=== PATIENT | male | born 1980 | race Caucasian/White ===

== ENCOUNTER 2021-12-06 01:06 | Day surgery (SDC) | payer OTHER, SELFPAY ==
[2021-11-23 14:06] VITALS: BMI 31.1
--- NOTE | 2021-12-05 14:53 | PM.HPGS ---
History of Present Illness History of Present Illness Consent: Risks, benefits, and alternatives have been discussed and questions answered. Patient agrees to proceed with procedure. Chief complaint: dysphagia, foreign body Narrative: Josef Putnam is a 41 year old male Who has been having difficulty swallowing for about 1 year. Review of Systems Review of Systems: All systems reviewed & are unremarkable except as noted in HPI and below PMFSH Social History Social History Smoking status: Never smoker Alcohol intake: current Drinks per week: 5 Substance use: never Substance use type: does not use Living arrangements: with family Gender identity (if verbalized by the patient): Male Spiritual care concerns: No Meds Home Medications and Allergies Home Medications Medication Instructions Recorded Confirmed Type omeprazole 20 mg tablet,delayed 20 mg PO DAILY 11/23/21 12/06/21 History release Allergies Allergy/AdvReac Type Severity Reaction Status Date / Time Penicillins Allergy Unknown Rash Verified 12/06/21 08:33 Exam Const: General: alert Orientation/consciousness: patient oriented x3 Resp: Auscultation: clear to auscultation bilaterally Cardio: Rhythm: regular rhythm GI: GI Palp: Yes Soft to palpation and No Tenderness to palpation present (GI) Neuro: General: patient oriented x3 Assessment and Plan Assessment and plan (1) Dysphagia: Code(s): R13.10 - Dysphagia, unspecified Status: Acute Assessment and Plan: EGD with possible biopsy or dilatation or cautery.
[2021-12-06 08:35] VITALS: BP 136/97; PULSE 74; RESP 16; TEMP 36.3; O2SAT 98; BMI 31.1
[2021-12-06] MEDS: LACTATED RINGERS 1,000 ML 150 ML IV CONT (08:44)
--- NOTE | 2021-12-06 09:22 | WPDANESEPPF ---
Anes - Initial Pre Proc Eval Procedure: Operation Date: 12/06/21 09:45 Proposed Procedures p Esophagogastroduodenoscopy EGD - Du Franco MD Date/Time: 12/06/21 09:22 Surgeon: Du Franco MD Pre Op Diagnosis: dysphagia, foreign body Patient Data Age: 41 Gender: M Height: 1.73 m Weight: 92.8 kg Last Vital Signs Temp 97.3 F L 12/06/21 08:35 Pulse 74 12/06/21 08:35 Resp 16 12/06/21 08:35 BP 136/97 H 12/06/21 08:35 Pulse Ox 98 12/06/21 08:35 O2 Del Method Room Air 12/06/21 08:35 Allergies Allergy/AdvReac Type Severity Reaction Status Date / Time Penicillins Allergy Unknown Rash Verified 12/06/21 08:33 Home Medications Medication Instructions Recorded Confirmed Type omeprazole 20 mg tablet,delayed 20 mg PO DAILY 11/23/21 12/06/21 History release Patient hx anesthesia problems: none Family hx anesthesia problems: none Results Review: All pre-operative results and documents have been reviewed as part of the pre-operative evaluation. [facility] Social History Social History Smoking status: Never smoker Alcohol intake: current Drinks per week: 5 Substance use: never Substance use type: does not use Living arrangements: with family Gender identity (if verbalized by the patient): Male Spiritual care concerns: No Anes - Eval Final PreProcedure Day of Procedure 12/06/21 09:22 Patient weight: overweight Heart: regular rate and rhythm Lungs: clear to auscultation Airway: Mallampati scale class II Neurological: alert and oriented Last oral intake: >/= 8 hours ASA classification: II Emergent: no Anesthetic plan: proceed Anesthesia type and monitoring: general GIVS and standard monitoring Results Review: All pre-operative results and documents have been reviewed as part of the pre-operative evaluation. Informed Consent: The patient's anesthetic plan and its attendant risks and benefits were discussed with the patient/family/POA. Questions were solicited and answers provided to the satisfaction of the patient/family/POA.
[2021-12-06 09:51] VITALS: BP 150/82; PULSE 88; RESP 20; O2SAT 96
[2021-12-06 10:01] VITALS: BP 130/94; PULSE 85; RESP 19; O2SAT 95
[2021-12-06 10:11] VITALS: BP 135/95; PULSE 85; RESP 19; O2SAT 96
== END 2021-12-06 10:20 | disposition home or self-care (01) ==
PROVIDERS: PCP Family Medicine; Visit Provider Internal Medicine Gastroenterology
PROC: 0DJ08ZZ Inspection of Upper Intestinal Tract, Via Natural or Artificial Opening Endoscopic (ICD-10-PCS; CPT 43235; principal; 2021-12-06 09:45)
DX: K22.2 Esophageal obstruction (principal); K20.0 Eosinophilic esophagitis
CPT/HCPCS: 43249; 88305; C1726; J2704; J7120

== ENCOUNTER 2022-03-22 01:47 | Day surgery (SDC) | payer OTHER, SELFPAY ==
[2022-03-05 15:07] VITALS: BMI 32.8
--- NOTE | 2022-03-21 09:54 | P.PNAN_ITS ---
Anes - Initial Pre Proc Eval Procedure: Operation Date: 03/22/22 10:15 Proposed Procedures p Esophagogastroduodenoscopy - Du Franco MD Date/Time: 03/21/22 09:54 Surgeon: Du Franco MD Pre Op Diagnosis: dysphagia Patient Data Age: 41 Gender: M Height: 1.73 m Weight: 97.8 kg Allergies Allergy/AdvReac Type Severity Reaction Status Date / Time Penicillins Allergy Unknown Rash Verified 03/22/22 09:16 Home Medications Medication Instructions Recorded Confirmed Type omeprazole 40 mg capsule,delayed 40 mg PO DAILY #90 caps 12/08/21 03/22/22 Rx release Patient hx anesthesia problems: none Family hx anesthesia problems: none Results Review: All pre-operative results and documents have been reviewed as part of the pre- operative evaluation. [facility] Past Medical History Medical History (Updated 03/21/22 @ 09:55 by Tulio Montiel DO) Eosinophilic esophagitis GERD (gastroesophageal reflux disease) Social History Social History Smoking status: Never smoker Alcohol intake: current Drinks per week: 5 Substance use: never Substance use type: does not use Living arrangements: with family Occupation/Education: occupation Gender identity (if verbalized by the patient): Male Spiritual care concerns: No Anes - Eval Final PreProcedure Day of Procedure 03/21/22 09:54 Patient weight: obese Heart: regular rate and rhythm Lungs: clear to auscultation Airway: Mallampati scale class II Neurological: alert and oriented Last oral intake: >/= 8 hours ASA classification: II Emergent: no Anesthetic plan: proceed Anesthesia type and monitoring: general GIVS and standard monitoring Results Review: All pre-operative results and documents have been reviewed as part of the pre- operative evaluation. Informed Consent: The patient's anesthetic plan and its attendant risks and benefits were discussed with the patient/family/POA. Questions were solicited and answers provided to the satisfaction of the patient/family/POA.
--- NOTE | 2022-03-21 15:15 | PM.HPGS ---
History of Present Illness History of Present Illness Consent: Risks, benefits, and alternatives have been discussed and questions answered. Patient agrees to proceed with procedure. Chief complaint: dysphagia Narrative: Josef Putnam is a 41 year old male who has had difficulty swallowing for least 1 year.? 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 I was able to dilated up to 18 mm. Biopsies of both the proximal and distal esophagus revealed increased number of eosinophils.? There were 28 per HPF in the distal esophagus and 17 proximally. since his last procedure he has had no episodes of food getting stuck. Review of Systems Review of Systems: All systems reviewed & are unremarkable except as noted in HPI and below PMFSH Past Medical History Medical History Eosinophilic esophagitis GERD (gastroesophageal reflux disease) Social History Social History Smoking status: Never smoker Alcohol intake: current Drinks per week: 5 Substance use: never Substance use type: does not use Living arrangements: with family Occupation/Education: occupation Gender identity (if verbalized by the patient): Male Spiritual care concerns: No Meds Home Medications and Allergies Home Medications Medication Instructions Recorded Confirmed Type omeprazole 40 mg capsule,delayed 40 mg PO DAILY #90 caps 12/08/21 03/22/22 Rx release Allergies Allergy/AdvReac Type Severity Reaction Status Date / Time Penicillins Allergy Unknown Rash Verified 03/22/22 09:16 Exam Const: General: alert Orientation/consciousness: patient oriented x3 Resp: Auscultation: clear to auscultation bilaterally Cardio: Rhythm: regular rhythm GI: GI Palp: Yes Soft to palpation and No Tenderness to palpation present (GI) Neuro: General: patient oriented x3 Assessment and Plan Assessment and plan (1) Eosinophilic esophagitis: Code(s): K20.0 - Eosinophilic esophagitis Status: Acute Assessment and Plan: EGD with possible biopsy or dilatation or cautery.
[2022-03-22 09:17] VITALS: BP 115/82; PULSE 92; RESP 20; TEMP 36.1; O2SAT 97; BMI 32.6
[2022-03-22] MEDS: LACTATED RINGERS 1,000 ML 150 ML IV CONT (09:24)
[2022-03-22 10:22] VITALS: BP 117/98; PULSE 106; RESP 20; O2SAT 100
[2022-03-22 10:32] VITALS: BP 124/86; PULSE 90; RESP 20; O2SAT 100
[2022-03-22 10:42] VITALS: BP 137/92; PULSE 79; RESP 20; O2SAT 100
--- NOTE | 2022-03-22 10:53 | SUR.PHASEII ---
Patient ride home will not be here until 4110.
== END 2022-03-22 11:16 | disposition home or self-care (01) ==
PROVIDERS: PCP Family Medicine; Visit Provider Internal Medicine Gastroenterology
PROC: 0DJ08ZZ Inspection of Upper Intestinal Tract, Via Natural or Artificial Opening Endoscopic (ICD-10-PCS; CPT 43235; principal; 2022-03-22 10:15)
DX: K20.0 Eosinophilic esophagitis (principal); K22.2 Esophageal obstruction; K21.9 Gastro-esophageal reflux disease without esophagitis; E66.9 Obesity, unspecified; Z68.32 Body mass index [BMI] 32.0-32.9, adult
CPT/HCPCS: 43249; 88305; J2704; J7120

== ENCOUNTER 2022-12-27 09:45 | Outpatient (CLI) | payer OTHER, SELFPAY ==
--- NOTE | 2022-12-27 09:48 | EST_ITS ---
Patient Info Name: Josef Putnam Age: 42 years : 1980 Gender: Male Ht: 68 in Wt: 210 lbs BSA: 2.17 m2 HR: 74 bpm BP: 136 / 96 mmHg Heart Rhythm: Sinus Rhythm Exam Date: 12/27/2022 10:02 AM Exam Location: Echo Lab Patient Status: Outpatient Admit Date: 12/27/2022 Staff Ordering Physician: Allison Rodriguez PA-C Attending Provider: Allison Rodriguez PA-C Exercise Technologist: Damaris Lopes CT Exercise Physician: Niko Talbert DO Exam Type: CA stress test treadmill Study Info Indications R06.09 - Other forms of dyspnea A treadmill exercise stress test was performed. Summary 1. 1. Negative Mario Alberto exercise stress test for ischemic ST changes by ECG criteria. 2. 2. Good functional capacity, achieving 10 METs of workload. 3. 3. Appropriate HR response to exercise. 4. 4. Appropriate HR recovery at 1 minute post exercise. 5. 5. No imaging with stress testing. 6. 6. Patient informed of the above results. Protocol: Mario Alberto Stress ECG Details Stage: REST Duration (min): 2 min : 45 sec Speed (mph): 0.0 Grade (%): 0 HR (bpm): 84 SBP (mmHg): 136 DBP (mmHg): 96 METS: --- Stage: REST Duration (min): 4 min : 54 sec Speed (mph): 0.0 Grade (%): 0 HR (bpm): 80 SBP (mmHg): 136 DBP (mmHg): 96 METS: --- Stage: STAGE 1 Duration (min): 1 min : 0 sec Speed (mph): 1.7 Grade (%): 10 HR (bpm): 115 SBP (mmHg): 136 DBP (mmHg): 96 METS: --- Stage: STAGE 1 Duration (min): 2 min : 0 sec Speed (mph): 1.7 Grade (%): 10 HR (bpm): 120 SBP (mmHg): 136 DBP (mmHg): 96 METS: --- Stage: STAGE 1 Duration (min): 3 min : 0 sec Speed (mph): 1.7 Grade (%): 10 HR (bpm): 126 SBP (mmHg): 183 DBP (mmHg): 86 METS: --- Stage: STAGE 2 Duration (min): 1 min : 0 sec Speed (mph): 2.5 Grade (%): 12 HR (bpm): 134 SBP (mmHg): 183 DBP (mmHg): 86 METS: --- Stage: STAGE 2 Duration (min): 2 min : 0 sec Speed (mph): 2.5 Grade (%): 12 HR (bpm): 140 SBP (mmHg): 180 DBP (mmHg): 88 METS: --- Stage: STAGE 2 Duration (min): 3 min : 0 sec Speed (mph): 2.5 Grade (%): 12 HR (bpm): 144 SBP (mmHg): 180 DBP (mmHg): 88 METS: --- Stage: STAGE 3 Duration (min): 1 min : 0 sec Speed (mph): 3.4 Grade (%): 14 HR (bpm): 159 SBP (mmHg): 194 DBP (mmHg): 83 METS: --- Stage: STAGE 3 Duration (min): 2 min : 0 sec Speed (mph): 3.4 Grade (%): 14 HR (bpm): 169 SBP (mmHg): 194 DBP (mmHg): 83 METS: --- Stage: STAGE 3 Duration (min): 2 min : 0 sec Speed (mph): 3.4 Grade (%): 14 HR (bpm): 169 SBP (mmHg): 194 DBP (mmHg): 83 METS: --- Stage: RECOVERY Duration (min): 0 min : 59 sec Speed (mph): 0.0 Grade (%): 0 HR (bpm): 145 SBP (mmHg): 169 DBP (mmHg): 82 METS: --- Stage: RECOVERY Duration (min): 1 min : 59 sec Speed (mph): 0.0 Grade (%): 0 HR (bpm): 126 SBP (mmHg): 169 DBP (mmHg):
== END 2022-12-27 09:46 | disposition home or self-care (01) ==
PROVIDERS: PCP Family Medicine; Visit Provider Physician Assistant Medical
DX: R06.02 Shortness of breath (principal); R06.09 Other forms of dyspnea
CPT/HCPCS: 93017

== ENCOUNTER 2023-04-08 12:21 | Outpatient (CLI) | payer OTHER, SELFPAY ==
--- NOTE | ~2023-04-08 | US_ITS ---
EXAMINATION: US soft tissue lower back DATE: 04/08/2023 12:57 INDICATION: Localized swelling, mass and lump, trunk. TECHNIQUE: Multiple grayscale and Doppler ultrasound images of the lower back were obtained. COMPARISON: None FINDINGS: There is a 4.9 x 4.8 x 1.4 cm subcutaneous mass in the mid back that is mildly hyperechoic to normal subcutaneous fat. No internal vascularity on color Doppler. IMPRESSION: 1. 4.9 cm subcutaneous mass in the mid back, most likely a lipoma. Reviewed, dictated and finalized at location E. [employer]
== END 2023-04-08 12:22 | disposition home or self-care (01) ==
PROVIDERS: PCP Family Medicine; Visit Provider Physician Assistant
DX: R22.2 Localized swelling, mass and lump, trunk (principal)
CPT/HCPCS: 76705

== ENCOUNTER 2023-08-12 08:33 | Outpatient (CLI) | payer OTHER, SELFPAY ==
--- NOTE | ~2023-08-12 | MR_ITS ---
EXAMINATION: MR brain/brain stem wo/w con DATE: 08/12/2023 09:21 INDICATION: Anesthesia of skin. TECHNIQUE: Magnetic resonance imaging (MRI) of the brain and brainstem was performed without and with 19 mL MultiHance intravenous contrast. COMPARISON: None. FINDINGS: There is no intracranial hemorrhage, acute infarction, or abnormal intracranial mass lesion . The ventricles are normal in size. There is mucosal thickening in the paranasal sinuses. The orbits are normal. The mastoid air cells are normal. IMPRESSION: 1. Normal brain. Reviewed, dictated and finalized at location A. IMPRESSION: 1. Normal brain.
== END 2023-08-12 08:34 ==
PROVIDERS: PCP Family Medicine; Visit Provider Physician Assistant
DX: R20.0 Anesthesia of skin (principal)
CPT/HCPCS: 70553; A9577

== ENCOUNTER 2023-08-26 07:51 | Outpatient (NON) | payer OTHER, SELFPAY | END 2023-08-26 07:52 | disposition home or self-care (01) | LOC: ANHLAB 08-27 07:54 | PROVIDERS: PCP Family Medicine; Visit Provider Internal Medicine Gastroenterology | DX: D64.9 Anemia, unspecified (principal); D12.5 Benign neoplasm of sigmoid colon | CPT/HCPCS: 88305 ==

== ENCOUNTER 2023-08-26 08:06 | Day surgery (SDC) | payer OTHER, SELFPAY ==
[2023-08-05 13:28] VITALS: BMI 31.6
[2023-08-11 13:01] VITALS: BMI 32.0
[2023-08-26 09:15] VITALS: BP 126/96; PULSE 105; RESP 20; TEMP 35.9; O2SAT 100; BMI 31.2
[2023-08-26] MEDS: LACTATED RINGERS 1,000 ML 150 ML IV CONT (09:24)
--- NOTE | 2023-08-26 09:42 | P.PNAN_ITS ---
Anes - Initial Pre Proc Eval Procedure: Operation Date: 08/26/23 10:30 Proposed Procedures p Diagnostic Colonoscopy - Du Franco MD Date/Time: 08/26/23 09:42 Surgeon: Du Franco MD Pre Op Diagnosis: Anemia,unspecified. Hemorrhage of anus and Patient Data Age: 42 Gender: M Height: 1.73 m Weight: 93.3 kg Last Vital Signs Temp 35.9 C L 08/26/23 09:15 Pulse 105 H 08/26/23 09:15 Resp 20 08/26/23 09:15 BP 126/96 H 08/26/23 09:15 Pulse Ox 100 08/26/23 09:15 O2 Del Method Room Air 08/26/23 09:15 Allergies Allergy/AdvReac Type Severity Reaction Status Date / Time losartan Allergy Mild Rash Verified 08/26/23 09:12 Penicillins Allergy Unknown Rash Verified 08/26/23 09:12 Home Medications Medication Instructions Recorded Confirmed Type amlodipine 5 mg tablet 5 mg PO DAILY #30 tabs 07/11/23 08/26/23 Rx omeprazole 40 mg capsule,delayed 40 mg PO DAILY 08/11/23 08/26/23 History release Patient hx anesthesia problems: none Family hx anesthesia problems: none Results Review: All pre-operative results and documents have been reviewed as part of the pre- operative evaluation. [facility] Past Medical History Medical History (Updated 08/26/23 @ 09:42 by Joey Zaldivar MD) Eosinophilic esophagitis GERD (gastroesophageal reflux disease) Hypertension Social History Social History Social History: Smoking status: Never smoker Second hand tobacco smoke exposure: No Alcohol intake: current Drinks per week: 10 Substance use: never Substance use type: does not use Do You Feel Safe in your Home?: Yes Lack of Transportation: No Lack of Food: Never True Current Housing: I Have Housing Concerned About Future Housing: No Difficulty Paying Gas/Electric Bills: No Difficulty Paying for Meds: No Currently Unemployed: No Education: Don't Know Difficulty w/ Childcare or Family Care: No Living arrangements: with family Occupation/Education: occupation Gender identity (if verbalized by the patient): Male Sexual Orientation (if Verbalized by the Patient): Straight or Heterosexual Spiritual care concerns: No Anes - Eval Final PreProcedure Day of Procedure 08/26/23 09:42 Patient weight: overweight Heart: regular rate and rhythm Lungs: clear to auscultation Airway: Mallampati scale class II Neurological: alert and oriented Last oral intake: >/= 8 hours ASA classification: II Emergent: no Anesthetic plan: proceed Anesthesia type and monitoring: general GIVS and standard monitoring Results Review: All pre-operative results and documents have been reviewed as part of the pre- operative evaluation. Informed Consent: The patient's anesthetic plan and its attendant risks and benefits were discussed with the patient/family/POA. Questions were solicited and answers provided to the satisfaction of the patient/family/POA.
--- NOTE | 2023-08-26 09:45 | PM.HPGS ---
History of Present Illness History of Present Illness Consent: Risks, benefits, and alternatives have been discussed and questions answered. Patient agrees to proceed with procedure. Chief complaint: Anemia,unspecified. Hemorrhage of anus and Narrative: Josef Putnam is a 42 year old male referred for colonoscopy due to the finding of anemia. Review of Systems Review of Systems: All systems reviewed & are unremarkable except as noted in HPI and below PMFSH Past Medical History Medical History Eosinophilic esophagitis GERD (gastroesophageal reflux disease) Hypertension Social History Social History Social History: Smoking status: Never smoker Second hand tobacco smoke exposure: No Alcohol intake: current Drinks per week: 10 Substance use: never Substance use type: does not use Do You Feel Safe in your Home?: Yes Lack of Transportation: No Lack of Food: Never True Current Housing: I Have Housing Concerned About Future Housing: No Difficulty Paying Gas/Electric Bills: No Difficulty Paying for Meds: No Currently Unemployed: No Education: Don't Know Difficulty w/ Childcare or Family Care: No Living arrangements: with family Occupation/Education: occupation Gender identity (if verbalized by the patient): Male Sexual Orientation (if Verbalized by the Patient): Straight or Heterosexual Spiritual care concerns: No Meds Home Medications and Allergies Home Medications Medication Instructions Recorded Confirmed Type amlodipine 5 mg tablet 5 mg PO DAILY #30 tabs 07/11/23 08/26/23 Rx omeprazole 40 mg capsule,delayed 40 mg PO DAILY 08/11/23 08/26/23 History release Allergies Allergy/AdvReac Type Severity Reaction Status Date / Time losartan Allergy Mild Rash Verified 08/26/23 09:12 Penicillins Allergy Unknown Rash Verified 08/26/23 09:12 Vital Signs Vital Signs - 24 hr 08/26/23 09:15 Temperature 35.9 C L Pulse Rate 105 H Respiratory Rate 20 Blood Pressure 126/96 H Pulse Oximetry 100 Oxygen Delivery Room Air Exam Const: General: alert Orientation/consciousness: patient oriented x3 Resp: Auscultation: clear to auscultation bilaterally Cardio: Rhythm: regular rhythm GI: GI Palp: Yes Soft to palpation and No Tenderness to palpation present (GI) Neuro: General: patient oriented x3 Assessment and Plan Assessment and plan (1) Anemia: Code(s): D64.9 - Anemia, unspecified Status: Acute Assessment and Plan: Colonoscopy with possible biopsy or polypectomy or cautery or injection of substances.
[2023-08-26 10:44] VITALS: BP 123/90; PULSE 94; RESP 20; O2SAT 100
[2023-08-26 10:54] VITALS: BP 129/93; PULSE 79; RESP 20; O2SAT 100
--- NOTE | 2023-08-26 11:00 | WPDANESPN ---
Anes - Prog Note Post-Op Date/Time: 08/26/23 11:00 Cardiovascular status: normal Respiratory status: normal Airway patency: baseline Mental status: baseline Post-Op hydration status: normal Vital Signs: Last Vital Signs Temp 35.9 C L 08/26/23 09:15 Pulse 79 08/26/23 10:54 Resp 20 08/26/23 10:54 BP 129/93 H 08/26/23 10:54 Pulse Ox 100 08/26/23 10:54 O2 Del Method Room Air 08/26/23 10:54 Pain Score (VAS): 0/10 I/O: Intake & Output 08/25/23 08/26/23 08/26/23 23:59 07:59 15:59 Intake Total 600 Balance 600 Patient Feedback: Patient satisfied with anesthetic care.
[2023-08-26 11:04] VITALS: BP 126/98; PULSE 75; RESP 20; O2SAT 100
== END 2023-08-26 11:15 | disposition home or self-care (01) ==
PROVIDERS: PCP Family Medicine; Visit Provider Internal Medicine Gastroenterology
PROC: 0DJD8ZZ Inspection of Lower Intestinal Tract, Via Natural or Artificial Opening Endoscopic (ICD-10-PCS; CPT 45378; principal; 2023-08-26 10:30)
DX: D64.9 Anemia, unspecified (principal); K92.1 Melena; D12.5 Benign neoplasm of sigmoid colon
CPT/HCPCS: 45385; 45381

== ENCOUNTER 2023-09-26 09:54 | Outpatient (CLI) | payer OTHER, SELFPAY ==
--- NOTE | 2023-09-26 10:45 | ECG_ITS ---
Test Date: 2023-09-26 10:58:40 Measurements Intervals [place] Rate: 60 P: 22 OR: 184 QRS: 6 QRSD: 106 T: 1 QT: 380 QTc: 380 Interpretive Statements SINUS RHYTHM BORDERLINE VOLTAGE EVIDENCE OF LVH BORDERLINE ECG No previous ECG available for comparison Electronically Signed On 09-26-2023 15:02:50 CDT by Yasmany Benitez M.D.
[2023-09-26 11:17] LABS: Basophils Absolute Auto 0.1 K/mm3 (0.0-0.1); Eosinophils Absolute Auto 0.3 K/mm3 (0-0.3); Eosinophils Percent Auto 4.5 % (0-4.4); Hematocrit 41.3 % (42.0-52.0); Hemoglobin 13.1 g/dL (14.0-18.0); Immature Granulocyte Absolute 0.05 K/mm3 (0.00-0.031); Immature Granulocyte Percent A 0.8 % (0-0.5); Lymphocytes Absolute Auto 1.41 K/mm3 (0.9-3.2); Lymphocytes Percent Auto 23.5 % (18.3-44.2); Mean Corpuscular HGB Conc 31.7 g/dl (32-36); Mean Corpuscular Hemoglobin 26.1 pg (26-34); Mean Corpuscular Volume 82.3 fl (80-100); Mean Platelet Volume 10.8 fl (7.4-10.4); Monocytes Absolute Auto 0.7 K/mm3 (0.1-0.6); Monocytes Percent Auto 11.3 % (2.6-8.5); Neutrophils Absolute Auto 3.5 K/mm3 (1.3-6.7); Neutrophils Percent Auto 58.9 % (45.5-73.1); Platelet Count Result 242 k/mm3 (150-375); Red Blood Count 5.02 M/mm3 (4.6-6.20); Red Cell Distribution Width 15.6 % (11.5-14.5)
[2023-09-26 12:11] LABS: Anion Gap 11 mmol/L (4-12); Blood Urea Nitrogen 17 mg/dL (9-20); Calcium 9.7 mg/dL (8.4-10.2); Carbon Dioxide 27 mmol/L (22-30); Chloride 99 mmol/L (98-107); Estimated Glomerular Filt Rate > 60; Glucose 101 mg/dL (65-110); Potassium 4.3 mmol/L (3.4-5.0); Sodium 137 mmol/L (137-145)
== END 2023-09-26 09:55 | disposition home or self-care (01) ==
PROVIDERS: PCP Family Medicine; Visit Provider Surgery
DX: K63.5 Polyp of colon (principal); R94.31 Abnormal electrocardiogram [ECG] [EKG]
CPT/HCPCS: 36415; 80048; 82378; 85025; 86850; 86900; 86901; 93005

== ENCOUNTER 2023-10-08 16:17 | Inpatient (IN) | payer OTHER, SELFPAY ==
[2023-09-26 10:15] VITALS: BP 137/91; PULSE 70; RESP 16; TEMP 36.7; O2SAT 98; BMI 32.2
--- NOTE | 2023-09-26 10:29 | PC.NURSE ---
Report to the Outpatient Waiting Room, entrance under the green pavilion located off [facility], at time __7:00AM on date __10/08/23 . Planned Procedure Time: __9:00AM . Time changes happen often and if your time is changed the preop area will call you the afternoon before. - You and your visitor will be asked to self-screen and do not enter if you have any COVID symptoms. - A mask is optional within the hospital at this time. COMPLETE BOWEL PREP ON DAY BEFORE SURGERY(CLEAR LIQUIDS)Patients may have clear liquids (water, carbonated beverages, clear teas, apple juice) until 3 hours prior to surgery with a maximum of 20 ounces. TAKE ANTIBIOTICS DIRECTED O DAY BEFORE SURGERY. Take the following medications with a SIP of water the morning of surgery: ___AMLODIPINE DO NOT STOP ANY OF YOUR OTHER PRESCRIPTION MEDICATIONS PRIOR TO SURGERY ?EXCEPT THE FOLLOWING Medications to discontinue per physician ____NONE Date to take last dose Please no make-up, nail kinyarwanda, hairspray, perfume, deodorant, or body powder the day of surgery. No jewelry (including any body piercings) or valuables the day of surgery, leave them at home. Please take a shower or bath the night before, or the morning of, surgery with an antibacterial soap. Wear comfortable, loose fitting clothing. - Jewelry must be removed prior to entering the operating room. Rings and piercings that are not removed may be cut off. - The hospital will not accept responsibility for valuables. - Please leave all valuables, including medications, at home the day of surgery. If you are going home after surgery, a licensed haul driver must drive you home. - NO public transportation without another adult if you receive anesthesia. - We recommend that an adult stay with you for 24 hours following discharge. - We also recommend that you do not drive, make important decision, drink alcoholic beverages, or take any drugs that were not prescribed by your health care provider for at least 24 hours after your discharge time. Follow any additional instructions given to you from your surgeon. HIBIC[employer] SHOWER DAY BEFORE AND MORNING OF SURGERY. ENSURE BUNDLE PER DR THOMAS. If you or anyone in your household have experienced Covid symptoms in the past week, please notify your surgeon or the nurse liaison at the phone number below for possible testing. Telephone instructions given to ____PATIENT and asked if any additional questions and then verbalized understanding. Patient advised to call surgeon office or pre surgery nurse liaison [phone] if any additional questions.
[2023-10-08] VITALS (13 sets, daily range): BP systolic 108–134; BP diastolic 61–93; PULSE 77–104; RESP 14–33; TEMP 36.1–37.3; O2SAT 91–100
--- NOTE | ~2023-10-08 | XR_ITS ---
XR chest 1V portable Ordering provider: Sun Yoo MD History: 43 years Male with . tachycardia . Comparison: None. FINDINGS: MEDIASTINUM: The cardiac silhouette is not enlarged. LUNGS: No pneumonia, effusions or pneumothorax. Prominent markings are seen bilaterally more prominen t in the left lung base. OTHER: No free air under the diaphragm. IMPRESSION: Prominent markings bilaterally more in the left lung base. Otherwise, no definite cardiopulmonary pat hology. Reviewed, dictated and finalized at location A. IMPRESSION: Prominent markings bilaterally more in the left lung base. Otherwise, no defini te cardiopulmonary pathology.
--- NOTE | ~2023-10-08 | CT_ITS ---
EXAMINATION: CT abdomen pelvis w con DATE: 10/13/2023 14:52 INDICATION: Nausea and diarrhea. TECHNIQUE: Computed tomography (CT) of the abdomen and pelvis was performed with 100 mL Omnipaque-350 intravenous contrast. Automated exposure control and iterative reconstruction technique were employe d. The dose-length product was 1089.98 mGy-cm. COMPARISON: None FINDINGS: Discoid atelectasis in the left lower lobe. Small left pleural effusion. Heart size is normal. No per icardial effusion. Small sliding type hernia. 8 mm cyst in the left hepatic lobe. Gallbladder, spleen , pancreas, bilateral adrenal glands and right kidney are normal. 1.5 severe eccentric cyst at the lo wer pole of the left kidney. There is fluid throughout the large and small bowel consistent with prov ided history of diarrhea. No bowel obstruction. Normal appendix. There is a small amount of scattered free intraperitoneal gas and fluid in the abdomen and pelvis and soft tissue gas and edema in the ab dominal wall consistent with recent surgery. This includes a 8.3 x 5.9 cm gas and fluid collection wi thin the small bowel mesentery in the left upper quadrant. All are without well-defined peripherally enhancing nicolas to suggest organized abscesses. Bladder is normal. No pathologically enlarged abdomin al or pelvic lymphadenopathy. Mild thoracic spondylosis. IMPRESSION: 1. Scattered gas and fluid throughout the abdomen and pelvis consistent with recent bowel surgery. No organized abscess. 2. Fluid throughout nondilated large and small bowel consistent with diarrhea. No bowel obstruction. 3. Small left pleural effusion and mild discoid atelectasis in the left lower lobe. Reviewed, dictated and finalized at location A. IMPRESSION: 1. Scattered gas and fluid throughout the abdomen and pelvis consistent with re cent bowel surgery. No organized abscess. 2. Fluid throughout nondilated large and small bowel consistent with diarrhea. No bowel obstruction. 3. Small left pleural effusion and mild discoid atelectasis in the left lower l obe.
--- NOTE | ~2023-10-08 | XR_ITS ---
EXAMINATION: XR enema water soluble DATE: 10/14/2023 10:25 INDICATION: Status post resection TECHNIQUE: A jewelry inspector radiograph was obtained. A catheter was inserted into the patient's rectum. Water- soluble contrast was infused by gravity. Fluoroscopic spot images and conventional radiographs were o btained. Fluoroscopy exposure time was 0.4 minutes. A total of 20 fluoroscopic images and 2 overhead radiographs were obtained. Total DAP was 28.486 Gycm^2. COMPARISON: CT dated 10/13/2023 FINDINGS: There is a likely anastomotic arises near the level of the iliac crests to contrast extends cephalad along the left paracolic gutter into the left upper quadrant. Contrast extends to the distal tip of t he cecum with contrast fills grossly normal appendix. There is reflux of a small amount of contrast i n the distal ileum. No fixed stricture/obstruction. IMPRESSION: 1. Likely anastomotic extraluminal contrast leak along the distal descending colon. Reviewed, dictated and finalized at location A. IMPRESSION: 1. Likely anastomotic extraluminal contrast leak along the distal descending co bita.
--- NOTE | ~2023-10-08 | XR_ITS ---
XR abdomen/kub 1V Ordering provider: Sun Yoo MD History: . post op colectomy . Comparison: None. FINDINGS: BOWEL: Nonobstructive bowel gas pattern. ORGANOMEGALY: None. SIGNIFICANT PATHOLOGIC CALCIFICATIONS: None. OTHER: No free air is seen under the diaphragm. IMPRESSION: NO ACUTE ABDOMINAL FINDINGS. Reviewed, dictated and finalized at location A.
--- NOTE | ~2023-10-08 | CT_ITS ---
EXAMINATION: CT abdomen pelvis w con DATE: 10/22/2023 11:37 INDICATION: Abdominal abscess. TECHNIQUE: Computed tomography (CT) of the abdomen and pelvis was performed with 100 mL Omnipaque 350 intravenous contrast. Automated exposure control and iterative reconstruction technique were employe d. The dose-length product was 623.54 mGy-cm. COMPARISON: CT abdomen and pelvis 10/19/2023 FINDINGS: The visualized portions of the lung bases demonstrate mild atelectasis. No pleural effusion . The heart size is normal. No pericardial effusion. There is a 9 mm cyst in the liver. The gallbladd er, spleen, pancreas, adrenal glands, and right kidney are normal. There is a 14 mm hemorrhagic cyst in left kidney. The appendix is normal. There are no dilated loops of bowel. There is no significant fluid around the superior left abdominal drain. There is a 3.6 x 3.3 x 2.3 cm abscess in left abdomen . There is an 8.7 x 3.7 x 5.0 cm abscess in left abdomen with percutaneous drain in expected position . There is a 3.8 x 3.7 x 2.0 cm abscess in the inferior peritoneum. There is free intraperitoneal gas and gas in the body wall, consistent with recent surgery. There are no pathologically enlarged lymph nodes. There is mild thoracic and lumbar spondylosis. IMPRESSION: 1. Three abscesses in the abdomen, stable from 10/19/23. Percutaneous drain in the largest abscess. 2. No significant fluid around the left superior abdominal drain. Reviewed, dictated and finalized at location A. IMPRESSION: 1. Three abscesses in the abdomen, stable from 10/19/23. Percutaneous drain in th e largest abscess. 2. No significant fluid around the left superior abdominal drain.
--- NOTE | ~2023-10-08 | CT_ITS ---
EXAMINATION: CT guide absc cath placement, CT guide absc cath placement DATE: 10/16/2023 15:07 (accession [id number]), 10/16/2023 15:56 (accession [id number]) INDICATION: Anastomotic bowel leak with intra-abdominal abscesses TECHNIQUE: The procedure including the risks and benefits was discussed with the patient. Risks discu ssed included bleeding and infection. The patient understood the risks and benefits and agreed to pro ceed. The patient was confirmed to be receiving appropriate antibiotic coverage. Conscious sedation w as provided with 100 mcg fentanyl IV. The skin overlying the left upper quadrant and left lower quadr ant of the abdomen was prepped and draped in usual sterile fashion. Attention was first turned to th e left upper quadrant gas and fluid collection. Anesthetic was administered with 1% lidocaine subcuta neously. An 18-gauge trochar needle was inserted into the left upper quadrant peritoneal gas and flui d collection utilizing CT guidance. The inner trocar was removed and a J-wire advanced into the fluid collection with position confirmed by CT. Utilizing Seldinger technique the needle was removed over the wire, the tract serially dilated to 10 Faroese and a A 10 Fr catheter was inserted over the wire i nto the gas and fluid collection. Position was confirmed by CT and then the pigtail tip was formed an d locked and the metal stiffener and wire were removed. The catheter was stitched to the skin with faith ture. Antibiotic ointment, a sterile dressing and an additional adhesive fixation device were applied . Attention was then turned to the left lower quadrant gas and fluid collection. Anesthetic was adminis tered with 1% lidocaine subcutaneous fluid. Utilizing CT guidance and identical Seldinger technique a 10 Fr catheter was placed in the left lower quadrant gas and fluid collection. Following confirmatio n of positioning by CT the pigtail tip was formed and locked. The catheter was stitched to the skin w ith suture. Antibiotic ointment, a sterile dressing and an additional adhesive fixation device were a pplied. Fluid was collected from both fluid collections and sent to the lab for Gram stain and cultures. Both catheters were attached to suction drainage and were draining additional fluid at the conclusion of the procedure. There were no immediate complications. The dose-length product 3-D combined procedures was 280.60 (accession [id number]), 0.00 (accession [id number]) mGy-cm. FINDINGS: CT images demonstrate the first catheter within the left upper quadrant gas and fluid colle ction and the second catheter within the left lower quadrant gas and fluid collection. 50 mL fluid wa s aspirated for testing from the left upper quadrant collection. An additional 40 mL of fluid was asp irated for testing from the left lower quadrant collection. IMPRESSION: 1. Successful CT-guided left upper quadrant abscess drainage catheter placement. 2. Successful CT-guided left lower quadrant abscess drainage catheter placement. 3. 50 mL fluid was sent for aerobic and anaerobic cultures from the left upper quadrant fluid collect ion and 40 mL fluid was sent for aerobic and anaerobic cultures from the left lower quadrant fluid co llection. 3. The catheter will be managed by Dr. Truong. Reviewed, dictated and finalized at location A. IMPRESSION: 1. Successful CT-guided left upper quadrant abscess drainage catheter placement . 2. Successful CT-guided left lower quadrant abscess drainage catheter placement . 3. 50 mL fluid was sent for aerobic and anaerobic cultures from the left upper quadrant fluid collection and 40 mL fluid was sent for aerobic and anaerobic cu ltures from the left lower quadrant fluid collection. 3. The catheter will be managed by Dr. Truong.
--- NOTE | ~2023-10-08 | CT_ITS ---
EXAMINATION: CT abdomen pelvis w con DATE: 10/16/2023 08:46 INDICATION: Left flank erythema. Descending colon anastomotic leak. TECHNIQUE: Computed tomography (CT) of the abdomen and pelvis was performed with 100 mL Omnipaque-350 intravenous contrast. Automated exposure control and iterative reconstruction technique were employe d. The dose-length product was 1158.58 mGy-cm. COMPARISON: None FINDINGS: Mild discoid atelectasis in the left lower lobe. Heart size is normal. No pericardial or pleural effu ruben. Distal tip of a central venous catheter at the superior cavoatrial junction. Liver, gallbladder , spleen, pancreas, bilateral adrenal glands and kidneys are normal. Fluid scattered throughout the l arge and small bowel consistent with diarrhea. There is scattered free intraperitoneal gas and fluid. This includes a crescentic collection underlying the anterior abdominal wall in the left lower quadr ant measuring 15 x 5 cm which appears to arise from the anastomosis at the junction of the descending and sigmoid colon as well as a second collection amongst the small bowel in the left upper quadrant which measures up to 11.5 x 10.0 cm. There are a few additional scattered small collections of gas or fluid throughout the abdomen and pelvis. No more organized abscesses with rim-enhancing nicolas. There is persistent diffuse abdominal wall edema with scattered gas in the left abdominal wall. Bladder is normal. No pathologically enlarged abdominal or pelvic lymphadenopathy. Mild thoracic spondylosis. IMPRESSION: 1. Interval increase in size of a couple gas and fluid collections in the left upper and lower quadra nts resulting from an anastomotic leak at the junction of the descending and sigmoid colon as demonst rated on a prior water-soluble enema. 2. Fluid throughout nondilated large and small bowel consistent with diarrhea. No bowel obstruction. Reviewed, dictated and finalized at location A. IMPRESSION: 1. Interval increase in size of a couple gas and fluid collections in the left upper and lower quadrants resulting from an anastomotic leak at the junction of the descending and sigmoid colon as demonstrated on a prior water-soluble enem a. 2. Fluid throughout nondilated large and small bowel consistent with diarrhea. No bowel obstruction.
--- NOTE | ~2023-10-08 | CT_ITS ---
Non-contrast CT scan of the Abdomen and Pelvis Clinical indication: Anastomotic leak Technique: 2.5 mm axial scans were obtained through the abdomen and pelvis without intravenous or or al contrast. Dose reduction technique was used on this scan by utilizing automated exposure control a nd iterative reconstruction technique. The dose-length product (DLP) was 974.13 mGy-cm. COMPARISON: 10/16/2023 Findings: Images through the lung bases reveal no abnormalities. There is no evidence of renal or ureteral calculi. The kidneys and the ureters are nondilated. The liver, spleen, pancreas, gallbladder, and adrenals appear normal. There is no aortic aneurysm. There is no evidence of bowel obstruction. Extensive inflammatory change in the left abdomen are agai n present. 2 percutaneous drainage catheters now present in the left abdomen. The 2 dominant fluid co llections seen on prior exam are markedly decreased in size. There are several additional scattered s mall fluid collections in the left abdomen which persist. Small amount of pneumoperitoneum present. T here is soft tissue gas along the anterior abdominal wall. Images through the pelvis were performed. There is no evidence of ascites or lymphadenopathy. Urinary bladder unremarkable. No pelvic mass seen. Impression: Status post interval percutaneous drainage of 2 largest collections the left abdomen since prior exam , both which are markedly decreased. Several additional small collections the left abdomen persists. Extensive inflammatory changes in the left abdomen are similar to prior exam. Small amount of pneumoperitoneum could be postoperative/postprocedural, versus reflect persistent bow el perforation or leak. Reviewed, dictated and finalized at [facility]. Impression: Status post interval percutaneous drainage of 2 largest collections the left ab domen since prior exam, both which are markedly decreased. Several additional s mall collections the left abdomen persists. Extensive inflammatory changes in the left abdomen are similar to prior exam. Small amount of pneumoperitoneum could be postoperative/postprocedural, versus reflect persistent bowel perforation or leak.
--- NOTE | ~2023-10-08 | XR_ITS ---
EXAMINATION: XR chest 1V portable DATE: 10/15/2023 21:02 INDICATION: Shortness of breath. TECHNIQUE: A single frontal view of the chest was obtained. COMPARISON: Chest 2 views 10/14/2023, CT abdomen and pelvis 10/13/2023 FINDINGS: There is no pneumonia, pleural effusion, or pneumothorax. There is free intraperitoneal gas , consistent with recent surgery. The heart size is normal. A right upper extremity peripherally inse rted central venous catheter (PICC) is seen with tip at the superior cavoatrial junction. IMPRESSION: 1. No acute cardiopulmonary disease. Reviewed, dictated and finalized at location A.
--- NOTE | ~2023-10-08 | XR_ITS ---
Clinical Indication: Fever, leukocytosis, recent surgery PA and lateral views of the chest: Comparison: 10/10/2023 Findings: The lungs are clear, without evidence of focal consolidation or pleural effusion. Cardiome diastinal silhouette is within normal limits. Small left pneumoperitoneum noted. Osseous structures a re intact. Impression: Small amount of pneumoperitoneum, presumably postoperative in nature given history of recent surgery. Correlate clinically for any possibility of bowel perforation. Clear lungs. Reviewed, dictated and finalized at location . Impression: Small amount of pneumoperitoneum, presumably postoperative in nature given hist ory of recent surgery. Correlate clinically for any possibility of bowel perfor ation. Clear lungs.
--- NOTE | ~2023-10-08 | XR_ITS ---
EXAMINATION: XR abdomen/kub 1V DATE: 10/12/2023 INDICATION: Nausea and vomiting. TECHNIQUE: A supine view of the abdomen was obtained. COMPARISON: Abdomen radiograph 10/10/2023 FINDINGS: There are no dilated loops of bowel. There are phleboliths in the pelvis. IMPRESSION: 1. Normal bowel gas pattern. Reviewed, dictated and finalized at location A.
[2023-10-08] MEDS: LACTATED RINGERS 1,000 ML 30 ML IV CONT ×2 (07:30→14:23)
--- NOTE | 2023-10-08 07:48 | WPDHPUPDATE1 ---
History and Physical Update Update Date/Time: 10/08/23 07:48 History and Physical has been reviewed, including an updated exam of the patient. There are NO changes in the patient's condition. Risks, benefits, and alternatives have been discussed and questions answered. Patient agrees to proceed with procedure.
[2023-10-08] MEDS: ALVIMOPAN 12 MG CAPSULE PO (08:00)
[2023-10-08] MEDS: ACETAMINOPHEN 500 MG TABLET 1000 MG PO (08:03)
[2023-10-08] MEDS: KETOROLAC 15 MG/ML VIAL (*BKC) IV PUSH (08:03)
--- NOTE | 2023-10-08 08:53 | WPDANESEPPF ---
Anes - Initial Pre Proc Eval Procedure: Operation Date: 10/08/23 09:00 Proposed Procedures p Hand Assisted Laparoscopic Left Colectomy - Mir Truong MD Date/Time: 10/08/23 08:53 Surgeon: Mir Truong MD Pre Op Diagnosis: Lt Sigmoid Colon Polyp Patient Data Age: 43 Gender: M Height: 1.73 m Weight: 95 kg Last Vital Signs Temp 97.6 F 10/08/23 07:00 Pulse 77 10/08/23 07:00 Resp 18 10/08/23 07:00 BP 129/85 10/08/23 07:00 Pulse Ox 100 10/08/23 07:00 O2 Del Method Room Air 10/08/23 07:00 Allergies Allergy/AdvReac Type Severity Reaction Status Date / Time losartan Allergy Mild Rash Verified 10/08/23 08:18 Penicillins Allergy Unknown Rash Verified 10/08/23 08:18 Home Medications Medication Instructions Recorded Confirmed Type amlodipine 5 mg tablet 5 mg PO DAILY #30 tabs 07/11/23 10/08/23 Rx omeprazole 40 mg capsule,delayed 40 mg PO DAILY #30 caps 09/03/23 10/08/23 Rx release ciprofloxacin HCl 500 mg tablet 500 mg PO .COMPLEX #1 tablet 09/15/23 10/08/23 Rx metronidazole 500 mg tablet 500 mg PO .COMPLEX #3 tabs 09/15/23 10/08/23 Rx Patient hx anesthesia problems: none Family hx anesthesia problems: none Results Review: All pre-operative results and documents have been reviewed as part of the pre-operative evaluation. [facility] Past Medical History Medical History (Updated 09/15/23 @ 10:29 by Aleyda Gordillo MA) Eosinophilic esophagitis GERD (gastroesophageal reflux disease) Hypertension Surgical History Surgical History (Updated 09/15/23 @ 09:20 by DELPHINE Sena) Hx of colonoscopy 08/26/23 Family History Family History (Updated 09/15/23 @ 09:21 by DELPHINE Sena) Grandparent Cancer Social History Social History (Updated 09/15/23 @ 09:21 by DELPHINE Sena) Social History: Smoking status: Never smoker Second hand tobacco smoke exposure: No Alcohol intake: current Drinks per week: 14 Substance use: never Substance use type: does not use Do You Feel Safe in your Home?: Yes Lack of Transportation: No Lack of Food: Never True Current Housing: I Have Housing Concerned About Future Housing: No Difficulty Paying Gas/Electric Bills: No Difficulty Paying for Meds: No Currently Unemployed: No Education: High School Diploma/GED Difficulty w/ Childcare or Family Care: No Living arrangements: with family Additional living arrangements comments: Occupation/Education: occupation Gender identity (if verbalized by the patient): Male Sexual Orientation (if Verbalized by the Patient): Straight or Heterosexual Spiritual care concerns: No Anes - Eval Final PreProcedure Day of Procedure 10/08/23 08:53 Patient weight: obese Heart: regular rate and rhythm Lungs: clear to auscultation Airway: Mallampati scale class II Neurological: alert and oriented Last oral intake: >/= 8 hours ASA classification: II Emergent: no Anesthetic plan: proceed Anesthesia type and monitoring: general ETT and standard monitoring Results Review: All pre-operative results and documents have been reviewed as part of the pre-operative evaluation. Informed Consent: The patient's anesthetic plan and its attendant risks and benefits were discussed with the patient/family/POA. Questions were solicited and answers provided to the satisfaction of the patient/family/POA.
[2023-10-08] MEDS: ceFAZolin 2 GM/D5W 50 ML 2 GM/50 ML BAG IVPB (09:16)
[2023-10-08] MEDS: metroNIDAZOLE 500 MG/ISO 100ML 500 MG/100 ML BAG 100 MG IVPB (09:16)
[2023-10-08] MEDS: BUPIVACAINE/EPINEPHRINE 0.5% 10 ML VIAL 60 ML INFILTRATE (10:40)
--- NOTE | 2023-10-08 14:40 | W.PM.PROC2 ---
Procedure Note - Detailed Date of Procedure 10/08/23 Pre-op Diagnosis Lt Sigmoid Colon Polyp Post-op Diagnosis Other (Descending colon polyp) Procedure Performed Hand access laparoscopic left colectomy with hand-sewn anastomosis, takedown splenic flexure Surgeon Mir Truong MD Senior Sql Server Database Developer Lata Lawrence RN Anesthesia General and Local Indications Patient had colonoscopy as he was noticing some blood in his stools. Colonoscopy did show a 5 cm polyp in the distal descending more up per sigmoid colon. It was partially removed colonoscopically clean. 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 He was seen in the off office and surgery was recommended. After bowel preparation as an outpatient, he is taken to surgery now for hand access laparoscopic resection of the colon polyp. Findings The tattoo of the polyp was easily seen. It was more in the descending colon and not as close to the sigmoid colon as I had envisioned. The splenic flexure had to be taken down and this was difficult as there were a tremendous number of omental adhesions and epiploic adhesions in the right upper quadrant. Description of Procedure Patient was taken to surgery and induced into general anesthesia. He was placed in lithotomy position with Mike stirrups. He had rectal irrigation and a rectal tube placed. Gaines catheter was placed. The abdomen was prepped and draped. A lower abdominal midline incision just below the umbilicus was made for the hand access port. We dissected through the fascia in the midline and entered the peritoneal cavity. The incision was then extended the length of the wound. The Yao wound guard was then placed. The GelPort was placed. With a hand in the abdomen, a left mid abdominal 10 11 trocar was placed. Insufflation was carried out and a laparoscopic opens then placed. Under direct visualization, a 2nd 10 11 port was placed just to the left of midline above the umbilicus. Another 10 11 port was placed in the right mid abdomen. Patient was placed in Trendelenburg with the left side elevated. The omentum was very large and attached to the left colon. Adhesions of the omentum were taken down and the bulk of the left colon was exposed. The tattooed area the the polyp was easily seen. It was in the distal descending colon but well above the sigmoid colon. Using the LigaSure, I divided the lateral peritoneal attachments to the left colon and mobilized the left colon from the left upper abdomen down through the sigmoid colon. The sigmoid colon was already mobile with minimal attachments or adhesions. We we found the left ureter and it was well out of the way of the tattooed area of descending colon. I then mobilized the left colon on its mesentery. There was not enough proximal left colon to advance to the distal descending upper sigmoid colon for anastomosis. I then placed the patient in reverse Trendelenburg. We retracted the omentum and divided the lateral peritoneal attachments to the upper left colon at and near to the splenic flexure. The spleen was very close by and had omental and epiploic adhesions to it. These were carefully taken down without any splenic injury. The omentum was still densely adherent to the splenic flexure. I had to place an extra 10 11 trocar in the right upper abdomen so that the omentum could be retracted anteriorly and to the patient's right to expose the distal transverse colon and splenic flexure. The LigaSure was then used to free the splenic flexure from omental adhesions. Some blunt hand dissection was used as well to mobilize the splenic flexure. I also mobilized the distal transverse colon. Lateral peritoneal attachments to the splenic flexure and adhesions to the spleen were taken down with the LigaSure without bleeding. Eventually I was able to mobilize the splenic flexure and the distal transverse colon. We had ample descending colon now without having to divide the superior mesenteri
--- NOTE | 2023-10-08 16:15 | ADMGEN ---
This patient, Josef Putnam, was admitted to 3 [facility] Room 303-01. Patient/family oriented to hospital policies and general routines including ID bracelet, bed and alarms, visiting hours, pain management, procedures, bathroom and other care routines, personal items, smoking policy, room service/diet, and visiting hours. Information on how to activate the Rapid Response Team has been discussed. Patient/Family are encouraged to report perceived risks to care and to ask questions if they do not understand what they are told or what they should do.
[2023-10-08] MEDS: LACTATED RINGERS 1,000 ML 80 ML IV CONT (16:50)
[2023-10-08] MEDS: oxyCODONE/ACETAMINOPHEN (*CRX) 5-325 MG TABLET 1 TABLET PO ×2 (16:51→21:04)
[2023-10-08] MEDS: IBUPROFEN IV 800 MG/200 ML 800 MG/200 ML BAG 400 MG IVPB (18:46)
[2023-10-08] MEDS: ENOXAPARIN 30 MG/0.3 ML SYRINGE SUB-Q (19:51)
[2023-10-09 02:02] VITALS: BP 118/69; PULSE 79; RESP 20; TEMP 36.3; O2SAT 94
[2023-10-09 05:36] VITALS: BP 116/71; PULSE 76; RESP 20; TEMP 36.4; O2SAT 97
[2023-10-09] MEDS: LACTATED RINGERS 1,000 ML 80 ML IV CONT (05:40)
[2023-10-09] MEDS: IBUPROFEN IV 800 MG/200 ML 800 MG/200 ML BAG 400 MG IVPB ×2 (06:17→17:20)
[2023-10-09 07:08] LABS: Hematocrit 35.9 % (42.0-52.0); Hemoglobin 10.8 g/dL (14.0-18.0); Mean Corpuscular HGB Conc 30.1 g/dl (32-36); Mean Corpuscular Hemoglobin 24.9 pg (26-34); Mean Corpuscular Volume 82.7 fl (80-100); Mean Platelet Volume 11.2 fl (7.4-10.4); Platelet Count Result 231 k/mm3 (150-375); Red Blood Count 4.34 M/mm3 (4.6-6.20); Red Cell Distribution Width 15.6 % (11.5-14.5); White Blood Count 8.6 K/mm3 (4.5-10.0)
[2023-10-09 07:15] LABS: Anion Gap 6 mmol/L (4-12); Blood Urea Nitrogen 7 mg/dL (9-20); Calcium 8.8 mg/dL (8.4-10.2); Carbon Dioxide 29 mmol/L (22-30); Chloride 104 mmol/L (98-107); Estimated CRCL calculation 85 ml/min; Estimated Glomerular Filt Rate > 60; Glucose 98 mg/dL (65-110); Potassium 3.7 mmol/L (3.4-5.0); Sodium 139 mmol/L (137-145)
[2023-10-09 08:00] VITALS: BP 120/68; PULSE 82; RESP 19; TEMP 36.6; O2SAT 99
[2023-10-09] MEDS: amLODIPine BESYLATE 5 MG TABLET PO (08:17)
[2023-10-09] MEDS: ENOXAPARIN 30 MG/0.3 ML SYRINGE SUB-Q ×2 (08:17→20:05)
[2023-10-09] MEDS: PANTOPRAZOLE 40 MG TABLET PO (08:17)
[2023-10-09] MEDS: oxyCODONE/ACETAMINOPHEN (*CRX) 5-325 MG TABLET 1 TABLET PO ×2 (09:15→20:05)
--- NOTE | 2023-10-09 09:24 | WPDANESPN ---
Anes - Prog Note Post-Op Date/Time: 10/09/23 09:24 Cardiovascular status: normal Respiratory status: normal Airway patency: baseline Mental status: baseline Post-Op hydration status: normal Vital Signs: Last Vital Signs Temp 36.6 C 10/09/23 08:00 Pulse 82 10/09/23 08:00 Resp 19 10/09/23 08:00 BP 120/68 10/09/23 08:00 Pulse Ox 99 10/09/23 08:00 O2 Del Method Room Air 10/08/23 20:00 O2 Flow Rate 8 10/08/23 14:35 Pain Score (VAS): 10 I/O: Intake & Output 10/08/23 10/09/23 10/09/23 23:59 07:59 15:59 Intake Total 680 1800 480 Balance 680 1800 480 Laboratory Tests 10/09/23 06:08 10/09/23 06:08 10/09/23 06:08 WBC 8.6 RBC 4.34 L Hgb 10.8 L Hct 35.9 L MCV 82.7 MCH 24.9 L MCHC 30.1 L RDW 15.6 H Plt Count 231 MPV 11.2 H Sodium 139 Potassium 3.7 Chloride 104 Carbon Dioxide 29 Anion Gap 6 BUN 7 L D Creatinine 1.10 Estim Creat Clear Calc 85 Estimated GFR > 60 Glucose 98 Calcium 8.8 Post-procedural complaints: none Patient Feedback: Patient satisfied with anesthetic care.
[2023-10-09] MEDS: MORPHINE SULFATE (*CRX) 2 MG/ML INJ 1 MG IV PUSH (11:12)
[2023-10-09 12:00] VITALS: BP 112/70; PULSE 76; RESP 18; TEMP 36.7; O2SAT 97
[2023-10-09] MEDS: MORPHINE SULFATE (*CRX) 4 MG/ML INJ 2 MG IV PUSH ×2 (12:54→16:33)
[2023-10-09] MEDS: oxyCODONE/ACETAMINOPHEN (*CRX) 10-325 MG TABLET 1 TAB PO (13:46)
[2023-10-09 13:49] VITALS: BP 135/80; PULSE 98; RESP 19; TEMP 35.9; O2SAT 95
--- NOTE | 2023-10-09 17:06 | PM.PNGS ---
Progress Note: A&P Assessment and Plan (1) Polyp, sigmoid colon: Qualifiers: Colon polyp type: adenomatous Qualified Code(s): D12.5 - Benign neoplasm of sigmoid colon Code(s): K63.5 - Polyp of colon Status: Chronic Assessment and Plan: Looks good postop day 1. Status post laparoscopic left partial colectomy with anastomosis. Up walking today. Recheck labs tomorrow. Continue soft diet for now. (2) Anemia: Qualifiers: Anemia type: iron deficiency Iron deficiency anemia type: chronic blood loss Qualified Code(s): D50.0 - Iron deficiency anemia secondary to blood loss (chronic) Code(s): D64.9 - Anemia, unspecified Status: Chronic Assessment and Plan: H&H lower than preop, probably due to dilutional effects. No evidence of bleeding by exam or vital signs. Subjective Subjective Date/Time Seen: 10/09/23 07:46 Post Op day: 1 Patient reports: still having pain, tolerating a regular diet (Soft diet), voiding w/o difficulty, flatus, no bowel movement and afebrile Exam Const: General: cooperative, comfortable, no acute distress, alert, awake and average body habitus Orientation/consciousness: patient oriented x3 GI: Inspection: Abdominal wall edema, non-distended and incision (All incisions dry and healing well) GI Palp: Yes Soft to palpation, Yes Tenderness to palpation present (GI) (Expected incisional tenderness will mostly lower abdomen), No Guarding due to palpation present (GI) and No Rebound tenderness present Neuro: General: patient oriented x3 and no focal motor deficits Extrem: General: no calf tenderness and no edema Psych: Affect: normal affect Attitude: cooperative Insight: Good insight present (Psych) Judgement: Good judgement present (Psych) Objective Data Vital Signs Vital Signs: Vital Signs - 24 hr 10/08/23 18:02 10/08/23 20:00 10/08/23 21:48 Temperature 36.6 C 36.8 C Pulse Rate 90 78 Respiratory Rate 21 H 20 Blood Pressure 120/76 113/61 Pulse Oximetry 95 94 Oxygen Delivery Room Air 10/09/23 02:02 10/09/23 05:36 10/09/23 08:00 Temperature 36.3 C L 36.4 C L 36.6 C Pulse Rate 79 76 82 Respiratory Rate 20 20 19 Blood Pressure 118/69 116/71 120/68 Pulse Oximetry 94 97 99 Oxygen Delivery 10/09/23 12:00 10/09/23 13:49 Temperature 36.7 C 35.9 C L Pulse Rate 76 98 Respiratory Rate 18 19 Blood Pressure 112/70 135/80 Pulse Oximetry 97 95 Oxygen Delivery Intake/Output Intake/Output: Intake & Output 10/06/23 10/07/23 10/08/23 10/09/23 23:59 23:59 23:59 23:59 Intake Total 1680 2400 Balance 1680 2400 Meds/Results Medications: Active Medications Generic Name Dose Route Start Last Admin Trade Name Freq PRN Reason Stop Dose Admin Acetaminophen 500 mg 10/08/23 16:17 Acetaminophen 500 Mg Tablet PO Q6H PRN Pain Rated 1-3 Alvimopan 12 mg 10/09/23 21:00 Alvimopan 12 Mg Capsule PO 10/16/23 20:59 Q12HR PRECIOUS Amlodipine Besylate 5 mg 10/09/23 09:00 10/09/23 08:17 Amlodipine Besylate 5 Mg Tablet PO 5 mg DAILY PRECIOUS Administration Enoxaparin Sodium 30 mg 10/08/23 21:00 10/09/23 08:17 Enoxaparin 30 Mg/0.3 Ml Syringe SUB-Q 30 mg Q12HR PRECIOUS Administration Lactated Ringer's 1,000 mls @ 80 mls/hr 10/08/23 16:17 10/09/23 05:40 Lr - Lactated Ringers Iv IV CONT 80 mls/hr .[id number] PRECIOUS Administration Ibuprofen 800 mg in 200 mls @ 400 mls/hr 10/08/23 16:17 10/09/23 06:47 Caldolor 800 Mg/200 Ml IVPB Infused Q6H PRN Infusion Breakthrough Pain Rated 1-3 or NPO Morphine Sulfate 1 mg 10/08/23 16:17 10/09/23 11:12 Morphine Sulfate (*Crx) 2 Mg/Ml Inj IV PUSH 1 mg Q2H PRN Administration Breakthrough Pain Rated 4-6 or NPO Morphine Sulfate 2 mg 10/08/23 16:17 10/09/23 16:33 Morphine Sulfate (*Crx) 4 Mg/Ml Inj IV PUSH 2 mg Q2H PRN Administration Breakthrough Pain Rated 7-10 or NPO Naloxone HCl 0.1 mg 10/08/23 16:17
[2023-10-09] MEDS: ALVIMOPAN 12 MG CAPSULE PO (20:05)
[2023-10-09 20:58] VITALS: BP 123/76; PULSE 93; RESP 18; TEMP 36.1; O2SAT 95
[2023-10-10] MEDS: IBUPROFEN IV 800 MG/200 ML 800 MG/200 ML BAG 400 MG IVPB (00:17)
[2023-10-10] MEDS: LACTATED RINGERS 1,000 ML 80 ML IV CONT (03:25)
[2023-10-10] MEDS: oxyCODONE/ACETAMINOPHEN (*CRX) 5-325 MG TABLET 1 TABLET PO (04:15)
[2023-10-10 06:00] VITALS: BP 131/81; PULSE 93; RESP 16; TEMP 36.4; O2SAT 94
[2023-10-10 07:15] LABS: Hematocrit 34.7 % (42.0-52.0); Hemoglobin 10.5 g/dL (14.0-18.0); Mean Corpuscular HGB Conc 30.3 g/dl (32-36); Mean Corpuscular Hemoglobin 25.1 pg (26-34); Mean Platelet Volume 11.7 fl (7.4-10.4); Platelet Count Result 208 k/mm3 (150-375); Red Blood Count 4.18 M/mm3 (4.6-6.20); Red Cell Distribution Width 15.9 % (11.5-14.5)
[2023-10-10 07:34] LABS: Anion Gap 7 mmol/L (4-12); Blood Urea Nitrogen 7 mg/dL (9-20); Carbon Dioxide 30 mmol/L (22-30); Chloride 102 mmol/L (98-107); Estimated CRCL calculation 93 ml/min; Estimated Glomerular Filt Rate > 60; Glucose 103 mg/dL (65-110); Potassium 3.7 mmol/L (3.4-5.0); Sodium 139 mmol/L (137-145)
[2023-10-10] MEDS: ALVIMOPAN 12 MG CAPSULE PO ×2 (07:37→21:49)
[2023-10-10] MEDS: PANTOPRAZOLE 40 MG TABLET PO (07:37)
[2023-10-10] MEDS: oxyCODONE/ACETAMINOPHEN (*CRX) 10-325 MG TABLET 1 TAB PO ×2 (07:37→13:52)
[2023-10-10] MEDS: amLODIPine BESYLATE 5 MG TABLET PO (07:37)
[2023-10-10] MEDS: ENOXAPARIN 30 MG/0.3 ML SYRINGE SUB-Q ×2 (07:43→21:55)
--- NOTE | 2023-10-10 11:01 | PM.PNGS ---
Progress Note: A&P Assessment and Plan (1) Polyp, sigmoid colon: Qualifiers: Colon polyp type: adenomatous Qualified Code(s): D12.5 - Benign neoplasm of sigmoid colon Code(s): K63.5 - Polyp of colon Status: Chronic Assessment and Plan: Had some pain yesterday after twisting to reach for something. This was primarily the source of his pain yesterday. His pain was much better through the night. No bowel movement and not passing any gas. Has been up walking quite a bit already today. White blood cell count a little higher than yesterday at 10,000 today, 8000 yesterday. Will continue in-hospital care another day. Repeat labs and exam again tomorrow. Overall, seems to be doing well. (2) Anemia: Qualifiers: Anemia type: iron deficiency Iron deficiency anemia type: chronic blood loss Qualified Code(s): D50.0 - Iron deficiency anemia secondary to blood loss (chronic) Code(s): D64.9 - Anemia, unspecified Status: Chronic Assessment and Plan: Stable from yesterday (3) Hypertension: Qualifiers: Hypertension type: primary hypertension Qualified Code(s): I10 - Essential (primary) hypertension Code(s): I10 - Essential (primary) hypertension Status: Chronic Subjective Subjective Date/Time Seen: 10/10/23 09:01 Post Op day: 2 Patient reports: still having pain (Took IV ibuprofen and some IV narcotics yesterday for pain.), tolerating a regular diet, no flatus, no bowel movement and afebrile Interval history: Has been up walking in the hallways 6 times already this morning. Review of Systems Review of Systems: All systems reviewed & are unremarkable except as noted in HPI and below (HPI) Exam Const: General: comfortable and no acute distress Orientation/consciousness: patient oriented x3 GI: Inspection: incision (All are dry and healing) and obesity (Abdomen protuberant but not really distended) GI Palp: Yes Firmness to palpation present (GI), Yes Tenderness to palpation present (GI) (Minimal tenderness mostly with lower abdominal incision), No Guarding due to palpation present (GI) and No Rebound tenderness present Neuro: General: patient oriented x3 and no focal motor deficits Extrem: General: no calf tenderness and no edema Psych: Affect: normal affect Insight: Good insight present (Psych) Judgement: Good judgement present (Psych) Objective Data Vital Signs Vital Signs: Vital Signs - 24 hr 10/09/23 12:00 10/09/23 13:49 10/09/23 20:00 Temperature 36.7 C 35.9 C L Pulse Rate 76 98 Respiratory Rate 18 19 Blood Pressure 112/70 135/80 Pulse Oximetry 97 95 Oxygen Delivery Room Air 10/09/23 20:58 10/10/23 06:00 10/10/23 08:00 Temperature 36.1 C L 36.4 C L Pulse Rate 93 93 Respiratory Rate 18 16 Blood Pressure 123/76 131/81 Pulse Oximetry 95 94 Oxygen Delivery Room Air Intake/Output Intake/Output: Intake & Output 10/07/23 10/08/23 10/09/23 10/10/23 23:59 23:59 23:59 23:59 Intake Total 1680 2957 2060 Balance 1680 2957 2060 Meds/Results Medications: Active Medications Generic Name Dose Route Start Last Admin Trade Name Freq PRN Reason Stop Dose Admin Acetaminophen 500 mg 10/08/23 16:17 Acetaminophen 500 Mg Tablet PO Q6H PRN Pain Rated 1-3 Alvimopan 12 mg 10/09/23 21:00 10/10/23 07:37 Alvimopan 12 Mg Capsule PO 10/16/23 20:59 12 mg Q12HR PRECIOUS Administration Amlodipine Besylate 5 mg 10/09/23 09:00 10/10/23 07:37 Amlodipine Besylate 5 Mg Tablet PO 5 mg DAILY PRECIOUS Administration Enoxaparin Sodium 30 mg 10/08/23 21:00 10/10/23 07:43 Enoxaparin 30 Mg/0.3 Ml Syringe SUB-Q 30 mg Q12HR PRECIOUS Administration Ibuprofen 800 mg in 200 mls @ 400 mls/hr 10/08/23 16:17 10/10/23 00:47 Caldolor 800 Mg/200 Ml IVPB Infused Q6H PRN Infusion Breakthrough Pain Rated 1-3 or NPO Morphine Sulfate 1 mg 10/08/23 16:17 10/09/23 11:12 Morphine S
[2023-10-10 13:58] VITALS: BP 138/72; PULSE 112; RESP 16; TEMP 37.9; O2SAT 94
[2023-10-10] MEDS: ACETAMINOPHEN 500 MG TABLET PO (18:15)
--- NOTE | 2023-10-10 20:57 | ECG_ITS ---
Test Date: 2023-10-10 21:16:22 Measurements Intervals [place] Rate: 101 P: 46 FL: 166 QRS: 13 QRSD: 102 T: 23 QT: 305 QTc: 397 Interpretive Statements SINUS TACHYCARDIA INCOMPLETE RIGHT BUNDLE BRANCH BLOCK [90+ ms QRS DURATION, TERMINAL R IN V1/V2, 40+ ms S IN I/aVL/V4/V5/V6] MINIMAL VOLTAGE CRITERIA FOR LVH, CONSIDER NORMAL VARIANT [MEETS CRITERIA IN ONE OF: R(aVL), S(V1), R(V5), R(V5/V6)+S(V1)] INFERIOR MYOCARDIAL INFARCTION , OF INDETERMINATE AGE [40+ ms Q WAVE AND/OR ST/T ABNORMALITY IN II/aVF] Compared to ECG 09/26/2023 10:58:40 Incomplete right bundle-branch block now present Electronically Signed On 10-11-2023 10:35:25 CDT by Vega Ramírez M.D.
[2023-10-10] MEDS: LACTATED RINGERS 500 ML 250 ML IV CONT (21:00)
[2023-10-10 21:24] VITALS: BP 130/74; PULSE 121; RESP 17; TEMP 36.4; O2SAT 93
--- NOTE | 2023-10-10 22:14 | PC.NURSE ---
pt tachycardic since around 2pm today. pt denies pain, nausea, dysuria. pt states he had a small liquid BM this afternoon, is not passing gas, and bowel sounds are hypoactive but present. Exchange called for Dr. Truong, and Dr. Campbell returned the call. EKG and 500mL bolus of LR ordered. EKG taken and results called back to Dr. Campbell, who consulted hospitalist. Dr. Yoo notified, and has ordered chest xray, KUB, telemetry, and labs.
[2023-10-10 22:40] LABS: Basophils Percent Auto 0.4 % (0.2-1.2); Eosinophils Percent Auto 0.2 % (0-4.4); Hematocrit 33.6 % (42.0-52.0); Hemoglobin 10.4 g/dL (14.0-18.0); Immature Granulocyte Absolute 0.09 K/mm3 (0.00-0.031); Immature Granulocyte Percent A 0.8 % (0-0.5); Lymphocytes Absolute Auto 0.92 K/mm3 (0.9-3.2); Lymphocytes Percent Auto 8.4 % (18.3-44.2); Mean Corpuscular Hemoglobin 25.1 pg (26-34); Mean Platelet Volume 10.3 fl (7.4-10.4); Monocytes Percent Auto 9.3 % (2.6-8.5); Neutrophils Absolute Auto 8.9 K/mm3 (1.3-6.7); Neutrophils Percent Auto 80.9 % (45.5-73.1); Platelet Count Result 210 k/mm3 (150-375); Red Blood Count 4.15 M/mm3 (4.6-6.20); Red Cell Distribution Width 15.5 % (11.5-14.5)
[2023-10-10 22:55] LABS: Lactic Acid Reflex 1.2 mmol/L (0.7-2.0)
[2023-10-10 23:01] LABS: Anion Gap 7 mmol/L (4-12); Blood Urea Nitrogen 8 mg/dL (9-20); Calcium 8.8 mg/dL (8.4-10.2); Carbon Dioxide 29 mmol/L (22-30); Chloride 95 mmol/L (98-107); Estimated CRCL calculation 85 ml/min; Estimated Glomerular Filt Rate > 60; Glucose 155 mg/dL (65-110); Magnesium 1.8 mg/dL (1.6-2.3); Phosphorus 2.7 mg/dL (2.5-4.5); Potassium 3.9 mmol/L (3.4-5.0); Sodium 131 mmol/L (137-145)
[2023-10-10 23:19] LABS: Troponin I < 0.012 ng/mL (0.000-0.034)
[2023-10-10] MEDS: SODIUM CHLORIDE 0.9% IV 1,000 ML 100 ML IV CONT (23:32)
[2023-10-10] MEDS: FUROSEMIDE INJ 40 MG/4 ML VIAL IV PUSH (23:33)
--- NOTE | 2023-10-10 23:34 | PC.NURSE ---
called Dr. Yoo to clarify orders for IV lasix and IV fluids. rationale explained and both have been administered per MAR
[2023-10-11] VITALS (13 sets, daily range): BP systolic 124–144; BP diastolic 79–85; PULSE 92–136; RESP 16; TEMP 36.2–38.2; O2SAT 94–97
[2023-10-11] MEDS: oxyCODONE/ACETAMINOPHEN (*CRX) 5-325 MG TABLET 1 TABLET PO (00:29)
[2023-10-11 07:12] LABS: Hematocrit 34.9 % (42.0-52.0); Hemoglobin 10.9 g/dL (14.0-18.0); Mean Corpuscular HGB Conc 31.2 g/dl (32-36); Mean Corpuscular Hemoglobin 25.4 pg (26-34); Mean Corpuscular Volume 81.4 fl (80-100); Mean Platelet Volume 11.5 fl (7.4-10.4); Platelet Count Result 229 k/mm3 (150-375); Red Blood Count 4.29 M/mm3 (4.6-6.20); Red Cell Distribution Width 15.9 % (11.5-14.5); White Blood Count 11.8 K/mm3 (4.5-10.0)
--- NOTE | 2023-10-11 07:33 | WPDCN ---
Assessment and Plan Assessment and plan (1) Polyp, sigmoid colon: Qualifiers: Colon polyp type: adenomatous Qualified Code(s): D12.5 - Benign neoplasm of sigmoid colon Code(s): K63.5 - Polyp of colon Status: Chronic Assessment and Plan: 10/11/23: Post op day 1 from laparoscopic left colectomy with hand-sewn anastomosis, takedown splenic flexure with Dr. Truong Abdomen x-ray was negative for any acute abdominal findings WBC 11.8, likely bumped from surgical procedure continue incentive spirometry q2h Continue cardiac monitoring Advance diet to regular diet Continue Entereg Continue pain and nausea control (2) Dehydration: Code(s): E86.0 - Dehydration Status: Acute Assessment and Plan: 10/11/23: Patient became tachycardic in the 160s overnight requiring fluid bolus and continued cardiac monitoring Reported diarrhea yesterday Patient appears to be net negative 290 mL on I&O Will give another 500 mL fluid bolus now considering patient heart rate is still in the 120-130's. Continue cardiac monitoring (3) Eosinophilic esophagitis: Code(s): K20.0 - Eosinophilic esophagitis Status: Acute Assessment and Plan: 10/11/23: Started on Protonix (4) Anemia: Qualifiers: Anemia type: iron deficiency Iron deficiency anemia type: chronic blood loss Qualified Code(s): D50.0 - Iron deficiency anemia secondary to blood loss (chronic) Code(s): D64.9 - Anemia, unspecified Status: Chronic Assessment and Plan: 10/11/23: Hgb 10.9 Likely secondary to acute blood loss, GI bleeding Will check iron, ferritin, vitamin B12, folic acid, TSH (5) Hypertension: Qualifiers: Hypertension type: primary hypertension Qualified Code(s): I10 - Essential (primary) hypertension Code(s): I10 - Essential (primary) hypertension Status: Chronic Assessment and Plan: 10/11/23: Blood pressure ranging 130/74-144/85 Continue amlodipine Plan DVT prophylaxis: Lovenox HPI Data of Consult Date/Time: 10/11/23 07:33 Requesting Physician: Mir Truong MD Primary Care Provider: Josef López MD Consult Narrative Narrative: Interval history: Josef Putnam is a 43 year old male with a significant past medical history of Eosinophilic esophagitis, GERD, hypertension who had a colonoscopy on 08/26/23 due to blood in stools. He was found to have a 5cm polyp in the distal descending sigmoid colon which was partially removed during the colonoscopy. 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 Truong yesterday. Overnight last night patient heart rate went up into the 160s and he was placed on telemetry. He was given a 500 mL bolus of LR per general surgery team. He appeared to be net negative yesterday on I&O. We were consulted for medical management. Subjective: 10/11/23: Patient denies any fever chills, nausea, vomiting, diarrhea, abdominal pain, chest pain, shortness a breath. Patient states pain is well controlled. Lap sites with surgical glue open to air. Today his heart rate is in the 120-130's, sinus tach. Still appears to be net negative 290 today. Labs and med reconciliation reviewed. Review of Systems Review of Systems: All systems reviewed & are unremarkable except as noted in HPI and below Constitutional: Constitutional: Reports as per HPI and Reports no additional constitutional complaints Eyes: Eyes: Reports as per HPI and Reports no additional eye complaints ENT: Reports system reviewed and no additional complaints, except as documented and Reports as per HPI Cardiovascular: Cardiovascular: Reports as per HPI and Reports no additional cardiovascular complaints Respiratory: Respiratory: Reports as per HPI and Reports no additional respiratory complaints Gastrointestinal: Gastrointest
[2023-10-11 07:42] LABS: Anion Gap 8 mmol/L (4-12); Blood Urea Nitrogen 8 mg/dL (9-20); Calcium 8.8 mg/dL (8.4-10.2); Carbon Dioxide 31 mmol/L (22-30); Chloride 96 mmol/L (98-107); Estimated CRCL calculation 78 ml/min; Estimated Glomerular Filt Rate > 60; Glucose 114 mg/dL (65-110); Potassium 3.8 mmol/L (3.4-5.0); Sodium 135 mmol/L (137-145)
[2023-10-11 08:03] LABS: CRP 33.7 mg/dL (<1.0)
[2023-10-11] MEDS: ENOXAPARIN 30 MG/0.3 ML SYRINGE SUB-Q ×2 (08:23→21:23)
[2023-10-11] MEDS: PANTOPRAZOLE 40 MG TABLET PO (08:23)
[2023-10-11] MEDS: ALVIMOPAN 12 MG CAPSULE PO ×2 (08:23→21:23)
[2023-10-11] MEDS: amLODIPine BESYLATE 5 MG TABLET PO (08:23)
[2023-10-11 08:37] LABS: Immature Reticulocyte Fraction 39.1 % (3.0-15.9); Reticulocyte Hemoglobin Conten 30.5 pg (28.2-36.6); Reticulocyte Percent 1.63 % (0.7-4.3); Reticulocytes Absolute 0.07 10^6/uL (0.02-0.10)
[2023-10-11 09:21] LABS: Iron 19 ug/dL (49-181)
[2023-10-11] MEDS: IBUPROFEN IV 800 MG/200 ML 800 MG/200 ML BAG 400 MG IVPB (09:26)
[2023-10-11 09:30] LABS: Percent Iron Saturation 6 % (20-50)
[2023-10-11 10:00] LABS: Thyroid Stimulating Hormone Reflex 0.084 uIU/mL (0.465-4.68)
[2023-10-11 10:34] LABS: Folic Acid 5.8 ng/mL (2.76->20)
[2023-10-11 10:39] LABS: Free T4 Free Thyroxine Reflex 1.45 ng/dL (0.78-2.19)
[2023-10-11] MEDS: SODIUM CHLORIDE 0.9% IV 1,000 ML 100 ML IV CONT (11:30)
[2023-10-11 11:58] LABS: Total Triiodothyronine (T3) 0.84 NG/ML (0.97-1.69)
--- NOTE | 2023-10-11 12:18 | WPDPN ---
Progress Note: A&P Assessment and Plan (1) Polyp, sigmoid colon: Qualifiers: Colon polyp type: adenomatous Qualified Code(s): D12.5 - Benign neoplasm of sigmoid colon Code(s): K63.5 - Polyp of colon Status: Chronic Assessment and Plan: Postop day 3 after hand assisted laparoscopic sigmoid resection. He has bowel function now with loose stools which are nonbloody. He is tolerating a regular diet. I think he got some mild dehydration yesterday and he had tachycardic. His creatinine bumped a little bit from 1.1 to 1.2. He did respond to fluid boluses with improvement of his tachycardia. No fever. White blood cell count is essentially stable. Continue with supportive management today and advanced to the solid food. If he is doing well then he can likely be discharged home tomorrow. Hospitalist service was consulted to see the patient due to his abnormal EKG changes. Hospitalist service continues to follow. Subjective Date/time seen: 10/11/23 12:18 Interval history: Patient doing okay today. He continues to have some liquid bowel movements. Nonbloody bowel movements. Pulse rate which was in the 120 to 130 yesterday has decreased down to the low 100 today. He was given IV fluid boluses. It is thought that he may have become dehydrated yesterday as he was not taking in very much p.o. intake and did not have any IV fluids running and had output of at least 2 to 2.5 L of urine. He did respond to a fluid bolus of 500cc of lactated Ringer's. No fever today. White blood cell count is 11,800 which is slightly higher than yesterday creatinine is slightly elevated 1.2 today which likely reflects being dehydrated yesterday. EKG done yesterday due to his tachycardia showed sinus tachycardia. No AFib. Incomplete right bundle branch block and possible age indeterminate myocardial infarction. He denies any nausea vomiting. Pain is well controlled with the IV ibuprofen and no need for narcotics. Exam GI: Other: Abdomen is soft and nondistended. Lower hand assist incision the lower abdomen has moderate ecchymosis but no hematoma. No redness or drainage. All the port sites look good. Bowel sounds are noted. Objective Data Vital Signs Vital Signs: Vital Signs - 24 hr 10/10/23 13:58 10/10/23 21:24 10/10/23 20:00 Temperature 37.9 C H 36.4 C L Pulse Rate 112 H 121 H Respiratory Rate 16 17 Blood Pressure 138/72 130/74 Pulse Oximetry 94 93 Oxygen Delivery Room Air 10/11/23 00:00 10/11/23 00:05 10/11/23 01:30 Temperature Pulse Rate 117 H 130 H 100 Respiratory Rate Blood Pressure Pulse Oximetry Oxygen Delivery 10/11/23 04:00 10/11/23 05:47 10/11/23 07:32 Temperature 36.2 C L Pulse Rate 101 H 102 H Respiratory Rate 16 Blood Pressure 144/85 H Pulse Oximetry 94 Oxygen Delivery Room Air 10/11/23 08:00 10/11/23 12:00 Temperature Pulse Rate 92 102 H Respiratory Rate Blood Pressure Pulse Oximetry Oxygen Delivery Intake/Output Intake/Output: Intake & Output 10/08/23 10/09/23 10/10/23 10/11/23 23:59 23:59 23:59 23:59 Intake Total 1680 2957 2180 2790 Output Total 1450 1750 Balance 1680 2957 730 1040 Meds/Results Medications: Active Medications Generic Name Dose Route Start Last Admin Trade Name Freq PRN Reason Stop Dose Admin Acetaminophen 500 mg 10/08/23 16:17 10/10/23 18:15 Acetaminophen 500 Mg Tablet PO 500 mg Q6H PRN Administration Pain Rated 1-3 Alvimopan 12 mg 10/09/23 21:00 10/11/23 08:23 Alvimopan 12 Mg Capsule PO 10/16/23 20:59 12 mg Q12HR PRECIOUS Administration Amlodipine Besylate 5 mg 10/09/23 09:00 10/11/23 08:23 Amlodipine Besylate 5 Mg Tablet PO 5 mg DAILY PRECIOUS Administration Enoxaparin Sodium 30 mg 10/08/23 21:00 10/11/23 08:23 Enoxaparin 30 Mg/0.3 Ml Syringe SUB-Q 30 mg Q12HR PRECIOUS Administration Ibuprofen 800 mg in 200 mls @ 400 mls/hr 10/08/23 16:17
[2023-10-11] MEDS: SODIUM CHLORIDE 0.9% IV 500 ML IV CONT (14:12)
[2023-10-11] MEDS: ACETAMINOPHEN 500 MG TABLET PO (14:37)
[2023-10-11] MEDS: IBUPROFEN 600 MG TABLET PO (21:23)
[2023-10-12] VITALS (9 sets, daily range): BP systolic 123–139; BP diastolic 72–83; PULSE 100–122; RESP 16–20; TEMP 37.2–37.6; O2SAT 95–98
[2023-10-12] MEDS: SODIUM CHLORIDE 0.9% IV 1,000 ML 100 ML IV CONT (04:00)
[2023-10-12 06:31] LABS: Basophils Percent Auto 0.3 % (0.2-1.2); Eosinophils Percent Auto 0.1 % (0-4.4); Hematocrit 34.3 % (42.0-52.0); Hemoglobin 10.5 g/dL (14.0-18.0); Immature Granulocyte Absolute 0.06 K/mm3 (0.00-0.031); Immature Granulocyte Percent A 0.6 % (0-0.5); Lymphocytes Absolute Auto 0.74 K/mm3 (0.9-3.2); Lymphocytes Percent Auto 7.4 % (18.3-44.2); Mean Corpuscular HGB Conc 30.6 g/dl (32-36); Mean Corpuscular Hemoglobin 24.9 pg (26-34); Mean Corpuscular Volume 81.5 fl (80-100); Mean Platelet Volume 11.3 fl (7.4-10.4); Monocytes Absolute Auto 1.4 K/mm3 (0.1-0.6); Monocytes Percent Auto 14.3 % (2.6-8.5); Neutrophils Absolute Auto 7.7 K/mm3 (1.3-6.7); Neutrophils Percent Auto 77.3 % (45.5-73.1); Platelet Count Result 247 k/mm3 (150-375); Red Blood Count 4.21 M/mm3 (4.6-6.20); Red Cell Distribution Width 15.7 % (11.5-14.5)
[2023-10-12 06:46] LABS: Alanine Aminotransferase 18 U/L (6-50); Albumin Level 3.1 g/dL (3.5-5.1); Alkaline Phosphatase 56 U/L (38-126); Anion Gap 7 mmol/L (4-12); Aspartate Amino Transferase 19 U/L (17-59); Bilirubin,Total 0.8 mg/dL (0.2-1.3); Blood Urea Nitrogen 9 mg/dL (9-20); Calcium 8.6 mg/dL (8.4-10.2); Carbon Dioxide 27 mmol/L (22-30); Chloride 99 mmol/L (98-107); Estimated CRCL calculation 93 ml/min; Estimated Glomerular Filt Rate > 60; Glucose 124 mg/dL (65-110); Potassium 3.2 mmol/L (3.4-5.0); Sodium 133 mmol/L (137-145)
[2023-10-12] MEDS: amLODIPine BESYLATE 5 MG TABLET PO (08:28)
[2023-10-12] MEDS: ALVIMOPAN 12 MG CAPSULE PO ×2 (08:28→20:34)
[2023-10-12] MEDS: POTASSIUM CHLORIDE 20 MEQ ER TABLET 40 MEQ PO (08:28)
[2023-10-12] MEDS: ENOXAPARIN 30 MG/0.3 ML SYRINGE SUB-Q ×2 (08:29→20:34)
[2023-10-12] MEDS: PANTOPRAZOLE 40 MG TABLET PO (08:29)
--- NOTE | 2023-10-12 10:14 | PM.IMPN ---
Progress Note: A&P Assessment and Plan (1) Polyp, sigmoid colon: Qualifiers: Colon polyp type: adenomatous Qualified Code(s): D12.5 - Benign neoplasm of sigmoid colon Code(s): K63.5 - Polyp of colon Status: Chronic Assessment and Plan: 10/09: laparoscopic left colectomy with hand-sewn anastomosis, takedown splenic flexure with Dr. Truong 10/12/23: POD2 New vomiting this morning, low grade temp (99.7), tachycardia improved WBC 11.8>10 KUB negative Change diet to clears pending surgery eval today Continue Entereg Continue pain and nausea control (2) Dehydration: Code(s): E86.0 - Dehydration Status: Acute Assessment and Plan: 10/11/23: Patient became tachycardic in the 160s overnight 10/10 requiring fluid boluses and cardiac monitoring. Still tachycardic, low grade temp. Continue cardiac monitoring (3) Eosinophilic esophagitis: Code(s): K20.0 - Eosinophilic esophagitis Status: Acute Assessment and Plan: 10/11/23: Started on Protonix (4) Anemia: Qualifiers: Anemia type: iron deficiency Iron deficiency anemia type: chronic blood loss Qualified Code(s): D50.0 - Iron deficiency anemia secondary to blood loss (chronic) Code(s): D64.9 - Anemia, unspecified Status: Chronic Assessment and Plan: 10/11/23: Hgb 10.9 Likely secondary to acute blood loss, GI bleeding Will check iron, ferritin, vitamin B12, folic acid, TSH (5) Hypertension: Qualifiers: Hypertension type: primary hypertension Qualified Code(s): I10 - Essential (primary) hypertension Code(s): I10 - Essential (primary) hypertension Status: Chronic Assessment and Plan: 10/11/23: Blood pressure ranging 130/74-144/85 Continue amlodipine (6) Hypokalemia: Code(s): E87.6 - Hypokalemia Status: Acute Assessment and Plan: Potassium 3.2 Vomited twice this morning --s/p 40meq PO --Addtional 20meq IV --Check mag, phos, BMP in AM (7) Low TSH level: Code(s): R79.89 - Other specified abnormal findings of blood chemistry Status: Acute Assessment and Plan: TSH low, 0.084, free T4 1.45, Total T3 0.84 --Possibly post surgical response. --May be contributing to tachycardia, if not resolving, consider starting propranolol and endocrinology consult. Otherwise recheck TSH in 4-6 weeks Plan DVT prophylaxis: Lovenox Time Spent With Patient Time: 35 minutes Subjective Date/time seen: 10/12/23 10:14 Interval history: Reports having indigestion and then vomited twice this morning, green. Had a small BM around 8am. Reports abdominal distention about the same as it has been since surgery, but was a bit more distended and improved with ambulation. Pain controlled. Still tachycardic but improved. Potassium low, repleted, added on mag and phos. KUB ordered. Low grade temp. Has a small dark colored fluid collection near his surgical site, monitoring. Site doesn't look infected, minimal bruising surrounding incision site Still tachycardic intermittently. Pain controlled TSH low Review of Systems Review of Systems: All systems reviewed & are unremarkable except as noted in HPI and below Constitutional: Constitutional: Reports as per HPI Gastrointestinal: Gastrointestinal: Reports belching and Reports vomiting Exam Narrative: General: In no acute distress, well nourished Head: atraumatic, no encephalopathy Eyes: EOMI, PERRLA, sclera clear ENT: moist mucous membranes, nasal passages clear Neck: supple, no JVD, no adenopathy, trachea midline Cardiac: Normal S1 and S2. RRR, No murmur, gallops or friction rubs, peripheral pulses intact. Respiratory: Lungs clear to auscultation, no adventitious lung sounds, currently on room air Gastrointestinal: soft, mildly distended, non-tender to light palpation, hypoactive bowel sounds. : voiding without difficulty. Extremities: moves all extremities wel
--- NOTE | 2023-10-12 10:23 | WPDPN ---
Progress Note: A&P Assessment and Plan (1) Polyp, sigmoid colon: Qualifiers: Colon polyp type: adenomatous Qualified Code(s): D12.5 - Benign neoplasm of sigmoid colon Code(s): K63.5 - Polyp of colon Status: Chronic Assessment and Plan: Postop day 4 after hand assisted laparoscopic sigmoid resection for polyp. He had some episodes of emesis last evening. No longer nauseated now. His potassium is low at 3.2 and is getting potassium replacement. We will go and stay with regular diet for right now and continue to monitor today and not discharge home. White blood count is normal. No fever. No tachycardia. (2) Dehydration: Code(s): E86.0 - Dehydration Status: Acute Assessment and Plan: Creatinine has normalized at 1.0 today. Continue with IV fluids. Will add some potassium to his IV fluids today due to his hypokalemia. (3) Hypokalemia: Code(s): E87.6 - Hypokalemia Status: Acute Assessment and Plan: After attachment to his maintenance IV fluids. Will also give him an oral bolus of 40mg of potassium in addition to the IV bolus given by hospitalist. Subjective Date/time seen: 10/12/23 10:23 Interval history: Patient sitting up in a chair. He did eat some eggs and brought a muffin for breakfast. He tried drinking the Ensure but started having some abdominal cramping with the insurance so he does not want to drink the Ensure. He did have an episode of emesis about 2:00 a.m. and another 1 about 6:00 a.m. this morning. He feels fine now. His potassium is low at 3.2. Hospitalist has started replacement with some IV potassium bolus. He has no potassium in his IV fluids. Exam GI: Other: Abdomen is soft and nondistended. Ecchymosis around the hand port incision hematoma. The small fluid blister which is still intact. No cellulitis noted. Remaining port sites are healing well. Objective Data Vital Signs Vital Signs: Vital Signs - 24 hr 10/11/23 12:00 10/11/23 14:37 10/11/23 14:00 Temperature 38.2 C H 38.2 C H Pulse Rate 102 H 110 H Respiratory Rate 16 Blood Pressure 124/79 Pulse Oximetry 95 Oxygen Delivery 10/11/23 15:17 10/11/23 16:00 10/11/23 21:12 Temperature 37.7 C H 36.2 C L Pulse Rate 136 H 108 H Respiratory Rate 16 Blood Pressure 133/82 Pulse Oximetry 97 Oxygen Delivery 10/11/23 20:00 10/12/23 00:00 10/12/23 04:00 Temperature Pulse Rate 111 H 103 H 100 Respiratory Rate Blood Pressure Pulse Oximetry Oxygen Delivery 10/12/23 06:00 10/11/23 20:00 Temperature 37.6 C H Pulse Rate 106 H Respiratory Rate 18 Blood Pressure 123/72 Pulse Oximetry 95 Oxygen Delivery Room Air Intake/Output Intake/Output: Intake & Output 10/09/23 10/10/23 10/11/23 10/12/23 23:59 23:59 23:59 23:59 Intake Total 2957 2180 5230 1830 Output Total 1450 1750 600 Balance 2957 730 3480 1230 Meds/Results Medications: Active Medications Generic Name Dose Route Start Last Admin Trade Name Freq PRN Reason Stop Dose Admin Acetaminophen 500 mg 10/08/23 16:17 10/11/23 14:37 Acetaminophen 500 Mg Tablet PO 500 mg Q6H PRN Administration Pain Rated 1-3 Alvimopan 12 mg 10/09/23 21:00 10/12/23 08:28 Alvimopan 12 Mg Capsule PO 10/16/23 20:59 12 mg Q12HR PRECIOUS Administration Amlodipine Besylate 5 mg 10/09/23 09:00 10/12/23 08:28 Amlodipine Besylate 5 Mg Tablet PO 5 mg DAILY PRECIOUS Administration Enoxaparin Sodium 30 mg 10/08/23 21:00 10/12/23 08:29 Enoxaparin 30 Mg/0.3 Ml Syringe SUB-Q 30 mg Q12HR PRECIOUS Administration Potassium Chloride 100 mls @ 50 mls/hr 10/12/23 10:30 Kcl 20 Meq/Sw 100 Ml IVPB 10/12/23 12:29 ONCE ONE Potassium Chloride/Sodium Chloride 1,000 mls @ 100 mls/hr 10/12/23 10:25 Kcl 20 Meq/0.45% Ns IV CONT .Q10H PRECIOUS Ibuprofen 600 mg 10/11/23 12:24 10/11/23 21:23 Ibuprofen 600 Mg Tablet PO 600 mg Q8H PRN
[2023-10-12] MEDS: KCL 20 MEQ/SW 100 ML 100 ML 50 MEQ IVPB (11:04)
[2023-10-12] MEDS: KCL 20 MEQ/0.45% NS 1,000 ML 100 ML IV CONT (15:15)
[2023-10-13] VITALS (11 sets, daily range): BP systolic 137–152; BP diastolic 80–88; PULSE 94–118; RESP 17–20; TEMP 37.1–39.2; O2SAT 93–97
[2023-10-13] MEDS: KCL 20 MEQ/0.45% NS 1,000 ML 100 ML IV CONT ×2 (04:04→14:04)
[2023-10-13 06:54] LABS: Basophils Percent Auto 0.3 % (0.2-1.2); Eosinophils Percent Auto 0.1 % (0-4.4); Hematocrit 30.1 % (42.0-52.0); Hemoglobin 9.4 g/dL (14.0-18.0); Immature Granulocyte Absolute 0.09 K/mm3 (0.00-0.031); Lymphocytes Absolute Auto 0.57 K/mm3 (0.9-3.2); Lymphocytes Percent Auto 6.5 % (18.3-44.2); Mean Corpuscular HGB Conc 31.2 g/dl (32-36); Mean Corpuscular Volume 80.1 fl (80-100); Mean Platelet Volume 11.3 fl (7.4-10.4); Monocytes Absolute Auto 1.2 K/mm3 (0.1-0.6); Monocytes Percent Auto 13.4 % (2.6-8.5); Neutrophils Absolute Auto 6.9 K/mm3 (1.3-6.7); Neutrophils Percent Auto 78.7 % (45.5-73.1); Platelet Count Result 269 k/mm3 (150-375); Red Blood Count 3.76 M/mm3 (4.6-6.20); Red Cell Distribution Width 15.5 % (11.5-14.5); White Blood Count 8.8 K/mm3 (4.5-10.0)
[2023-10-13 07:14] LABS: Magnesium 1.8 mg/dL (1.6-2.3)
[2023-10-13 07:18] LABS: Alanine Aminotransferase 23 U/L (6-50); Albumin Level 2.9 g/dL (3.5-5.1); Alkaline Phosphatase 69 U/L (38-126); Anion Gap 10 mmol/L (4-12); Aspartate Amino Transferase 26 U/L (17-59); Blood Urea Nitrogen 9 mg/dL (9-20); Carbon Dioxide 20 mmol/L (22-30); Chloride 97 mmol/L (98-107); Estimated CRCL calculation 85 ml/min; Estimated Glomerular Filt Rate > 60; Glucose 130 mg/dL (65-110); Potassium 3.2 mmol/L (3.4-5.0); Sodium 127 mmol/L (137-145)
[2023-10-13] MEDS: ALVIMOPAN 12 MG CAPSULE PO (08:13)
[2023-10-13] MEDS: PANTOPRAZOLE 40 MG TABLET PO (08:13)
[2023-10-13] MEDS: amLODIPine BESYLATE 5 MG TABLET PO (08:13)
[2023-10-13] MEDS: ENOXAPARIN 30 MG/0.3 ML SYRINGE SUB-Q ×2 (08:14→20:57)
[2023-10-13] MEDS: POTASSIUM CHLORIDE 20 MEQ PACKET (FOR LIQUID) 40 MEQ PO ×3 (09:04→16:21)
--- NOTE | 2023-10-13 12:02 | PM.IMPN ---
Progress Note: A&P Assessment and Plan (1) Polyp, sigmoid colon: Qualifiers: Colon polyp type: adenomatous Qualified Code(s): D12.5 - Benign neoplasm of sigmoid colon Code(s): K63.5 - Polyp of colon Status: Chronic (2) Dehydration: Code(s): E86.0 - Dehydration Status: Acute (3) Eosinophilic esophagitis: Code(s): K20.0 - Eosinophilic esophagitis Status: Acute (4) Anemia: Qualifiers: Anemia type: iron deficiency Iron deficiency anemia type: chronic blood loss Qualified Code(s): D50.0 - Iron deficiency anemia secondary to blood loss (chronic) Code(s): D64.9 - Anemia, unspecified Status: Chronic (5) Hypertension: Qualifiers: Hypertension type: primary hypertension Qualified Code(s): I10 - Essential (primary) hypertension Code(s): I10 - Essential (primary) hypertension Status: Chronic (6) Hypokalemia: Code(s): E87.6 - Hypokalemia Status: Acute (7) Low TSH level: Code(s): R79.89 - Other specified abnormal findings of blood chemistry Status: Acute Plan 43 year old male with a significant past medical history of Eosinophilic esophagitis, GERD, hypertension who had a colonoscopy on 08/26/23 due to blood in stools. He was found to have a 5cm polyp in the distal descending sigmoid colon which was partially removed during the colonoscopy. 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 Truong.We were consulted for medical management. 1. laparoscopic left colectomy with hand-sewn anastomosis: Postop care as per surgery team currently on full liquid diet pain control Ppi Zofran p.r.n. 2. hypokalemia: Supplement potassium Recheck BMP in a.m. 3. mild hyponatremia: Will monitor Continue with IV fluids Recheck BMP in a.m. 4. hypertension: increase Norvasc to 10 mg daily 5. code status: Full 6. DVT prophylaxis: Lovenox 7. Disposition: Discharge planning as per surgical team Time Spent With Patient Time with patient: 15 - 25 minutes Subjective Date/time seen: 10/13/23 12:02 Interval history: no acute events overnight, tolerating full liquid diet Review of Systems Review of Systems: All systems reviewed & are unremarkable except as noted in HPI and below Exam Narrative: General: In no acute distress, well nourished Head: atraumatic, no encephalopathy Eyes: EOMI, PERRLA, sclera clear ENT: moist mucous membranes, nasal passages clear Neck: supple, no JVD, no adenopathy, trachea midline Cardiac: Normal S1 and S2. RRR, No murmur, gallops or friction rubs, peripheral pulses intact. Respiratory: Lungs clear to auscultation, no adventitious lung sounds, currently on room air Gastrointestinal: soft, mildly distended, non-tender to light palpation, hypoactive bowel sounds. : voiding without difficulty. Extremities: moves all extremities well, no edema, good ROM, strength 5/5 Skin: Lap sites in surgical incision with surgical glue open to air, small dark colored fluid collection at surgical site, well-approximated Neuro: Alert and oriented x4, cranial nerves intact, no neuro deficits. Psych: normal mood, normal affect, interactive Objective Data Vital Signs Vital Signs: Vital Signs - 24 hr 10/12/23 14:00 10/12/23 16:00 10/12/23 20:49 Temperature 99.0 F 99.0 F Pulse Rate 108 H 104 H 105 H Respiratory Rate 16 20 Blood Pressure 139/83 139/83 Pulse Oximetry 96 98 Oxygen Delivery 10/12/23 20:00 10/13/23 00:00 10/13/23 04:00 Temperature Pulse Rate 109 H 94 108 H Respiratory Rate Blood Pressure Pulse Oximetry Oxygen Delivery 10/13/23 06:00 10/13/23 08:00 10/13/23 09:54 Temperature 98.8 F Pulse Rate 118 H Respiratory Rate 20 Blood Pressure 152/88 H Pulse Oximetry 95 93 Oxygen Delivery Room Air Room Air Intake
[2023-10-13] MEDS: ACETAMINOPHEN 500 MG TABLET PO (15:29)
--- NOTE | 2023-10-13 17:34 | PM.PNGS ---
Progress Note: A&P Assessment and Plan (1) Polyp, sigmoid colon: Qualifiers: Colon polyp type: adenomatous Qualified Code(s): D12.5 - Benign neoplasm of sigmoid colon Code(s): K63.5 - Polyp of colon Status: Chronic Assessment and Plan: Postop day 5. Status post partial colectomy descending colon for benign polyp. Hand-sewn 2 layer anastomosis performed. Still having some nausea and diarrhea. CT scan shows fluid-filled stomach and small bowel. Radiologist's reports: Filled with fluid as well although I could not see this as much. Will repeat labs, CRP, and probably obtain water-soluble lower GI tomorrow to evaluate anastomosis for leakage. No evidence of leak on CT scan today. (2) Hypokalemia: Code(s): E87.6 - Hypokalemia Status: Acute Assessment and Plan: Sodium also low today. Will supplement with 40 KCL with sodium chloride. Continue p.o. potassium as well. (3) Gastroenteritis: Code(s): K52.9 - Noninfective gastroenteritis and colitis, unspecified Status: Acute Assessment and Plan: CT picture more consistent with gastroenteritis or enterocolitis. Will likely get water-soluble lower GI in the morning as well as repeat other lab work including CRP tomorrow Subjective Subjective Date/Time Seen: 10/13/23 17:34 Post Op day: 5 Patient reports: pain is less, voiding w/o difficulty, bowel movement, diarrhea, nausea and fever Exam Const: General: cooperative, comfortable, no acute distress, alert and awake Nutritional Appearance: overweight Orientation/consciousness: patient oriented x3 GI: Inspection: distended and incision (All incisions dry and healing well) GI Palp: Yes Firmness to palpation present (GI), No Tenderness to palpation present (GI), No Guarding due to palpation present (GI), No Hernia present, No Palpable mass present, No Ascites present and No Rebound tenderness present Auscultation: normal bowel sounds and normoactive bowel sounds Neuro: General: patient oriented x3 and no focal motor deficits Extrem: General: no calf tenderness and no edema Psych: Affect: normal affect Insight: Good insight present (Psych) Judgement: Good judgement present (Psych) Objective Data Vital Signs Vital Signs: Vital Signs - 24 hr 10/12/23 20:49 10/12/23 20:00 10/13/23 00:00 Temperature 37.2 C Pulse Rate 105 H 109 H 94 Respiratory Rate 20 Blood Pressure 139/83 Pulse Oximetry 98 Oxygen Delivery 10/13/23 04:00 10/13/23 06:00 10/13/23 08:00 Temperature 37.1 C Pulse Rate 108 H 118 H Respiratory Rate 20 Blood Pressure 152/88 H Pulse Oximetry 95 Oxygen Delivery Room Air 10/13/23 09:54 10/13/23 15:18 10/13/23 16:29 Temperature 39.2 C H 38.3 C H Pulse Rate 103 H Respiratory Rate 17 Blood Pressure 137/80 Pulse Oximetry 93 97 Oxygen Delivery Room Air 10/13/23 08:00 10/13/23 12:00 10/13/23 16:00 Temperature Pulse Rate 111 H 101 H 110 H Respiratory Rate Blood Pressure Pulse Oximetry Oxygen Delivery Intake/Output Intake/Output: Intake & Output 10/10/23 10/11/23 10/12/23 10/13/23 23:59 23:59 23:59 23:59 Intake Total 2180 5230 2880 4180 Output Total 1450 1750 600 Balance 730 3480 2280 4180 Meds/Results Medications: Active Medications Generic Name Dose Route Start Last Admin Trade Name Freq PRN Reason Stop Dose Admin Acetaminophen 500 mg 10/08/23 16:17 10/13/23 15:29 Acetaminophen 500 Mg Tablet PO 500 mg Q6H PRN Administration Pain Rated 1-3 Amlodipine Besylate 10 mg 10/13/23 09:00 10/13/23 09:02 Amlodipine Besylate 10 Mg Tablet PO Not Given DAILY PRECIOUS Enoxaparin Sodium 30 mg 10/08/23 21:00 10/13/23 08:14 Enoxaparin 30 Mg/0.3 Ml Syringe SUB-Q 30 mg Q12HR PRECIOUS Administration Ibuprofen 600 mg 10/11/23 12:24 10/11/23 21:23 Ibuprofen 600 Mg Tablet PO 600 mg Q8H PRN Administration incision pain Morphine Sulfate
[2023-10-13] MEDS: KCL 40 MEQ/0.9% SOD CHL 1,000 ML 100 ML IV CONT (17:54)
[2023-10-14] VITALS (9 sets, daily range): BP systolic 124–143; BP diastolic 72–79; PULSE 89–119; RESP 18–20; TEMP 37–38.1; O2SAT 94–98
[2023-10-14] MEDS: KCL 40 MEQ/0.9% SOD CHL 1,000 ML 100 ML IV CONT ×2 (03:51→17:46)
[2023-10-14] MEDS: ACETAMINOPHEN 500 MG TABLET PO (05:25)
[2023-10-14 07:49] LABS: Alanine Aminotransferase 32 U/L (6-50); Albumin Level 2.8 g/dL (3.5-5.1); Alkaline Phosphatase 71 U/L (38-126); Anion Gap 10 mmol/L (4-12); Aspartate Amino Transferase 33 U/L (17-59); Bilirubin,Total 0.9 mg/dL (0.2-1.3); Blood Urea Nitrogen 11 mg/dL (9-20); Calcium 7.9 mg/dL (8.4-10.2); Carbon Dioxide 19 mmol/L (22-30); Chloride 102 mmol/L (98-107); Estimated CRCL calculation 85 ml/min; Estimated Glomerular Filt Rate > 60; Glucose 109 mg/dL (65-110); Potassium 3.9 mmol/L (3.4-5.0); Sodium 131 mmol/L (137-145)
--- NOTE | 2023-10-14 07:52 | PM.IMPN ---
Progress Note: A&P Assessment and Plan (1) Polyp, sigmoid colon: Qualifiers: Colon polyp type: adenomatous Qualified Code(s): D12.5 - Benign neoplasm of sigmoid colon Code(s): K63.5 - Polyp of colon Status: Chronic (2) Dehydration: Code(s): E86.0 - Dehydration Status: Acute (3) Eosinophilic esophagitis: Code(s): K20.0 - Eosinophilic esophagitis Status: Acute (4) Anemia: Qualifiers: Anemia type: iron deficiency Iron deficiency anemia type: chronic blood loss Qualified Code(s): D50.0 - Iron deficiency anemia secondary to blood loss (chronic) Code(s): D64.9 - Anemia, unspecified Status: Chronic (5) Hypertension: Qualifiers: Hypertension type: primary hypertension Qualified Code(s): I10 - Essential (primary) hypertension Code(s): I10 - Essential (primary) hypertension Status: Chronic (6) Hypokalemia: Code(s): E87.6 - Hypokalemia Status: Acute (7) Low TSH level: Code(s): R79.89 - Other specified abnormal findings of blood chemistry Status: Acute Plan 43 year old male with a significant past medical history of Eosinophilic esophagitis, GERD, hypertension who had a colonoscopy on 08/26/23 due to blood in stools. He was found to have a 5cm polyp in the distal descending sigmoid colon which was partially removed during the colonoscopy. 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 Truong.We were consulted for medical management. laparoscopic left colectomy with hand-sewn anastomosis: Postop care as per surgery team Small ananstomotic leak on imaging 10/13--bowel rest and pain control Ppi Zofran p.r.n. Fevers--likely reactive to anastomotic leak and at risk for abscess but no fluid collection on CT --May need an extended course of antibiotics, continue Cipro/Flagyl per surgery. If worsening, broaden to Cefepime/Vanc/Flagyl --Continue to monitor --Bowel rest and treatment per surgery --Reported dysuria--UA negative for infection --No upper respiratory symptoms, monitor --Blood cultures x2 sent Hypokalemia--Supplementing potassium prn Recheck BMP in a.m. Mild hyponatremia--Will monitor, in the setting of multiple stools Recheck in AM, starting TPN. Urine was concentrated so monitor fluid status and give NS prn Daily BMP Diarrhea--Signifiant with 12 stools a day reported yesterday and multiple this monring --Unlikely infectious, but continue to monitor, if not improving, low threshhold to check stool studies, c-dff, stool cultures Hypertension: Norvasc increased to 10 mg daily code status: Full 6. DVT prophylaxis: Lovenox 7. Disposition: Discharge planning as per surgical team Time Spent With Patient Time: 38 minutes Subjective Date/time seen: 10/14/23 07:52 Interval history: Reports multiple episodes of diarrhea, 12 yesterday, 5 today. Febrile 100.5 but no chills or sweats and feeling well though reports intermittent dysuria. Small anastomotic leak on contrast study today Exam Narrative: General: In no acute distress, well nourished Head: atraumatic, no encephalopathy Eyes: EOMI, PERRLA, sclera clear ENT: moist mucous membranes, nasal passages clear Neck: supple, no JVD, no adenopathy, trachea midline Cardiac: Normal S1 and S2. RRR, No murmur, gallops or friction rubs, peripheral pulses intact. Respiratory: Lungs clear to auscultation, no adventitious lung sounds, currently on room air Gastrointestinal: soft, mildly distended, non-tender to light palpation, hypoactive bowel sounds. : voiding without difficulty. Extremities: moves all extremities well, no edema, good ROM, strength 5/5 Skin: Lap sites in surgical incision with surgical glue open to air, small dark colored fluid collection at surgical site, well-approximated Neuro: Alert and oriented
[2023-10-14 08:00] LABS: Basophils Percent Auto 0.3 % (0.2-1.2); Eosinophils Percent Auto 0.1 % (0-4.4); Hematocrit 28.7 % (42.0-52.0); Hemoglobin 8.9 g/dL (14.0-18.0); Immature Granulocyte Absolute 0.16 K/mm3 (0.00-0.031); Immature Granulocyte Percent A 1.4 % (0-0.5); Lymphocytes Absolute Auto 0.78 K/mm3 (0.9-3.2); Lymphocytes Percent Auto 6.8 % (18.3-44.2); Mean Corpuscular Hemoglobin 25.2 pg (26-34); Mean Corpuscular Volume 81.3 fl (80-100); Mean Platelet Volume 11.4 fl (7.4-10.4); Monocytes Absolute Auto 1.7 K/mm3 (0.1-0.6); Monocytes Percent Auto 14.5 % (2.6-8.5); Neutrophils Absolute Auto 8.8 K/mm3 (1.3-6.7); Neutrophils Percent Auto 76.9 % (45.5-73.1); Platelet Count Result 274 k/mm3 (150-375); Red Blood Count 3.53 M/mm3 (4.6-6.20); Red Cell Distribution Width 15.4 % (11.5-14.5); White Blood Count 11.4 K/mm3 (4.5-10.0)
[2023-10-14] MEDS: ENOXAPARIN 30 MG/0.3 ML SYRINGE SUB-Q ×2 (08:00→21:45)
[2023-10-14 08:39] LABS: CRP 34.5 mg/dL (<1.0)
--- NOTE | 2023-10-14 09:54 | PC.NURSE ---
Pt. down to radiology for barium enema via wheelchair.
--- NOTE | 2023-10-14 10:11 | PM.PNGS ---
Progress Note: A&P Assessment and Plan (1) Fever: Qualifiers: Fever type: post-procedural Qualified Code(s): R50.82 - Postprocedural fever Code(s): R50.9 - Fever, unspecified Status: Acute Assessment and Plan: Fever coupled with leukocytosis and increased percentage of band forms is very specific suspicious for infection. CT scan done just yesterday showed fluid in the lumen of the large and small bowel but no evidence of an abscess or free air out of what would be expected for having had surgery 6 days ago. Will go ahead and get septic workup started with blood cultures x2, urinalysis with reflex culture, chest x-ray, and water-soluble contrast enema to check again for evidence of anastomotic leak. Patient continues to have active bowel sounds but a protuberant if not distended abdomen. Etiology of the fever and leukocytosis are not clear to me but will empirically start patient back on broad-spectrum antibiotics with Levaquin and metronidazole. (2) Leukocytosis, unspecified: Qualifiers: Leukocytosis type: bandemia Qualified Code(s): D72.825 - Bandemia Code(s): D72.829 - Elevated white blood cell count, unspecified Status: Acute (3) Polyp, sigmoid colon: Qualifiers: Colon polyp type: adenomatous Qualified Code(s): D12.5 - Benign neoplasm of sigmoid colon Code(s): K63.5 - Polyp of colon Status: Chronic (4) Hypokalemia: Code(s): E87.6 - Hypokalemia Status: Acute Assessment and Plan: Improving Subjective Subjective Date/Time Seen: 10/14/23 10:11 Post Op day: #6 Patient reports: pain is less, tolerating liquids well, voiding w/o difficulty, bowel movement and fever Exam Const: General: cooperative, healthy appearing, comfortable, no acute distress, alert and awake Orientation/consciousness: patient oriented x3 Other: Febrile to 39.2? yesterday afternoon GI: Inspection: abdominal wall ecchymosis (Mostly from subcutaneous injection), distended and incision (Dry and healing well) GI Palp: Yes Firmness to palpation present (GI), Yes Tenderness to palpation present (GI) (Mild, only to deep palpation), No Guarding due to palpation present (GI), No Hernia present, No Palpable mass present and No Rebound tenderness present Auscultation: normal bowel sounds Objective Data Vital Signs Vital Signs: Vital Signs - 24 hr 10/13/23 15:18 10/13/23 16:29 10/13/23 12:00 Temperature 39.2 C H 38.3 C H Pulse Rate 103 H 101 H Respiratory Rate 17 Blood Pressure 137/80 Pulse Oximetry 97 Oxygen Delivery 10/13/23 16:00 10/13/23 20:00 10/14/23 00:00 Temperature Pulse Rate 110 H 96 119 H Respiratory Rate Blood Pressure Pulse Oximetry Oxygen Delivery 10/13/23 20:00 10/13/23 21:35 10/14/23 04:00 Temperature 37.1 C Pulse Rate 101 H 101 H Respiratory Rate 18 Blood Pressure 140/85 Pulse Oximetry 96 Oxygen Delivery Room Air 10/14/23 06:00 10/14/23 08:00 10/14/23 08:00 Temperature 38.1 C H Pulse Rate 108 H 89 Respiratory Rate 18 Blood Pressure 143/79 H Pulse Oximetry 94 Oxygen Delivery Room Air Intake/Output Intake/Output: Intake & Output 10/11/23 10/12/23 10/13/23 10/14/23 23:59 23:59 23:59 23:59 Intake Total 5230 2880 5030 1331 Output Total 1750 600 Balance 3480 2280 5030 1331 Meds/Results Medications: Active Medications Generic Name Dose Route Start Last Admin Trade Name Freq PRN Reason Stop Dose Admin Acetaminophen 500 mg 10/08/23 16:17 10/14/23 05:25 Acetaminophen 500 Mg Tablet PO 500 mg Q6H PRN Administration Pain Rated 1-3 Amlodipine Besylate 10 mg 10/13/23 09:00 10/14/23 08:00 Amlodipine Besylate 10 Mg Tablet PO 10 mg DAILY PRECIOUS Administration Enoxaparin Sodium 30 mg 10/08/23 21:00 10/14/23 08:00 Enoxaparin 30 Mg/0.3 Ml Syringe SUB-Q 30 mg Q12HR PRECIOUS Administration Potassium Chloride/Sodium
--- NOTE | 2023-10-14 10:38 | PC.NURSE ---
Pt. back from radiology.
[2023-10-14] MEDS: levoFLOXacin 750 MG/D5W 150 ML 750 MG/150 ML BAG 100 MG IVPB (12:44)
[2023-10-14 12:54] LABS: Add Urine Microscopic? YES; Appearance Urine Cloudy (Clear); Bacteria Urine None Seen /hpf; Bilirubin Urine Negative (Negative); Blood Urine Trace (Negative); Color Urine Dark Yellow (Yellow); Glucose Urine UA Negative (Negative); Ketones Urine 1+ mg/dL (Negative); Leukocyte Esterase Ur Negative LEU/UL (Negative); Nitrate Urine Negative (Negative); Protein Urine 2+ mg/dL (Negative); RBC Urine 0-2 /hpf (0-2); Specific Grav Ur 1.039 (1.001-1.035); Squamous Epithelial Cell Urine Few /hpf (Few); WBC Urine 0-5 /hpf (0-3); pH Urine 5.5 (5.0-9.0)
[2023-10-14] MEDS: metroNIDAZOLE 500 MG/ISO 100ML 500 MG/100 ML BAG 100 MG IVPB ×2 (14:17→17:46)
[2023-10-14] MEDS: LIDOCAINE HCL 1% PF INJ 5 ML VIAL INFILTRATE (16:25)
[2023-10-14] MEDS: FAT EMULSIONS IV 20% 250 ML 20.83 ML IVPB (17:11)
[2023-10-14] MEDS: AMINO ACIDS 5%/D15W/E-LYTES/CA 2,000 ML with MULTIVITAMINS-12 INJ VIAL 1 2.5 ML, MULTIV... 40 ML IV CONT (17:12)
[2023-10-14 17:21] LABS: Glucose Point of Care 101 mg/dl (65-105)
[2023-10-14 17:51] LABS: Basophils Percent Auto 0.4 % (0.2-1.2); Eosinophils Percent Auto 0.1 % (0-4.4); Hematocrit 28.1 % (42.0-52.0); Immature Granulocyte Absolute 0.19 K/mm3 (0.00-0.031); Immature Granulocyte Percent A 1.7 % (0-0.5); Lymphocytes Absolute Auto 0.77 K/mm3 (0.9-3.2); Lymphocytes Percent Auto 7.1 % (18.3-44.2); Mean Corpuscular Hemoglobin 25.8 pg (26-34); Mean Corpuscular Volume 80.5 fl (80-100); Mean Platelet Volume 10.8 fl (7.4-10.4); Monocytes Absolute Auto 1.5 K/mm3 (0.1-0.6); Monocytes Percent Auto 13.9 % (2.6-8.5); Neutrophils Absolute Auto 8.4 K/mm3 (1.3-6.7); Neutrophils Percent Auto 76.8 % (45.5-73.1); Platelet Count Result 272 k/mm3 (150-375); Red Blood Count 3.49 M/mm3 (4.6-6.20); Red Cell Distribution Width 15.4 % (11.5-14.5); White Blood Count 10.9 K/mm3 (4.5-10.0)
[2023-10-14 18:01] LABS: Alanine Aminotransferase 40 U/L (6-50); Albumin Level 2.9 g/dL (3.5-5.1); Alkaline Phosphatase 80 U/L (38-126); Anion Gap 11 mmol/L (4-12); Aspartate Amino Transferase 45 U/L (17-59); Bilirubin,Total 0.7 mg/dL (0.2-1.3); Blood Urea Nitrogen 12 mg/dL (9-20); Calcium 7.8 mg/dL (8.4-10.2); Carbon Dioxide 19 mmol/L (22-30); Chloride 102 mmol/L (98-107); Estimated CRCL calculation 93 ml/min; Estimated Glomerular Filt Rate > 60; Glucose 101 mg/dL (65-110); Magnesium 2.2 mg/dL (1.6-2.3); Sodium 132 mmol/L (137-145)
[2023-10-14 18:02] LABS: Partial Thromboplastin Time 23.6 Seconds (22.3-36.8)
[2023-10-14 18:10] LABS: Transferrin 140 mg/dL (206-381)
[2023-10-14] MEDS: CENTRAL LINE FLUSH 10 ML IV PUSH (21:46)
[2023-10-15] VITALS (10 sets, daily range): BP systolic 130–137; BP diastolic 71–81; PULSE 97–108; RESP 16; TEMP 36.6–37.7; O2SAT 96–100; BMI 31.8
[2023-10-15] MEDS: metroNIDAZOLE 500 MG/ISO 100ML 500 MG/100 ML BAG 100 MG IVPB ×4 (00:05→16:59)
[2023-10-15 00:11] LABS: Glucose Point of Care 135 mg/dl (65-105)
[2023-10-15] MEDS: CENTRAL LINE FLUSH 10 ML IV PUSH ×3 (06:18→20:37)
[2023-10-15 06:45] LABS: Basophils Absolute Auto 0.1 K/mm3 (0.0-0.1); Basophils Percent Auto 0.5 % (0.2-1.2); Eosinophils Percent Auto 0.2 % (0-4.4); Hemoglobin 8.4 g/dL (14.0-18.0); Immature Granulocyte Absolute 0.26 K/mm3 (0.00-0.031); Immature Granulocyte Percent A 2.1 % (0-0.5); Lymphocytes Percent Auto 8.2 % (18.3-44.2); Mean Corpuscular HGB Conc 31.1 g/dl (32-36); Mean Corpuscular Hemoglobin 25.4 pg (26-34); Mean Corpuscular Volume 81.6 fl (80-100); Mean Platelet Volume 10.9 fl (7.4-10.4); Monocytes Absolute Auto 1.5 K/mm3 (0.1-0.6); Monocytes Percent Auto 12.6 % (2.6-8.5); Neutrophils Absolute Auto 9.3 K/mm3 (1.3-6.7); Neutrophils Percent Auto 76.4 % (45.5-73.1); Platelet Count Result 263 k/mm3 (150-375); Red Blood Count 3.31 M/mm3 (4.6-6.20); Red Cell Distribution Width 15.5 % (11.5-14.5); White Blood Count 12.2 K/mm3 (4.5-10.0)
[2023-10-15 07:01] LABS: Alanine Aminotransferase 39 U/L (6-50); Albumin Level 2.6 g/dL (3.5-5.1); Alkaline Phosphatase 77 U/L (38-126); Anion Gap 10 mmol/L (4-12); Aspartate Amino Transferase 41 U/L (17-59); Bilirubin,Total 0.4 mg/dL (0.2-1.3); Blood Urea Nitrogen 12 mg/dL (9-20); Calcium 7.7 mg/dL (8.4-10.2); Carbon Dioxide 19 mmol/L (22-30); Chloride 104 mmol/L (98-107); Estimated CRCL calculation 85 ml/min; Estimated Glomerular Filt Rate > 60; Glucose 114 mg/dL (65-110); Phosphorus 3.3 mg/dL (2.5-4.5); Potassium 3.7 mmol/L (3.4-5.0); Sodium 133 mmol/L (137-145)
[2023-10-15] MEDS: levoFLOXacin 750 MG/D5W 150 ML 750 MG/150 ML BAG 100 MG IVPB (08:03)
[2023-10-15] MEDS: amLODIPine BESYLATE 10 MG TABLET PO (08:03)
[2023-10-15] MEDS: PANTOPRAZOLE SODIUM IV 40 MG VIAL IV PUSH (08:03)
[2023-10-15] MEDS: ENOXAPARIN 30 MG/0.3 ML SYRINGE SUB-Q ×2 (08:03→21:59)
[2023-10-15 08:23] LABS: Glucose Point of Care 123 mg/dl (65-105)
--- NOTE | 2023-10-15 10:11 | PM.IMPN ---
Progress Note: A&P Assessment and Plan (1) Polyp, sigmoid colon: Qualifiers: Colon polyp type: adenomatous Qualified Code(s): D12.5 - Benign neoplasm of sigmoid colon Code(s): K63.5 - Polyp of colon Status: Chronic (2) Dehydration: Code(s): E86.0 - Dehydration Status: Acute (3) Eosinophilic esophagitis: Code(s): K20.0 - Eosinophilic esophagitis Status: Acute (4) Anemia: Qualifiers: Anemia type: iron deficiency Iron deficiency anemia type: chronic blood loss Qualified Code(s): D50.0 - Iron deficiency anemia secondary to blood loss (chronic) Code(s): D64.9 - Anemia, unspecified Status: Chronic (5) Hypertension: Qualifiers: Hypertension type: primary hypertension Qualified Code(s): I10 - Essential (primary) hypertension Code(s): I10 - Essential (primary) hypertension Status: Chronic (6) Hypokalemia: Code(s): E87.6 - Hypokalemia Status: Acute (7) Low TSH level: Code(s): R79.89 - Other specified abnormal findings of blood chemistry Status: Acute Plan 43 year old male with a significant past medical history of Eosinophilic esophagitis, GERD, hypertension who had a colonoscopy on 08/26/23 due to blood in stools. He was found to have a 5cm polyp in the distal descending sigmoid colon which was partially removed during the colonoscopy. 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 Truong.We were consulted for medical management. laparoscopic left colectomy with hand-sewn anastomosis: Postop care as per surgery team Small ananstomotic leak on imaging 10/13--bowel rest and pain control Ppi Zofran p.r.n. Fevers--likely reactive to anastomotic leak and at risk for abscess but no fluid collection on CT --May need an extended course of antibiotics, continue Cipro/Flagyl per surgery. If worsening, broaden to Cefepime/Vanc/Flagyl --Continue to monitor --Bowel rest and treatment per surgery --Reported dysuria--UA negative for infection --No upper respiratory symptoms, monitor --Blood cultures x2 sent Hypokalemia--Supplementing potassium prn Recheck BMP in a.m. Mild hyponatremia--Will monitor, in the setting of multiple stools, 132<133 Started TPN, has a PICC RUE. Urine was concentrated so monitor fluid status and give NS prn Daily BMP Diarrhea--multiple loose stools --Unlikely infectious, but continue to monitor, if not improving, low threshhold to check stool studies, c-diff, stool cultures Hypertension: Norvasc increased to 10 mg daily code status: Full DVT prophylaxis: Lovenox Disposition: Discharge planning as per surgical team Time Spent With Patient Time: 45 Subjective Date/time seen: 10/15/23 10:11 Interval history: No nausea or vomiting. Having frequent watery BM's, slightly more abdominal distention today but no pain. Sodium and potassium stable, could replete potassium in TPN Review of Systems Review of Systems: No fevers, chills or other new symptoms Exam Narrative: General: In no acute distress, well nourished Head: atraumatic, no encephalopathy Eyes: EOMI, PERRLA, sclera clear ENT: moist mucous membranes, nasal passages clear Neck: supple, no JVD, no adenopathy, trachea midline Cardiac: Normal S1 and S2. RRR, No murmur, gallops or friction rubs, peripheral pulses intact. Respiratory: Lungs clear to auscultation, no adventitious lung sounds, currently on room air Gastrointestinal: soft, mildly distended, non-tender to light palpation, hypoactive bowel sounds. : voiding without difficulty. Extremities: moves all extremities well, no edema, good ROM, strength 5/5 Skin: Lap sites in surgical incision with surgical glue open to air, small dark colored fluid collection at surgical site, well-approximated Neuro: Alert and oriented x4, cranial ner
[2023-10-15] MEDS: KCL 40 MEQ/0.9% SOD CHL 1,000 ML 100 ML IV CONT (10:30)
[2023-10-15] MEDS: AMINO ACIDS 5%/D15W/E-LYTES/CA 2,000 ML with MULTIVITAMINS-12 INJ VIAL 1 2.5 ML, MULTIV... 60 ML IV CONT (17:15)
[2023-10-15] MEDS: FAT EMULSIONS IV 20% 250 ML 20.83 ML IVPB (17:16)
[2023-10-15 17:48] LABS: Triglycerides 131 mg/dL (<150)
[2023-10-15 19:09] LABS: Glucose Point of Care 127 mg/dl (65-105)
[2023-10-15] MEDS: FUROSEMIDE INJ 40 MG/4 ML VIAL IV PUSH (21:59)
[2023-10-15] MEDS: AZTREONAM 2 GM in SODIUM CHLORIDE 0.9% IV 100 ML 200 ML IVPB (21:59)
[2023-10-15 22:05] LABS: Basophils Absolute Auto 0.1 K/mm3 (0.0-0.1); Basophils Percent Auto 0.6 % (0.2-1.2); Eosinophils Absolute Auto 0.1 K/mm3 (0-0.3); Eosinophils Percent Auto 0.8 % (0-4.4); Hematocrit 28.3 % (42.0-52.0); Hemoglobin 8.8 g/dL (14.0-18.0); Immature Granulocyte Absolute 0.58 K/mm3 (0.00-0.031); Immature Granulocyte Percent A 4.5 % (0-0.5); Lymphocytes Absolute Auto 1.01 K/mm3 (0.9-3.2); Lymphocytes Percent Auto 7.9 % (18.3-44.2); Mean Corpuscular HGB Conc 31.1 g/dl (32-36); Mean Corpuscular Hemoglobin 25.6 pg (26-34); Mean Corpuscular Volume 82.3 fl (80-100); Monocytes Absolute Auto 1.1 K/mm3 (0.1-0.6); Monocytes Percent Auto 8.4 % (2.6-8.5); Neutrophils Percent Auto 77.8 % (45.5-73.1); Platelet Count Result 312 k/mm3 (150-375); Red Blood Count 3.44 M/mm3 (4.6-6.20); Red Cell Distribution Width 15.6 % (11.5-14.5); White Blood Count 12.9 K/mm3 (4.5-10.0)
[2023-10-15 22:17] LABS: Alanine Aminotransferase 47 U/L (6-50); Alkaline Phosphatase 86 U/L (38-126); Anion Gap 12 mmol/L (4-12); Aspartate Amino Transferase 50 U/L (17-59); Bilirubin,Total 0.3 mg/dL (0.2-1.3); Blood Urea Nitrogen 13 mg/dL (9-20); Carbon Dioxide 18 mmol/L (22-30); Chloride 103 mmol/L (98-107); Estimated CRCL calculation 93 ml/min; Estimated Glomerular Filt Rate > 60; Glucose 121 mg/dL (65-110); Magnesium 2.4 mg/dL (1.6-2.3); Potassium 3.7 mmol/L (3.4-5.0); Sodium 133 mmol/L (137-145)
[2023-10-15 22:19] LABS: Lactic Acid Reflex 1.1 mmol/L (0.7-2.0)
[2023-10-15] MEDS: SODIUM CHLORIDE 0.9% IV 100 ML 30 ML (22:46)
[2023-10-15] MEDS: VANCOMYCIN 1,250 MG/NS 250 ML 1,250 MG/250 ML BAG 166.67 MG IVPB (22:46)
--- NOTE | 2023-10-15 22:54 | PC.NURSE ---
Upon assessment this shift, pt exhibited redness to left flank and low back. This area was hot to the touch and had pitting edema. Pt c/o mild S.O.B. and pressure to left side. I notified Dr Yoo of my concerns and received new orders for antibiotics and blood cultures. Educated pt on concerns and new orders. Pt exhibited good understanding.
[2023-10-15 23:56] LABS: Glucose Point of Care 135 mg/dl (65-105)
[2023-10-16] VITALS (23 sets, daily range): BP systolic 117–134; BP diastolic 65–83; PULSE 94–129; RESP 18–34; TEMP 36.4–37; O2SAT 95–98
[2023-10-16] MEDS: VANCOMYCIN 1,250 MG/NS 250 ML 1,250 MG/250 ML BAG 166.67 MG IVPB (00:27)
[2023-10-16] MEDS: metroNIDAZOLE 500 MG/ISO 100ML 500 MG/100 ML BAG 100 MG IVPB ×4 (01:48→17:08)
[2023-10-16] MEDS: KCL 40 MEQ/0.9% SOD CHL 1,000 ML 60 ML IV CONT ×2 (01:48→17:07)
[2023-10-16] MEDS: AZTREONAM 2 GM in SODIUM CHLORIDE 0.9% IV 100 ML 200 ML IVPB (05:19)
[2023-10-16] MEDS: SODIUM CHLORIDE 0.9% IV 100 ML 30 ML (05:32)
[2023-10-16 06:01] LABS: Glucose Point of Care 145 mg/dl (65-105)
[2023-10-16] MEDS: CENTRAL LINE FLUSH 10 ML IV PUSH ×2 (06:13→20:13)
[2023-10-16 06:31] LABS: Basophils Absolute Auto 0.1 K/mm3 (0.0-0.1); Basophils Percent Auto 0.5 % (0.2-1.2); Eosinophils Absolute Auto 0.1 K/mm3 (0-0.3); Eosinophils Percent Auto 0.9 % (0-4.4); Hematocrit 25.5 % (42.0-52.0); Hemoglobin 8.2 g/dL (14.0-18.0); Immature Granulocyte Absolute 0.66 K/mm3 (0.00-0.031); Lymphocytes Absolute Auto 1.08 K/mm3 (0.9-3.2); Lymphocytes Percent Auto 8.1 % (18.3-44.2); Mean Corpuscular HGB Conc 32.2 g/dl (32-36); Mean Platelet Volume 10.6 fl (7.4-10.4); Monocytes Absolute Auto 1.1 K/mm3 (0.1-0.6); Monocytes Percent Auto 7.9 % (2.6-8.5); Neutrophils Absolute Auto 10.3 K/mm3 (1.3-6.7); Neutrophils Percent Auto 77.6 % (45.5-73.1); Platelet Count Result 292 k/mm3 (150-375); Red Blood Count 3.15 M/mm3 (4.6-6.20); Red Cell Distribution Width 15.6 % (11.5-14.5); White Blood Count 13.3 K/mm3 (4.5-10.0)
[2023-10-16 06:42] LABS: Lactic Acid Reflex 0.9 mmol/L (0.7-2.0)
[2023-10-16 06:47] LABS: Alanine Aminotransferase 42 U/L (6-50); Albumin Level 2.5 g/dL (3.5-5.1); Alkaline Phosphatase 76 U/L (38-126); Anion Gap 8 mmol/L (4-12); Aspartate Amino Transferase 43 U/L (17-59); Bilirubin,Total 0.2 mg/dL (0.2-1.3); Blood Urea Nitrogen 13 mg/dL (9-20); Calcium 7.5 mg/dL (8.4-10.2); Carbon Dioxide 22 mmol/L (22-30); Chloride 102 mmol/L (98-107); Estimated CRCL calculation 85 ml/min; Estimated Glomerular Filt Rate > 60; Glucose 134 mg/dL (65-110); Magnesium 2.2 mg/dL (1.6-2.3); Phosphorus 3.5 mg/dL (2.5-4.5); Potassium 3.6 mmol/L (3.4-5.0); Sodium 132 mmol/L (137-145)
[2023-10-16 07:03] LABS: CRP 23.6 mg/dL (<1.0)
--- NOTE | 2023-10-16 08:01 | PM.PNGS ---
Progress Note: A&P Assessment and Plan (1) Anastomotic leak of intestine: Code(s): K91.89 - Other postprocedural complications and disorders of digestive system Status: Acute Assessment and Plan: Patient improving. Suspect this it is a very small anastomotic leak and has a good she thing without any further surgery. His fever has resolved. His tachycardia is improving. His CRP level dropped from 34.5 to 23.6 in 2 days of bowel rest and antibiotics. He has no abdominal pain in continues to have no, active bowel sounds. I will hold off on surgery today and repeat a CT scan of the abdomen and pelvis since he now has this left flank rash. I explained to the patient that there is some risk of him developing an abscess but that this can usually be drained with in guidance percutaneously rather than going surgery. Continue to follow closely. Continue NPO except meds with sips and occasional ice chips, TPN, broad-spectrum IV antibiotics. (2) Fever: Qualifiers: Fever type: post-procedural Qualified Code(s): R50.82 - Postprocedural fever Code(s): R50.9 - Fever, unspecified Status: Acute Assessment and Plan: Temperature curve has decreased and no fevers through the night. (3) Leukocytosis, unspecified: Qualifiers: Leukocytosis type: bandemia Qualified Code(s): D72.825 - Bandemia Code(s): D72.829 - Elevated white blood cell count, unspecified Status: Acute Assessment and Plan: White blood cell count higher with more of a left shift. While this is concerning, this can be slow to turn around and is really the only negative factor to continuing the present course. (4) Polyp, sigmoid colon: Qualifiers: Colon polyp type: adenomatous Qualified Code(s): D12.5 - Benign neoplasm of sigmoid colon Code(s): K63.5 - Polyp of colon Status: Chronic Assessment and Plan: Removed and benign. (5) Erythema: Code(s): L53.9 - Erythematous condition, unspecified Status: Acute Assessment and Plan: Not sure what the erythema is due to. It tender. There is no crepitus. Will review CT scan abdomen and pelvis. Could simply be due to having laid on this area for long time. (6) Hypokalemia: Code(s): E87.6 - Hypokalemia Status: Acute Assessment and Plan: Still in normal range creasing. Will give p.o. potassium supplement today. Subjective Subjective Date/Time Seen: 10/16/23 08:01 Post Op day: #8 Patient reports: feels better (Feels the same as before, no pain, no shortness of breath, no chills), pain is less (Still no abdominal pain.), voiding w/o difficulty, bowel movement, afebrile and other (Erythema left lower flank and back, new from last night) Exam Const: General: cooperative, comfortable, no acute distress, alert and awake Nutritional Appearance: overweight Orientation/consciousness: patient oriented x3 and No confusion GI: Inspection: incision (Incisions dry and healing), no visible herniation and other (Erythema lower left flank ending around to back) GI Palp: Yes Soft to palpation, No Tenderness to palpation present (GI), No Hernia present, No Palpable mass present and Yes Other GI palpation findings present (No crepitus associated with erythema) Auscultation: normal bowel sounds and normoactive bowel sounds Back/Spine/Pelvis: Back: erythema (Left lower flank and back as mentioned above) Psych: Appearance: grossly normal Affect: normal affect Attitude: cooperative Thought process: Normal thought process present Thought content: Yes Normal thought content present Insight: Good insight present (Psych) Judgement: Good judgement present (Psych) Objective Data Vital Signs Vital Signs: Vital Signs - 24 hr 10/15/23 12:00 10/15/23 14:00 10/15/23 20:13 Temperature 36.6 C 36.8 C Pulse Rate 101 H 99 108 H Respiratory Rate 16 16 Blood Pressure 132/81 130/71 Pulse Oximetry 100 99
--- NOTE | 2023-10-16 08:09 | PM.IMPN ---
Progress Note: A&P Assessment and Plan (1) Polyp, sigmoid colon: Qualifiers: Colon polyp type: adenomatous Qualified Code(s): D12.5 - Benign neoplasm of sigmoid colon Code(s): K63.5 - Polyp of colon Status: Chronic (2) Dehydration: Code(s): E86.0 - Dehydration Status: Acute (3) Eosinophilic esophagitis: Code(s): K20.0 - Eosinophilic esophagitis Status: Acute (4) Anemia: Qualifiers: Anemia type: iron deficiency Iron deficiency anemia type: chronic blood loss Qualified Code(s): D50.0 - Iron deficiency anemia secondary to blood loss (chronic) Code(s): D64.9 - Anemia, unspecified Status: Chronic (5) Hypertension: Qualifiers: Hypertension type: primary hypertension Qualified Code(s): I10 - Essential (primary) hypertension Code(s): I10 - Essential (primary) hypertension Status: Chronic (6) Hypokalemia: Code(s): E87.6 - Hypokalemia Status: Acute (7) Low TSH level: Code(s): R79.89 - Other specified abnormal findings of blood chemistry Status: Acute Plan 43 year old male with a significant past medical history of Eosinophilic esophagitis, GERD, hypertension who had a colonoscopy on 08/26/23 due to blood in stools. He was found to have a 5cm polyp in the distal descending sigmoid colon which was partially removed during the colonoscopy. 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 Truong.We were consulted for medical management. laparoscopic left colectomy with hand-sewn anastomosis: Postop care as per surgery team Small ananstomotic leak on imaging 10/13--bowel rest and pain control, surgical interventions per primary team Ppi Zofran p.r.n. Fevers--likely reactive to anastomotic leak and at risk for abscess but no fluid collection on CT --May need an extended course of antibiotics, continue Cipro/Flagyl/Azithromycin per surgery. If worsening, broaden to Cefepime/Vanc/Flagyl --Patient has a history of allergy to PCN but was mild. Discussed with patient's mother at the bedside and she reported no difficulty breathing, doesn't remember if it was puritic, likely ampicillin or PCN for an ear infection. Rash was mild. If 3rd Cephalosporin needed, would be overall low risk <1%, slightly higher for 1st and second generation antibiotics --Continue to monitor --Bowel rest and treatment per surgery --Reported dysuria--UA negative for infection --No upper respiratory symptoms, monitor --Blood cultures x2 sent 10/13 & 10/14 NGTD Tachycardia--Also fevers, may need additional fluids Hypokalemia--Supplementing potassium prn Follow potassium Mild hyponatremia--Will monitor, in the setting of multiple stools, 132<133 Started Clinimix, has a PICC RUE. Urine was concentrated so monitor fluid status and give NS prn Daily BMP Diarrhea--multiple loose stools --Unlikely infectious, but continue to monitor, if not improving, low threshhold to check stool studies, c-diff, stool cultures Hypertension: Norvasc increased to 10 mg daily code status: Full DVT prophylaxis: Lovenox Disposition: Discharge planning as per surgical team Subjective Date/time seen: 10/16/23 08:09 Interval history: Pain and nonpuritic erythema, edema to left back overnight. CT abd/pelvis showed increased size of gas and fluid collections in the left upper and lower quadrants. WBC up to 13.3. Afebrile, tachycardic, 100-129 BP stable. Abdomen slightly more distended, no nausea. Potassium trending down slightly Review of Systems Review of Systems: No fevers, chills or other new symptoms All systems reviewed & are unremarkable except as noted in HPI and below Constitutional: Constitutional: Reports as per HPI and Reports no additional constitutional complaints Eyes: Eyes: Reports as per HPI and Reports n
[2023-10-16] MEDS: PANTOPRAZOLE SODIUM IV 40 MG VIAL IV PUSH (08:24)
[2023-10-16] MEDS: amLODIPine BESYLATE 10 MG TABLET PO (08:24)
[2023-10-16] MEDS: levoFLOXacin 750 MG/D5W 150 ML 750 MG/150 ML BAG 100 MG IVPB (08:24)
[2023-10-16 11:05] LABS: INR 1.2; Prothrombin Time 15.9 Seconds (11.1-14.7)
[2023-10-16 11:53] LABS: Glucose Point of Care 118 mg/dl (65-105)
--- NOTE | 2023-10-16 12:44 | WPDMODSED ---
Moderate Sedation Note-Pt Data Patient Data Diagnosis: colon anastamotic leak with abscess Present Complaint: abscess Procedure to be performed/Plan: ct guided percutaneous abscess drain placement x2 Allergies Allergy/AdvReac Type Severity Reaction Status Date / Time losartan Allergy Mild Rash Verified 10/08/23 08:18 Penicillins Allergy Unknown Rash Verified 10/08/23 08:18 Home Medications Medication Instructions Recorded Confirmed Type omeprazole 40 mg capsule,delayed 40 mg PO DAILY #30 caps 09/03/23 10/08/23 Rx release ciprofloxacin HCl 500 mg tablet 500 mg PO .COMPLEX #1 tablet 09/15/23 10/08/23 Rx metronidazole 500 mg tablet 500 mg PO .COMPLEX #3 tabs 09/15/23 10/08/23 Rx amlodipine 5 mg tablet 5 mg PO DAILY #30 tabs 10/14/23 10/14/23 Rx Current Medications: Active Medications Acetaminophen (Acetaminophen 325 Mg Tablet) 650 mg PO Q6H PRN PRN Reason: Fever Amlodipine Besylate (Amlodipine Besylate 10 Mg Tablet) 10 mg PO DAILY [facility] Last Admin: 10/16/23 08:24 Dose: 10 mg Dextrose (Dextrose 50% 25 Gm/50 Ml Syringe) 12.5 gm IV PUSH PRN PRN; Protocol PRN Reason: Hypoglycemia Enoxaparin Sodium (Enoxaparin 40 Mg/0.4 Ml Syringe) 40 mg SUB-Q DAILY [facility] Glucagon (Glucagon For Inj 1 Mg Vial) 1 mg IM PRN PRN; Protocol PRN Reason: Hypoglycemia Glucose (Glucose Oral Gel 15 Gm Of Glucse In 37.5 Gm Tube) 15 gm PO PRN PRN; Protocol PRN Reason: Hypoglycemia Potassium Chloride/Sodium Chloride (Kcl 40 Meq/Ns) 1,000 mls @ 60 mls/hr IV CONT .[id number] [facility] Last Admin: 10/16/23 01:48 Dose: 60 mls/hr Metronidazole (Flagyl 500 Mg/Iso Soln 100 Ml) 500 mg in 100 mls @ 100 mls/hr IVPB Q6HR [facility] Last Admin: 10/16/23 06:12 Dose: 100 mls/hr Ibuprofen (Caldolor 800 Mg/200 Ml) 800 mg in 200 mls @ 400 mls/hr IVPB Q6H PRN PRN Reason: Pain Rated 1-3 Dextrose (Dextrose 10%) 1,000 mls @ 50 mls/hr IV CONT .Q20H PRN PRN Reason: if PN is interrupted Multivitamins 2.5 ml/Multivitamins 2.5 ml/ Amino Acids/Electrolytes/Dextrose 2,005 mls @ 70 mls/hr IV CONT .Q24H [facility]; Protocol Last Admin: 10/15/23 17:15 Dose: 60 mls/hr Dextrose (Dextrose 5% 1,000 Ml) 1,000 mls @ 100 mls/hr IVPB PRN PRN; Protocol PRN Reason: Hypoglycemia Fat Emulsion Intravenous (Lipids 20%) 250 mls @ 20.833 mls/hr IVPB Q24H [facility] Last Admin: 10/15/23 17:16 Dose: 20.83 mls/hr Levofloxacin/Dextrose (Levaquin 750 Mg/D5w 150 Ml) 750 mg in 150 mls @ 100 mls/hr IVPB Q24H [facility] Last Admin: 10/16/23 08:24 Dose: 100 mls/hr Insulin Human Regular (Insulin Human Regular (*Bkc) 100 Units/Ml) 0 units SUB-Q Q6HR [facility]; Protocol Last Admin: 10/16/23 06:10 Dose: Not Given Miscellaneous Information (Clinamix Needs To Be Renewed Or It Will Automatically Discontinue.) 1 each XX CLARIFY [facility] Stop: 11/14/23 00:00 Morphine Sulfate (Morphine Sulfate (*Crx) 2 Mg/Ml Inj) 1 mg IV PUSH Q2H PRN PRN Reason: Breakthrough Pain Rated 4-6 or NPO Last Admin: 10/09/23 11:12 Dose: 1 mg Morphine Sulfate (Morphine Sulfate (*Crx) 4 Mg/Ml Inj) 2 mg IV PUSH Q2H PRN PRN Reason: Breakthrough Pain Rated 7-10 or NPO Last Admin: 10/09/23 16:33 Dose: 2 mg Naloxone HCl (Naloxone Hcl 0.4 Mg/Ml Vial) 0.1 mg IV PUSH Q2M PRN PRN Reason: Opiate Reversal Ondansetron HCl (Ondansetron Inj 4 Mg/2 Ml Vial) 4 mg IV PUSH Q4H PRN PRN Reason: Nausea And Vomiting Pantoprazole Sodium (Pantoprazole Sodium Iv 40 Mg Vial) 40 mg IV PUSH QAM [facility] Last Admin: 10/16/23 08:24 Dose: 40 mg Sodium Chloride (Central Line Flush) 10 ml IV PUSH Q8HR [facility] Last Admin: 10/16/23 06:13 Dose: 10 ml Sodium Chloride (Central Line Flush) 10 ml IV PUSH PRN PRN PRN Reason: with TPN bag changes Sodium Chloride (Central Line Flush) 20 ml IV PUSH PRN PRN PRN Reason: after blood draws Sedation/Anesthesia: No previous sedation/anesthesia problems (including family history). [facility] Past Medical History Medical History (Updated 10/16/23 @ 08:08 by Mir Truong MD) Eosinophilic esophagitis GERD (gastroesop
--- NOTE | 2023-10-16 14:45 | SUR.PHASEII ---
Bedside report to nurse Mandy R. VS stable. Pt without distress or c/o. Abd drains x [address] and draining well
[2023-10-16] MEDS: AMINO ACIDS 5%/D15W/E-LYTES/CA 2,000 ML with MULTIVITAMINS-12 INJ VIAL 1 2.5 ML, MULTIV... 60 ML IV CONT (17:07)
[2023-10-16] MEDS: FAT EMULSIONS IV 20% 250 ML 20.83 ML IVPB (17:08)
[2023-10-16 17:59] LABS: Glucose Point of Care 119 mg/dl (65-105)
[2023-10-17] VITALS (10 sets, daily range): BP systolic 110–123; BP diastolic 66–75; PULSE 83–113; RESP 18–22; TEMP 36.1–36.7; O2SAT 97–100
[2023-10-17] MEDS: metroNIDAZOLE 500 MG/ISO 100ML 500 MG/100 ML BAG 100 MG IVPB ×4 (00:20→18:45)
[2023-10-17 00:28] LABS: Glucose Point of Care 124 mg/dl (65-105)
[2023-10-17] MEDS: CENTRAL LINE FLUSH 10 ML IV PUSH ×3 (06:38→20:06)
[2023-10-17 06:39] LABS: Hematocrit 26.3 % (42.0-52.0); Hemoglobin 8.2 g/dL (14.0-18.0); Mean Corpuscular HGB Conc 31.2 g/dl (32-36); Mean Corpuscular Hemoglobin 25.1 pg (26-34); Mean Corpuscular Volume 80.4 fl (80-100); Mean Platelet Volume 10.8 fl (7.4-10.4); Platelet Count Result 330 k/mm3 (150-375); Red Blood Count 3.27 M/mm3 (4.6-6.20); Red Cell Distribution Width 15.4 % (11.5-14.5); White Blood Count 12.4 K/mm3 (4.5-10.0)
[2023-10-17 06:50] LABS: Lactic Acid Reflex 0.9 mmol/L (0.7-2.0)
[2023-10-17 06:54] LABS: Alanine Aminotransferase 34 U/L (6-50); Albumin Level 2.4 g/dL (3.5-5.1); Alkaline Phosphatase 67 U/L (38-126); Anion Gap 7 mmol/L (4-12); Aspartate Amino Transferase 30 U/L (17-59); Bilirubin,Total 0.2 mg/dL (0.2-1.3); Blood Urea Nitrogen 11 mg/dL (9-20); Calcium 7.2 mg/dL (8.4-10.2); Carbon Dioxide 24 mmol/L (22-30); Chloride 102 mmol/L (98-107); Estimated CRCL calculation 103 ml/min; Estimated Glomerular Filt Rate > 60; Glucose 124 mg/dL (65-110); Phosphorus 3.6 mg/dL (2.5-4.5); Potassium 3.6 mmol/L (3.4-5.0); Sodium 133 mmol/L (137-145)
[2023-10-17 07:04] LABS: CRP 21.4 mg/dL (<1.0)
[2023-10-17 07:07] LABS: Band Neutrophils Percent 20 % (0-6); Eosinophils Absolute Manual 0.12 K/mm3 (0.02-0.50); Eosinophils Percent Manual 1 % (0-4); Lymphocytes Absolute Manual 1.11 K/mm3 (1.1-4.5); Monocytes Absolute Manual 0.12 K/mm3 (0.1-0.90); Monocytes Percent Manual 1 % (3-9); Neutrophils Absolute Manual 11.03 K/mm3 (1.3-6.7); Neutrophils Percent Manual 69 % (46-73); Total Cells Counted 100
[2023-10-17 07:09] LABS: Hypochromasia 2+; Platelet Estimate Adequate (Adequate); Schistocytes None Seen
--- NOTE | 2023-10-17 07:51 | PM.IMPN ---
Progress Note: A&P Assessment and Plan (1) Polyp, sigmoid colon: Qualifiers: Colon polyp type: adenomatous Qualified Code(s): D12.5 - Benign neoplasm of sigmoid colon Code(s): K63.5 - Polyp of colon Status: Chronic (2) Dehydration: Code(s): E86.0 - Dehydration Status: Acute (3) Eosinophilic esophagitis: Code(s): K20.0 - Eosinophilic esophagitis Status: Acute (4) Anemia: Qualifiers: Anemia type: iron deficiency Iron deficiency anemia type: chronic blood loss Qualified Code(s): D50.0 - Iron deficiency anemia secondary to blood loss (chronic) Code(s): D64.9 - Anemia, unspecified Status: Chronic (5) Hypertension: Qualifiers: Hypertension type: primary hypertension Qualified Code(s): I10 - Essential (primary) hypertension Code(s): I10 - Essential (primary) hypertension Status: Chronic (6) Hypokalemia: Code(s): E87.6 - Hypokalemia Status: Acute (7) Low TSH level: Code(s): R79.89 - Other specified abnormal findings of blood chemistry Status: Acute Plan 43 year old male with a significant past medical history of Eosinophilic esophagitis, GERD, hypertension who had a colonoscopy on 08/26/23 due to blood in stools. He was found to have a 5cm polyp in the distal descending sigmoid colon which was partially removed during the colonoscopy. 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 Truong.We were consulted for medical management. laparoscopic left colectomy with hand-sewn anastomosis: Postop care as per surgery team Small ananstomotic leak on imaging 10/13--bowel rest and pain control, surgical interventions per primary team s/p placement of drains 09/14 PPI Zofran p.r.n. Bacteremia anastomotic leak s/p surgical drainage. May need an extended course of antibiotics, continue Cipro/Flagyl/Azithromycin per surgery. If worsening, broaden to Cefepime/Vanc/Flagyl. TMax 102.5 10/12. Blood cultures Positive 10/13 x1/2 gram negative occcobacilli, repeat blood cultures 10/14 x2 prelim no growth. Repeat blood cultures today --Patient has a history of allergy to PCN but was mild. Discussed with patient's mother at the bedside and she reported no difficulty breathing, doesn't remember if it was puritic, likely ampicillin or PCN for an ear infection. Rash was mild. If 3rd Cephalosporin needed, would be overall low risk <1%, slightly higher for 1st and second generation antibiotics --Bowel rest and treatment per surgery --Reported dysuria--UA negative for infection --No upper respiratory symptoms, monitor Anemia--Blood count trending down, 10.5/34.3>8.2/26.3. Check iron panel, ferritin. T&S if trending down further. Overall stable --Consider iron infusion if continues to downtrend. Tachycardia Fevers RESOLVED today. See bacteremia above --continue to monitor. 2/2 dehydration and infection Hypokalemia--Supplementing potassium prn Follow potassium Hypocalcemia--calcium trending down slowly. --Check phos, ionized calcium, vitamin D Mild hyponatremia--Will monitor, in the setting of multiple stools, 132<133 Continuing Clinimix, has a PICC RUE. Urine was concentrated so monitor fluid status and give NS prn Daily BMP Diarrhea--multiple loose stools --Unlikely infectious, but continue to monitor, if not improving, low threshhold to check stool studies, c-diff, stool cultures Low TSH--in the setting of acute illness --Repeat in 4-6 weeks Hypertension: Home med: Amlodipine 5mg daily Norvasc increased to 10 mg daily--blood pressure overall controlled, but will reduce to 7.5mg. Blood pressure may start to trend down when current medical issues resolving so may have problems with hypotension after discharge. Would resume home dose if possible and consider shorter acting med if needed code status: Full
[2023-10-17] MEDS: levoFLOXacin 750 MG/D5W 150 ML 750 MG/150 ML BAG 100 MG IVPB (08:17)
[2023-10-17] MEDS: PANTOPRAZOLE SODIUM IV 40 MG VIAL IV PUSH (08:17)
[2023-10-17] MEDS: amLODIPine BESYLATE 10 MG TABLET PO (08:17)
[2023-10-17] MEDS: ENOXAPARIN 40 MG/0.4 ML SYRINGE SUB-Q (08:17)
[2023-10-17] MEDS: KCL 40 MEQ/0.9% SOD CHL 1,000 ML 60 ML IV CONT (11:07)
--- NOTE | 2023-10-17 11:10 | PM.PNGS ---
Progress Note: A&P Assessment and Plan (1) Anastomotic leak of intestine: Code(s): K91.89 - Other postprocedural complications and disorders of digestive system Status: Acute Assessment and Plan: Successful placement of percutaneous drains yesterday. Drain be is draining some liquid brown fluid which would be consistent with colonic content. Large amount is coming out since drain placed. If leak seals, this output should decrease and resolve. Other drain shows purulent fluid and much smaller amount. Patient's condition remains improved. White blood cell count slightly lower, tachycardia and fever have resolved. CRP continues to decrease. Culture of blood from 10/13 shows positive Gram-negative anaerobes of coccobacilli in 1 of 2 blood cultures. Anaerobic cultures from abdominal fluid also showing polymicrobial results. Continue to follow clinical condition, labs, drain outputs closely. (2) Leukocytosis, unspecified: Qualifiers: Leukocytosis type: bandemia Qualified Code(s): D72.825 - Bandemia Code(s): D72.829 - Elevated white blood cell count, unspecified Status: Acute Assessment and Plan: Slightly improved today. Differential not able to be performed (3) Fever: Qualifiers: Fever type: post-procedural Qualified Code(s): R50.82 - Postprocedural fever Code(s): R50.9 - Fever, unspecified Status: Acute Assessment and Plan: Afebrile yesterday and today (4) Erythema: Code(s): L53.9 - Erythematous condition, unspecified Status: Acute Assessment and Plan: Improved after drainage procedure (5) Protein-calorie malnutrition, moderate: Code(s): E44.0 - Moderate protein-calorie malnutrition Status: Acute Assessment and Plan: Continue TPN while patient NPO (6) Polyp, sigmoid colon: Qualifiers: Colon polyp type: adenomatous Qualified Code(s): D12.5 - Benign neoplasm of sigmoid colon Code(s): K63.5 - Polyp of colon Status: Chronic Assessment and Plan: Benign and removed with left colon resection (7) Hypokalemia: Code(s): E87.6 - Hypokalemia Status: Acute Assessment and Plan: Will start daily 40 mEq KCL in addition to IV fluids of KCl and Clinimix TPN. Continue to monitor. Subjective Subjective Date/Time Seen: 10/17/23 11:10 Post Op day: #9 Patient reports: no new complaints, feels better (Feels about the same, no abdominal pain, no chills, new drains are tolerable), bowel movement (Bowel movements becoming more normal, less loose) and afebrile (Tachycardia resolved as well) Exam Const: General: cooperative, comfortable, no acute distress, alert and awake Orientation/consciousness: patient oriented x3 GI: Inspection: distended, incision (All are dry and healing, no change) and other (Drain A purulent; drain B liquid brown, large amount) GI Palp: Yes Soft to palpation, No Tenderness to palpation present (GI), No Guarding due to palpation present (GI) and No Rebound tenderness present Auscultation: normal bowel sounds and normoactive bowel sounds (Bowel sounds normal and active as usual) Neuro: General: patient oriented x3 and no focal motor deficits Extrem: General: no calf tenderness and no edema Psych: Affect: normal affect Insight: Good insight present (Psych) Judgement: Good judgement present (Psych) Objective Data Vital Signs Vital Signs: Vital Signs - 24 hr 10/16/23 12:00 10/16/23 13:25 10/16/23 13:30 Temperature Pulse Rate 108 H 100 99 Respiratory Rate 32 H 34 H Blood Pressure 129/75 129/79 Pulse Oximetry 97 97 Oxygen Delivery Nasal Cannula Nasal Cannula Oxygen Flow Rate 2 2 10/16/23 14:30 10/16/23 13:35 10/16/23 13:40 Temperature Pulse Rate 94 98 98 Respiratory Rate 24 H 30 H 24 H Blood Pressure 127/80 126/83 122/74 Pulse Oximetry 95 96 96 Oxygen Delivery Room Air Nasal Cannula Nasal Cannula Oxygen Flow Rate
--- NOTE | 2023-10-17 11:38 | PCNFU ---
Nutrition Follow-Up Complete: Inadequate oral intake related to altered GI function as evidenced by need for parenteral nutrition Meet estimated nutrition needs- Goal is being met with TPN Advance to PO intake as medically able - Not progressing yet Goal: Pt current nutrition is Clinmix E 07/01 @ goal rate 70 ml/h to provide 1693 kcal, 84 g protein, 1930 ml total volume. Nutrition recommendation: Reduce TPN when oral diet is started to encourage PO intake. Last recorded weight is 95 kg. Bowel Motility: +2 BMs 10/16/23 Labs Reviewed: Hgb 8.2, Hct 26.3, Alb 2.4, Na 133, Glu 124 Meds Noted: Insulin, levaquin, flagyl Skin: [address] Additional Notes: Tolerating TPN at goal rate 70 ml/h. Bowel rest for anastomotic leak. Diet advancement per MD. Agree with current orders. Monitoring TPN tolerance, labs, weights, stool patterns, meds, plan of care Follow up Tuesdays and Fridays per policy
[2023-10-17 11:44] LABS: Glucose Point of Care 117 mg/dl (65-105)
[2023-10-17] MEDS: POTASSIUM CHLORIDE 20 MEQ ER TABLET 40 MEQ PO (15:07)
[2023-10-17] MEDS: AMINO ACIDS 5%/D15W/E-LYTES/CA 2,000 ML with MULTIVITAMINS-12 INJ VIAL 1 2.5 ML, MULTIV... 60 ML IV CONT (16:20)
[2023-10-17] MEDS: FAT EMULSIONS IV 20% 250 ML 20.83 ML IVPB (16:20)
[2023-10-17 16:35] LABS: Triglycerides 139 mg/dL (<150)
[2023-10-18] VITALS (9 sets, daily range): BP systolic 107–120; BP diastolic 67–73; PULSE 80–99; RESP 16–20; TEMP 36.1–36.5; O2SAT 97–100
[2023-10-18 00:04] LABS: Glucose Point of Care 119 mg/dl (65-105)
[2023-10-18] MEDS: metroNIDAZOLE 500 MG/ISO 100ML 500 MG/100 ML BAG 100 MG IVPB ×4 (00:23→17:43)
[2023-10-18] MEDS: KCL 40 MEQ/0.9% SOD CHL 1,000 ML 60 ML IV CONT (05:38)
[2023-10-18 05:46] LABS: Glucose Point of Care 132 mg/dl (65-105)
[2023-10-18 05:58] LABS: Basophils Absolute Auto 0.1 K/mm3 (0.0-0.1); Basophils Percent Auto 0.8 % (0.2-1.2); Eosinophils Absolute Auto 0.3 K/mm3 (0-0.3); Eosinophils Percent Auto 2.1 % (0-4.4); Hemoglobin 8.6 g/dL (14.0-18.0); Immature Granulocyte Absolute 1.99 K/mm3 (0.00-0.031); Immature Granulocyte Percent A 14.5 % (0-0.5); Lymphocytes Absolute Auto 1.41 K/mm3 (0.9-3.2); Lymphocytes Percent Auto 10.3 % (18.3-44.2); Mean Corpuscular HGB Conc 31.9 g/dl (32-36); Mean Corpuscular Hemoglobin 25.6 pg (26-34); Mean Corpuscular Volume 80.4 fl (80-100); Mean Platelet Volume 10.6 fl (7.4-10.4); Monocytes Absolute Auto 0.9 K/mm3 (0.1-0.6); Monocytes Percent Auto 6.2 % (2.6-8.5); Neutrophils Absolute Auto 9.1 K/mm3 (1.3-6.7); Neutrophils Percent Auto 66.1 % (45.5-73.1); Platelet Count Result 424 k/mm3 (150-375); Red Blood Count 3.36 M/mm3 (4.6-6.20); Red Cell Distribution Width 15.4 % (11.5-14.5); White Blood Count 13.7 K/mm3 (4.5-10.0)
[2023-10-18 06:27] LABS: Alanine Aminotransferase 31 U/L (6-50); Albumin Level 2.5 g/dL (3.5-5.1); Alkaline Phosphatase 62 U/L (38-126); Anion Gap 8 mmol/L (4-12); Aspartate Amino Transferase 31 U/L (17-59); Bilirubin,Total 0.1 mg/dL (0.2-1.3); Blood Urea Nitrogen 11 mg/dL (9-20); Calcium 7.8 mg/dL (8.4-10.2); Carbon Dioxide 25 mmol/L (22-30); Chloride 101 mmol/L (98-107); Estimated CRCL calculation 115 ml/min; Estimated Glomerular Filt Rate > 60; Glucose 129 mg/dL (65-110); Phosphorus 4.2 mg/dL (2.5-4.5); Potassium 4.3 mmol/L (3.4-5.0); Sodium 134 mmol/L (137-145)
[2023-10-18 06:29] LABS: Iron 21 ug/dL (49-181)
[2023-10-18 06:38] LABS: Percent Iron Saturation 10 % (20-50)
[2023-10-18 06:42] LABS: Vitamin D 25 Hydroxy 19.4 ng/mL
[2023-10-18 06:43] LABS: CRP 14.4 mg/dL (<1.0)
[2023-10-18 06:47] LABS: Anisocytosis 1+; Atypical Lymphocytes Present; Platelet Estimate Slightly Increased (Adequate); Schistocytes None Seen
[2023-10-18] MEDS: CENTRAL LINE FLUSH 10 ML IV PUSH ×3 (08:26→21:40)
[2023-10-18] MEDS: amLODIPine BESYLATE 2.5 MG TABLET 7.5 MG PO (08:26)
[2023-10-18] MEDS: PANTOPRAZOLE SODIUM IV 40 MG VIAL IV PUSH (08:27)
[2023-10-18] MEDS: levoFLOXacin 750 MG/D5W 150 ML 750 MG/150 ML BAG 100 MG IVPB (08:27)
[2023-10-18] MEDS: POTASSIUM CHLORIDE 20 MEQ ER TABLET 40 MEQ PO (08:27)
[2023-10-18 12:00] LABS: Glucose Point of Care 132 mg/dl (65-105)
--- NOTE | 2023-10-18 12:30 | PM.IMPN ---
Progress Note: A&P Assessment and Plan (1) Anastomotic leak of intestine: Code(s): K91.89 - Other postprocedural complications and disorders of digestive system Status: Acute Assessment and Plan: 10/18/23: Drain output 10/16 dayshift 400 mL, overnight 150 mL 10/18/23: CRP down to 14.4, WBC continue to fluctuate at 13.7k Continue Levaquin, Flagyl Monitor for output of stool, flatus (2) Polyp, sigmoid colon: Qualifiers: Colon polyp type: adenomatous Qualified Code(s): D12.5 - Benign neoplasm of sigmoid colon Code(s): K63.5 - Polyp of colon Status: Chronic Assessment and Plan: S/p surgical removal with tubulovillous adenoma on pathology (3) Dehydration: Code(s): E86.0 - Dehydration Status: Acute Assessment and Plan: Resolved (4) Eosinophilic esophagitis: Code(s): K20.0 - Eosinophilic esophagitis Status: Acute Assessment and Plan: Continue PPI (5) Anemia: Qualifiers: Anemia type: iron deficiency Iron deficiency anemia type: chronic blood loss Qualified Code(s): D50.0 - Iron deficiency anemia secondary to blood loss (chronic) Code(s): D64.9 - Anemia, unspecified Status: Chronic Assessment and Plan: 10/17 Hbg 8.3 stable Iron panel c/w anemia of chronic disease and B12 WNL (6) Hypertension: Qualifiers: Hypertension type: primary hypertension Qualified Code(s): I10 - Essential (primary) hypertension Code(s): I10 - Essential (primary) hypertension Status: Chronic Assessment and Plan: 10/17 controlled 116/70 (7) Hypokalemia: Code(s): E87.6 - Hypokalemia Status: Acute Assessment and Plan: 10/17 4.3 (8) Low TSH level: Code(s): R79.89 - Other specified abnormal findings of blood chemistry Status: Acute Assessment and Plan: Low TSH, NL FT4, low TT3 in setting of acute illness is c/w sick euthyroid syndrome (9) Protein-calorie malnutrition, moderate: Code(s): E44.0 - Moderate protein-calorie malnutrition Status: Acute Assessment and Plan: Continue IV nutrition Subjective Date/time seen: 10/18/23 12:30 Interval history: Denied pain. Walking laps around the floor frequently. Mild puffiness of ankles. Denied cp or sob. Went from having diarrhea to only a couple of drops of stool today. Denied passing flatus today. Review of Systems Review of Systems: All systems reviewed & are unremarkable except as noted in HPI and below Exam Narrative: HEENT: PERRL, sclerae nonicteric, pharyngeal mucosa pink and intact NECK: No JVD CHEST: Clear to auscultation. Normal effort. HEART: NL S1/S2, regular, no murmur ABDOMEN: BS active, soft, nontender, no mass, no bruits EXTREMITIES: No pitting edema. NEUROLOGIC: CN intact and symmetric to inspection. MUSCULOSKELETAL: Tone and strength symmetric. PSYCH: Alert. Oriented to person, place, and time. Objective Data Vital Signs Vital Signs: Vital Signs - 24 hr 10/17/23 14:00 10/17/23 16:00 10/17/23 21:23 Temperature 97.0 F L 98.1 F Pulse Rate 92 83 86 Respiratory Rate 18 22 H Blood Pressure 115/72 123/75 Pulse Oximetry 100 97 Oxygen Delivery 10/17/23 20:00 10/17/23 20:00 10/18/23 05:54 Temperature 97.7 F Pulse Rate 93 86 89 Respiratory Rate 22 H 16 Blood Pressure 116/70 Pulse Oximetry 97 97 Oxygen Delivery Room Air 10/18/23 00:00 10/18/23 04:00 10/18/23 08:25 Temperature Pulse Rate 85 99 Respiratory Rate Blood Pressure Pulse Oximetry Oxygen Delivery Room Air Intake/Output Intake/Output: Intake & Output 10/15/23 10/16/23 10/17/23 10/18/23 23:59 23:59 23:59 23:59 Intake Total 3097 3994 3393 1200 Output Total 922 2103 2076 2425 Balance 2822 1891 1318 -1225 Meds/Results Medications: Active Medications Generic Name Dose Route Start Last Admin Trade Name Freq PRN Reason Stop Dose Adm
--- NOTE | 2023-10-18 13:52 | PM.PNGS ---
Progress Note: A&P Assessment and Plan (1) Anastomotic leak of intestine: Code(s): K91.89 - Other postprocedural complications and disorders of digestive system Status: Acute Assessment and Plan: stable, will try clears, cont TPN, cont IV abx, encourage OOB/IS Subjective Subjective Date/Time Seen: 10/18/23 13:52 Interval history: feels pretty good, no acute issues Review of Systems Review of Systems: All systems reviewed & are unremarkable except as noted in HPI and below Exam Const: General: cooperative, comfortable and no acute distress Resp: Auscultation: clear to auscultation bilaterally Cardio: Rate: regular rate Rhythm: regular rhythm GI: Inspection: normal to inspection, distended and incision GI Palp: No abdominal tenderness, Yes Soft to palpation and No Tenderness to palpation present (GI) Other: drains - mod brownish drainage, mod serous drainage Objective Data Vital Signs Vital Signs: Vital Signs - 24 hr 10/17/23 14:00 10/17/23 16:00 10/17/23 21:23 Temperature 36.1 C L 36.7 C Pulse Rate 92 83 86 Respiratory Rate 18 22 H Blood Pressure 115/72 123/75 Pulse Oximetry 100 97 Oxygen Delivery 10/17/23 20:00 10/17/23 20:00 10/18/23 05:54 Temperature 36.5 C Pulse Rate 93 86 89 Respiratory Rate 22 H 16 Blood Pressure 116/70 Pulse Oximetry 97 97 Oxygen Delivery Room Air 10/18/23 00:00 10/18/23 04:00 10/18/23 08:25 Temperature Pulse Rate 85 99 Respiratory Rate Blood Pressure Pulse Oximetry Oxygen Delivery Room Air 10/18/23 08:00 10/18/23 12:00 10/18/23 13:44 Temperature 36.5 C Pulse Rate 90 80 86 Respiratory Rate 20 Blood Pressure 120/73 Pulse Oximetry 100 Oxygen Delivery Intake/Output Intake/Output: Intake & Output 10/15/23 10/16/23 10/17/23 10/18/23 23:59 23:59 23:59 23:59 Intake Total 3097 3994 3393 1200 Output Total 275 2103 2071 2425 Balance 2822 1891 1318 -1225 Meds/Results Medications: Active Medications Generic Name Dose Route Start Last Admin Trade Name Freq PRN Reason Stop Dose Admin Acetaminophen 650 mg 10/15/23 13:57 Acetaminophen 325 Mg Tablet PO Q6H PRN Fever Amlodipine Besylate 5 mg 10/19/23 09:00 Amlodipine Besylate 5 Mg Tablet PO DAILY PRECIOUS Dextrose 12.5 gm 10/14/23 16:03 Dextrose 50% 25 Gm/50 Ml Syringe IV PUSH PRN PRN Hypoglycemia Protocol Enoxaparin Sodium 40 mg 10/16/23 09:00 10/18/23 08:26 Enoxaparin 40 Mg/0.4 Ml Syringe SUB-Q Not Given DAILY PRECIOUS Glucagon 1 mg 10/14/23 16:03 Glucagon For Inj 1 Mg Vial IM PRN PRN Hypoglycemia Protocol Glucose 15 gm 10/14/23 16:03 Glucose Oral Gel 15 Gm Of Glucse In 37.5 Gm Tube PO PRN PRN Hypoglycemia Protocol Potassium Chloride/Sodium Chloride 1,000 mls @ 60 mls/hr 10/13/23 17:50 10/18/23 05:38 Kcl 40 Meq/Ns IV CONT 60 mls/hr .[id number] PRECIOUS Administration Metronidazole 500 mg in 100 mls @ 100 mls/hr 10/14/23 19:00 10/18/23 11:27 Flagyl 500 Mg/Iso Soln 100 Ml IVPB 100 mls/hr Q6HR PRECIOUS Administration Ibuprofen 800 mg in 200 mls @ 400 mls/hr 10/14/23 15:59 Caldolor 800 Mg/200 Ml IVPB Q6H PRN Pain Rated 1-3 Dextrose 1,000 mls @ 50 mls/hr 10/14/23 16:30 Dextrose 10% IV CONT .Q20H PRN if PN is interrupted Multivitamins 2.5 ml/ 2,005 mls @ 70 mls/hr 10/14/23 17:00 10/17/23 16:20 Multivitamins 2.5 ml/ Amino IV CONT 60 mls/hr Acids/Electrolytes/Dextrose .Q24H PRECIOUS Administration Protocol Dextrose 1,000 mls @ 100 mls/hr 10/14/23 16:03 Dextrose 5% 1,000 Ml IVPB PRN PRN Hypoglycemia Protocol Fat Emulsion Intravenous 250 mls @ 20.833 mls/hr 10/14/23 17:00 10/17/23 16:20 Lipids 20% IVPB 20.83 mls/hr Q24H PRECIOUS Administration Levofloxacin/Dextrose 750 mg in 150 mls @ 100 mls/hr 10/16/23 09:00 10/18/23 08:27 Levaquin 750 Mg/D5w 150 Ml IVPB
[2023-10-18] MEDS: AMINO ACIDS 5%/D15W/E-LYTES/CA 2,000 ML with MULTIVITAMINS-12 INJ VIAL 1 2.5 ML, MULTIV... 60 ML IV CONT (17:42)
[2023-10-18] MEDS: FAT EMULSIONS IV 20% 250 ML 20.83 ML IVPB (17:42)
[2023-10-19] VITALS (9 sets, daily range): BP systolic 113–114; BP diastolic 63–70; PULSE 78–101; RESP 16–20; TEMP 36.3–36.7; O2SAT 99
[2023-10-19 00:07] LABS: Glucose Point of Care 134 mg/dl (65-105)
[2023-10-19] MEDS: metroNIDAZOLE 500 MG/ISO 100ML 500 MG/100 ML BAG 100 MG IVPB ×4 (00:10→17:53)
[2023-10-19] MEDS: KCL 40 MEQ/0.9% SOD CHL 1,000 ML 60 ML IV CONT (04:04)
[2023-10-19 05:09] LABS: Glucose Point of Care 134 mg/dl (65-105)
[2023-10-19] MEDS: CENTRAL LINE FLUSH 10 ML IV PUSH ×2 (06:04→13:48)
[2023-10-19 06:18] LABS: Basophils Absolute Auto 0.1 K/mm3 (0.0-0.1); Basophils Percent Auto 0.4 % (0.2-1.2); Eosinophils Absolute Auto 0.4 K/mm3 (0-0.3); Eosinophils Percent Auto 2.3 % (0-4.4); Hematocrit 29.8 % (42.0-52.0); Hemoglobin 9.3 g/dL (14.0-18.0); Immature Granulocyte Percent A 15.6 % (0-0.5); Lymphocytes Absolute Auto 1.94 K/mm3 (0.9-3.2); Lymphocytes Percent Auto 10.4 % (18.3-44.2); Mean Corpuscular HGB Conc 31.2 g/dl (32-36); Mean Corpuscular Hemoglobin 25.1 pg (26-34); Mean Corpuscular Volume 80.3 fl (80-100); Mean Platelet Volume 10.3 fl (7.4-10.4); Monocytes Absolute Auto 1.5 K/mm3 (0.1-0.6); Monocytes Percent Auto 8.1 % (2.6-8.5); Neutrophils Absolute Auto 11.8 K/mm3 (1.3-6.7); Neutrophils Percent Auto 63.2 % (45.5-73.1); Nucleated Red Blood Cells Perc 0.2 % (0.0-0.2); Platelet Count Result 603 k/mm3 (150-375); Red Blood Count 3.71 M/mm3 (4.6-6.20); Red Cell Distribution Width 15.5 % (11.5-14.5); White Blood Count 18.6 K/mm3 (4.5-10.0)
[2023-10-19 06:36] LABS: Alanine Aminotransferase 29 U/L (6-50); Albumin Level 2.8 g/dL (3.5-5.1); Alkaline Phosphatase 69 U/L (38-126); Anion Gap 8 mmol/L (4-12); Aspartate Amino Transferase 36 U/L (17-59); Bilirubin,Total 0.2 mg/dL (0.2-1.3); Blood Urea Nitrogen 13 mg/dL (9-20); Calcium 8.1 mg/dL (8.4-10.2); Carbon Dioxide 26 mmol/L (22-30); Chloride 99 mmol/L (98-107); Estimated CRCL calculation 85 ml/min; Estimated Glomerular Filt Rate > 60; Glucose 123 mg/dL (65-110); Phosphorus 4.7 mg/dL (2.5-4.5); Potassium 4.7 mmol/L (3.4-5.0); Sodium 133 mmol/L (137-145)
[2023-10-19 06:38] LABS: CRP 7.7 mg/dL (<1.0)
[2023-10-19 07:05] LABS: Platelet Estimate Increased (Adequate)
[2023-10-19 07:06] LABS: Anisocytosis 1+; Schistocytes None Seen
[2023-10-19] MEDS: levoFLOXacin 750 MG/D5W 150 ML 750 MG/150 ML BAG 100 MG IVPB (08:21)
[2023-10-19] MEDS: ENOXAPARIN 40 MG/0.4 ML SYRINGE SUB-Q (08:21)
[2023-10-19] MEDS: POTASSIUM CHLORIDE 20 MEQ ER TABLET 40 MEQ PO (08:21)
[2023-10-19] MEDS: PANTOPRAZOLE SODIUM IV 40 MG VIAL IV PUSH (08:21)
[2023-10-19] MEDS: amLODIPine BESYLATE 5 MG TABLET PO (08:21)
--- NOTE | 2023-10-19 09:56 | PM.PNGS ---
Progress Note: A&P Assessment and Plan (1) Anastomotic leak of intestine: Code(s): K91.89 - Other postprocedural complications and disorders of digestive system Status: Acute Assessment and Plan: increasing leukocytosis, exam remains completely benign, cont drains/abx, NPO now, will repeat CT, long d/w pt and and they are ok c diversion if necessary (2) Protein-calorie malnutrition, moderate: Code(s): E44.0 - Moderate protein-calorie malnutrition Status: Acute Assessment and Plan: cont TPN Subjective Subjective Date/Time Seen: 10/19/23 09:56 Interval history: feels good, no pain, cathy clears yesterday Review of Systems Review of Systems: All systems reviewed & are unremarkable except as noted in HPI and below Exam Const: General: cooperative, comfortable and no acute distress Resp: Auscultation: clear to auscultation bilaterally Cardio: Rate: regular rate Rhythm: regular rhythm GI: Inspection: normal to inspection and incision GI Palp: No abdominal tenderness and Yes Soft to palpation Other: drains x 2, largely unchanged, decreased drainage from both Objective Data Vital Signs Vital Signs: Vital Signs - 24 hr 10/18/23 12:00 10/18/23 13:44 10/18/23 16:00 Temperature 36.5 C Pulse Rate 80 86 84 Respiratory Rate 20 Blood Pressure 120/73 Pulse Oximetry 100 Oxygen Delivery 10/18/23 19:38 10/18/23 19:38 10/18/23 20:59 Temperature 36.1 C L Pulse Rate 84 84 92 Respiratory Rate 20 20 Blood Pressure 107/67 Pulse Oximetry 100 100 Oxygen Delivery Room Air 10/19/23 00:00 10/19/23 04:00 10/19/23 06:00 Temperature 36.7 C Pulse Rate 85 85 83 Respiratory Rate 20 Blood Pressure 113/63 Pulse Oximetry 99 Oxygen Delivery Intake/Output Intake/Output: Intake & Output 10/16/23 10/17/23 10/18/23 10/19/23 23:59 23:59 23:59 23:59 Intake Total 3994 3393 5102 350 Output Total 2103 0685 2746 3860 Balance 2266 5912 7633 -7628 Meds/Results Medications: Active Medications Generic Name Dose Route Start Last Admin Trade Name Freq PRN Reason Stop Dose Admin Acetaminophen 650 mg 10/15/23 13:57 Acetaminophen 325 Mg Tablet PO Q6H PRN Fever Amlodipine Besylate 5 mg 10/19/23 09:00 10/19/23 08:21 Amlodipine Besylate 5 Mg Tablet PO 5 mg DAILY PRECIOUS Administration Dextrose 12.5 gm 10/14/23 16:03 Dextrose 50% 25 Gm/50 Ml Syringe IV PUSH PRN PRN Hypoglycemia Protocol Enoxaparin Sodium 40 mg 10/16/23 09:00 10/19/23 08:21 Enoxaparin 40 Mg/0.4 Ml Syringe SUB-Q 40 mg DAILY PRECIOUS Administration Glucagon 1 mg 10/14/23 16:03 Glucagon For Inj 1 Mg Vial IM PRN PRN Hypoglycemia Protocol Glucose 15 gm 10/14/23 16:03 Glucose Oral Gel 15 Gm Of Glucse In 37.5 Gm Tube PO PRN PRN Hypoglycemia Protocol Potassium Chloride/Sodium Chloride 1,000 mls @ 60 mls/hr 10/13/23 17:50 10/19/23 04:04 Kcl 40 Meq/Ns IV CONT 60 mls/hr .[id number] PRECIOUS Administration Metronidazole 500 mg in 100 mls @ 100 mls/hr 10/14/23 19:00 10/19/23 06:04 Flagyl 500 Mg/Iso Soln 100 Ml IVPB 100 mls/hr Q6HR PRECIOUS Administration Ibuprofen 800 mg in 200 mls @ 400 mls/hr 10/14/23 15:59 Caldolor 800 Mg/200 Ml IVPB Q6H PRN Pain Rated 1-3 Dextrose 1,000 mls @ 50 mls/hr 10/14/23 16:30 Dextrose 10% IV CONT .Q20H PRN if PN is interrupted Multivitamins 2.5 ml/ 2,005 mls @ 70 mls/hr 10/14/23 17:00 10/18/23 17:42 Multivitamins 2.5 ml/ Amino IV CONT 60 mls/hr Acids/Electrolytes/Dextrose .Q24H PRECIOUS Administration Protocol Dextrose 1,000 mls @ 100 mls/hr 10/14/23 16:03 Dextrose 5% 1,000 Ml IVPB PRN PRN Hypoglycemia Protocol Fat Emulsion Intravenous 250 mls @ 20.833 mls/hr 10/14/23 17:00 10/18/23 17:42 Lipids 20% IVPB 20.83 mls/hr Q24H PRECIOUS Administration Levofloxacin/Dextrose 750 mg in 150 mls
[2023-10-19 11:52] LABS: Glucose Point of Care 100 mg/dl (65-105)
--- NOTE | 2023-10-19 14:28 | PM.IMPN ---
Progress Note: A&P Assessment and Plan (1) Anastomotic leak of intestine: Code(s): K91.89 - Other postprocedural complications and disorders of digestive system Status: Acute Assessment and Plan: CRP down to 14.4>>7.7, WBC continue to fluctuate at 13.7k>>18.6 Continue Levaquin, Flagyl Continue to monitor drains output Continue to monitor for output of stool, flatus (2) Polyp, sigmoid colon: Qualifiers: Colon polyp type: adenomatous Qualified Code(s): D12.5 - Benign neoplasm of sigmoid colon Code(s): K63.5 - Polyp of colon Status: Chronic Assessment and Plan: S/p surgical removal with tubulovillous adenoma on pathology (3) Dehydration: Code(s): E86.0 - Dehydration Status: Acute Assessment and Plan: Resolved (4) Eosinophilic esophagitis: Code(s): K20.0 - Eosinophilic esophagitis Status: Acute Assessment and Plan: Continue PPI (5) Anemia: Qualifiers: Anemia type: iron deficiency Iron deficiency anemia type: chronic blood loss Qualified Code(s): D50.0 - Iron deficiency anemia secondary to blood loss (chronic) Code(s): D64.9 - Anemia, unspecified Status: Chronic Assessment and Plan: Hbg remains stable and trending up, 8.6>>9.3 Iron panel c/w anemia of chronic disease and B12 WNL Continue to monitor Hgb closely. (6) Hypertension: Qualifiers: Hypertension type: primary hypertension Qualified Code(s): I10 - Essential (primary) hypertension Code(s): I10 - Essential (primary) hypertension Status: Chronic Assessment and Plan: BP remains well controlled. Continue amlodipine. (7) Hypokalemia: Code(s): E87.6 - Hypokalemia Status: Acute Assessment and Plan: Currently potassium wnl. (8) Low TSH level: Code(s): R79.89 - Other specified abnormal findings of blood chemistry Status: Acute Assessment and Plan: Low TSH, NL FT4, low TT3 in setting of acute illness is c/w sick euthyroid syndrome (9) Protein-calorie malnutrition, moderate: Code(s): E44.0 - Moderate protein-calorie malnutrition Status: Acute Assessment and Plan: Continue IV TPN nutrition Time Spent With Patient Time with patient: 15 - 25 minutes Subjective Date/time seen: 10/19/23 14:28 Interval history: Patient had colonoscopy as he was noticing some blood in his stools. Colonoscopy did show a 5 cm polyp in the distal descending more up per sigmoid colon. It was partially removed colonoscopically clean. 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 He underwent Hand access laparoscopic left colectomy with hand-sewn anastomosis, takedown splenic flexure. Patient is currently on TPN and general surgery assisting with his stabilization. Review of Systems Review of Systems: No fevers, chills or other new symptoms All systems reviewed & are unremarkable except as noted in HPI and below Constitutional: Constitutional: Reports as per HPI and Reports no additional constitutional complaints Eyes: Eyes: Reports as per HPI and Reports no additional eye complaints ENT: Reports system reviewed and no additional complaints, except as documented and Reports as per HPI Cardiovascular: Cardiovascular: Reports as per HPI and Reports no additional cardiovascular complaints Respiratory: Respiratory: Reports as per HPI and Reports no additional respiratory complaints Gastrointestinal: Gastrointestinal: Reports as per HPI, Reports no additional gastrointestinal complaints, Reports belching and Reports vomiting Genitourinary: Genitourinary: Reports no additional male genitourinary complaints and Reports as per HPI Musculoskeletal: Musculoskeletal: Reports no additional musculoskeletal complaints and Reports as per HPI Integumentary/Breasts: Skin/Breast: Reports system reviewed and no additional complaints, except as docu and Rep
[2023-10-19] MEDS: FAT EMULSIONS IV 20% 250 ML 20.83 ML IVPB (17:53)
[2023-10-19] MEDS: AMINO ACIDS 5%/D15W/E-LYTES/CA 2,000 ML with MULTIVITAMINS-12 INJ VIAL 1 2.5 ML, MULTIV... 60 ML IV CONT (17:53)
[2023-10-19 18:09] LABS: Glucose Point of Care 108 mg/dl (65-105)
[2023-10-20] VITALS (7 sets, daily range): BP systolic 112–116; BP diastolic 60–68; PULSE 81–109; RESP 16–20; TEMP 36.2–36.6; O2SAT 95–100
[2023-10-20] MEDS: metroNIDAZOLE 500 MG/ISO 100ML 500 MG/100 ML BAG 100 MG IVPB ×4 (01:00→16:59)
[2023-10-20] MEDS: CENTRAL LINE FLUSH 10 ML IV PUSH ×2 (02:04→13:16)
[2023-10-20 05:54] LABS: Glucose Point of Care 128 mg/dl (65-105)
[2023-10-20 06:07] LABS: Basophils Absolute Auto 0.1 K/mm3 (0.0-0.1); Basophils Percent Auto 0.5 % (0.2-1.2); Eosinophils Absolute Auto 0.3 K/mm3 (0-0.3); Eosinophils Percent Auto 1.8 % (0-4.4); Hematocrit 30.2 % (42.0-52.0); Hemoglobin 9.6 g/dL (14.0-18.0); Immature Granulocyte Absolute 2.79 K/mm3 (0.00-0.031); Immature Granulocyte Percent A 16.7 % (0-0.5); Lymphocytes Absolute Auto 1.99 K/mm3 (0.9-3.2); Lymphocytes Percent Auto 11.9 % (18.3-44.2); Mean Corpuscular HGB Conc 31.8 g/dl (32-36); Mean Corpuscular Hemoglobin 25.6 pg (26-34); Mean Corpuscular Volume 80.5 fl (80-100); Mean Platelet Volume 10.1 fl (7.4-10.4); Monocytes Absolute Auto 1.5 K/mm3 (0.1-0.6); Monocytes Percent Auto 9.2 % (2.6-8.5); Neutrophils Percent Auto 59.9 % (45.5-73.1); Nucleated Red Blood Cells Perc 0.2 % (0.0-0.2); Platelet Count Result 699 k/mm3 (150-375); Red Blood Count 3.75 M/mm3 (4.6-6.20); Red Cell Distribution Width 15.4 % (11.5-14.5); White Blood Count 16.7 K/mm3 (4.5-10.0)
[2023-10-20 06:20] LABS: INR 1.2; Prothrombin Time 15.8 Seconds (11.1-14.7)
[2023-10-20 06:21] LABS: Triglycerides 132 mg/dL (<150)
[2023-10-20 06:21] LABS: Partial Thromboplastin Time 27.4 Seconds (22.3-36.8)
[2023-10-20 06:23] LABS: Alanine Aminotransferase 32 U/L (6-50); Albumin Level 2.8 g/dL (3.5-5.1); Alkaline Phosphatase 74 U/L (38-126); Anion Gap 9 mmol/L (4-12); Aspartate Amino Transferase 42 U/L (17-59); Bilirubin,Total < 0.1 mg/dL (0.2-1.3); Blood Urea Nitrogen 13 mg/dL (9-20); CRP 4.9 mg/dL (<1.0); Carbon Dioxide 26 mmol/L (22-30); Chloride 98 mmol/L (98-107); Estimated CRCL calculation 93 ml/min; Estimated Glomerular Filt Rate > 60; Glucose 127 mg/dL (65-110); Magnesium 2.4 mg/dL (1.6-2.3); Phosphorus 4.2 mg/dL (2.5-4.5); Potassium 4.5 mmol/L (3.4-5.0); Sodium 133 mmol/L (137-145)
[2023-10-20 06:28] LABS: Transferrin 146 mg/dL (206-381)
[2023-10-20] MEDS: amLODIPine BESYLATE 5 MG TABLET PO (08:51)
[2023-10-20] MEDS: levoFLOXacin 750 MG/D5W 150 ML 750 MG/150 ML BAG 100 MG IVPB (08:51)
[2023-10-20] MEDS: ENOXAPARIN 40 MG/0.4 ML SYRINGE SUB-Q (08:52)
[2023-10-20] MEDS: POTASSIUM CHLORIDE 20 MEQ ER TABLET 40 MEQ PO (08:52)
[2023-10-20] MEDS: PANTOPRAZOLE SODIUM IV 40 MG VIAL IV PUSH (08:53)
--- NOTE | 2023-10-20 09:23 | PM.PNGS ---
Progress Note: A&P Assessment and Plan (1) Anastomotic leak of intestine: Code(s): K91.89 - Other postprocedural complications and disorders of digestive system Status: Acute Assessment and Plan: exam remains benign, CT reviewed and improved, WBC pending this am, cont drains, IV abx, TPN for now (2) Protein-calorie malnutrition, moderate: Code(s): E44.0 - Moderate protein-calorie malnutrition Status: Acute Assessment and Plan: cont TPN Subjective Subjective Date/Time Seen: 10/20/23 09:23 Interval history: no acute issues, feels good, no pain Review of Systems Review of Systems: All systems reviewed & are unremarkable except as noted in HPI and below Exam Const: General: cooperative, comfortable and no acute distress Resp: Auscultation: clear to auscultation bilaterally Cardio: Rate: regular rate Rhythm: regular rhythm GI: Inspection: normal to inspection, non-distended and incision GI Palp: No abdominal tenderness and Yes Soft to palpation Objective Data Vital Signs Vital Signs: Vital Signs - 24 hr 10/19/23 14:00 10/19/23 12:00 10/19/23 16:00 Temperature 36.4 C L Pulse Rate 101 H 86 81 Respiratory Rate 16 Blood Pressure 114/70 Pulse Oximetry 99 Oxygen Delivery 10/19/23 19:45 10/19/23 20:00 10/20/23 04:13 Temperature 36.3 C L 36.2 C L Pulse Rate 101 H 101 H 90 Respiratory Rate 20 20 20 Blood Pressure 113/67 116/60 Pulse Oximetry 99 99 95 Oxygen Delivery Room Air Intake/Output Intake/Output: Intake & Output 10/17/23 10/18/23 10/19/23 10/20/23 23:59 23:59 23:59 23:59 Intake Total 3393 5102 2501 100 Output Total 2071 9915 3860 2080 Balance 9404 9301 -7345 -9919 Meds/Results Medications: Active Medications Generic Name Dose Route Start Last Admin Trade Name Freq PRN Reason Stop Dose Admin Acetaminophen 650 mg 10/15/23 13:57 Acetaminophen 325 Mg Tablet PO Q6H PRN Fever Amlodipine Besylate 5 mg 10/19/23 09:00 10/20/23 08:51 Amlodipine Besylate 5 Mg Tablet PO 5 mg DAILY PRECIOUS Administration Dextrose 12.5 gm 10/14/23 16:03 Dextrose 50% 25 Gm/50 Ml Syringe IV PUSH PRN PRN Hypoglycemia Protocol Enoxaparin Sodium 40 mg 10/16/23 09:00 10/20/23 08:52 Enoxaparin 40 Mg/0.4 Ml Syringe SUB-Q 40 mg DAILY PRECIOUS Administration Glucagon 1 mg 10/14/23 16:03 Glucagon For Inj 1 Mg Vial IM PRN PRN Hypoglycemia Protocol Glucose 15 gm 10/14/23 16:03 Glucose Oral Gel 15 Gm Of Glucse In 37.5 Gm Tube PO PRN PRN Hypoglycemia Protocol Potassium Chloride/Sodium Chloride 1,000 mls @ 60 mls/hr 10/13/23 17:50 10/19/23 13:48 Kcl 40 Meq/Ns IV CONT Not Given .[id number] PRECIOUS Metronidazole 500 mg in 100 mls @ 100 mls/hr 10/14/23 19:00 10/20/23 05:49 Flagyl 500 Mg/Iso Soln 100 Ml IVPB 100 mls/hr Q6HR PRECIOUS Administration Ibuprofen 800 mg in 200 mls @ 400 mls/hr 10/14/23 15:59 Caldolor 800 Mg/200 Ml IVPB Q6H PRN Pain Rated 1-3 Dextrose 1,000 mls @ 50 mls/hr 10/14/23 16:30 Dextrose 10% IV CONT .Q20H PRN if PN is interrupted Multivitamins 2.5 ml/ 2,005 mls @ 70 mls/hr 10/14/23 17:00 10/19/23 17:53 Multivitamins 2.5 ml/ Amino IV CONT 60 mls/hr Acids/Electrolytes/Dextrose .Q24H PRECIOUS Administration Protocol Dextrose 1,000 mls @ 100 mls/hr 10/14/23 16:03 Dextrose 5% 1,000 Ml IVPB PRN PRN Hypoglycemia Protocol Fat Emulsion Intravenous 250 mls @ 20.833 mls/hr 10/14/23 17:00 10/19/23 17:53 Lipids 20% IVPB 20.83 mls/hr Q24H PRECIOUS Administration Levofloxacin/Dextrose 750 mg in 150 mls @ 100 mls/hr 10/16/23 09:00 10/20/23 08:51 Levaquin 750 Mg/D5w 150 Ml IVPB 100 mls/hr Q24H PRECIOUS Administration Insulin Human Regular 0 units 10/14/23 18:00 10/20/23 07:33 Insulin Human Regular (*Bkc) 100 Units/Ml SUB-Q Not Given Q6HR PRECIOUS Protocol Naloxone HCl 0.1
[2023-10-20 09:53] LABS: Anisocytosis 1+; Hypochromasia 1+; Platelet Estimate Increased (Adequate); Schistocytes None Seen
[2023-10-20] MEDS: LINEZOLID 600 MG/300 ML 600 MG/300 ML SOLN 300 MG IVPB ×2 (10:08→21:14)
--- NOTE | 2023-10-20 11:07 | PM.IMPN ---
Progress Note: A&P Assessment and Plan (1) Anastomotic leak of intestine: Code(s): K91.89 - Other postprocedural complications and disorders of digestive system Status: Acute Assessment and Plan: CRP continues to trend down 14.4>>7.7 >>4.9 WBC now downtrending 13.7K>>18.6K>>16.[address]/abd pelvis reviewed; mall amount of pneumoperitoneum could be postoperative/postprocedural, versus reflect persistent bowel perforation or leak. No change in treatment per general surgery. Continue Levaquin, Flagyl Continue to monitor drains output Encouraged with activity. (2) Polyp, sigmoid colon: Qualifiers: Colon polyp type: adenomatous Qualified Code(s): D12.5 - Benign neoplasm of sigmoid colon Code(s): K63.5 - Polyp of colon Status: Chronic Assessment and Plan: S/p surgical removal with tubulovillous adenoma on pathology (3) Dehydration: Code(s): E86.0 - Dehydration Status: Acute Assessment and Plan: Resolved (4) Eosinophilic esophagitis: Code(s): K20.0 - Eosinophilic esophagitis Status: Acute Assessment and Plan: Continue PPI (5) Anemia: Qualifiers: Anemia type: iron deficiency Iron deficiency anemia type: chronic blood loss Qualified Code(s): D50.0 - Iron deficiency anemia secondary to blood loss (chronic) Code(s): D64.9 - Anemia, unspecified Status: Chronic Assessment and Plan: Hbg remains stable and trending up, 8.6>>9.3>>9.6 Iron panel c/w anemia of chronic disease and B12 WNL Continue to monitor Hgb closely. (6) Hypertension: Qualifiers: Hypertension type: primary hypertension Qualified Code(s): I10 - Essential (primary) hypertension Code(s): I10 - Essential (primary) hypertension Status: Chronic Assessment and Plan: BP remains well controlled. Continue amlodipine. (7) Hypokalemia: Code(s): E87.6 - Hypokalemia Status: Acute Assessment and Plan: Currently potassium wnl. (8) Low TSH level: Code(s): R79.89 - Other specified abnormal findings of blood chemistry Status: Acute Assessment and Plan: Low TSH, NL FT4, low TT3 in setting of acute illness is c/w sick euthyroid syndrome (9) Protein-calorie malnutrition, moderate: Code(s): E44.0 - Moderate protein-calorie malnutrition Status: Acute Assessment and Plan: Continue IV TPN nutrition Time Spent With Patient Time with patient: 15 - 25 minutes Subjective Date/time seen: 10/20/23 10:05 Interval history: Patient had colonoscopy as he was noticing some blood in his stools. Colonoscopy did show a 5 cm polyp in the distal descending more up per sigmoid colon. It was partially removed colonoscopically clean. 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 He underwent Hand access laparoscopic left colectomy with hand-sewn anastomosis, takedown splenic flexure. Patient is currently on TPN and general surgery assisting with his stabilization. Review of Systems Review of Systems: Denies pain or other distressful symptoms. All systems reviewed & are unremarkable except as noted in HPI and below Constitutional: Constitutional: Reports as per HPI and Reports no additional constitutional complaints Eyes: Eyes: Reports as per HPI and Reports no additional eye complaints ENT: Reports system reviewed and no additional complaints, except as documented and Reports as per HPI Cardiovascular: Cardiovascular: Reports as per HPI and Reports no additional cardiovascular complaints Respiratory: Respiratory: Reports as per HPI and Reports no additional respiratory complaints Gastrointestinal: Gastrointestinal: Reports as per HPI, Reports no additional gastrointestinal complaints, Reports belching and Reports vomiting Genitourinary: Genitourinary: Reports no additional male genitourinary complaints and Reports as per HPI Musculosk
[2023-10-20] MEDS: cefTRIAXone 2 GM/NS 100 ML 2 GM/100 ML BAG IVPB (11:40)
[2023-10-20 12:12] LABS: Glucose Point of Care 122 mg/dl (65-105)
[2023-10-20] MEDS: AMINO ACIDS 5%/D15W/E-LYTES/CA 2,000 ML with MULTIVITAMINS-12 INJ VIAL 1 2.5 ML, MULTIV... 60 ML IV CONT (16:30)
[2023-10-20] MEDS: FAT EMULSIONS IV 20% 250 ML 20.83 ML IVPB (16:31)
[2023-10-20 16:41] LABS: Glucose Point of Care 119 mg/dl (65-105)
[2023-10-20 23:39] LABS: Glucose Point of Care 154 mg/dl (65-105)
[2023-10-21] VITALS (9 sets, daily range): BP systolic 105–119; BP diastolic 64–74; PULSE 76–101; RESP 18; TEMP 36.6–36.7; O2SAT 95–97
[2023-10-21] MEDS: metroNIDAZOLE 500 MG/ISO 100ML 500 MG/100 ML BAG 100 MG IVPB ×5 (01:02→23:36)
[2023-10-21] MEDS: KCL 40 MEQ/0.9% SOD CHL 1,000 ML 60 ML IV CONT ×2 (02:00→16:46)
[2023-10-21 06:00] LABS: Glucose Point of Care 131 mg/dl (65-105)
[2023-10-21] MEDS: CENTRAL LINE FLUSH 10 ML IV PUSH ×2 (06:21→14:00)
[2023-10-21 06:53] LABS: Hematocrit 30.3 % (42.0-52.0); Hemoglobin 9.5 g/dL (14.0-18.0); Mean Corpuscular HGB Conc 31.4 g/dl (32-36); Mean Corpuscular Hemoglobin 25.5 pg (26-34); Mean Corpuscular Volume 81.5 fl (80-100); Mean Platelet Volume 9.8 fl (7.4-10.4); Platelet Count Result 686 k/mm3 (150-375); Red Blood Count 3.72 M/mm3 (4.6-6.20); Red Cell Distribution Width 15.8 % (11.5-14.5); White Blood Count 13.4 K/mm3 (4.5-10.0)
[2023-10-21 06:57] LABS: Alanine Aminotransferase 25 U/L (6-50); Albumin Level 2.8 g/dL (3.5-5.1); Alkaline Phosphatase 71 U/L (38-126); Anion Gap 9 mmol/L (4-12); Aspartate Amino Transferase 25 U/L (17-59); Bilirubin,Total 0.2 mg/dL (0.2-1.3); Blood Urea Nitrogen 13 mg/dL (9-20); CRP 4.2 mg/dL (<1.0); Carbon Dioxide 26 mmol/L (22-30); Chloride 98 mmol/L (98-107); Estimated CRCL calculation 93 ml/min; Estimated Glomerular Filt Rate > 60; Glucose 129 mg/dL (65-110); Potassium 4.4 mmol/L (3.4-5.0); Sodium 133 mmol/L (137-145)
[2023-10-21 07:35] LABS: Band Neutrophils Percent 5 % (0-6); Basophils Absolute Manual 0.13 K/mm3 (0.0-0.1); Basophils Percent Manual 1 % (0-1); Eosinophils Absolute Manual 0.13 K/mm3 (0.02-0.50); Eosinophils Percent Manual 1 % (0-4); Monocytes Absolute Manual 1.34 K/mm3 (0.1-0.90); Monocytes Percent Manual 10 % (3-9); Neutrophils Absolute Manual 10.18 K/mm3 (1.3-6.7); Neutrophils Percent Manual 71 % (46-73); Total Cells Counted 100
[2023-10-21 07:36] LABS: Anisocytosis 1+; Platelet Estimate Increased (Adequate); Schistocytes None Seen
--- NOTE | 2023-10-21 09:11 | PCNFU ---
Nutrition Follow-Up Complete: Inadequate oral intake related to altered GI function as evidenced by need for parenteral nutrition Goal:Meet estimated nutrition needs - Goal is being met by TPN Advance to PO intake as medically able - not progressing yet Pt current nutrition is NPO, Clinimix E 07/01 @ goal rate 70 ml/h to provide 1693 kcal, 84 g protein, 1930 ml total volume. Nutrition recommendation: Reduce TPN when oral diet is started to encourage PO intake. Last recorded weight is 95 kg. Bowel Motility: +BM 10/17 Labs Reviewed: Hgb:9.5, HCT:30.3, Alb:2.8, NA:133, glu:127 Meds Noted: lovenox, KCL, protonix Skin: WNL Additional Notes: Tolerating TPN at goal rate 70 ml/h. Bowel rest for anastomotic leak. Diet advancement per MD. Agree with current orders. Monitoring TPN tolerance, labs, weights, stool patterns, meds, plan of care Follow up Tuesdays and Fridays per policy
--- NOTE | 2023-10-21 09:26 | PM.PNGS ---
Progress Note: A&P Assessment and Plan (1) Anastomotic leak of intestine: Code(s): K91.89 - Other postprocedural complications and disorders of digestive system Status: Acute Assessment and Plan: Does not appear to be leaking since made NPO again on the weekend. Drain outputs continue to decrease. Signs of infection also resolving. I am hopeful that no further surgery will be necessary. (2) Leukocytosis, unspecified: Qualifiers: Leukocytosis type: bandemia Qualified Code(s): D72.825 - Bandemia Code(s): D72.829 - Elevated white blood cell count, unspecified Status: Acute Assessment and Plan: Improving and left shift decreasing. (3) Hypokalemia: Code(s): E87.6 - Hypokalemia Status: Resolved Assessment and Plan: In the normal range, continue to follow (4) Fever: Qualifiers: Fever type: post-procedural Qualified Code(s): R50.82 - Postprocedural fever Code(s): R50.9 - Fever, unspecified Status: Resolved Assessment and Plan: No fever for last 6 days. (5) Protein-calorie malnutrition, moderate: Code(s): E44.0 - Moderate protein-calorie malnutrition Status: Acute Assessment and Plan: Continue TPN. Dietitian reports TPN adequate for nutritional needs (6) Erythema: Code(s): L53.9 - Erythematous condition, unspecified Status: Resolved Assessment and Plan: Left flank erythema resolved since drains placed. No longer a problem. 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 On contact isolation. Zyvox antibiotics have been added. Review of Systems Review of Systems: All systems reviewed & are unremarkable except as noted in HPI and below (HPI) Exam Const: General: comfortable, alert, awake and Physically active Orientation/consciousness: patient oriented x3 and No confusion GI: Inspection: non-distended and incision (Incisions clean and healing nicely) GI Palp: Yes Soft to palpation, No Tenderness to palpation present (GI), No Guarding due to palpation present (GI) and No Rebound tenderness present Auscultation: normal bowel sounds and normoactive bowel sounds Skin: Lesions: no lesions Rashes: no rashes Extrem: General: normal to inspection, no clubbing, no cyanosis, no edema and no limp Psych: Speech and movement: Normal speech and movement present Affect: normal affect Attitude: cooperative Thought process: Normal thought process present Thought content: Yes Normal thought content present Insight: Good insight present (Psych) Judgement: Good judgement present (Psych) Objective Data Vital Signs Vital Signs: Vital Signs - 24 hr 10/20/23 12:00 10/20/23 14:00 10/20/23 16:00 Temperature 36.6 C Pulse Rate 81 87 89 Respiratory Rate 18 Blood Pressure 112/67 Pulse Oximetry 100 10/20/23 20:35 10/20/23 20:00 10/21/23 00:00 Temperature 36.4 C L Pulse Rate 93 93 97 Respiratory Rate 16 Blood Pressure 113/68 Pulse Oximetry 97 10/21/23 04:00 10/21/23 06:00 10/21/23 08:00 Temperature 36.7 C Pulse Rate 97 94 76 Respiratory Rate 18 Blood Pressure 116/74 Pulse Oximetry 97 Intake/Output Intake/Output: Intake & Output 10/18/23 10/19/23 10/20/23 10/21/23 23:59 23:59 23:59 23:59 Intake Total 5102 3501 2407 100 Output Total 2746 3860 2630 1250 Balance 4789 -591 -223 -1150 Meds/Results Medications: Active Medications Generic Name Dose Route Start Last Admin Trade Name Freq PRN Reason Stop Dose Admin Acetaminophen 650 mg 10/15/23 13:57 Acetaminophen 325 Mg Tablet PO Q6H PRN Fever Amlodipine B
[2023-10-21] MEDS: PANTOPRAZOLE SODIUM IV 40 MG VIAL IV PUSH (09:35)
[2023-10-21] MEDS: amLODIPine BESYLATE 5 MG TABLET PO (09:36)
[2023-10-21] MEDS: cefTRIAXone 2 GM/NS 100 ML 2 GM/100 ML BAG IVPB (09:36)
[2023-10-21] MEDS: POTASSIUM CHLORIDE 20 MEQ ER TABLET 40 MEQ PO (09:36)
[2023-10-21] MEDS: ENOXAPARIN 40 MG/0.4 ML SYRINGE SUB-Q (09:36)
[2023-10-21] MEDS: LINEZOLID 600 MG/300 ML 600 MG/300 ML SOLN 300 MG IVPB ×2 (09:36→20:52)
[2023-10-21 12:20] LABS: Glucose Point of Care 115 mg/dl (65-105)
--- NOTE | 2023-10-21 12:39 | PM.IMPN ---
Progress Note: A&P Assessment and Plan (1) Anastomotic leak of intestine: Code(s): K91.89 - Other postprocedural complications and disorders of digestive system Status: Acute Assessment and Plan: CRP continues to trend down 14.4>>7.7 >>4.9>>4.2 WBC now downtrending 13.7K>>18.6K>>16.7>>13.[address]/abd pelvis; mall amount of pneumoperitoneum could be postoperative/postprocedural, versus reflect persistent bowel perforation or leak. No change in treatment per general surgery. Continue Levaquin, Flagyl Continue to monitor drains output Encouraged with activity and IS use. (2) Polyp, sigmoid colon: Qualifiers: Colon polyp type: adenomatous Qualified Code(s): D12.5 - Benign neoplasm of sigmoid colon Code(s): K63.5 - Polyp of colon Status: Chronic Assessment and Plan: S/p surgical removal with tubulovillous adenoma on pathology (3) Dehydration: Code(s): E86.0 - Dehydration Status: Acute Assessment and Plan: Resolved (4) Eosinophilic esophagitis: Code(s): K20.0 - Eosinophilic esophagitis Status: Acute Assessment and Plan: Continue PPI (5) Anemia: Qualifiers: Anemia type: iron deficiency Iron deficiency anemia type: chronic blood loss Qualified Code(s): D50.0 - Iron deficiency anemia secondary to blood loss (chronic) Code(s): D64.9 - Anemia, unspecified Status: Chronic Assessment and Plan: Hbg remains stable and trending up, 8.6>>9.3>>9.6>>9.5 Iron panel c/w anemia of chronic disease and B12 WNL Continue to monitor Hgb closely. (6) Hypertension: Qualifiers: Hypertension type: primary hypertension Qualified Code(s): I10 - Essential (primary) hypertension Code(s): I10 - Essential (primary) hypertension Status: Chronic Assessment and Plan: BP remains well controlled. Continue amlodipine. (7) Hypokalemia: Code(s): E87.6 - Hypokalemia Status: Resolved Assessment and Plan: Currently potassium wnl. (8) Low TSH level: Code(s): R79.89 - Other specified abnormal findings of blood chemistry Status: Acute Assessment and Plan: Low TSH, NL FT4, low TT3 in setting of acute illness is c/w sick euthyroid syndrome (9) Protein-calorie malnutrition, moderate: Code(s): E44.0 - Moderate protein-calorie malnutrition Status: Acute Assessment and Plan: Continue IV TPN nutrition Time Spent With Patient Time with patient: 15 - 25 minutes Subjective Date/time seen: 10/21/23 10:39 Interval history: Patient had colonoscopy as he was noticing some blood in his stools. Colonoscopy did show a 5 cm polyp in the distal descending more up per sigmoid colon. It was partially removed colonoscopically clean. 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 He underwent Hand access laparoscopic left colectomy with hand-sewn anastomosis, takedown splenic flexure. Patient is currently on TPN and general surgery assisting with his stabilization. Patient states he feels alright and has no distressful symptoms. States ready to start having something to eat. Review of Systems Review of Systems: Denies pain or other distressful symptoms. All systems reviewed & are unremarkable except as noted in HPI and below Constitutional: Constitutional: Reports as per HPI and Reports no additional constitutional complaints Eyes: Eyes: Reports as per HPI and Reports no additional eye complaints ENT: Reports system reviewed and no additional complaints, except as documented and Reports as per HPI Cardiovascular: Cardiovascular: Reports as per HPI and Reports no additional cardiovascular complaints Respiratory: Respiratory: Reports as per HPI and Reports no additional respiratory complaints Gastrointestinal: Gastrointestinal: Reports as per HPI, Reports no additional gastrointestinal complaints, Reports belching and Re
[2023-10-21 13:54] LABS: Ionized Calcium 4.8 mg/dL (4.7-5.5)
[2023-10-21] MEDS: FAT EMULSIONS IV 20% 250 ML 20.83 ML IVPB (16:46)
[2023-10-21] MEDS: AMINO ACIDS 5%/D15W/E-LYTES/CA 2,000 ML with MULTIVITAMINS-12 INJ VIAL 1 2.5 ML, MULTIV... 60 ML IV CONT (16:47)
[2023-10-21 17:12] LABS: Triglycerides 124 mg/dL (<150)
[2023-10-21 17:45] LABS: Glucose Point of Care 113 mg/dl (65-105)
[2023-10-22] VITALS (8 sets, daily range): BP systolic 99–115; BP diastolic 59–75; PULSE 81–91; RESP 16–18; TEMP 36.2–36.6; O2SAT 97–99
[2023-10-22 04:34] LABS: Glucose Point of Care 142 mg/dl (65-105)
[2023-10-22 05:49] LABS: Glucose Point of Care 130 mg/dl (65-105)
[2023-10-22] MEDS: metroNIDAZOLE 500 MG/ISO 100ML 500 MG/100 ML BAG 100 MG IVPB ×4 (07:02→23:58)
[2023-10-22] MEDS: CENTRAL LINE FLUSH 10 ML IV PUSH ×3 (07:03→21:21)
[2023-10-22 07:16] LABS: Hematocrit 31.2 % (42.0-52.0); Hemoglobin 9.8 g/dL (14.0-18.0); Mean Corpuscular HGB Conc 31.4 g/dl (32-36); Mean Corpuscular Hemoglobin 25.5 pg (26-34); Mean Corpuscular Volume 81.3 fl (80-100); Mean Platelet Volume 9.6 fl (7.4-10.4); Platelet Count Result 722 k/mm3 (150-375); Red Blood Count 3.84 M/mm3 (4.6-6.20); Red Cell Distribution Width 15.9 % (11.5-14.5); White Blood Count 11.8 K/mm3 (4.5-10.0)
--- NOTE | 2023-10-22 07:18 | PM.IMPN ---
Progress Note: A&P Assessment and Plan (1) Anastomotic leak of intestine: Code(s): K91.89 - Other postprocedural complications and disorders of digestive system Status: Acute Assessment and Plan: Clinically improving on current antibiotics and treatment CRP continues to trend down 14.4>>7.7 >>4.9>>4.2 WBC now downtrending 13.7K>>18.6K>>16.7>>13.[address]/abd pelvis; small amount of pneumoperitoneum could be postoperative/postprocedural, versus reflect persistent bowel perforation or leak. No change in treatment per general surgery. Continue Linezolid, Flagyl, Ceftriaxone. Abdominal cultures grew VRE Continue to monitor drains output Encouraged with activity and IS use. (2) Polyp, sigmoid colon: Qualifiers: Colon polyp type: adenomatous Qualified Code(s): D12.5 - Benign neoplasm of sigmoid colon Code(s): K63.5 - Polyp of colon Status: Chronic Assessment and Plan: S/p surgical removal with tubulovillous adenoma on pathology (3) Dehydration: Code(s): E86.0 - Dehydration Status: Acute Assessment and Plan: Resolved (4) Eosinophilic esophagitis: Code(s): K20.0 - Eosinophilic esophagitis Status: Acute Assessment and Plan: Continue PPI (5) Anemia: Qualifiers: Anemia type: iron deficiency Iron deficiency anemia type: chronic blood loss Qualified Code(s): D50.0 - Iron deficiency anemia secondary to blood loss (chronic) Code(s): D64.9 - Anemia, unspecified Status: Chronic Assessment and Plan: Hbg remains stable and trending up, 8.6>>9.3>>9.6>>9.5 Iron panel c/w anemia of chronic disease and B12 WNL Continue to monitor Hgb closely. (6) Hypertension: Qualifiers: Hypertension type: primary hypertension Qualified Code(s): I10 - Essential (primary) hypertension Code(s): I10 - Essential (primary) hypertension Status: Chronic Assessment and Plan: BP remains well controlled. Continue amlodipine. (7) Hypokalemia: Code(s): E87.6 - Hypokalemia Status: Resolved Assessment and Plan: Currently potassium wnl. (8) Low TSH level: Code(s): R79.89 - Other specified abnormal findings of blood chemistry Status: Acute Assessment and Plan: Low TSH, NL FT4, low TT3 in setting of acute illness is c/w sick euthyroid syndrome (9) Protein-calorie malnutrition, moderate: Code(s): E44.0 - Moderate protein-calorie malnutrition Status: Acute Assessment and Plan: Continue IV TPN nutrition Plan Surgery planning trial of clears tomorrow if doing well. CT pending Time Spent With Patient Time: 59 minutes Subjective Date/time seen: 10/22/23 07:18 Interval history: Overall feeling well, no nausea or abdominal pain. Abdomen looks improved, less distended. Brown drainage from one drain, other has minimal output. Platelets trending up, likely reactive. VSS Review of Systems Review of Systems: Denies pain or other distressful symptoms. All systems reviewed & are unremarkable except as noted in HPI and below Constitutional: Constitutional: Reports as per HPI and Reports no additional constitutional complaints Eyes: Eyes: Reports as per HPI and Reports no additional eye complaints ENT: Reports system reviewed and no additional complaints, except as documented and Reports as per HPI Cardiovascular: Cardiovascular: Reports as per HPI and Reports no additional cardiovascular complaints Respiratory: Respiratory: Reports as per HPI and Reports no additional respiratory complaints Gastrointestinal: Gastrointestinal: Reports as per HPI, Reports no additional gastrointestinal complaints, Reports belching and Reports vomiting Genitourinary: Genitourinary: Reports no additional male genitourinary complaints and Reports as per HPI Musculoskeletal: Musculoskeletal: Reports no additional musculoskeletal complaints
[2023-10-22 07:31] LABS: Anion Gap 8 mmol/L (4-12); Blood Urea Nitrogen 13 mg/dL (9-20); CRP 3.9 mg/dL (<1.0); Calcium 8.3 mg/dL (8.4-10.2); Carbon Dioxide 28 mmol/L (22-30); Chloride 99 mmol/L (98-107); Estimated CRCL calculation 101 ml/min; Estimated Glomerular Filt Rate > 60; Glucose 122 mg/dL (65-110); Potassium 4.5 mmol/L (3.4-5.0); Sodium 135 mmol/L (137-145)
[2023-10-22 07:43] LABS: Band Neutrophils Percent 7 % (0-6); Eosinophils Absolute Manual 0.11 K/mm3 (0.02-0.50); Eosinophils Percent Manual 1 % (0-4); Hypochromasia 1+; Monocytes Absolute Manual 0.94 K/mm3 (0.1-0.90); Monocytes Percent Manual 8 % (3-9); Neutrophils Absolute Manual 9.91 K/mm3 (1.3-6.7); Neutrophils Percent Manual 77 % (46-73); Platelet Estimate Increased (Adequate); Poikilocytosis 1+; Promyelocytes Percent 1 %; Schistocytes None Seen; Total Cells Counted 100
[2023-10-22] MEDS: KCL 40 MEQ/0.9% SOD CHL 1,000 ML 60 ML IV CONT (08:30)
[2023-10-22] MEDS: LINEZOLID 600 MG/300 ML 600 MG/300 ML SOLN 300 MG IVPB ×2 (08:30→21:17)
[2023-10-22] MEDS: POTASSIUM CHLORIDE 20 MEQ ER TABLET 40 MEQ PO (08:31)
[2023-10-22] MEDS: cefTRIAXone 2 GM/NS 100 ML 2 GM/100 ML BAG IVPB (08:31)
[2023-10-22] MEDS: PANTOPRAZOLE SODIUM IV 40 MG VIAL IV PUSH (08:31)
[2023-10-22] MEDS: amLODIPine BESYLATE 5 MG TABLET PO (08:31)
[2023-10-22] MEDS: ENOXAPARIN 40 MG/0.4 ML SYRINGE SUB-Q (08:32)
--- NOTE | 2023-10-22 11:04 | PM.PNGS ---
Progress Note: A&P Assessment and Plan (1) Anastomotic leak of intestine: Code(s): K91.89 - Other postprocedural complications and disorders of digestive system Status: Acute Assessment and Plan: No evidence of recurrent anastomotic leakage. Will get repeat CT scan today to compare with that done on 10/19/2023. Planning on a trial of clear liquids tomorrow. (2) Leukocytosis, unspecified: Qualifiers: Leukocytosis type: bandemia Qualified Code(s): D72.825 - Bandemia Code(s): D72.829 - Elevated white blood cell count, unspecified Status: Acute Assessment and Plan: Improving and left shift decreasing. (3) Hypokalemia: Code(s): E87.6 - Hypokalemia Status: Resolved Assessment and Plan: Discontinue IV KCL supplement to TPN. Continue oral potassium supplement (4) Fever: Qualifiers: Fever type: post-procedural Qualified Code(s): R50.82 - Postprocedural fever Code(s): R50.9 - Fever, unspecified Status: Resolved Assessment and Plan: Resolved for 1 week (5) Protein-calorie malnutrition, moderate: Code(s): E44.0 - Moderate protein-calorie malnutrition Status: Acute Assessment and Plan: Continue TPN with present rates which is providing enough calories per our dietitian evaluation. Subjective Subjective Date/Time Seen: 10/22/23 11:04 Post Op day: #13 Patient reports: no new complaints, feels better, voiding w/o difficulty, bowel movement (Loose) and afebrile Review of Systems Review of Systems: All systems reviewed & are unremarkable except as noted in HPI and below (HPI) Exam Const: General: comfortable and no acute distress Orientation/consciousness: patient oriented x3 GI: Inspection: non-distended, incision (Dry and healing) and other (Liquid brown per lower MARIAA, nothing per upper) GI Palp: Yes Soft to palpation, No Tenderness to palpation present (GI), No Guarding due to palpation present (GI) and No Rebound tenderness present Auscultation: normal bowel sounds Neuro: General: patient oriented x3 and no focal motor deficits Extrem: General: no calf tenderness and no edema Psych: Affect: normal affect Insight: Good insight present (Psych) Judgement: Good judgement present (Psych) Objective Data Vital Signs Vital Signs: Vital Signs - 24 hr 09/03/24 12:00 10/21/23 14:00 10/21/23 16:00 Temperature 36.6 C Pulse Rate 101 H 84 93 Respiratory Rate 18 Blood Pressure 105/64 Pulse Oximetry 95 10/21/23 21:44 10/21/23 20:00 10/22/23 05:51 Temperature 36.7 C 36.6 C Pulse Rate 93 92 84 Respiratory Rate 18 16 Blood Pressure 119/72 115/70 Pulse Oximetry 95 99 10/22/23 08:42 10/22/23 08:00 Temperature Pulse Rate 85 Respiratory Rate Blood Pressure 115/75 Pulse Oximetry Intake/Output Intake/Output: Intake & Output 10/19/23 10/20/23 10/21/23 10/22/23 23:59 23:59 23:59 23:59 Intake Total 3501 2707 3693 1044 Output Total 3860 2630 1254 1600 Balance -118 60 9251 -556 Meds/Results Medications: Active Medications Generic Name Dose Route Start Last Admin Trade Name Freq PRN Reason Stop Dose Admin Acetaminophen 650 mg 10/15/23 13:57 Acetaminophen 325 Mg Tablet PO Q6H PRN Fever Amlodipine Besylate 5 mg 10/19/23 09:00 10/22/23 08:31 Amlodipine Besylate 5 Mg Tablet PO 5 mg DAILY PRECIOUS Administration Dextrose 12.5 gm 10/14/23 16:03 Dextrose 50% 25 Gm/50 Ml Syringe IV PUSH PRN PRN Hypoglycemia Protocol Enoxaparin Sodium 40 mg 10/16/23 09:00 10/22/23 08:32 Enoxaparin 40 Mg/0.4 Ml Syringe SUB-Q 40 mg DAILY PRECIOUS Administration Glucagon 1 mg 10/14/23 16:03 Glucagon For Inj 1 Mg Vial IM PRN PRN Hypoglycemia Protocol Glucose 15 gm 10/14/23 16:03 Glucose Oral Gel 15 Gm Of Glucse In 37.5 Gm Tube PO PRN PRN Hypoglycemia Protocol Metronidazole 500 mg in 100
[2023-10-22 11:42] LABS: Glucose Point of Care 142 mg/dl (65-105)
[2023-10-22] MEDS: AMINO ACIDS 5%/D15W/E-LYTES/CA 2,000 ML with MULTIVITAMINS-12 INJ VIAL 1 2.5 ML, MULTIV... 60 ML IV CONT (17:06)
[2023-10-22] MEDS: FAT EMULSIONS IV 20% 250 ML 20.83 ML IVPB (17:06)
[2023-10-22 18:48] LABS: Glucose Point of Care 131 mg/dl (65-105)
[2023-10-22 23:49] LABS: Glucose Point of Care 145 mg/dl (65-105)
[2023-10-23] VITALS (10 sets, daily range): BP systolic 110–125; BP diastolic 69–78; PULSE 75–91; RESP 20; TEMP 36–36.4; O2SAT 96–99
[2023-10-23] MEDS: metroNIDAZOLE 500 MG/ISO 100ML 500 MG/100 ML BAG 100 MG IVPB ×4 (05:34→23:43)
[2023-10-23] MEDS: CENTRAL LINE FLUSH 10 ML IV PUSH ×3 (05:35→22:27)
[2023-10-23] MEDS: CENTRAL LINE FLUSH 20 ML IV PUSH (05:35)
[2023-10-23 05:53] LABS: Glucose Point of Care 132 mg/dl (65-105)
[2023-10-23 06:46] LABS: Hematocrit 30.9 % (42.0-52.0); Hemoglobin 9.6 g/dL (14.0-18.0); Mean Corpuscular HGB Conc 31.1 g/dl (32-36); Mean Corpuscular Hemoglobin 25.6 pg (26-34); Mean Corpuscular Volume 82.4 fl (80-100); Mean Platelet Volume 9.6 fl (7.4-10.4); Platelet Count Result 682 k/mm3 (150-375); Red Blood Count 3.75 M/mm3 (4.6-6.20); White Blood Count 10.3 K/mm3 (4.5-10.0)
[2023-10-23 06:56] LABS: Alanine Aminotransferase 19 U/L (6-50); Albumin Level 2.9 g/dL (3.5-5.1); Alkaline Phosphatase 74 U/L (38-126); Anion Gap 8 mmol/L (4-12); Aspartate Amino Transferase 21 U/L (17-59); Bilirubin,Total 0.1 mg/dL (0.2-1.3); Blood Urea Nitrogen 13 mg/dL (9-20); Calcium 8.4 mg/dL (8.4-10.2); Carbon Dioxide 26 mmol/L (22-30); Chloride 100 mmol/L (98-107); Estimated CRCL calculation 92 ml/min; Estimated Glomerular Filt Rate > 60; Glucose 111 mg/dL (65-110); Magnesium 2.3 mg/dL (1.6-2.3); Potassium 4.5 mmol/L (3.4-5.0); Sodium 134 mmol/L (137-145)
[2023-10-23 07:10] LABS: Anisocytosis 1+; Band Neutrophils Percent 10 % (0-6); Eosinophils Percent Manual 2 % (0-4); Hypochromasia 2+; Lymphocytes Absolute Manual 1.75 K/mm3 (1.1-4.5); Lymphocytes Percent Manual 17 % (18-44); Monocytes Percent Manual 2 % (3-9); Neutrophils Absolute Manual 8.03 K/mm3 (1.3-6.7); Neutrophils Percent Manual 68 % (46-73); Platelet Estimate Adequate (Adequate); Promyelocytes Percent 1 %; Total Cells Counted 100
[2023-10-23 07:11] LABS: Schistocytes None Seen
--- NOTE | 2023-10-23 08:15 | PM.PNGS ---
Progress Note: A&P Assessment and Plan (1) Anastomotic leak of intestine: Code(s): K91.89 - Other postprocedural complications and disorders of digestive system Status: Acute Assessment and Plan: Clinical findings as well as lab results suggest continued improvement. CT scan also showed no evidence of persistent leakage from the anastomosis. Patient looks good again today. Start clear liquids as planned. (2) Leukocytosis, unspecified: Qualifiers: Leukocytosis type: bandemia Qualified Code(s): D72.825 - Bandemia Code(s): D72.829 - Elevated white blood cell count, unspecified Status: Acute Assessment and Plan: Improving but still some left shift.. (3) Protein-calorie malnutrition, moderate: Code(s): E44.0 - Moderate protein-calorie malnutrition Status: Acute Assessment and Plan: Continue TPN with present rates which is providing enough calories per our dietitian evaluation. Subjective Subjective Date/Time Seen: 10/23/23 08:15 Post Op day: #15 Patient reports: no new complaints, feels better, pain is less (No abdominal pain), voiding w/o difficulty, bowel movement and afebrile Exam Const: General: cooperative, comfortable, no acute distress, alert and awake Orientation/consciousness: patient oriented x3 GI: Inspection: non-distended and incision (Healing well) GI Palp: Yes Soft to palpation, Yes Tenderness to palpation present (GI), No Guarding due to palpation present (GI), Yes Palpable mass present (Fullness on the left side associated with inflammatory process) and No Rebound tenderness present Auscultation: normoactive bowel sounds Neuro: General: patient oriented x3 and no focal motor deficits Extrem: General: no calf tenderness and no edema Psych: Affect: normal affect Insight: Good insight present (Psych) Judgement: Good judgement present (Psych) Objective Data Vital Signs Vital Signs: Vital Signs - 24 hr 10/22/23 08:42 10/22/23 12:00 10/22/23 14:00 Temperature 36.2 C L Pulse Rate 91 87 Respiratory Rate 16 Blood Pressure 115/75 99/59 L Pulse Oximetry 98 Oxygen Delivery 10/22/23 16:00 10/22/23 20:17 10/22/23 20:00 Temperature 36.6 C Pulse Rate 81 83 Respiratory Rate 18 Blood Pressure 112/59 L Pulse Oximetry 97 Oxygen Delivery Room Air 10/22/23 20:00 10/23/23 00:00 10/23/23 04:00 Temperature Pulse Rate 88 82 87 Respiratory Rate Blood Pressure Pulse Oximetry Oxygen Delivery 10/23/23 05:54 Temperature 36.0 C L Pulse Rate 83 Respiratory Rate 20 Blood Pressure 125/78 Pulse Oximetry 96 Oxygen Delivery Intake/Output Intake/Output: Intake & Output 10/20/23 10/21/23 10/22/23 10/23/23 23:59 23:59 23:59 23:59 Intake Total 2707 3693 3653 600 Output Total 2630 1254 1680 1000 Balance 77 0232 1870 -400 Meds/Results Medications: Active Medications Generic Name Dose Route Start Last Admin Trade Name Freq PRN Reason Stop Dose Admin Acetaminophen 650 mg 10/15/23 13:57 Acetaminophen 325 Mg Tablet PO Q6H PRN Fever Amlodipine Besylate 5 mg 10/19/23 09:00 10/22/23 08:31 Amlodipine Besylate 5 Mg Tablet PO 5 mg DAILY PRECIOUS Administration Dextrose 12.5 gm 10/14/23 16:03 Dextrose 50% 25 Gm/50 Ml Syringe IV PUSH PRN PRN Hypoglycemia Protocol Enoxaparin Sodium 40 mg 10/16/23 09:00 10/22/23 08:32 Enoxaparin 40 Mg/0.4 Ml Syringe SUB-Q 40 mg DAILY PRECIOUS Administration Glucagon 1 mg 10/14/23 16:03 Glucagon For Inj 1 Mg Vial IM PRN PRN Hypoglycemia Protocol Glucose 15 gm 10/14/23 16:03 Glucose Oral Gel 15 Gm Of Glucse In 37.5 Gm Tube PO PRN PRN Hypoglycemia Protocol Metronidazole 500 mg in 100 mls @ 100 mls/hr 10/14/23 19:00 10/23/23 05:34 Flagyl 500 Mg/Iso Soln 100 Ml IVPB 100 mls/hr Q6HR PRECIOUS Administration Ibuprofen 800 mg in 200 mls @ 400 mls/hr 10/14/23 15:5
[2023-10-23] MEDS: ENOXAPARIN 40 MG/0.4 ML SYRINGE SUB-Q (08:23)
[2023-10-23] MEDS: amLODIPine BESYLATE 5 MG TABLET PO (08:24)
[2023-10-23] MEDS: POTASSIUM CHLORIDE 20 MEQ ER TABLET 40 MEQ PO (08:24)
[2023-10-23] MEDS: PANTOPRAZOLE 40 MG TABLET PO (08:25)
[2023-10-23] MEDS: cefTRIAXone 2 GM/NS 100 ML 2 GM/100 ML BAG IVPB (08:25)
[2023-10-23] MEDS: LINEZOLID 600 MG/300 ML 600 MG/300 ML SOLN 300 MG IVPB ×2 (09:03→20:47)
--- NOTE | 2023-10-23 09:05 | P.CONIM_ITS ---
Assessment and Plan Assessment and plan (1) Anastomotic leak of intestine: Code(s): K91.89 - Other postprocedural complications and disorders of digestive system Status: Acute Assessment and Plan: Clinically improving on current antibiotics and treatment * CRP continues to trend down 14.4>>7.7 >>4.9>>4.2 * WBC now downtrending 13.7K>>18.6K>>16.7>>13.4 * Repeat CT/abd pelvis; small amount of pneumoperitoneum could be postoperative/postprocedural, versus reflect persistent bowel perforation or leak. * No change in treatment per general surgery. * Continue Linezolid, Flagyl, Ceftriaxone. Abdominal cultures grew VRE * Continue to monitor drains output * Encouraged with activity and IS use. * * 10/22-Clinical findings, PE, labs- show improvement. CT scan -no evidence of persistent leakage from the anastomosis. Clear liquids today per surgery (2) Polyp, sigmoid colon: Qualifiers: Colon polyp type: adenomatous Qualified Code(s): D12.5 - Benign neopla sm of sigmoid colon Code(s): K63.5 - Polyp of colon Status: Chronic Assessment and Plan: * S/p surgical removal with tubulovillous adenoma on pathology (3) Dehydration: Code(s): E86.0 - Dehydration Status: Acute Assessment and Plan: * Resolved * - monitor (4) Eosinophilic esophagitis: Code(s): K20.0 - Eosinophilic esophagitis Status: Acute Assessment and Plan: * Continue PPI (5) Anemia: Qualifiers: Anemia type: iron deficiency Iron deficiency anemia type: chronic blood loss Qualified Code(s): D50.0 - Iron deficiency anemia secondary to blood loss (chronic) Code(s): D64.9 - Anemia, unspecified Status: Chronic Assessment and Plan: * Hbg remains stable and trending up, 8.6>>9.3>>9.6>>9.5 * Iron panel c/w anemia of chronic disease and B12 WNL * Continue to monitor Hgb closely. (6) Hypertension: Qualifiers: Hypertension type: primary hypertension Qualified Code(s): I10 - Essential (primary) hypertension Code(s): I10 - Essential (primary) hypertension Status: Chronic Assessment and Plan: * BP remains well controlled. * Continue amlodipine. (7) Hypokalemia: Code(s): E87.6 - Hypokalemia Status: Resolved Assessment and Plan: * Currently potassium wnl. * - monitor (8) Low TSH level: Code(s): R79.89 - Other specified abnormal findings of blood chemistry Status: Acute Assessment and Plan: * Low TSH, NL FT4, low TT3 in setting of acute illness is c/w sick euthyroid syndrome (9) Protein-calorie malnutrition, moderate: Code(s): E44.0 - Moderate protein-calorie malnutrition Status: Acute Assessment and Plan: * Continue IV TPN nutrition Plan Surgery planning trial of clears 10/22 HPI Date of Consult Consult date: 10/23/23 Requesting Physician: Shanna Goldstein APRN Primary Care Provider: Josef López MD Consult Narrative Reason for consult: medical mngmnt Narrative: 43 year old male with a significant past medical history of Eosinophilic esophagitis, GERD, hypertension who had a colonoscopy on 08/26/23 due to blood in stools. He was found to have a 5cm polyp in the distal descending sigmoid colon which was partially removed during the colonoscopy. 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 Truong.We were consulted for medical management
--- NOTE | 2023-10-23 09:05 | PM.IMCN ---
Assessment and Plan Assessment and plan (1) Anastomotic leak of intestine: Code(s): K91.89 - Other postprocedural complications and disorders of digestive system Status: Acute Assessment and Plan: Clinically improving on current antibiotics and treatment CRP continues to trend down 14.4>>7.7 >>4.9>>4.2 WBC now downtrending 13.7K>>18.6K>>16.7>>13.[address]/abd pelvis; small amount of pneumoperitoneum could be postoperative/postprocedural, versus reflect persistent bowel perforation or leak. No change in treatment per general surgery. Continue Linezolid, Flagyl, Ceftriaxone. Abdominal cultures grew VRE Continue to monitor drains output Encouraged with activity and IS use. 10/22-Clinical findings, PE, labs- show improvement. CT scan -no evidence of persistent leakage from the anastomosis. Clear liquids today per surgery (2) Polyp, sigmoid colon: Qualifiers: Colon polyp type: adenomatous Qualified Code(s): D12.5 - Benign neoplasm of sigmoid colon Code(s): K63.5 - Polyp of colon Status: Chronic Assessment and Plan: S/p surgical removal with tubulovillous adenoma on pathology (3) Dehydration: Code(s): E86.0 - Dehydration Status: Acute Assessment and Plan: Resolved - monitor (4) Eosinophilic esophagitis: Code(s): K20.0 - Eosinophilic esophagitis Status: Acute Assessment and Plan: Continue PPI (5) Anemia: Qualifiers: Anemia type: iron deficiency Iron deficiency anemia type: chronic blood loss Qualified Code(s): D50.0 - Iron deficiency anemia secondary to blood loss (chronic) Code(s): D64.9 - Anemia, unspecified Status: Chronic Assessment and Plan: Hbg remains stable and trending up, 8.6>>9.3>>9.6>>9.5 Iron panel c/w anemia of chronic disease and B12 WNL Continue to monitor Hgb closely. (6) Hypertension: Qualifiers: Hypertension type: primary hypertension Qualified Code(s): I10 - Essential (primary) hypertension Code(s): I10 - Essential (primary) hypertension Status: Chronic Assessment and Plan: BP remains well controlled. Continue amlodipine. (7) Hypokalemia: Code(s): E87.6 - Hypokalemia Status: Resolved Assessment and Plan: Currently potassium wnl. - monitor (8) Low TSH level: Code(s): R79.89 - Other specified abnormal findings of blood chemistry Status: Acute Assessment and Plan: Low TSH, NL FT4, low TT3 in setting of acute illness is c/w sick euthyroid syndrome (9) Protein-calorie malnutrition, moderate: Code(s): E44.0 - Moderate protein-calorie malnutrition Status: Acute Assessment and Plan: Continue IV TPN nutrition Plan Surgery planning trial of clears 10/22 HPI Date of Consult Consult date: 10/23/23 Requesting Physician: Shanna Goldstein APRN Primary Care Provider: Josef López MD Consult Narrative Reason for consult: medical mngmnt Narrative: 43 year old male with a significant past medical history of Eosinophilic esophagitis, GERD, hypertension who had a colonoscopy on 08/26/23 due to blood in stools. He was found to have a 5cm polyp in the distal descending sigmoid colon which was partially removed during the colonoscopy. 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 Truong.We were consulted for medical management. 10/22- post op day 15 today- no new complaints, feels better overall, abd pain better, voiding w/o difficulty, bowel movement and afebrile. Will start on clears per surgery team Review of Systems Review of Systems: Denies pain or other distressful symptoms. All systems reviewed & are unremarkable except as noted in HPI and below Constitutional: Constitutional: Reports as per HPI and Reports no additional constitutional complaints
[2023-10-23 11:30] LABS: Glucose Point of Care 117 mg/dl (65-105)
[2023-10-23 15:36] LABS: Triglycerides 139 mg/dL (<150)
[2023-10-23] MEDS: AMINO ACIDS 5%/D15W/E-LYTES/CA 2,000 ML with MULTIVITAMINS-12 INJ VIAL 1 2.5 ML, MULTIV... 70 ML IV CONT (16:03)
[2023-10-23] MEDS: FAT EMULSIONS IV 20% 250 ML 20.83 ML IVPB (16:04)
[2023-10-23 17:24] LABS: Glucose Point of Care 107 mg/dl (65-105)
[2023-10-23 23:44] LABS: Glucose Point of Care 128 mg/dl (65-105)
[2023-10-24] VITALS (9 sets, daily range): BP systolic 109–112; BP diastolic 71–75; PULSE 77–99; RESP 18–20; TEMP 35.9–36.6; O2SAT 99–100
[2023-10-24 05:31] LABS: Glucose Point of Care 139 mg/dl (65-105)
[2023-10-24] MEDS: metroNIDAZOLE 500 MG/ISO 100ML 500 MG/100 ML BAG 100 MG IVPB ×3 (05:38→18:40)
[2023-10-24] MEDS: CENTRAL LINE FLUSH 10 ML IV PUSH ×3 (05:38→22:00)
[2023-10-24 06:56] LABS: Basophils Absolute Auto 0.1 K/mm3 (0.0-0.1); Eosinophils Absolute Auto 0.2 K/mm3 (0-0.3); Eosinophils Percent Auto 1.9 % (0-4.4); Hematocrit 31.4 % (42.0-52.0); Hemoglobin 9.8 g/dL (14.0-18.0); Immature Granulocyte Absolute 0.82 K/mm3 (0.00-0.031); Immature Granulocyte Percent A 7.7 % (0-0.5); Lymphocytes Absolute Auto 1.68 K/mm3 (0.9-3.2); Lymphocytes Percent Auto 15.7 % (18.3-44.2); Mean Corpuscular HGB Conc 31.2 g/dl (32-36); Mean Corpuscular Hemoglobin 25.5 pg (26-34); Mean Corpuscular Volume 81.8 fl (80-100); Mean Platelet Volume 9.4 fl (7.4-10.4); Monocytes Absolute Auto 0.8 K/mm3 (0.1-0.6); Monocytes Percent Auto 7.6 % (2.6-8.5); Neutrophils Absolute Auto 7.1 K/mm3 (1.3-6.7); Neutrophils Percent Auto 66.1 % (45.5-73.1); Platelet Count Result 662 k/mm3 (150-375); Red Blood Count 3.84 M/mm3 (4.6-6.20); Red Cell Distribution Width 16.2 % (11.5-14.5); White Blood Count 10.7 K/mm3 (4.5-10.0)
[2023-10-24 07:06] LABS: Anion Gap 6 mmol/L (4-12); Blood Urea Nitrogen 12 mg/dL (9-20); Calcium 8.4 mg/dL (8.4-10.2); Carbon Dioxide 27 mmol/L (22-30); Chloride 102 mmol/L (98-107); Estimated CRCL calculation 92 ml/min; Estimated Glomerular Filt Rate > 60; Glucose 103 mg/dL (65-110); Potassium 4.4 mmol/L (3.4-5.0); Sodium 135 mmol/L (137-145)
[2023-10-24 07:09] LABS: CRP 1.8 mg/dL (<1.0)
[2023-10-24 07:21] LABS: Platelet Estimate Increased (Adequate)
[2023-10-24 07:22] LABS: Hypochromasia 1+
[2023-10-24 07:23] LABS: Anisocytosis 1+; Schistocytes None Seen
--- NOTE | 2023-10-24 07:26 | PM.PNGS ---
Progress Note: A&P Assessment and Plan (1) Anastomotic leak of intestine: Code(s): K91.89 - Other postprocedural complications and disorders of digestive system Status: Acute Assessment and Plan: Tolerated liquids well. CRP is lower. White blood cell count the same but differential looks to be lower. Will go ahead and add Ensure in live t.i.d. to clear liquids. Doing well. (2) Leukocytosis, unspecified: Qualifiers: Leukocytosis type: bandemia Qualified Code(s): D72.825 - Bandemia Code(s): D72.829 - Elevated white blood cell count, unspecified Status: Acute Assessment and Plan: Improving (3) Protein-calorie malnutrition, moderate: Code(s): E44.0 - Moderate protein-calorie malnutrition Status: Acute Assessment and Plan: Continue TPN for now. Subjective Subjective Date/Time Seen: 10/24/23 07:26 Post Op day: #16 Patient reports: no new complaints, feels better, tolerating liquids well, voiding w/o difficulty, bowel movement and afebrile Interval history: No problems with the clear liquids Exam Const: General: comfortable and no acute distress Orientation/consciousness: patient oriented x3 GI: Inspection: non-distended, incision (Healing) and other (Drain outputs less than yesterday) GI Palp: Yes Soft to palpation, No Tenderness to palpation present (GI), No Guarding due to palpation present (GI), Yes Palpable mass present (Still has left-sided fullness consistent with inflammatory process) and No Rebound tenderness present Auscultation: normal bowel sounds Neuro: General: patient oriented x3 and no focal motor deficits Extrem: General: no calf tenderness and no edema Psych: Affect: normal affect Insight: Good insight present (Psych) Judgement: Good judgement present (Psych) Objective Data Vital Signs Vital Signs: Vital Signs - 24 hr 10/23/23 08:00 10/23/23 08:00 10/23/23 12:00 Temperature Pulse Rate 75 81 Respiratory Rate Blood Pressure Pulse Oximetry Oxygen Delivery Room Air 10/23/23 14:00 10/23/23 16:00 10/23/23 20:41 Temperature 36.4 C 36.2 C L Pulse Rate 89 81 91 Respiratory Rate 20 20 Blood Pressure 111/69 110/69 Pulse Oximetry 99 97 Oxygen Delivery 10/23/23 20:00 10/23/23 20:00 10/24/23 00:00 Temperature Pulse Rate 89 82 Respiratory Rate Blood Pressure Pulse Oximetry Oxygen Delivery Room Air 10/23/23 21:07 10/24/23 04:00 10/24/23 05:34 Temperature 35.9 C L Pulse Rate 81 87 Respiratory Rate 18 Blood Pressure 112/75 Pulse Oximetry 97 100 Oxygen Delivery Room Air Intake/Output Intake/Output: Intake & Output 10/21/23 10/22/23 10/23/23 10/24/23 23:59 23:59 23:59 23:59 Intake Total 3693 3753 3653 100 Output Total 1254 1680 1030 1111 Balance 7374 1596 7745 -1011 Meds/Results Medications: Active Medications Generic Name Dose Route Start Last Admin Trade Name Freq PRN Reason Stop Dose Admin Acetaminophen 650 mg 10/15/23 13:57 Acetaminophen 325 Mg Tablet PO Q6H PRN Fever Amlodipine Besylate 5 mg 10/19/23 09:00 10/23/23 08:24 Amlodipine Besylate 5 Mg Tablet PO 5 mg DAILY PRECIOUS Administration Dextrose 12.5 gm 10/14/23 16:03 Dextrose 50% 25 Gm/50 Ml Syringe IV PUSH PRN PRN Hypoglycemia Protocol Enoxaparin Sodium 40 mg 10/16/23 09:00 10/23/23 08:23 Enoxaparin 40 Mg/0.4 Ml Syringe SUB-Q 40 mg DAILY PRECIOUS Administration Glucagon 1 mg 10/14/23 16:03 Glucagon For Inj 1 Mg Vial IM PRN PRN Hypoglycemia Protocol Glucose 15 gm 10/14/23 16:03 Glucose Oral Gel 15 Gm Of Glucse In 37.5 Gm Tube PO PRN PRN Hypoglycemia Protocol Metronidazole 500 mg in 100 mls @ 100 mls/hr 10/14/23 19:00 10/24/23 05:38 Flagyl 500 Mg/Iso Soln 100 Ml IVPB 100 mls/hr Q6HR PRECIOUS Administration Ibuprofen 800 mg in 200 mls @ 400 mls/hr 10/14/23 15:59 Caldolor 800
[2023-10-24] MEDS: cefTRIAXone 2 GM/NS 100 ML 2 GM/100 ML BAG IVPB (08:53)
[2023-10-24] MEDS: POTASSIUM CHLORIDE 20 MEQ ER TABLET 40 MEQ PO (08:53)
[2023-10-24] MEDS: PANTOPRAZOLE 40 MG TABLET PO (08:53)
[2023-10-24] MEDS: amLODIPine BESYLATE 5 MG TABLET PO (08:53)
[2023-10-24] MEDS: ENOXAPARIN 40 MG/0.4 ML SYRINGE SUB-Q (08:53)
[2023-10-24] MEDS: LINEZOLID 600 MG/300 ML 600 MG/300 ML SOLN 300 MG IVPB ×2 (09:39→21:18)
--- NOTE | 2023-10-24 10:46 | PCNFU ---
Nutrition Follow-Up Complete: Inadequate oral intake related to altered GI function as evidenced by need for parenteral nutrition Meet estimated nutrition needs - ~ 80% estimated energy needs being met with TPN Advance to PO intake as medically able _ Progressing. Diet advanced to clear liquids with Ensure Goal: Pt current nutrition is TPN Clinmix 5/15 E with lipids @ 70 ml/h: 1693 kcal, 84 g protein, 1930 ml total volume. PO diet advanced to Clear Liquids with Ensure Enlive TID for additional 350 kcal and 20 g protein. Pt did drink some Ensure. Nutrition recommendation: Continue with diet advancement. Discontinue TPN when pt able to take in 25-50% meals PO. Last recorded weight is 91.9 kg. Bowel Motility: +4 BMs 10/23/23 Labs Reviewed: Hgb 9.8, Hct 31.4, Na 135, Glu 139 Meds Noted: Insulin, levaquin, flagyl, lovenox, protonix Skin: Incision to abdomen Additional Notes: Diet is advancing. Doing well on clear liquids. Advance per MD. Having bowel movements. Continue to monitor Monitoring TPN tolerance, labs, weights, stool patterns, meds, plan of care Follow up Tuesdays and Fridays per policy
[2023-10-24 11:32] LABS: Glucose Point of Care 119 mg/dl (65-105)
--- NOTE | 2023-10-24 12:30 | P.PNIM_ITS ---
Progress Note: A&P Assessment and Plan (1) Anastomotic leak of intestine: Code(s): K91.89 - Other postprocedural complications and disorders of digestive system Status: Acute Assessment and Plan: Clinically improving on current antibiotics and treatment * CRP continues to trend down 14.4>>7.7 >>4.9>>4.2 * WBC now downtrending 13.7K>>18.6K>>16.7>>13.4 * Repeat CT/abd pelvis; small amount of pneumoperitoneum could be postoperative/postprocedural, versus reflect persistent bowel perforation or leak. * No change in treatment per general surgery. * Continue Linezolid, Flagyl, Ceftriaxone. Abdominal cultures grew VRE * Continue to monitor drains output * Encouraged with activity and IS use. * * 10/22-Clinical findings, PE, labs- show improvement. CT scan -no evidence of persistent leakage from the anastomosis. Clear liquids today per surgery 10/24/23: * Pt tolerating clear liquids. * Surgery primary management. * Continue Linezolid, flagyl and rocephin. * WBC's stable at 10.7 today. * Minimal drainage per drains. (2) Polyp, sigmoid colon: Qualifiers: Colon polyp type: adenomatous Qualified Code(s): D12.5 - Benign neoplasm of sigmoid colon Code(s): K63.5 - Polyp of colon Status: Chronic Assessment and Plan: * S/p surgical removal with tubulovillous adenoma on pathology (3) Dehydration: Code(s): E86.0 - Dehydration Status: Acute Assessment and Plan: * Resolved * - monitor (4) Eosinophilic esophagitis: Code(s): K20.0 - Eosinophilic esophagitis Status: Acute Assessment and Plan: * Continue PPI (5) Anemia: Qualifiers: Anemia type: iron deficiency Iron deficiency anemia type: chronic blood loss Qualified Code(s): D50.0 - Iron deficiency anemia secondary to blood loss (chronic) Code(s): D64.9 - Anemia, unspecified Status: Chronic Assessment and Plan: * Hbg remains stable and trending up, 8.6>>9.3>>9.6>>9.5 * Iron panel c/w anemia of chronic disease and B12 WNL * Continue to monitor Hgb closely. 10/24/23: * Stable Hgb at 9.8. (6) Hypertension: Qualifiers: Hypertension type: primary hypertension Qualified Code(s): I10 - Essential (primary) hypertension Code(s): I10 - Essential (primary) hypertension Status: Chronic Assessment and Plan: * BP remains well controlled. * Continue amlodipine. 10/24/23: * Remains well controlled. Continue current therapy (7) Hypokalemia: Code(s): E87.6 - Hypokalemia Status: Resolved Assessment and Plan: * Currently potassium wnl. * - monitor 10/24/23: * Stable at 4.4. (8) Low TSH level: Code(s): R79.89 - Other specified abnormal findings of blood chemistry Status: Acute Assessment and Plan: * Low TSH, NL FT4, low TT3 in setting of acute illness is c/w sick euthyroid syndrome (9) Protein-calorie malnutrition, moderate: Code(s): E44.0 - Moderate protein-calorie malnutrition Status: Acute Assessment and Plan: * Continue IV TPN nutrition Plan Further diet changes per surgery. Medicine will continue to follow along. Time Spent With Patient Time with patient: 25 - 35 minutes Subjective Date/time seen: 10/24/23 12:30 Interval history: Pt was evaluated at the bedside today. He is sitting in the chair, appears comfortable and states he has been tolerating clears thus far. Surgery is following along with medicine. No acute complai
--- NOTE | 2023-10-24 12:30 | PM.IMPN ---
Progress Note: A&P Assessment and Plan (1) Anastomotic leak of intestine: Code(s): K91.89 - Other postprocedural complications and disorders of digestive system Status: Acute Assessment and Plan: Clinically improving on current antibiotics and treatment CRP continues to trend down 14.4>>7.7 >>4.9>>4.2 WBC now downtrending 13.7K>>18.6K>>16.7>>13.[address]/abd pelvis; small amount of pneumoperitoneum could be postoperative/postprocedural, versus reflect persistent bowel perforation or leak. No change in treatment per general surgery. Continue Linezolid, Flagyl, Ceftriaxone. Abdominal cultures grew VRE Continue to monitor drains output Encouraged with activity and IS use. 10/22-Clinical findings, PE, labs- show improvement. CT scan -no evidence of persistent leakage from the anastomosis. Clear liquids today per surgery 10/24/23: Pt tolerating clear liquids. Surgery primary management. Continue Linezolid, flagyl and rocephin. WBC's stable at 10.7 today. Minimal drainage per drains. (2) Polyp, sigmoid colon: Qualifiers: Colon polyp type: adenomatous Qualified Code(s): D12.5 - Benign neoplasm of sigmoid colon Code(s): K63.5 - Polyp of colon Status: Chronic Assessment and Plan: S/p surgical removal with tubulovillous adenoma on pathology (3) Dehydration: Code(s): E86.0 - Dehydration Status: Acute Assessment and Plan: Resolved - monitor (4) Eosinophilic esophagitis: Code(s): K20.0 - Eosinophilic esophagitis Status: Acute Assessment and Plan: Continue PPI (5) Anemia: Qualifiers: Anemia type: iron deficiency Iron deficiency anemia type: chronic blood loss Qualified Code(s): D50.0 - Iron deficiency anemia secondary to blood loss (chronic) Code(s): D64.9 - Anemia, unspecified Status: Chronic Assessment and Plan: Hbg remains stable and trending up, 8.6>>9.3>>9.6>>9.5 Iron panel c/w anemia of chronic disease and B12 WNL Continue to monitor Hgb closely. 10/24/23: Stable Hgb at 9.8. (6) Hypertension: Qualifiers: Hypertension type: primary hypertension Qualified Code(s): I10 - Essential (primary) hypertension Code(s): I10 - Essential (primary) hypertension Status: Chronic Assessment and Plan: BP remains well controlled. Continue amlodipine. 10/24/23: Remains well controlled. Continue current therapy (7) Hypokalemia: Code(s): E87.6 - Hypokalemia Status: Resolved Assessment and Plan: Currently potassium wnl. - monitor 10/24/23: Stable at 4.4. (8) Low TSH level: Code(s): R79.89 - Other specified abnormal findings of blood chemistry Status: Acute Assessment and Plan: Low TSH, NL FT4, low TT3 in setting of acute illness is c/w sick euthyroid syndrome (9) Protein-calorie malnutrition, moderate: Code(s): E44.0 - Moderate protein-calorie malnutrition Status: Acute Assessment and Plan: Continue IV TPN nutrition Plan Further diet changes per surgery. Medicine will continue to follow along. Time Spent With Patient Time with patient: 25 - 35 minutes Subjective Date/time seen: 10/24/23 12:30 Interval history: Pt was evaluated at the bedside today. He is sitting in the chair, appears comfortable and states he has been tolerating clears thus far. Surgery is following along with medicine. No acute complaints, new symptoms or concerns to note. Review of Systems Review of Systems: All systems reviewed & are unremarkable except as noted in HPI and below Exam Narrative: HEENT: PERRL, sclerae nonicteric, pharyngeal mucosa pink and intact NECK: No JVD CHEST: Clear to auscultation. Normal effort. HEART: Regular rate and rhythm, no murmurs ABDOMEN: BS active, soft, nontender, no mass, no bruits. Only slight distention. Several surgical incision, well approximated, don't look in
[2023-10-24 16:38] LABS: Glucose Point of Care 109 mg/dl (65-105)
[2023-10-24] MEDS: FAT EMULSIONS IV 20% 250 ML 20.83 ML IVPB (17:04)
[2023-10-24] MEDS: AMINO ACIDS 5%/D15W/E-LYTES/CA 2,000 ML with MULTIVITAMINS-12 INJ VIAL 1 2.5 ML, MULTIV... 70 ML IV CONT (17:04)
[2023-10-24 23:39] LABS: Glucose Point of Care 150 mg/dl (65-105)
[2023-10-25] VITALS (8 sets, daily range): BP systolic 111–129; BP diastolic 69–81; PULSE 75–99; RESP 16–20; TEMP 36.1–36.2; O2SAT 97–100
[2023-10-25] MEDS: metroNIDAZOLE 500 MG/ISO 100ML 500 MG/100 ML BAG 100 MG IVPB ×2 (00:36→06:03)
[2023-10-25 05:25] LABS: Glucose Point of Care 138 mg/dl (65-105)
[2023-10-25] MEDS: CENTRAL LINE FLUSH 10 ML IV PUSH ×2 (06:04→21:48)
[2023-10-25 06:10] LABS: Basophils Absolute Auto 0.1 K/mm3 (0.0-0.1); Eosinophils Absolute Auto 0.2 K/mm3 (0-0.3); Eosinophils Percent Auto 1.8 % (0-4.4); Hematocrit 31.5 % (42.0-52.0); Hemoglobin 9.8 g/dL (14.0-18.0); Immature Granulocyte Absolute 0.71 K/mm3 (0.00-0.031); Immature Granulocyte Percent A 6.1 % (0-0.5); Lymphocytes Absolute Auto 1.73 K/mm3 (0.9-3.2); Lymphocytes Percent Auto 14.9 % (18.3-44.2); Mean Corpuscular HGB Conc 31.1 g/dl (32-36); Mean Corpuscular Hemoglobin 25.7 pg (26-34); Mean Corpuscular Volume 82.7 fl (80-100); Mean Platelet Volume 9.5 fl (7.4-10.4); Monocytes Absolute Auto 0.9 K/mm3 (0.1-0.6); Monocytes Percent Auto 7.4 % (2.6-8.5); Neutrophils Percent Auto 68.8 % (45.5-73.1); Platelet Count Result 602 k/mm3 (150-375); Red Blood Count 3.81 M/mm3 (4.6-6.20); Red Cell Distribution Width 16.1 % (11.5-14.5); White Blood Count 11.6 K/mm3 (4.5-10.0)
[2023-10-25 06:24] LABS: CRP 1.4 mg/dL (<1.0)
[2023-10-25 08:29] LABS: Platelet Estimate Increased (Adequate); Polychromasia 1+
[2023-10-25 08:30] LABS: Microcytosis 1+ (NORMAL)
[2023-10-25 08:31] LABS: Hypochromasia 1+; Schistocytes None Seen
--- NOTE | 2023-10-25 08:50 | P.PNIM_ITS ---
Progress Note: A&P Assessment and Plan (1) Anastomotic leak of intestine: Code(s): K91.89 - Other postprocedural complications and disorders of digestive system Status: Acute Assessment and Plan: Clinically improving on current antibiotics and treatment * CRP continues to trend down 14.4>>7.7 >>4.9>>4.2 * WBC now downtrending 13.7K>>18.6K>>16.7>>13.4 * Repeat CT/abd pelvis; small amount of pneumoperitoneum could be postoperative/postprocedural, versus reflect persistent bowel perforation or leak. * No change in treatment per general surgery. * Continue Linezolid, Flagyl, Ceftriaxone. Abdominal cultures grew VRE * Continue to monitor drains output * Encouraged with activity and IS use. * * 10/22-Clinical findings, PE, labs- show improvement. CT scan -no evidence of persistent leakage from the anastomosis. Clear liquids today per surgery 10/24/23: * Pt tolerating clear liquids. * Surgery primary management. * Continue Linezolid, flagyl and rocephin. * WBC's stable at 10.7 today. * Minimal drainage per drains. * 10/24-tolerating clears well. labs reviewed (2) Polyp, sigmoid colon: Qualifiers: Colon polyp type: adenomatous Qualified Code(s): D12.5 - Benign neoplasm of sigmoid colon Code(s): K63.5 - Polyp of colon Status: Chronic Assessment and Plan: * S/p surgical removal with tubulovillous adenoma on pathology (3) Dehydration: Code(s): E86.0 - Dehydration Status: Resolved Assessment and Plan: 10/11/23: * Patient became tachycardic in the 160s overnight requiring fluid bolus and continued cardiac monitoring * Reported diarrhea yesterday * Patient appears to be net negative 290 mL on I&O * Will give another 500 mL fluid bolus now considering patient heart rate is still in the 120-130's. * Continue cardiac monitoring (4) Eosinophilic esophagitis: Code(s): K20.0 - Eosinophilic esophagitis Status: Acute Assessment and Plan: 10/11/23: * Started on Protonix (5) Anemia: Qualifiers: Anemia type: iron deficiency Iron deficiency anemia type: chronic blood loss Qualified Code(s): D50.0 - Iron deficiency anemia secondary to blood loss (chronic) Code(s): D64.9 - Anemia, unspecified Status: Chronic Assessment and Plan: 10/11/23: * Hgb 10.9 * Likely secondary to acute blood loss, GI bleeding * Will check iron, ferritin, vitamin B12, folic acid, TSH (6) Hypertension: Qualifiers: Hypertension type: primary hypertension Qualified Code(s): I10 - Essential (primary) hypertension Code(s): I10 - Essential (primary) hypertension Status: Chronic Assessment and Plan: 10/11/23: * Blood pressure ranging 130/74-144/85 * Continue amlodipine (7) Hypokalemia: Code(s): E87.6 - Hypokalemia Status: Inactive (8) Low TSH level: Code(s): R79.89 - Other specified abnormal findings of blood chemistry Status: Acute (9) Protein-calorie malnutrition, moderate: Code(s): E44.0 - Moderate protein-calorie malnutrition Status: Acute Plan DVT prophylaxis: Lovenox Subjective Date/time seen: 10/25/23 08:50 Interval history: Surgery is primary for this pt- we are consulted for medical mngmnt. Pt was seen and examined at the bedside today. He appears comfortable and had been tolerating clears. Surgery is following along with medicine. Review of Systems Review of Systems: Denies pain All systems reviewed & are u
--- NOTE | 2023-10-25 08:50 | PM.IMPN ---
Progress Note: A&P Assessment and Plan (1) Anastomotic leak of intestine: Code(s): K91.89 - Other postprocedural complications and disorders of digestive system Status: Acute Assessment and Plan: Clinically improving on current antibiotics and treatment CRP continues to trend down 14.4>>7.7 >>4.9>>4.2 WBC now downtrending 13.7K>>18.6K>>16.7>>13.[address]/abd pelvis; small amount of pneumoperitoneum could be postoperative/postprocedural, versus reflect persistent bowel perforation or leak. No change in treatment per general surgery. Continue Linezolid, Flagyl, Ceftriaxone. Abdominal cultures grew VRE Continue to monitor drains output Encouraged with activity and IS use. 10/22-Clinical findings, PE, labs- show improvement. CT scan -no evidence of persistent leakage from the anastomosis. Clear liquids today per surgery 10/24/23: Pt tolerating clear liquids. Surgery primary management. Continue Linezolid, flagyl and rocephin. WBC's stable at 10.7 today. Minimal drainage per drains. 10/24-tolerating clears well. labs reviewed (2) Polyp, sigmoid colon: Qualifiers: Colon polyp type: adenomatous Qualified Code(s): D12.5 - Benign neoplasm of sigmoid colon Code(s): K63.5 - Polyp of colon Status: Chronic Assessment and Plan: S/p surgical removal with tubulovillous adenoma on pathology (3) Dehydration: Code(s): E86.0 - Dehydration Status: Resolved Assessment and Plan: 10/11/23: Patient became tachycardic in the 160s overnight requiring fluid bolus and continued cardiac monitoring Reported diarrhea yesterday Patient appears to be net negative 290 mL on I&O Will give another 500 mL fluid bolus now considering patient heart rate is still in the 120-130's. Continue cardiac monitoring (4) Eosinophilic esophagitis: Code(s): K20.0 - Eosinophilic esophagitis Status: Acute Assessment and Plan: 10/11/23: Started on Protonix (5) Anemia: Qualifiers: Anemia type: iron deficiency Iron deficiency anemia type: chronic blood loss Qualified Code(s): D50.0 - Iron deficiency anemia secondary to blood loss (chronic) Code(s): D64.9 - Anemia, unspecified Status: Chronic Assessment and Plan: 10/11/23: Hgb 10.9 Likely secondary to acute blood loss, GI bleeding Will check iron, ferritin, vitamin B12, folic acid, TSH (6) Hypertension: Qualifiers: Hypertension type: primary hypertension Qualified Code(s): I10 - Essential (primary) hypertension Code(s): I10 - Essential (primary) hypertension Status: Chronic Assessment and Plan: 10/11/23: Blood pressure ranging 130/74-144/85 Continue amlodipine (7) Hypokalemia: Code(s): E87.6 - Hypokalemia Status: Inactive (8) Low TSH level: Code(s): R79.89 - Other specified abnormal findings of blood chemistry Status: Acute (9) Protein-calorie malnutrition, moderate: Code(s): E44.0 - Moderate protein-calorie malnutrition Status: Acute Plan DVT prophylaxis: Lovenox Subjective Date/time seen: 10/25/23 08:50 Interval history: Surgery is primary for this pt- we are consulted for medical mngmnt. Pt was seen and examined at the bedside today. He appears comfortable and had been tolerating clears. Surgery is following along with medicine. Review of Systems Review of Systems: Denies pain All systems reviewed & are unremarkable except as noted in HPI and below Constitutional: Constitutional: Reports as per HPI and Reports no additional constitutional complaints Eyes: Eyes: Reports as per HPI and Reports no additional eye complaints ENT: Reports system reviewed and no additional complaints, except as documented and Reports as per HPI Cardiovascular: Cardiovascular: Reports as per HPI and Reports no additional cardiovascular complaints Respiratory: Respiratory: Reports as per HPI and Re
[2023-10-25] MEDS: PANTOPRAZOLE 40 MG TABLET PO (09:39)
[2023-10-25] MEDS: amLODIPine BESYLATE 5 MG TABLET PO (09:39)
[2023-10-25] MEDS: POTASSIUM CHLORIDE 20 MEQ ER TABLET 40 MEQ PO (09:40)
[2023-10-25] MEDS: ENOXAPARIN 40 MG/0.4 ML SYRINGE SUB-Q (09:40)
--- NOTE | 2023-10-25 09:44 | PM.PNGS ---
Progress Note: A&P Assessment and Plan (1) Anastomotic leak of intestine: Code(s): K91.89 - Other postprocedural complications and disorders of digestive system Status: Acute Assessment and Plan: Labs and clinical findings again looked good. Output from drains continues to be very small. Will advance to full liquid diet with Ensure in live. Will stop TPN and TPN labs. Discontinue Accu-Cheks and hypoglycemia protocol. Discontinue ceftriaxone and metronidazole as they have been given for well over 7 days. Continue linezolid for now. (2) Leukocytosis, unspecified: Qualifiers: Leukocytosis type: bandemia Qualified Code(s): D72.825 - Bandemia Code(s): D72.829 - Elevated white blood cell count, unspecified Status: Acute Assessment and Plan: Left shift improving. White count marginally elevated today which is probably due to maturation of immature leukocytes. (3) Protein-calorie malnutrition, moderate: Code(s): E44.0 - Moderate protein-calorie malnutrition Status: Acute Assessment and Plan: Discontinue TPN. Patient tolerating p.o. adequately. Subjective Subjective Date/Time Seen: 10/25/23 09:44 Post Op day: #17 Patient reports: no new complaints, feels better, tolerating liquids well, voiding w/o difficulty, bowel movement and afebrile Interval history: Getting very anxious to go home Review of Systems Review of Systems: All systems reviewed & are unremarkable except as noted in HPI and below (HPI) Exam Const: General: comfortable and no acute distress Orientation/consciousness: patient oriented x3 GI: Inspection: incision (Healing) and other (Minimal drain output from both drains) GI Palp: Yes Soft to palpation, No Tenderness to palpation present (GI), No Guarding due to palpation present (GI), Yes Palpable mass present (Fullness on left side is decreased) and No Rebound tenderness present Auscultation: normal bowel sounds and normoactive bowel sounds Neuro: General: patient oriented x3 and no focal motor deficits Extrem: General: no calf tenderness and no edema Psych: Affect: normal affect Insight: Good insight present (Psych) Judgement: Good judgement present (Psych) Objective Data Vital Signs Vital Signs: Vital Signs - 24 hr 10/24/23 14:00 10/24/23 12:00 10/24/23 16:00 Temperature 35.9 C L Pulse Rate 92 93 77 Respiratory Rate 18 Blood Pressure 112/71 Pulse Oximetry 100 10/24/23 20:12 10/24/23 20:00 10/25/23 00:00 Temperature 36.6 C Pulse Rate 99 99 75 Respiratory Rate 20 Blood Pressure 109/73 Pulse Oximetry 99 10/25/23 04:00 10/25/23 05:36 Temperature 36.2 C L Pulse Rate 78 92 Respiratory Rate 20 Blood Pressure 119/81 Pulse Oximetry 97 Intake/Output Intake/Output: Intake & Output 10/22/23 10/23/23 10/24/23 10/25/23 23:59 23:59 23:59 23:59 Intake Total 3753 3653 4795.2 650 Output Total 1680 1030 1112 1115 Balance 2073 2623 3683.2 -465 Meds/Results Medications: Active Medications Generic Name Dose Route Start Last Admin Trade Name Freq PRN Reason Stop Dose Admin Acetaminophen 650 mg 10/15/23 13:57 Acetaminophen 325 Mg Tablet PO Q6H PRN Fever Amlodipine Besylate 5 mg 10/19/23 09:00 10/25/23 09:39 Amlodipine Besylate 5 Mg Tablet PO 5 mg DAILY PRECIOUS Administration Enoxaparin Sodium 40 mg 10/16/23 09:00 10/25/23 09:40 Enoxaparin 40 Mg/0.4 Ml Syringe SUB-Q 40 mg DAILY PRECIOUS Administration Linezolid 600 mg in 300 mls @ 300 mls/hr 10/20/23 10:30 10/24/23 22:18 Zyvox IVPB Infused Q12HR PRECIOUS Infusion Dextrose 1,000 mls @ 50 mls/hr 10/25/23 10:00 Dextrose 10% IV CONT 10/25/23 15:59 .Q20H PRECIOUS Naloxone HCl 0.1 mg 10/08/23 16:17 Naloxone Hcl 0.4 Mg/Ml Vial IV PUSH Q2M PRN Opiate Reversal Ondansetron HCl 4 mg 10/08/23 16:17 Ondansetron Inj 4 Mg/2 Ml Vial IV PUSH Q4H PRN Nausea And Vomiting
[2023-10-25] MEDS: DEXTROSE 10% 500 ML 50 ML IV CONT (10:35)
[2023-10-25] MEDS: LINEZOLID 600 MG/300 ML 600 MG/300 ML SOLN 300 MG IVPB ×2 (10:35→20:42)
[2023-10-25 11:55] LABS: Glucose Point of Care 146 mg/dl (65-105)
[2023-10-26 05:55] VITALS: BP 115/78; PULSE 91; RESP 14; TEMP 36.2; O2SAT 98
[2023-10-26] MEDS: CENTRAL LINE FLUSH 10 ML IV PUSH ×3 (06:00→21:23)
[2023-10-26 06:14] LABS: Basophils Absolute Auto 0.2 K/mm3 (0.0-0.1); Basophils Percent Auto 1.5 % (0.2-1.2); Eosinophils Absolute Auto 0.2 K/mm3 (0-0.3); Eosinophils Percent Auto 1.5 % (0-4.4); Hematocrit 30.8 % (42.0-52.0); Hemoglobin 9.5 g/dL (14.0-18.0); Immature Granulocyte Absolute 0.53 K/mm3 (0.00-0.031); Immature Granulocyte Percent A 4.5 % (0-0.5); Lymphocytes Absolute Auto 1.67 K/mm3 (0.9-3.2); Lymphocytes Percent Auto 14.3 % (18.3-44.2); Mean Corpuscular HGB Conc 30.8 g/dl (32-36); Mean Corpuscular Hemoglobin 25.5 pg (26-34); Mean Corpuscular Volume 82.6 fl (80-100); Mean Platelet Volume 9.5 fl (7.4-10.4); Monocytes Absolute Auto 0.8 K/mm3 (0.1-0.6); Monocytes Percent Auto 6.6 % (2.6-8.5); Neutrophils Absolute Auto 8.4 K/mm3 (1.3-6.7); Neutrophils Percent Auto 71.6 % (45.5-73.1); Platelet Count Result 538 k/mm3 (150-375); Red Blood Count 3.73 M/mm3 (4.6-6.20); Red Cell Distribution Width 16.4 % (11.5-14.5); White Blood Count 11.7 K/mm3 (4.5-10.0)
[2023-10-26 06:26] LABS: Anion Gap 5 mmol/L (4-12); Blood Urea Nitrogen 12 mg/dL (9-20); Calcium 8.7 mg/dL (8.4-10.2); Carbon Dioxide 29 mmol/L (22-30); Chloride 101 mmol/L (98-107); Estimated CRCL calculation 92 ml/min; Estimated Glomerular Filt Rate > 60; Glucose 103 mg/dL (65-110); Potassium 4.5 mmol/L (3.4-5.0); Sodium 135 mmol/L (137-145)
--- NOTE | 2023-10-26 09:36 | P.PNIM_ITS ---
Progress Note: A&P Assessment and Plan (1) Anastomotic leak of intestine: Code(s): K91.89 - Other postprocedural complications and disorders of digestive system Status: Acute Assessment and Plan: Clinically improving on current antibiotics and treatment * CRP continues to trend down 14.4>>7.7 >>4.9>>4.2 * WBC now downtrending 13.7K>>18.6K>>16.7>>13.4 * Repeat CT/abd pelvis; small amount of pneumoperitoneum could be postoperative/postprocedural, versus reflect persistent bowel perforation or leak. * No change in treatment per general surgery. * Continue Linezolid, Flagyl, Ceftriaxone. Abdominal cultures grew VRE * Continue to monitor drains output * Encouraged with activity and IS use. * * 10/22-Clinical findings, PE, labs- show improvement. CT scan -no evidence of persistent leakage from the anastomosis. Clear liquids today per surgery 10/24/23: * Pt tolerating clear liquids. * Surgery primary management. * Continue Linezolid, flagyl and rocephin. * WBC's stable at 10.7 today. * Minimal drainage per drains. * 10/24-tolerating clears well. labs reviewed 10/25- anticipate discharge friday if stable overnight with a close f/u with surg soft foods today. minimal drainage (2) Polyp, sigmoid colon: Qualifiers: Colon polyp type: adenomatous Qualified Code(s): D12.5 - Benign neoplasm of sigmoid colon Code(s): K63.5 - Polyp of colon Status: Chronic Assessment and Plan: * S/p surgical removal with tubulovillous adenoma on pathology (3) Dehydration: Code(s): E86.0 - Dehydration Status: Resolved Assessment and Plan: 10/11/23: * Patient became tachycardic in the 160s overnight requiring fluid bolus and continued cardiac monitoring * Reported diarrhea yesterday * Patient appears to be net negative 290 mL on I&O * Will give another 500 mL fluid bolus now considering patient heart rate is still in the 120-130's. * Continue cardiac monitoring (4) Eosinophilic esophagitis: Code(s): K20.0 - Eosinophilic esophagitis Status: Acute Assessment and Plan: on Protonix (5) Anemia: Qualifiers: Anemia type: iron deficiency Iron deficiency anemia type: chronic blood loss Qualified Code(s): D50.0 - Iron deficiency anemia secondary to blood loss (chronic) Code(s): D64.9 - Anemia, unspecified Status: Chronic Assessment and Plan: 10/11/23: * Hgb 10.9 * Likely secondary to acute blood loss, GI bleeding * Will check iron, ferritin, vitamin B12, folic acid, TSH (6) Hypertension: Qualifiers: Hypertension type: primary hypertension Qualified Code(s): I10 - Essential (primary) hypertension Code(s): I10 - Essential (primary) hypertension Status: Chronic Assessment and Plan: 10/11/23: * Blood pressure ranging 130/74-144/85 * Continue amlodipine (7) Hypokalemia: Code(s): E87.6 - Hypokalemia Status: Inactive (8) Low TSH level: Code(s): R79.89 - Other specified abnormal findings of blood chemistry Status: Acute (9) Protein-calorie malnutrition, moderate: Code(s): E44.0 - Moderate protein-calorie malnutrition Status: Acute Assessment and Plan: TPN stopped liquid diet now- tolerating it well improving Plan DVT prophylaxis: Lovenox Time Spent With Patient Time with patient: Greater than 35 minutes Subjective Date/time seen: 10/26/23 09:36 Interval history: Surgery is primary for this pt- we are consulted for medical
--- NOTE | 2023-10-26 09:36 | PM.IMPN ---
Progress Note: A&P Assessment and Plan (1) Anastomotic leak of intestine: Code(s): K91.89 - Other postprocedural complications and disorders of digestive system Status: Acute Assessment and Plan: Clinically improving on current antibiotics and treatment CRP continues to trend down 14.4>>7.7 >>4.9>>4.2 WBC now downtrending 13.7K>>18.6K>>16.7>>13.[address]/abd pelvis; small amount of pneumoperitoneum could be postoperative/postprocedural, versus reflect persistent bowel perforation or leak. No change in treatment per general surgery. Continue Linezolid, Flagyl, Ceftriaxone. Abdominal cultures grew VRE Continue to monitor drains output Encouraged with activity and IS use. 10/22-Clinical findings, PE, labs- show improvement. CT scan -no evidence of persistent leakage from the anastomosis. Clear liquids today per surgery 10/24/23: Pt tolerating clear liquids. Surgery primary management. Continue Linezolid, flagyl and rocephin. WBC's stable at 10.7 today. Minimal drainage per drains. 10/24-tolerating clears well. labs reviewed 10/25- anticipate discharge friday if stable overnight with a close f/u with surg soft foods today. minimal drainage (2) Polyp, sigmoid colon: Qualifiers: Colon polyp type: adenomatous Qualified Code(s): D12.5 - Benign neoplasm of sigmoid colon Code(s): K63.5 - Polyp of colon Status: Chronic Assessment and Plan: S/p surgical removal with tubulovillous adenoma on pathology (3) Dehydration: Code(s): E86.0 - Dehydration Status: Resolved Assessment and Plan: 10/11/23: Patient became tachycardic in the 160s overnight requiring fluid bolus and continued cardiac monitoring Reported diarrhea yesterday Patient appears to be net negative 290 mL on I&O Will give another 500 mL fluid bolus now considering patient heart rate is still in the 120-130's. Continue cardiac monitoring (4) Eosinophilic esophagitis: Code(s): K20.0 - Eosinophilic esophagitis Status: Acute Assessment and Plan: on Protonix (5) Anemia: Qualifiers: Anemia type: iron deficiency Iron deficiency anemia type: chronic blood loss Qualified Code(s): D50.0 - Iron deficiency anemia secondary to blood loss (chronic) Code(s): D64.9 - Anemia, unspecified Status: Chronic Assessment and Plan: 10/11/23: Hgb 10.9 Likely secondary to acute blood loss, GI bleeding Will check iron, ferritin, vitamin B12, folic acid, TSH (6) Hypertension: Qualifiers: Hypertension type: primary hypertension Qualified Code(s): I10 - Essential (primary) hypertension Code(s): I10 - Essential (primary) hypertension Status: Chronic Assessment and Plan: 10/11/23: Blood pressure ranging 130/74-144/85 Continue amlodipine (7) Hypokalemia: Code(s): E87.6 - Hypokalemia Status: Inactive (8) Low TSH level: Code(s): R79.89 - Other specified abnormal findings of blood chemistry Status: Acute (9) Protein-calorie malnutrition, moderate: Code(s): E44.0 - Moderate protein-calorie malnutrition Status: Acute Assessment and Plan: TPN stopped liquid diet now- tolerating it well improving Plan DVT prophylaxis: Lovenox Time Spent With Patient Time with patient: Greater than 35 minutes Subjective Date/time seen: 10/26/23 09:36 Interval history: Surgery is primary for this pt- we are consulted for medical mngmnt. Pt was seen and examined at the bedside today. He appears comfortable and had been tolerating clears. TPN/TPN labs stopped. On linezolid PO. Tolerating food well. advancing to soft foods today Review of Systems Review of Systems: Denies pain All systems reviewed & are unremarkable except as noted in HPI and below Constitutional: Constitutional: Reports as per HPI and Reports no additional constitutional complaints Eyes: Eyes: Reports as p
[2023-10-26] MEDS: PANTOPRAZOLE 40 MG TABLET PO (09:47)
[2023-10-26] MEDS: ENOXAPARIN 40 MG/0.4 ML SYRINGE SUB-Q (09:47)
[2023-10-26] MEDS: LINEZOLID 600 MG/300 ML 600 MG/300 ML SOLN 300 MG IVPB ×2 (09:47→21:21)
[2023-10-26] MEDS: POTASSIUM CHLORIDE 20 MEQ ER TABLET 40 MEQ PO (09:48)
[2023-10-26] MEDS: amLODIPine BESYLATE 5 MG TABLET PO (09:48)
--- NOTE | 2023-10-26 12:29 | PM.PNGS ---
Progress Note: A&P Assessment and Plan (1) Anastomotic leak of intestine: Code(s): K91.89 - Other postprocedural complications and disorders of digestive system Status: Acute Assessment and Plan: No sign of persistent leak. Will advance diet to soft food. Patient will go home with intra-abdominal drains and I explained that to him and his . He tolerated full liquids well. Recheck again tomorrow but if all looks good, discontinue linezolid tomorrow and discharge. (2) Leukocytosis, unspecified: Qualifiers: Leukocytosis type: bandemia Qualified Code(s): D72.825 - Bandemia Code(s): D72.829 - Elevated white blood cell count, unspecified Status: Acute Assessment and Plan: Mild and much improved (3) Protein-calorie malnutrition, moderate: Code(s): E44.0 - Moderate protein-calorie malnutrition Status: Acute Assessment and Plan: Receiving Ensure supplements and soft diet. Tolerating both well Subjective Subjective Date/Time Seen: 10/26/23 12:29 Post Op day: #18 Patient reports: no new complaints, tolerating liquids well, voiding w/o difficulty, bowel movement and afebrile Exam Const: General: healthy appearing, comfortable, alert and awake GI: Inspection: non-distended, incision (Healing) and other (Minimal drain output, same apparent) GI Palp: Yes Soft to palpation and No Tenderness to palpation present (GI) Auscultation: normoactive bowel sounds Objective Data Vital Signs Vital Signs: Vital Signs - 24 hr 10/25/23 13:32 10/25/23 16:00 10/25/23 21:34 Temperature 36.2 C L 36.1 C L Pulse Rate 94 91 94 Respiratory Rate 16 16 Blood Pressure 111/69 129/70 Pulse Oximetry 98 100 10/26/23 05:55 Temperature 36.2 C L Pulse Rate 91 Respiratory Rate 14 Blood Pressure 115/78 Pulse Oximetry 98 Intake/Output Intake/Output: Intake & Output 10/23/23 10/24/23 10/25/23 10/26/23 23:59 23:59 23:59 23:59 Intake Total 3653 4795.2 2810 870 Output Total 1030 1112 1122 700 Balance 2623 3683.2 1688 170 Meds/Results Medications: Active Medications Generic Name Dose Route Start Last Admin Trade Name Freq PRN Reason Stop Dose Admin Acetaminophen 650 mg 10/15/23 13:57 Acetaminophen 325 Mg Tablet PO Q6H PRN Fever Amlodipine Besylate 5 mg 10/19/23 09:00 10/26/23 09:48 Amlodipine Besylate 5 Mg Tablet PO 5 mg DAILY PRECIOUS Administration Enoxaparin Sodium 40 mg 10/16/23 09:00 10/26/23 09:47 Enoxaparin 40 Mg/0.4 Ml Syringe SUB-Q 40 mg DAILY PRECIOUS Administration Linezolid 600 mg in 300 mls @ 300 mls/hr 10/20/23 10:30 10/26/23 09:47 Zyvox IVPB 300 mls/hr Q12HR PRECIOUS Administration Naloxone HCl 0.1 mg 10/08/23 16:17 Naloxone Hcl 0.4 Mg/Ml Vial IV PUSH Q2M PRN Opiate Reversal Ondansetron HCl 4 mg 10/08/23 16:17 Ondansetron Inj 4 Mg/2 Ml Vial IV PUSH Q4H PRN Nausea And Vomiting Pantoprazole Sodium 40 mg 10/23/23 09:00 10/26/23 09:47 Pantoprazole 40 Mg Tablet PO 40 mg QAM PRECIOUS Administration Sodium Chloride 10 ml 10/14/23 22:00 10/26/23 06:00 Central Line Flush IV PUSH 10 ml Q8HR PRECIOUS Administration Sodium Chloride 10 ml 10/14/23 17:11 Central Line Flush IV PUSH PRN PRN with TPN bag changes Sodium Chloride 20 ml 10/14/23 17:11 10/23/23 05:35 Central Line Flush IV PUSH 20 ml PRN PRN Administration after blood draws Radiology Results: ITS Impressions Abdomen X-Ray 10/12/23 10:54 IMPRESSION: 1. Normal bowel gas pattern. Enema w/Water Soluble 10/14/23 10:29 IMPRESSION: 1. Likely anastomotic extraluminal contrast leak along the distal descending colon. Chest X-Ray 10/15/23 21:04 IMPRESSION: 1. No acute cardiopulmonary disease. Catheter Placement CT 10/16/23 15:46 IMPRESSION: 1. Successful CT-guided left upper quadrant abscess drainage catheter placement. 2. Successful CT-guided l
[2023-10-26 14:00] VITALS: BP 140/75; PULSE 99; RESP 18; TEMP 36.7; O2SAT 98
[2023-10-26 16:00] VITALS: BP 107/65; PULSE 99; RESP 18; TEMP 36.7; O2SAT 98
[2023-10-26 22:00] VITALS: BP 116/74; PULSE 106; RESP 16; TEMP 36.7; O2SAT 97
[2023-10-27 06:00] VITALS: BP 113/79; PULSE 92; RESP 16; TEMP 37; O2SAT 98
[2023-10-27 08:00] VITALS: BP 140/78; PULSE 88; RESP 18; TEMP 36.4; O2SAT 90
[2023-10-27 09:26] LABS: Basophils Absolute Auto 0.1 K/mm3 (0.0-0.1); Basophils Percent Auto 0.8 % (0.2-1.2); Eosinophils Absolute Auto 0.1 K/mm3 (0-0.3); Eosinophils Percent Auto 0.7 % (0-4.4); Hematocrit 32.2 % (42.0-52.0); Hemoglobin 10.2 g/dL (14.0-18.0); Immature Granulocyte Absolute 0.19 K/mm3 (0.00-0.031); Immature Granulocyte Percent A 1.5 % (0-0.5); Lymphocytes Absolute Auto 1.58 K/mm3 (0.9-3.2); Lymphocytes Percent Auto 12.4 % (18.3-44.2); Mean Corpuscular HGB Conc 31.7 g/dl (32-36); Mean Corpuscular Hemoglobin 26.2 pg (26-34); Mean Corpuscular Volume 82.6 fl (80-100); Mean Platelet Volume 9.6 fl (7.4-10.4); Monocytes Absolute Auto 0.9 K/mm3 (0.1-0.6); Monocytes Percent Auto 6.8 % (2.6-8.5); Neutrophils Absolute Auto 9.9 K/mm3 (1.3-6.7); Neutrophils Percent Auto 77.8 % (45.5-73.1); Platelet Count Result 479 k/mm3 (150-375); Red Cell Distribution Width 16.7 % (11.5-14.5); White Blood Count 12.7 K/mm3 (4.5-10.0)
[2023-10-27] MEDS: PANTOPRAZOLE 40 MG TABLET PO (09:28)
[2023-10-27] MEDS: ENOXAPARIN 40 MG/0.4 ML SYRINGE SUB-Q (09:28)
[2023-10-27] MEDS: amLODIPine BESYLATE 5 MG TABLET PO (09:28)
[2023-10-27 09:40] LABS: Alanine Aminotransferase 15 U/L (6-50); Alkaline Phosphatase 82 U/L (38-126); Anion Gap 6 mmol/L (4-12); Aspartate Amino Transferase 21 U/L (17-59); Bilirubin,Total 0.2 mg/dL (0.2-1.3); Blood Urea Nitrogen 11 mg/dL (9-20); Calcium 8.7 mg/dL (8.4-10.2); Carbon Dioxide 30 mmol/L (22-30); Chloride 99 mmol/L (98-107); Estimated CRCL calculation 92 ml/min; Estimated Glomerular Filt Rate > 60; Glucose 99 mg/dL (65-110); Potassium 4.2 mmol/L (3.4-5.0); Sodium 135 mmol/L (137-145)
--- NOTE | 2023-10-27 10:04 | P.PNIM_ITS ---
Progress Note: A&P Assessment and Plan (1) Anastomotic leak of intestine: Code(s): K91.89 - Other postprocedural complications and disorders of digestive system Status: Acute Assessment and Plan: Clinically improving on current antibiotics and treatment * CRP continues to trend down 14.4>>7.7 >>4.9>>4.2 * WBC now downtrending 13.7K>>18.6K>>16.7>>13.4 * Repeat CT/abd pelvis; small amount of pneumoperitoneum could be postoperative/postprocedural, versus reflect persistent bowel perforation or leak. * No change in treatment per general surgery. * Continue Linezolid, Flagyl, Ceftriaxone. Abdominal cultures grew VRE * Continue to monitor drains output * Encouraged with activity and IS use. * * 10/22-Clinical findings, PE, labs- show improvement. CT scan -no evidence of persistent leakage from the anastomosis. Clear liquids today per surgery 10/24/23: * Pt tolerating clear liquids. * Surgery primary management. * Continue Linezolid, flagyl and rocephin. * WBC's stable at 10.7 today. * Minimal drainage per drains. * 10/24-tolerating clears well. labs reviewed 10/25- anticipate discharge friday if stable overnight with a close f/u with surg soft foods today. minimal drainage (2) Polyp, sigmoid colon: Qualifiers: Colon polyp type: adenomatous Qualified Code(s): D12.5 - Benign neoplasm of sigmoid colon Code(s): K63.5 - Polyp of colon Status: Chronic Assessment and Plan: * S/p surgical removal with tubulovillous adenoma on pathology (3) Dehydration: Code(s): E86.0 - Dehydration Status: Resolved Assessment and Plan: 10/11/23: * Patient became tachycardic in the 160s overnight requiring fluid bolus and continued cardiac monitoring * Reported diarrhea yesterday * Patient appears to be net negative 290 mL on I&O * Will give another 500 mL fluid bolus now considering patient heart rate is still in the 120-130's. * Continue cardiac monitoring (4) Eosinophilic esophagitis: Code(s): K20.0 - Eosinophilic esophagitis Status: Acute Assessment and Plan: on Protonix (5) Anemia: Qualifiers: Anemia type: iron deficiency Iron deficiency anemia type: chronic blood loss Qualified Code(s): D50.0 - Iron deficiency anemia secondary to blood loss (chronic) Code(s): D64.9 - Anemia, unspecified Status: Chronic Assessment and Plan: 10/11/23: * Hgb 10.9 * Likely secondary to acute blood loss, GI bleeding * Will check iron, ferritin, vitamin B12, folic acid, TSH (6) Hypertension: Qualifiers: Hypertension type: primary hypertension Qualified Code(s): I10 - Essential (primary) hypertension Code(s): I10 - Essential (primary) hypertension Status: Chronic Assessment and Plan: 10/11/23: * Blood pressure ranging 130/74-144/85 * Continue amlodipine (7) Hypokalemia: Code(s): E87.6 - Hypokalemia Status: Inactive (8) Low TSH level: Code(s): R79.89 - Other specified abnormal findings of blood chemistry Status: Acute (9) Protein-calorie malnutrition, moderate: Code(s): E44.0 - Moderate protein-calorie malnutrition Status: Acute Assessment and Plan: TPN stopped liquid diet now- tolerating it well improving Plan DVT prophylaxis: Lovenox Time Spent With Patient Time: 59 minutes Time with patient: Greater than 35 minutes Subjective Date/time seen: 10/27/23 10:04 Interval history: Surgery is primary for thi
--- NOTE | 2023-10-27 10:04 | PM.IMPN ---
Progress Note: A&P Assessment and Plan (1) Anastomotic leak of intestine: Code(s): K91.89 - Other postprocedural complications and disorders of digestive system Status: Acute Assessment and Plan: Clinically improving on current antibiotics and treatment CRP continues to trend down 14.4>>7.7 >>4.9>>4.2 WBC now downtrending 13.7K>>18.6K>>16.7>>13.[address]/abd pelvis; small amount of pneumoperitoneum could be postoperative/postprocedural, versus reflect persistent bowel perforation or leak. No change in treatment per general surgery. Continue Linezolid, Flagyl, Ceftriaxone. Abdominal cultures grew VRE Continue to monitor drains output Encouraged with activity and IS use. 10/22-Clinical findings, PE, labs- show improvement. CT scan -no evidence of persistent leakage from the anastomosis. Clear liquids today per surgery 10/24/23: Pt tolerating clear liquids. Surgery primary management. Continue Linezolid, flagyl and rocephin. WBC's stable at 10.7 today. Minimal drainage per drains. 10/24-tolerating clears well. labs reviewed 10/25- anticipate discharge friday if stable overnight with a close f/u with surg soft foods today. minimal drainage (2) Polyp, sigmoid colon: Qualifiers: Colon polyp type: adenomatous Qualified Code(s): D12.5 - Benign neoplasm of sigmoid colon Code(s): K63.5 - Polyp of colon Status: Chronic Assessment and Plan: S/p surgical removal with tubulovillous adenoma on pathology (3) Dehydration: Code(s): E86.0 - Dehydration Status: Resolved Assessment and Plan: 10/11/23: Patient became tachycardic in the 160s overnight requiring fluid bolus and continued cardiac monitoring Reported diarrhea yesterday Patient appears to be net negative 290 mL on I&O Will give another 500 mL fluid bolus now considering patient heart rate is still in the 120-130's. Continue cardiac monitoring (4) Eosinophilic esophagitis: Code(s): K20.0 - Eosinophilic esophagitis Status: Acute Assessment and Plan: on Protonix (5) Anemia: Qualifiers: Anemia type: iron deficiency Iron deficiency anemia type: chronic blood loss Qualified Code(s): D50.0 - Iron deficiency anemia secondary to blood loss (chronic) Code(s): D64.9 - Anemia, unspecified Status: Chronic Assessment and Plan: 10/11/23: Hgb 10.9 Likely secondary to acute blood loss, GI bleeding Will check iron, ferritin, vitamin B12, folic acid, TSH (6) Hypertension: Qualifiers: Hypertension type: primary hypertension Qualified Code(s): I10 - Essential (primary) hypertension Code(s): I10 - Essential (primary) hypertension Status: Chronic Assessment and Plan: 10/11/23: Blood pressure ranging 130/74-144/85 Continue amlodipine (7) Hypokalemia: Code(s): E87.6 - Hypokalemia Status: Inactive (8) Low TSH level: Code(s): R79.89 - Other specified abnormal findings of blood chemistry Status: Acute (9) Protein-calorie malnutrition, moderate: Code(s): E44.0 - Moderate protein-calorie malnutrition Status: Acute Assessment and Plan: TPN stopped liquid diet now- tolerating it well improving Plan DVT prophylaxis: Lovenox Time Spent With Patient Time: 59 minutes Time with patient: Greater than 35 minutes Subjective Date/time seen: 10/27/23 10:04 Interval history: Surgery is primary for this pt- we are consulted for medical mngmnt. Pt was seen and examined at the bedside today. He appears comfortable and had been tolerating clears. TPN/TPN labs stopped. On linezolid PO. Tolerating food well. advancing to soft foods today 10/27/2023 Patient doing well in bed. Patient states that he is ready to go. He denies any current chest pain, shortness breath, nausea, vomiting, diarrhea constipation. Drain is still in place draining a thick found fluid. Spoke with Gabo
[2023-10-27] MEDS: NEOMYCIN/POLYMYXIN/BACITRACIN OINTMENT PACKET 1 PACKET (11:15)
--- NOTE | 2023-10-27 12:24 | PM.DS ---
DS: Admitting Diagnosis Discharge Date 10/27/2023 Admitting Diagnosis Sigmoid colon polyp Gastroesophageal reflux Essential hypertension DS: Discharge Diagnosis Discharge Diagnosis (1) Polyp, sigmoid colon: Qualifiers: Colon polyp type: adenomatous Qualified Code(s): D12.5 - Benign neoplasm of sigmoid colon Code(s): K63.5 - Polyp of colon Status: Chronic (2) Anastomotic leak of intestine: Code(s): K91.89 - Other postprocedural complications and disorders of digestive system Status: Acute (3) Protein-calorie malnutrition, moderate: Code(s): E44.0 - Moderate protein-calorie malnutrition Status: Acute (4) Hypertension: Qualifiers: Hypertension type: primary hypertension Qualified Code(s): I10 - Essential (primary) hypertension Code(s): I10 - Essential (primary) hypertension Status: Chronic (5) Anemia: Qualifiers: Anemia type: iron deficiency Iron deficiency anemia type: chronic blood loss Qualified Code(s): D50.0 - Iron deficiency anemia secondary to blood loss (chronic) Code(s): D64.9 - Anemia, unspecified Status: Chronic DS: Summary Hospital Course Hospital Course: Patient had home bowel preparation and was taken to surgery for elective hand access laparoscopic sigmoidectomy on 10/08/2023. The surgery was indicated for a sigmoid colon polyp that was benign for by biopsy. It was unresectable colonoscopically. The patient underwent hand access laparoscopic sigmoidectomy with splenic flexure takedown and hand-sewn anastomosis on the day of admission. His postop course was typical for the 1st 3 days. On postop day 4. He experienced some nausea and diarrhea. CT scan did not show evidence of anastomotic leak. His symptoms worsened and included fever, tachycardia, leukocytosis and emesis. Water-soluble contrast enema was performed on postoperative day 6. This showed a small anastomotic leak. The patient was made NPO, PICC line was placed, TPN was started, and broad-spectrum antibiotics were started. Patient never had any abdominal pain and clinically looked much better than what is normally seen with anastomotic leak. After discussion with the patient, a trial of conservative therapy with bowel rest, TPN, antibiotics was decided. Patient had another CT scan and this time showed a fair amount of intra-abdominal fluid along the left colic gutter. Some of this was probably due to the contrast enema. On postoperative day 8., CT-guided placement of 2 pigtail catheters were performed by Radiology. Drainage from each catheter was pretty high initially but dropped off quickly. Cultures of the fluid did show vancomycin resistant enterococci and the patient was placed on isolation and linezolid was started. Patient was continued on bowel rest, antibiotics, and TPN. He improved. He had a trial of clear liquids on 10/18/2023. This did not go well with evidence of increased leukocytosis, tachycardia, and low-grade fever. He was made NPO again. His CRP was followed closely. It reached a high of 32 but then decreased steadily thereafter. Yesterday, his CRP was normal. He was given a trial of clear liquids again on October 22, postop day 14. This went well with no increase in drain output and continued improvement of the infectious parameters being followed. After 2 days of clear liquids, he was advanced to full liquids and tolerated this well also. TPN, ceftriaxone, and metronidazole were discontinued. He was advanced to soft diet and eventually regular diet on the day of discharge. His linezolid was discontinued on the day of discharge. He still has some leukocytosis but his numbers of immature granulocytes has been decreasing. He is discharged on 10/27/2023 with his [address] He has been instructed on how to measure the output from these drains. He is pain-free and has not had any analgesics for over a week. It jaun r
--- NOTE | 2023-10-27 13:45 | PC.NURSE ---
Pt is A&O4 male who participated and contributed in plan of care. Pt denies any pain or nausea/vomiting. Pt had PICC line removed and tolerated well. Pressure was held, no bleeding at site and pressure dressing applied. Pt was monitored for any changes in status while here. Pt was educated on drain function and how to document and keep track of output. Pt verbalizes understanding. Pt was educated on follow up appointments. Pt discharged home with family.
--- NOTE | 2023-10-28 11:33 | PC.NURSE ---
Documentation under the name of Daksha Diggs on 10/27/23 from [id number] was done by Jasmine Torres. Signing out and logging in was not done correctly at shift change.
== END 2023-10-27 11:50 | disposition home or self-care (01) | DRG 329 ==
LOC: ANH3MEDSUR 16:19
PROVIDERS: Internal Medicine; Nurse Practitioner Acute Care; Radiology Diagnostic Radiology; Surgery; Admitting Provider Surgery; PCP Family Medicine; Visit Provider Nurse Practitioner Adult Health
PROC: 0D1E4Z4 Bypass Large Intestine to Cutaneous, Percutaneous Endoscopic Approach (ICD-10-PCS; principal; 2023-10-08 09:00)
PROC: 0W9G30Z Drainage of Peritoneal Cavity with Drainage Device, Percutaneous Approach (ICD-10-PCS; CPT 75989; principal; 2023-10-16 12:30)
DX: D12.4 Benign neoplasm of descending colon (principal); K65.1 Peritoneal abscess; E44.0 Moderate protein-calorie malnutrition; E87.1 Hypo-osmolality and hyponatremia; T80.818A Extravasation of other vesicant agent, initial encounter; K91.89 Other postprocedural complications and disorders of digestive system; T81.43XA Infection following a procedure, organ and space surgical site, initial encounter; Z16.21 Resistance to vancomycin; D62 Acute posthemorrhagic anemia; D12.5 Benign neoplasm of sigmoid colon; K21.9 Gastro-esophageal reflux disease without esophagitis; R00.0 Tachycardia, unspecified; R19.7 Diarrhea, unspecified; E87.6 Hypokalemia; R79.89 Other specified abnormal findings of blood chemistry; B95.2 Enterococcus as the cause of diseases classified elsewhere; B95.61 Methicillin susceptible Staphylococcus aureus infection as the cause of diseases classified elsewhere; I10 Essential (primary) hypertension; E86.0 Dehydration; K20.0 Eosinophilic esophagitis; I45.10 Unspecified right bundle-branch block; Z68.30 Body mass index [BMI] 30.0-30.9, adult
CPT/HCPCS: 36415; 36569; 71045; 71046; 74018; 74176; 74177; 74270; 75989; 80048; 80053; 81001; 82306; 82330; 82607; 82728; 82746; 82948; 83540; 83550; 83605; 83735; 84100; 84439; 84443; 84466; 84478; 84480; 84484; 85025; 85027; 85046; 85610; 85730; 86140; 87040; 87070; 87075; 87076; 87077; 87081; 87181; 87205; 88309; 93005; A9270; C1729; C1769; J0457; J0690; J0696; J1100; J1170; J1650; J1741; J1836; J1885; J1940; J1956; J2020; J2250; J2270; J2405; J2470; J2704; J3010; J3370; J3480; J7030; J7040; J7120; Q9967

== ENCOUNTER 2023-10-28 11:39 | Outpatient (CLI) | payer OTHER, SELFPAY ==
--- NOTE | ~2023-10-28 | CT_ITS ---
EXAMINATION: CT abdomen pelvis w con DATE: 10/28/2023 12:37 INDICATION: Post procedural complication and disorders of the digestive system TECHNIQUE: Computed tomography (CT) of the abdomen and pelvis was performed with 100 mL Omnipaque-350 intravenous contrast. Automated exposure control and iterative reconstruction technique were employe d. The dose-length product was 864.38 mGy-cm. COMPARISON: 10/22/2023 FINDINGS: Mild discoid atelectasis in the left lower lobe. Heart size is normal. No pericardial or pleural effu ruben. 7 mm low-attenuation cyst in the left hepatic lobe. Gallbladder, spleen, pancreas, bilateral ad renal glands and kidneys are normal. Bladder is normal. Again seen is a percutaneous abscess drain in the left upper quadrant within a largely decompressed a bscess cavity with small amount of gas and minimal residual fluid in the portion cavity slightly late ral to the drain. There is a second left lower quadrant drain which remains positioned within a small loculated gas and fluid collection in the left lower quadrant. The abscess cavity is without signifi cant change in size, currently measuring approximately 8.3 x 4.9 cm but with large amount of gas with in the cavity and more feculent appearance to dependently layering fluid which appears contiguous wit h the similar-appearing feculent material within the sigmoid colon through a defect in the colonic wa ll at the site of a prior colonic resection and anastomosis. There are couple additional small periph erally enhancing loculated fluid collections loculated mostly small bowel positioned midway between t he 2 abscess drainage catheters. The larger of these collections measures 4.2 x 2.6 cm the smaller me asures 2.3 x 1.8 cm. Interval decrease in size of additional previously 4.4 x 4.0 cm, currently 3.0 x 2.5 similar peripherally enhancing fluid collection in the deep pelvis. No bowel obstruction. Normal appendix. Mild thoracic and lumbar spondylosis. IMPRESSION: 1. A few abscesses in the left abdomen and pelvis as detailed above. Minimal residual gas and fluid r emaining in the cephalad-most abscess cavity with unchanged percutaneous abscess drain. No change in size of the largest left lower quadrant abscess cavity also with percutaneous abscess drain but with increased amount of gas and more feculent appearance to the dependently layering fluid which appears to arise from a defect in the wall of the sigmoid colon likely at the site of a prior anastomosis. Reviewed, dictated and finalized at location B. IMPRESSION: 1. A few abscesses in the left abdomen and pelvis as detailed above. Minimal re sidual gas and fluid remaining in the cephalad-most abscess cavity with unchang ed percutaneous abscess drain. No change in size of the largest left lower quad rant abscess cavity also with percutaneous abscess drain but with increased blane unt of gas and more feculent appearance to the dependently layering fluid which appears to arise from a defect in the wall of the sigmoid colon likely at the site of a prior anastomosis.
[2023-10-28 13:11] LABS: Basophils Absolute Auto 0.1 K/mm3 (0.0-0.1); Basophils Percent Auto 0.8 % (0.2-1.2); Eosinophils Percent Auto 0.1 % (0-4.4); Hemoglobin 10.1 g/dL (14.0-18.0); Immature Granulocyte Absolute 0.08 K/mm3 (0.00-0.031); Immature Granulocyte Percent A 0.8 % (0-0.5); Lymphocytes Absolute Auto 1.18 K/mm3 (0.9-3.2); Lymphocytes Percent Auto 11.1 % (18.3-44.2); Mean Corpuscular HGB Conc 30.6 g/dl (32-36); Mean Corpuscular Hemoglobin 25.3 pg (26-34); Mean Corpuscular Volume 82.7 fl (80-100); Mean Platelet Volume 9.7 fl (7.4-10.4); Monocytes Percent Auto 9.7 % (2.6-8.5); Neutrophils Absolute Auto 8.2 K/mm3 (1.3-6.7); Neutrophils Percent Auto 77.5 % (45.5-73.1); Platelet Count Result 470 k/mm3 (150-375); Red Blood Count 3.99 M/mm3 (4.6-6.20); White Blood Count 10.6 K/mm3 (4.5-10.0)
[2023-10-28 13:27] LABS: Anion Gap 7 mmol/L (4-12); Blood Urea Nitrogen 14 mg/dL (9-20); Calcium 8.5 mg/dL (8.4-10.2); Carbon Dioxide 28 mmol/L (22-30); Chloride 96 mmol/L (98-107); Estimated Glomerular Filt Rate > 60; Glucose 105 mg/dL (65-110); Potassium 4.4 mmol/L (3.4-5.0); Sodium 131 mmol/L (137-145)
== END 2023-10-28 11:40 | disposition home or self-care (01) ==
PROVIDERS: PCP Family Medicine; Visit Provider Surgery
DX: E87.6 Hypokalemia (principal); K65.1 Peritoneal abscess; D72.829 Elevated white blood cell count, unspecified; D64.9 Anemia, unspecified; K91.89 Other postprocedural complications and disorders of digestive system
CPT/HCPCS: 36415; 74177; 80048; 85025; Q9967

== ENCOUNTER 2023-10-29 10:45 | Outpatient (CLI) | payer OTHER, SELFPAY ==
[2023-10-29] VITALS (10 sets, daily range): BP systolic 113–127; BP diastolic 70–82; PULSE 108–114; RESP 14–18; TEMP 39.3–39.4; O2SAT 95–100
--- NOTE | ~2023-10-29 | CT_ITS ---
EXAMINATION: CT guide absc cath placement DATE: 10/29/2023 12:42 INDICATION: Intra-abdominal abscess. Leak of intestine. TECHNIQUE: The procedure including the risks, benefits, and alternatives was discussed with the patie nt. Risks discussed included bleeding and infection. The patient understood the risks and benefits an d agreed to proceed. The patient was confirmed to be receiving appropriate antibiotic coverage. The skin overlying the abdomen was prepped and draped in usual sterile fashion. Anesthetic was administe red with 1% lidocaine subcutaneously. Moderate sedation was achieved with 100 mg fentanyl IV and 1 mg Versed IV. The anterior left abdominal drain was cut and exchanged over a J-wire for a 12 Turkish and 14 Turkish dilators and a 14 Turkish pigtail catheter. The catheter was stitched to the skin, and a st erile dressing was applied. The mA was adjusted according to patient size. Iterative reconstruction t echnique was employed. The dose-length product was 129.68 mGy-cm. There were no immediate complicatio ns. FINDINGS: CT images demonstrate the catheter within the left abdominal abscess. Brown stool was seen in the drain tubing at the end of the exam. IMPRESSION: 1. Successful CT-guided left abdominal abscess drainage. Reviewed, dictated and finalized at location A.
[2023-10-29 11:13] LABS: Basophils Absolute Auto 0.1 K/mm3 (0.0-0.1); Basophils Percent Auto 0.6 % (0.2-1.2); Eosinophils Percent Auto 0.3 % (0-4.4); Hematocrit 33.7 % (42.0-52.0); Hemoglobin 10.6 g/dL (14.0-18.0); Immature Granulocyte Absolute 0.07 K/mm3 (0.00-0.031); Immature Granulocyte Percent A 0.7 % (0-0.5); Lymphocytes Absolute Auto 0.71 K/mm3 (0.9-3.2); Lymphocytes Percent Auto 7.5 % (18.3-44.2); Mean Corpuscular HGB Conc 31.5 g/dl (32-36); Mean Corpuscular Hemoglobin 25.8 pg (26-34); Mean Platelet Volume 9.7 fl (7.4-10.4); Monocytes Absolute Auto 0.9 K/mm3 (0.1-0.6); Monocytes Percent Auto 9.1 % (2.6-8.5); Neutrophils Absolute Auto 7.7 K/mm3 (1.3-6.7); Neutrophils Percent Auto 81.8 % (45.5-73.1); Platelet Count Result 417 k/mm3 (150-375); Red Blood Count 4.11 M/mm3 (4.6-6.20); Red Cell Distribution Width 17.4 % (11.5-14.5); White Blood Count 9.4 K/mm3 (4.5-10.0)
--- NOTE | 2023-10-29 11:39 | WPDMODSED ---
Moderate Sedation Note-Pt Data Patient Data Diagnosis: Abdominal abscess. Present Complaint: Abdominal abscess. Procedure to be performed/Plan: CT-guided abdominal abscess drain exchange. Allergies Allergy/AdvReac Type Severity Reaction Status Date / Time losartan Allergy Mild Rash Verified 10/29/23 09:49 Penicillins Allergy Unknown Rash Verified 10/29/23 09:49 Home Medications Medication Instructions Recorded Confirmed Type omeprazole 40 mg capsule,delayed 40 mg PO DAILY #30 caps 09/03/23 10/29/23 Rx release amlodipine 5 mg tablet 5 mg PO DAILY #30 tabs 10/14/23 10/29/23 Rx levofloxacin 750 mg tablet 750 mg PO DAILY 7 days #7 tabs 10/28/23 10/29/23 Rx metronidazole 500 mg tablet 500 mg PO TID #21 tabs 10/28/23 10/29/23 Rx Sedation/Anesthesia: No previous sedation/anesthesia problems (including family history). [facility] Past Medical History Medical History (Updated 10/25/23 @ 09:49 by Mir Truong MD) Eosinophilic esophagitis GERD (gastroesophageal reflux disease) Hypertension Surgical History Surgical History (Updated 10/13/23 @ 07:27 by Josef López MD) History of partial colectomy left Hx of colonoscopy 08/26/23 Family History Family History Grandparent Cancer Social History Social History Social History: Smoking status: Never smoker Second hand tobacco smoke exposure: No Alcohol intake: current Drinks per week: 14 Substance use: never Substance use type: does not use Do You Feel Safe in your Home?: Yes Lack of Transportation: No Lack of Food: Never True Current Housing: I Have Housing Concerned About Future Housing: No Difficulty Paying Gas/Electric Bills: No Difficulty Paying for Meds: No Currently Unemployed: No Education: Decline to Answer Difficulty w/ Childcare or Family Care: No Living arrangements: with family Additional living arrangements comments: Occupation/Education: occupation Gender identity (if verbalized by the patient): Male Sexual Orientation (if Verbalized by the Patient): Straight or Heterosexual Spiritual care concerns: No Mod Sed Physical Exam Physical Exam Pre Procedural Exam: Normal: Appearance, Lungs, Heart Rate and Heart Rhythm and Variation: Abdomen (Mild pain.) Hours since solid foods: 12 Hours since liquid intake: 12 Mallampati Classification: class 1 Internal Medicine - PN: Obj Da Labs 10/29/23 10:59 Labs: Laboratory Results - last 24 hr 10/29/23 10:59 WBC 9.4 RBC 4.11 L Hgb 10.6 L Hct 33.7 L MCV 82.0 MCH 25.8 L MCHC 31.5 L RDW 17.4 H Plt Count 417 H MPV 9.7 Immature Gran % (Auto) 0.7 H Neut % (Auto) 81.8 H Lymph % (Auto) 7.5 L [place] % (Auto) 9.1 H Eos % (Auto) 0.3 Baso % (Auto) 0.6 Lymph # (Auto) 0.71 L [place] # (Auto) 0.9 H Eos # (Auto) 0.0 Baso # (Auto) 0.1 Abs Immat Gran (auto) 0.07 H Absolute Neuts (auto) 7.7 H Absolute Nucleated RBC 0.000 Nucleated RBC % 0.0 ASA Classification/Sedation ASA Classification/Sedation ASA Class: III Emergent: No Risks: Risks, benefits and alternatives explained and patient/family accepted plan for sedation. Patient re-evaluated immediately prior to sedation.
== END 2023-10-29 13:10 | disposition home or self-care (01) ==
PROVIDERS: PCP Family Medicine; Referring Provider Radiology Diagnostic Radiology; Visit Provider Surgery
DX: K91.89 Other postprocedural complications and disorders of digestive system (principal)
CPT/HCPCS: 36415; 75989; 85025; C1729; C1769; J2250; J3010; J7040

== ENCOUNTER 2023-10-31 16:22 | Inpatient (IN) | payer OTHER, SELFPAY ==
[2023-10-29 09:54] VITALS: BMI 30.4
--- NOTE | 2023-10-29 09:56 | PC.NURSE ---
Addendum entered by Wilver Zelaya RN 10/29/23 13:18: Correction, Take Levofloxacin day of surgery. Original Note: Report to the Outpatient Waiting Room, entrance under the green pavilion located off [facility], at time _0600_ on date _[id number]_. Planned Procedure Time: _0730_.? Time changes happen often and if your time is changed the preop area will call you the afternoon before. - You and your visitor will be asked to self-screen and do not enter if you have any COVID symptoms. Please call surgeon if you need to reschedule. - A mask is optional within the hospital at this time. Patients may have clear liquids (water, carbonated beverages, clear teas, apple juice) until 3 hours prior to surgery with a maximum of 20 ounces. - No food from midnight until time of surgery and no smoking Take only the following medications with a SIP of water on the morning of surgery: ____Amlodipine Levothyroxine, and metronidazole DO NOT STOP ANY OF YOUR OTHER PRESCRIPTION MEDICATIONS PRIOR TO SURGERY EXCEPT THE FOLLOWING Medications to discontinue per physician ___None___ Date to take last dose Please no make-up, nail martiniquais, hairspray, perfume, deodorant, or body powder the day of surgery.? No jewelry (including any body piercings) or valuables the day of surgery, leave them at home.? Please take a shower or bath the night before, or the morning of, surgery with an antibacterial soap.? Wear comfortable, loose fitting clothing.? - Jewelry must be removed prior to entering the operating room.? Rings and piercings that are not removed may be cut off. - The hospital will not accept responsibility for valuables.? - Please leave all valuables, including medications, at home the day of surgery. If you are going home after surgery, a licensed m48/m60 tank driver must drive you home.? - NO public transportation without another adult if you receive anesthesia. - We recommend that an adult stay with you for 24 hours following discharge. - We also recommend that you do not drive, make important decision, drink alcoholic beverages, or take any drugs that were not prescribed by your health care provider for at least 24 hours after your discharge time. Follow any additional instructions given to you from your surgeon. Telephone instructions given to __Josef___and asked if any additional questions and then verbalized understanding. Patient advised to call surgeon office or pre surgery nurse liaison [phone] if any additional questions.
[2023-10-31] VITALS (20 sets, daily range): BP systolic 100–125; BP diastolic 64–101; PULSE 90–161; RESP 16–27; TEMP 36.3–39.6; O2SAT 92–100; BMI 29.9
--- NOTE | ~2023-10-31 | XR_ITS ---
EXAMINATION: XR chest port-a-cath/central DATE: 10/31/2023 14:41 INDICATION: Central line placement. TECHNIQUE: A single frontal view of the chest was obtained. COMPARISON: Chest view 10/15/2023 FINDINGS: There is no pneumonia, pleural effusion, or pneumothorax. The heart size is normal. The erendira ogastric tube tip is in the stomach. A left internal jugular central venous catheter is seen with tip in the superior vena cava. IMPRESSION: 1. Central line tip in the superior vena cava. Reviewed, dictated and finalized at location A.
--- NOTE | ~2023-10-31 | CT_ITS ---
EXAMINATION: CT abdomen pelvis w con DATE: 11/07/2023 09:22 INDICATION: Increasing white blood cell count TECHNIQUE: Computed tomography (CT) of the abdomen and pelvis was performed with 100 mL Omnipaque-350 intravenous contrast. Automated exposure control and iterative reconstruction technique were employe d. The dose-length product was 837.95 mGy-cm. COMPARISON: 10/28/2023 FINDINGS: A small left pleural effusion with dependent and discoid atelectasis in bilateral lower lobes and mil d basilar atelectasis at the lingula. Heart size is normal. No pericardial effusion. Unchanged subcen timeter cyst in the left hepatic lobe and small region of likely focal hepatic steatosis along the ga llbladder fossa. Gallbladder, spleen, pancreas, bilateral adrenal glands and kidneys are normal. The prior percutaneous abscess drains have been removed. Interval partial colectomy with left lower q uadrant and colostomy and Houston's pouch in the pelvis. There are a few small with very small nonorg anized appearing collections of gas and/or fluid in the soft tissues in the vicinity of the Houston's pouch likely related to the recent procedure, the largest such reduction of fluid without evident pe ripheral enhancing wall measures 5.1 x 2.9 x 2.4 cm. Continued decrease in size of a small rim-enhanc ing fluid collection in the deep pelvis previously measuring 3.4 x 2.4 cm, currently measuring 2.4 x 1.5 cm. Decompressed bladder is unremarkable. No pathologically enlarged abdominal or pelvic lymphade nopathy. There is some packing material along a partially open midline surgical wound. No bowel obst ruction. Mild thoracic spondylosis. IMPRESSION: 1. Interval postoperative change of partial colectomy with left lower quadrant and colostomy and Dobbs man's pouch. There are few nonorganized appearing small collections of gas and/or fluid in the immedi ate vicinity of the ostomy likely related to the recent surgery. There has been decreased size of the single now 2.4 x 1.5 cm peripherally enhancing fluid collection in the deep pelvis. Reviewed, dictated and finalized at location B. IMPRESSION: 1. Interval postoperative change of partial colectomy with left lower quadrant and colostomy and Houston's pouch. There are few nonorganized appearing small c ollections of gas and/or fluid in the immediate vicinity of the ostomy likely r elated to the recent surgery. There has been decreased size of the single now 2 .4 x 1.5 cm peripherally enhancing fluid collection in the deep pelvis.
--- NOTE | ~2023-10-31 | XR_ITS ---
EXAMINATION: XR retrograde pyelo w/stent BI DATE: 10/31/2023 09:10 INDICATION: Bilateral ureteral stent placement for abdominal surgery TECHNIQUE: 5 fluoroscopic images of the abdomen were obtained during procedure performed by Dr. Primo del castillo. Radiologist was not present for the imaging or procedure. The amount of fluoroscopy time used du ring this procedure was 0.3 minutes. COMPARISON: CT dated 10/28/2023 FINDINGS: Images demonstrate cannulation of the bilateral ureters and retrograde contrast injections opacify in the normal-appearing bilateral renal collecting systems. Bilateral ureteral stents with proximal tip s at the bilateral renal pelvises sees. Incidentally noted is a left upper quadrant pigtail. CT is ab scess drain at the left upper quadrant. IMPRESSION: 1. Fluoroscopy utilized during placement of bilateral ureteral stents with proximal tips at the bilat eral renal pelvises. See procedure note for further detail. Reviewed, dictated and finalized at location B. IMPRESSION: 1. Fluoroscopy utilized during placement of bilateral ureteral stents with prox imal tips at the bilateral renal pelvises. See procedure note for further isabelle escamilla
[2023-10-31] MEDS: LACTATED RINGERS 1,000 ML 30 ML IV CONT ×3 (06:40→15:15)
[2023-10-31] MEDS: ACETAMINOPHEN 500 MG TABLET 1000 MG PO (06:42)
[2023-10-31] MEDS: ALVIMOPAN 12 MG CAPSULE PO (06:42)
[2023-10-31] MEDS: KETOROLAC 15 MG/ML VIAL (*BKC) IV PUSH ×2 (06:43→17:54)
--- NOTE | 2023-10-31 07:17 | WPDHPUPDATE1 ---
History and Physical Update Update Date/Time: 10/31/23 07:17 History and Physical has been reviewed, including an updated exam of the patient. There are NO changes in the patient's condition. Risks, benefits, and alternatives have been discussed and questions answered. Patient agrees to proceed with procedure. Proceed with cystoscopy, bilateral retrogrades, bilateral ureteral stent placement.
--- NOTE | 2023-10-31 07:24 | WPDHPUPDATE1 ---
History and Physical Update Update Date/Time: 10/31/23 07:24 History and Physical has been reviewed, including an updated exam of the patient. There are NO changes in the patient's condition. Risks, benefits, and alternatives have been discussed and questions answered. Patient agrees to proceed with procedure.
--- NOTE | 2023-10-31 07:25 | WPDANESEPPF ---
Anes - Initial Pre Proc Eval Procedure: Operation Date: 10/31/23 07:30 Proposed Procedures p Exploratory Laparotomy for Anastomotic Leak, Possible Colostomy or Ileostomy - Mir Truong MD s Stent Placement for Abdominal Surgery - Papo Pineda MD Date/Time: 10/31/23 07:25 Surgeon: Mir Truong MD Pre Op Diagnosis: anastomotic leak Patient Data Age: 43 Gender: M Height: 1.73 m Weight: 87.9 kg Last Vital Signs Temp 36.3 C L 10/31/23 06:51 Pulse 101 H 10/31/23 06:51 Resp 16 10/31/23 06:51 BP 125/71 10/31/23 06:51 Pulse Ox 98 10/31/23 06:51 O2 Del Method Room Air 10/31/23 06:51 Allergies Allergy/AdvReac Type Severity Reaction Status Date / Time losartan Allergy Mild Rash Verified 10/31/23 06:49 Penicillins Allergy Unknown Rash Verified 10/31/23 06:49 Home Medications Medication Instructions Recorded Confirmed Type omeprazole 40 mg capsule,delayed 40 mg PO DAILY #30 caps 09/03/23 10/31/23 Rx release amlodipine 5 mg tablet 5 mg PO DAILY #30 tabs 10/14/23 10/31/23 Rx levofloxacin 750 mg tablet 750 mg PO DAILY 7 days #7 tabs 10/28/23 10/31/23 Rx metronidazole 500 mg tablet 500 mg PO TID #21 tabs 10/28/23 10/31/23 Rx Laboratory Tests 10/31/23 06:27 Blood Type A Positive Antibody Screen Pending Patient hx anesthesia problems: none Family hx anesthesia problems: none Results Review: All pre-operative results and documents have been reviewed as part of the pre-operative evaluation. [facility] Past Medical History Medical History Eosinophilic esophagitis GERD (gastroesophageal reflux disease) Hypertension Surgical History Surgical History History of partial colectomy 10/08/2023 - hand access laparoscopic left colectomy with hand-sewn anastomosis, takedown splenic flexure Hx of colonoscopy 08/26/23 Family History Family History Grandparent Cancer Social History Social History Social History: Smoking status: Never smoker Second hand tobacco smoke exposure: No Alcohol intake: current Drinks per week: 14 Substance use: never Substance use type: does not use Do You Feel Safe in your Home?: Yes Lack of Transportation: No Lack of Food: Never True Current Housing: I Have Housing Concerned About Future Housing: No Difficulty Paying Gas/Electric Bills: No Difficulty Paying for Meds: No Currently Unemployed: No Education: Decline to Answer Difficulty w/ Childcare or Family Care: No Living arrangements: with family Additional living arrangements comments: Occupation/Education: occupation Gender identity (if verbalized by the patient): Male Sexual Orientation (if Verbalized by the Patient): Straight or Heterosexual Spiritual care concerns: No Anes - Eval Final PreProcedure Day of Procedure 10/31/23 07:25 Patient weight: overweight Heart: regular rate and rhythm Lungs: clear to auscultation Airway: Mallampati scale class II Neurological: alert and oriented Last oral intake: >/= 8 hours ASA classification: III Emergent: no Anesthetic plan: proceed Anesthesia type and monitoring: general and standard monitoring Results Review: All pre-operative results and documents have been reviewed as part of the pre-operative evaluation. Informed Consent: The patient's anesthetic plan and its attendant risks and benefits were discussed with the patient/family/POA. Questions were solicited and answers provided to the satisfaction of the patient/family/POA.
[2023-10-31] MEDS: metroNIDAZOLE 500 MG/ISO 100ML 500 MG/100 ML BAG 100 MG IVPB ×2 (07:30→17:02)
[2023-10-31] MEDS: ceFAZolin 2 GM/D5W 50 ML 2 GM/50 ML BAG IVPB (07:35)
[2023-10-31] MEDS: LIDOCAINE HCL 2% GEL UROJET 10 ML PKG MUCOUS MEM (08:11)
--- NOTE | 2023-10-31 14:23 | SUR.OPER ---
Central line insertion performed at end of surgery by Gary Durham MD.
[2023-10-31] MEDS: MEPERIDINE HCL INJ (*CRX) 50 MG/ML AMPUL IV PUSH (14:27)
--- NOTE | 2023-10-31 14:27 | WPDANESCVCPN ---
Anes - Cent Venous Cath Note Consent: I have discussed with the patient/family/POA, the non-emergent placement of a central venous catheter, including its clinical necessity/indication and associated potential risks and complications. The patient/family/POA understand(s) and acknowledge(s) the need to proceed with central venous catheter insertion as an important element of the patient's clinical management given emergent patient conditions, temporal constraints may have precluded informed consent. Time-Out: A pre-procedural Time-Out was completed immediately before starting the procedure and confirmed: Patient Identification, Site, Procedure, Patient Position and the Availability of Requisite Equipment. Procedure Note Clinical Indications: need for TPN post op Patient position: trendelenburg Central venous catheter insertion site: left internal jugular CVC method of insertion: ultrasound-guided Hand hygiene/Aseptic technique: Hand hygiene procedures were performed. Aseptic technique was maintained throughout the procedure. Sterile barrier precautions: Maximal sterile barrier precautions, including use of a cap, mask, sterile gown, sterile gloves and a sterile full body drape. Site prep: chlorhexidine Skin anesthesia: placed under general anesthesia Serbian: 7 Lumen: 3 Length (cm): 15 cm Depth of insertion (cm): 15 Closure/Dressing: suture, biopatch and tegaderm Complications: RIJ accessed. Carotid flow so removed pressure held 5min. LIJ None immediately noted/suspected. Chest X Ray: Ordered/review to follow.
[2023-10-31] MEDS: METOPROLOL TARTRATE INJ 5 MG/5 ML VIAL IV PUSH ×2 (14:40→17:01)
[2023-10-31] MEDS: diphenhydrAMINE HCl INJ 50 MG/ML VIAL 25 MG IV PUSH (14:45)
--- NOTE | 2023-10-31 15:05 | W.PM.PROC2 ---
Procedure Note - Detailed Date of Procedure 10/31/23 Pre-op Diagnosis anastomotic leak Post-op Diagnosis Other (Anastomotic leak, multiple abdominal abscesses, dense adhesions) Procedure Performed Extensive adhesiolysis, left colectomy with transverse colostomy and Joanne procedure. Surgeon Mir Truong MD [facility] A[facility] NAVNEET Fisher Anesthesia General Indications Patient underwent hand access laparoscopic left colectomy for a benign left colon polyp. Unfortunately he developed an anastomotic leak. Efforts were made to allow this to heal without return to surgery. This has not been successful. His original surgery was 10/08/2023. He has had a couple of abscesses drained with Interventional Radiology. He is taken to surgery now for exploratory laparotomy for anastomotic leak with possible colostomy or ileostomy. Findings Extremely dense and vascular adhesions were encountered. This was somewhat expected but were actually worse. There were multiple abdominal abscesses but the largest was in the left lower abdomen adjacent to the anastomosis. The anastomosis was wide open at this time, only held together by a few of the more posterior sutures. The adhesions were dense and very extensive. Omental adhesions to the descending colon proximal to the anastomosis were so dense that this area was not able to be salvaged and was resected at the splenic flexure. The distal transverse colon was used as the end colostomy in the left upper quadrant. Distal to the anastomosis there were extensive and dense adhesions. This was resected to the area of the distal sigmoid. The omentum was extensive and involved in many adhesions. A significant portion of the omentum was removed as well but the patient remained with ample omentum. Small-bowel adhesions were probably the most difficult especially where abscesses were involved. No enterotomies were made during the adhesiolysis. Ureteral stents had been placed preoperatively and were helpful, especially in identifying the left ureter. Description of Procedure Patient was taken to surgery and induced into general anesthesia. He was initially placed in lithotomy and Dr. Pineda placed lighted ureteral stents bilaterally. Please see his consult and operative note for description. Patient was then placed in supine position. His to pigtail catheter drains were noted. The dressings and suture associated with these drains were removed leaving about 3 cm of each drain. The Exofin surgical adhesive was removed from all the previous laparoscopic wounds and incision. The abdomen was prepped and draped. A midline abdominal incision was made and connected to the lower abdominal midline incision which was associated with the hand access port. Cautery was used for hemostasis. Even the skin and subcutaneous bled heavily. We continued our dissection and opened the peritoneum in the midline. The midline fascia was opened the extent of the wound. Fortunately, there were really no significant anterior abdominal wall adhesions in the area of the incision. Exploring the abdomen, there was obviously a very dense inflammatory process on the left side. The right side was much more manageable. I freed the overlying omentum and also multiple bowel loops on the patient's right side using sharp dissection, blunt dissection and cautery. Some distal ileum was adherent in the pelvis. These adhesions were taken down and I was able to find the terminal ileum. I started at the terminal ileum and then dissected retrograde. Some rather loose adhesions were encountered at 1st. However, dense adhesions and the inflammatory process involving small bowel and the omentum were noted in the midline and the left side of the abdomen. I was able to take down omental adhesions from the anterior abdominal wall and extend the dissection laterally posteriorly. Prodigious adhesiolysis was then carried out with small-bowel omentum and abdominal abscesses.
[2023-10-31] MEDS: HYDROmorphone HCL INJ (*CRX) 1 MG/ML SYR 0.5 MG IV PUSH ×2 (15:32→16:11)
--- NOTE | 2023-10-31 16:38 | P.OP_ITS ---
Procedure Note - Detailed Date of Procedure 10/31/23 Pre-op Diagnosis anastomotic leak Post-op Diagnosis Same Procedure Performed Cystoscopy with bilateral preoperative ureteral stent placement lighted stents bilateral retrograde pyelogram, Gaines catheter placement Surgeon Papo Pineda MD Anesthesia General Description of Procedure Patient was taken to the operative suite correctly identified. Once anesthesia was obtained was placed in dorsal lithotomy position and prepped and draped usual sterile fashion. Twenty-two Vietnamese scope was inserted into the bladder. There were no tumors noted. The left ureteral orifice was cannulated with a guidewire. [place] was inserted all the way up to the kidney. Pyelogram was performed to confirm placement in the renal pelvis. This was done bilaterally. Lighted ureteral stents were then advanced over the wires up into the kidneys. 2% viscous lidocaine was inserted into the urethra and a 16 Vietnamese [place] tip was placed over a wire. This was secured. Patient tolerated procedure well without any complications. Dr. Truong was then to do his portion of the procedure will dictate that. This completes dictation. Please send a copy of op note to my office. Estimated Blood Loss -500 Drains Yes Packing No Pathology None sent Complications No immediate complications Condition Stable Disposition PACU
--- NOTE | 2023-10-31 16:40 | ADMGEN ---
This patient, Josef Putnam, was admitted to Intensive Care Unit-3 at 1625. Patient/family oriented to hospital policies and general routines including ID bracelet, bed and alarms, visiting hours, pain management, procedures, bathroom and other care routines, personal items, smoking policy, room service/diet, and visiting hours. Information on how to activate the Rapid Response Team has been discussed. Patient/Family are encouraged to report perceived risks to care and to ask questions if they do not understand what they are told or what they should do.
[2023-10-31] MEDS: LACTATED RINGERS 1,000 ML 100 ML IV CONT (16:44)
[2023-10-31 16:57] LABS: Hematocrit 34.5 % (42.0-52.0); Hemoglobin 11.2 g/dL (14.0-18.0); Mean Corpuscular HGB Conc 32.5 g/dl (32-36); Mean Corpuscular Hemoglobin 26.9 pg (26-34); Mean Corpuscular Volume 82.9 fl (80-100); Platelet Count Result 375 k/mm3 (150-375); Red Blood Count 4.16 M/mm3 (4.6-6.20); Red Cell Distribution Width 17.1 % (11.5-14.5); White Blood Count 10.8 K/mm3 (4.5-10.0)
[2023-10-31] MEDS: IBUPROFEN IV 800 MG/200 ML 800 MG/200 ML BAG 400 MG IVPB (17:02)
[2023-10-31] MEDS: levoFLOXacin 750 MG/D5W 150 ML 750 MG/150 ML BAG 100 MG IVPB (17:02)
[2023-10-31 17:07] LABS: Alanine Aminotransferase 16 U/L (6-50); Albumin Level 2.4 g/dL (3.5-5.1); Alkaline Phosphatase 66 U/L (38-126); Anion Gap 6 mmol/L (4-12); Aspartate Amino Transferase 23 U/L (17-59); Bilirubin,Total 0.8 mg/dL (0.2-1.3); Blood Urea Nitrogen 13 mg/dL (9-20); Carbon Dioxide 23 mmol/L (22-30); Chloride 105 mmol/L (98-107); Estimated CRCL calculation 68 ml/min; Estimated Glomerular Filt Rate > 60; Glucose 163 mg/dL (65-110); Lactic Acid Reflex 2.5 mmol/L (0.7-2.0); Potassium 5.4 mmol/L (3.4-5.0); Sodium 134 mmol/L (137-145)
[2023-10-31] MEDS: ALBUMIN HUMAN 5% 25 GM/500 ML BTL IV CONT (17:08)
[2023-10-31 17:10] LABS: INR 1.4; Prothrombin Time 17.3 Seconds (11.1-14.7)
[2023-10-31 17:13] LABS: Glucose Point of Care 183 mg/dl (65-105)
[2023-10-31] MEDS: ACETAMINOPHEN 650 MG SUPPOSITORY RECTAL (17:39)
[2023-10-31 18:07] LABS: MRSA (PCR) NOT DETECTED (NOT DETECTE)
[2023-10-31 19:55] LABS: Reflex Lactic Acid Yes or No Add Lactic
[2023-10-31] MEDS: MORPHINE SULFATE (*CRX) 2 MG/ML INJ IV PUSH (20:06)
[2023-10-31] MEDS: CEFEPIME 1 GM/NS 50 ML 1 GM/50 ML BAG IVPB (20:30)
--- NOTE | 2023-10-31 20:45 | PM.IMCN ---
Assessment and Plan Assessment and plan (1) Abdominal abscess: Status: Acute Assessment and Plan: patient is now status post exploratory laparotomy status post adhesiolysis, left colectomy, transverse colostomy and Joanne procedure (2) Sepsis: Qualifiers: Sepsis type: sepsis due to unspecified organism Sepsis acute organ dysfunction status: unspecified Qualified Code(s): A41.9 - Sepsis, unspecified organism Code(s): A41.9 - Sepsis, unspecified organism Status: Acute Assessment and Plan: likely secondary to 1. Cultures in progress on broad-spectrum antibiotics currently in ICU (3) Anastomotic leak of intestine: Code(s): K91.89 - Other postprocedural complications and disorders of digestive system Status: Acute Assessment and Plan: status post exploratory laparotomy (4) Fever: Code(s): R50.9 - Fever, unspecified Status: Acute Assessment and Plan: patient is currently on broad-spectrum antibiotics cultures in progress continue to monitor temperature curve (5) Eosinophilic esophagitis: Code(s): K20.0 - Eosinophilic esophagitis Status: Acute Assessment and Plan: unchanged (6) Hypertension: Qualifiers: Hypertension type: primary hypertension Qualified Code(s): I10 - Essential (primary) hypertension Code(s): I10 - Essential (primary) hypertension Status: Chronic Assessment and Plan: resume home meds as needed (7) Protein-calorie malnutrition, moderate: Code(s): E44.0 - Moderate protein-calorie malnutrition Status: Acute Assessment and Plan: patient is currently NPO (8) GERD (gastroesophageal reflux disease): Code(s): K21.9 - Gastro-esophageal reflux disease without esophagitis Status: Acute Assessment and Plan: PPI (9) Anemia: Qualifiers: Anemia type: iron deficiency Iron deficiency anemia type: chronic blood loss Qualified Code(s): D50.0 - Iron deficiency anemia secondary to blood loss (chronic) Code(s): D64.9 - Anemia, unspecified Status: Chronic Assessment and Plan: likely secondary to polyp with bleeding no need for blood transfusion at the present time continue to monitor HPI Date of Consult Consult date: 10/31/23 Requesting Physician: Mir Truong MD Primary Care Provider: Josef López MD Consult Narrative Narrative: Josef Putnam is a 43 year old male with past medical history significant for hypertension, eosinophilic esophagitis, gastroesophageal reflux disease. who I am seeing, on consult due to an episode of fever. Patient is now status post extensive adhesiolysis, left colectomy with transverse colostomy and Joanne procedure, Due to anastomotic leak, multiple abdominal abscesses, dense adhesions. Patient initially operated on 10/08/2023 had laparoscopic left colectomy with hand-sewn anastomosis and takedown of splenic flexure this was to remove a large descending colon polyp after partial resection during colonoscopy. In the postop. Patient had complications with anastomotic leak, access formation, treated conservatively, patient required bowel rest and TPN , antibiotics. Was successfully discharged home on an oral diet however on follow-up appointment at General surgery's office patient reported 2 episodes of 101 F fever when after dinner and another after breakfast. Patient had also noted change in drainage material quality from pigtail catheter. A CT of abdomen and pelvis performed showed multiple abscesses present, patient had percutaneous drainage with successful improvement in fever. Patient was brought for laparoscopic surgery (see operative report for detailed findings). In the postop. Patient had a fever. At the time of my visit patient states that has some soreness and discomfort, is at bedside. Patient answers all questions appropriately. patien
[2023-10-31 22:55] LABS: Lactic Acid 1.4 mmol/L (0.7-2.0)
[2023-11-01] VITALS (17 sets, daily range): BP systolic 106–125; BP diastolic 70–77; PULSE 85–105; RESP 16–26; TEMP 36.6–37.6; O2SAT 93–100
[2023-11-01] MEDS: MORPHINE SULFATE (*CRX) 2 MG/ML INJ IV PUSH ×5 (00:02→20:59)
[2023-11-01] MEDS: IBUPROFEN IV 800 MG/200 ML 800 MG/200 ML BAG 400 MG IVPB ×4 (00:02→17:49)
[2023-11-01 00:21] LABS: Glucose Point of Care 157 mg/dl (65-105)
[2023-11-01] MEDS: metroNIDAZOLE 500 MG/ISO 100ML 500 MG/100 ML BAG 100 MG IVPB ×3 (02:30→17:49)
[2023-11-01] MEDS: LACTATED RINGERS 1,000 ML 100 ML IV CONT (03:30)
[2023-11-01 05:35] LABS: Hematocrit 27.3 % (42.0-52.0); Hemoglobin 8.4 g/dL (14.0-18.0); Mean Corpuscular HGB Conc 30.8 g/dl (32-36); Mean Corpuscular Volume 84.5 fl (80-100); Mean Platelet Volume 10.5 fl (7.4-10.4); Platelet Count Result 239 k/mm3 (150-375); Red Blood Count 3.23 M/mm3 (4.6-6.20); Red Cell Distribution Width 17.2 % (11.5-14.5); White Blood Count 8.5 K/mm3 (4.5-10.0)
[2023-11-01 05:51] LABS: Anion Gap 5 mmol/L (4-12); Blood Urea Nitrogen 17 mg/dL (9-20); Carbon Dioxide 26 mmol/L (22-30); Chloride 104 mmol/L (98-107); Estimated CRCL calculation 83 ml/min; Estimated Glomerular Filt Rate > 60; Glucose 146 mg/dL (65-110); Potassium 4.6 mmol/L (3.4-5.0); Sodium 135 mmol/L (137-145)
[2023-11-01] MEDS: CEFEPIME 1 GM/NS 50 ML 1 GM/50 ML BAG IVPB ×2 (09:00→21:00)
--- NOTE | 2023-11-01 09:09 | PM.PNGS ---
Progress Note: A&P Assessment and Plan (1) Anastomotic leak of intestine: Code(s): K91.89 - Other postprocedural complications and disorders of digestive system Status: Acute Assessment and Plan: Doing well on POD#1. Will transfer to IMU. Start TPN. Slowly increase activity. Continue Cefepime and Flagyl. (2) Protein-calorie malnutrition, moderate: Code(s): E44.0 - Moderate protein-calorie malnutrition Status: Acute Assessment and Plan: TPN to be started today. Will discontinue once diet is able to be advanced. Continue monitoring electrolytes. (3) Abdominal abscess: Status: Acute Subjective Subjective Date/Time Seen: 11/01/23 09:09 Interval history: Pain controlled. Remaining stable in ICU overnight. No fevers, nausea, or vomiting. Exam GI: Inspection: non-distended, incision (dressing dry) and other (Ostomy pink and viable, serous fluid in bag) GI Palp: Yes Soft to palpation and Yes Tenderness to palpation present (GI) (incisional) Auscultation: normal bowel sounds Other: MARIAA serosanguinous Objective Data Vital Signs Vital Signs: Vital Signs - 24 hr 10/31/23 14:40 10/31/23 14:20 10/31/23 14:35 Temperature 37.1 C Pulse Rate 139 H 122 H 142 H Respiratory Rate 16 22 H Blood Pressure 119/101 H 109/81 Pulse Oximetry 98 100 Oxygen Delivery Simple Face Mask Simple Face Mask Oxygen Flow Rate 10 10 Fraction of Inspired Oxygen 10/31/23 14:50 10/31/23 15:05 10/31/23 15:20 Temperature Pulse Rate 111 H 117 H 113 H Respiratory Rate 20 16 20 Blood Pressure 101/72 105/76 108/77 Pulse Oximetry 100 95 93 Oxygen Delivery Simple Face Mask Room Air Room Air Oxygen Flow Rate 10 Fraction of Inspired Oxygen 10/31/23 15:35 10/31/23 15:50 10/31/23 16:05 Temperature 37.3 C Pulse Rate 114 H 119 H 123 H Respiratory Rate 18 16 20 Blood Pressure 113/79 112/77 114/74 Pulse Oximetry 93 94 92 Oxygen Delivery Room Air Room Air Room Air Oxygen Flow Rate Fraction of Inspired Oxygen 10/31/23 17:01 10/31/23 17:39 10/31/23 18:00 Temperature 39.6 C H Pulse Rate 161 H 131 H Respiratory Rate Blood Pressure Pulse Oximetry Oxygen Delivery Oxygen Flow Rate Fraction of Inspired Oxygen 10/31/23 18:00 10/31/23 18:16 10/31/23 18:24 Temperature 37.7 C H Pulse Rate 132 H 132 H Respiratory Rate 27 H 27 H Blood Pressure 101/64 Pulse Oximetry 96 96 Oxygen Delivery Nasal Cannula Oxygen Flow Rate 2 Fraction of Inspired Oxygen 10/31/23 18:39 10/31/23 19:48 10/31/23 19:50 Temperature 37.7 C H Pulse Rate 112 H 112 H Respiratory Rate 24 H Blood Pressure Pulse Oximetry 96 Oxygen Delivery Nasal Cannula Oxygen Flow Rate 2 Fraction of Inspired Oxygen 10/31/23 20:00 10/31/23 22:00 10/31/23 22:00 Temperature 36.5 C 36.8 C Pulse Rate 113 H 93 90 Respiratory Rate 20 18 Blood Pressure 112/74 100/74 Pulse Oximetry 100 97 Oxygen Delivery Oxygen Flow Rate Fraction of Inspired Oxygen 11/01/23 00:00 11/01/23 00:00 11/01/23 00:00 Temperature 36.7 C Pulse Rate 85 88 88 Respiratory Rate 18 18 Blood Pressure 107/74 Pulse Oximetry 97 100 Oxygen Delivery Nasal Cannula Oxygen Flow Rate 2 Fraction of Inspired Oxygen 11/01/23 02:00 11/01/23 02:00 11/01/23 04:00 Temperature 36.8 C Pulse Rate 89 89 93 Respiratory Rate 16 Blood Pressure 106/74 Pulse Oximetry 100 Oxygen Delivery Oxygen Flow Rate Fraction of Inspired Oxygen 11/01/23 04:00 11/01/23 04:00 11/01/23 06:00 Temperature 36.7 C Pulse Rate 93 93 92 Respiratory Rate 16 16 Blood Pressure 116/75 Pulse Oximetry 100 100 Oxygen Delivery Nasal Cannula Oxygen Flow Rate 2 Fraction of Inspired Oxygen 11/01/23 06:00 11/01/23 07:27 Temperature 36.8 C Pulse Rate 92 Respiratory Rate 16 Blood Pressure 113/72 Pulse Oximetry 99 100 Oxygen Delivery Room Air Oxygen [place]
--- NOTE | 2023-11-01 09:15 | WPDCNINT ---
Assessment and Plan Assessment and plan (1) Sepsis: Qualifiers: Sepsis type: sepsis due to unspecified organism Sepsis acute organ dysfunction status: unspecified Qualified Code(s): A41.9 - Sepsis, unspecified organism Code(s): A41.9 - Sepsis, unspecified organism Status: Acute Assessment and Plan: Sepsis secondary to abdominal abscess which she developed secondary to anastomotic leak from past surgery. Now status post Extensive adhesiolysis, left colectomy with transverse colostomy and Joanne procedure. Hemodynamics improved Continue IV fluids patient has not required any vasopressors. NG tube is in place Surgery plans to start TPN Continue cefepime and Flagyl. Patient also grew VRE from his abscess cultures. Will start linezolid Cultures have been sent and are pending (2) Abdominal abscess: Status: Acute Assessment and Plan: See above (3) Anastomotic leak of intestine: Code(s): K91.89 - Other postprocedural complications and disorders of digestive system Status: Acute Assessment and Plan: See above (4) GERD (gastroesophageal reflux disease): Code(s): K21.9 - Gastro-esophageal reflux disease without esophagitis Status: Acute Assessment and Plan: PPI Plan DVT prophylaxis -Lovenox Stress ulcer prophylaxis -PPI Nutrition -TPN Code Status - Full Code Incentive spirometry, remove Gaines catheter Transfer out of ICU today Case discussed with general surgery Deli Clerk Consult Note Consult date: 11/01/23 Reason for consult: Sepsis, abdominal abscess HPI: Josef Putnam is a 43 year old male Josef Putnam is a 43 year old male with past medical history significant for hypertension, eosinophilic esophagitis, gastroesophageal reflux disease who had recent hand access laparoscopic left colectomy with hand-sewn anastomosis, takedown splenic flexure on 10/08/23. Following that patient developed diagnostic Modic leak and developed abscesses. Initially abscesses were treated with antibiotics and CT-guided drainage but patient continued to develop symptoms. 10/30 Patient was admitted as an outpatient and underwent extensive adhesiolysis, left colectomy with transverse colostomy and Joanne procedure. Surgery was complicated and prolonged and patient had 500 cc of blood loss and received close to 4 L of crystalloids. Post surgery patient was tachycardic and was admitted to ICU for closer monitoring. Patient was continued on antibiotics and treated with IV fluids. Tachycardia is treated with metoprolol. Patient did not require any vasopressors. This morning patient states that he feels much better and states his abdominal pain is significantly improved. He denied any fever overnight. No nausea vomiting at this time although patient does have NG tube in place. Patient denies fever, chest pain, shortness of breath, cough, nausea vomiting, abdominal pain,, diarrhea, headache or constipation. All other systems were reviewed and were negative Review of Systems Review of Systems: All systems reviewed & are unremarkable except as noted in HPI and below (HPI) [facility] Past Medical History Medical History Eosinophilic esophagitis GERD (gastroesophageal reflux disease) Hypertension Polyp, sigmoid colon Surgical History Surgical History History of partial colectomy 10/08/2023 - hand access laparoscopic left colectomy with hand-sewn anastomosis, takedown splenic flexure Hx of colonoscopy 08/26/23 Family History Family History Grandparent Cancer Social History Social History Social History: Smoking status: Never smoker Second hand tobacco smoke exposure: No Alcohol intake: current Drinks per week: 14 Substance use: never Substance u
[2023-11-01] MEDS: LINEZOLID 600 MG/300 ML 600 MG/300 ML SOLN 300 MG IVPB ×2 (09:52→20:59)
[2023-11-01] MEDS: ENOXAPARIN 40 MG/0.4 ML SYRINGE SUB-Q (09:53)
[2023-11-01] MEDS: PANTOPRAZOLE SODIUM IV 40 MG VIAL IV PUSH (09:53)
[2023-11-01 10:39] LABS: Add Urine Microscopic? YES; Appearance Urine Cloudy (Clear); Bacteria Urine None Seen /hpf; Bilirubin Urine Negative (Negative); Blood Urine 3+ (Negative); Color Urine Dark Yellow (Yellow); Glucose Urine UA Negative (Negative); Ketones Urine Negative (Negative); Leukocyte Esterase Ur 1+ LEU/UL (Negative); Need Manual Microscopic Reviewed; Nitrate Urine Negative (Negative); Protein Urine 2+ mg/dL (Negative); RBC Urine >100 /hpf (0-2); Specific Grav Ur 1.027 (1.001-1.035); Squamous Epithelial Cell Urine None Seen /hpf (Few); pH Urine 5.5 (5.0-9.0)
[2023-11-01] MEDS: AMINO ACIDS 5%/D15W/E-LYTES/CA 2,000 ML with MULTIVITAMINS-12 INJ VIAL 1 2.5 ML, MULTIV... 50 ML IV CONT (11:26)
[2023-11-01] MEDS: FAT EMULSIONS IV 20% 250 ML 20.83 ML IVPB (11:27)
[2023-11-01 11:44] LABS: Glucose Point of Care 168 mg/dl (65-105)
--- NOTE | 2023-11-01 12:28 | WPDANESPN ---
Anes - Prog Note Post-Op Date/Time: 11/01/23 12:28 Cardiovascular status: normal Respiratory status: normal Airway patency: baseline and other (NGT to sx) Mental status: baseline Post-Op hydration status: other (pt receiving fluids & TPN. ) Vital Signs: Last Vital Signs Temp 98.2 F 11/01/23 11:25 Pulse 98 11/01/23 11:25 Resp 19 11/01/23 11:25 BP 118/71 11/01/23 11:25 Pulse Ox 98 11/01/23 11:25 O2 Del Method Room Air 11/01/23 07:27 O2 Flow Rate 2 11/01/23 04:00 FiO2 21 11/01/23 07:27 Pain Score (VAS): 5 I/O: Intake & Output 10/31/23 11/01/23 11/01/23 23:59 07:59 15:59 Intake Total 1400 1600 450 Output Total 80 660 Balance 1320 940 450 Laboratory Tests 11/01/23 05:06 11/01/23 05:06 10/31/23 10/31/23 10/31/23 16:49 16:51 17:10 WBC 10.8 H RBC 4.16 L Hgb 11.2 L Hct 34.5 L MCV 82.9 MCH 26.9 MCHC 32.5 RDW 17.1 H Plt Count 375 MPV 10.0 PT 17.3 H INR 1.4 Sodium 134 L Potassium 5.4 H Chloride 105 Carbon Dioxide 23 Anion Gap 6 BUN 13 Creatinine 1.20 Estim Creat Clear Calc 68 Estimated GFR > 60 Glucose 163 H POC Capillary Glucose 183 H Lactic Acid 2.5 H Calcium 8.0 L Total Bilirubin 0.8 AST 23 ALT 16 Alkaline Phosphatase 66 Total Protein 5.0 L Albumin 2.4 L Urine Color Urine Appearance Urine pH Ur Specific [place] Urine Protein Urine Glucose (UA) Urine Ketones Ur Blood (Man) Urine Nitrate Urine Bilirubin Urine Urobilinogen Add Ur Microanalysis Leukocyte Esterase Rfl Urine RBC Urine WBC Ur Squamous Epith Cells Urine Bacteria Urine Casts Nasal MRSA (PCR) Not detected 10/31/23 10/31/23 11/01/23 22:33 23:59 05:06 WBC 8.5 RBC 3.23 L Hgb 8.4 L Hct 27.3 L MCV 84.5 MCH 26.0 MCHC 30.8 L RDW 17.2 H Plt Count 239 MPV 10.5 H PT INR Sodium 135 L Potassium 4.6 Chloride 104 Carbon Dioxide 26 Anion Gap 5 BUN 17 Creatinine 1.10 Estim Creat Clear Calc 83 Estimated GFR > 60 Glucose 146 H POC Capillary Glucose 157 H Lactic Acid 1.4 Calcium 8.0 L Total Bilirubin AST ALT Alkaline Phosphatase Total Protein Albumin Urine Color Urine Appearance Urine pH Ur Specific [place] Urine Protein Urine Glucose (UA) Urine Ketones Ur Blood (Man) Urine Nitrate Urine Bilirubin Urine Urobilinogen Add Ur Microanalysis Leukocyte Esterase Rfl Urine RBC Urine WBC Ur Squamous Epith Cells Urine Bacteria Urine Casts Nasal MRSA (PCR) 11/01/23 11/01/23 10:08 11:37 WBC RBC Hgb Hct MCV MCH MCHC RDW Plt Count MPV PT INR Sodium Potassium Chloride Carbon Dioxide Anion Gap BUN Creatinine Estim Creat Clear Calc Estimated GFR Glucose POC Capillary Glucose 168 H Lactic Acid Calcium Total Bilirubin AST ALT Alkaline Phosphatase Total Protein Albumin Urine Color Dark yellow Urine Appearance Cloudy H Urine pH 5.5 Ur Specific [place] 1.027 Urine Protein 2+ H Urine Glucose (UA) Negative Urine Ketones Negative Ur Blood (Man) 3+ H Urine Nitrate Negative Urine Bilirubin Negative Urine Urobilinogen 1.0 Add Ur Microanalysis Reviewed Leukocyte Esterase Rfl 1+ H Urine RBC >100 H Urine WBC 6-10 H Ur Squamous Epith Cells None seen Urine Bacteria None seen Urine Casts 3-5 Nasal MRSA (PCR) Post-procedural complaints: none Patient Feedback: Patient satisfied with anesthetic care. pt remains in ICU, states hopes to be moved to intermediate care later today. on room air, no pressors. denies complaints. family at bedside.
[2023-11-01] MEDS: ACETAMINOPHEN 650 MG SUPPOSITORY RECTAL (15:07)
[2023-11-01] MEDS: CENTRAL LINE FLUSH 10 ML IV PUSH ×2 (15:08→21:00)
--- NOTE | 2023-11-01 17:47 | PM.IMPN ---
Progress Note: A&P Assessment and Plan (1) Sepsis: Qualifiers: Sepsis type: sepsis due to unspecified organism Sepsis acute organ dysfunction status: unspecified Qualified Code(s): A41.9 - Sepsis, unspecified organism Code(s): A41.9 - Sepsis, unspecified organism Status: Acute Assessment and Plan: Sepsis secondary to abdominal abscess which he developed secondary to anastomotic leak from past surgery. Now status post extensive adhesiolysis, left colectomy with transverse colostomy and Joanne procedure. Hx of prior cultures growing VRE. Vital signs improved. Fever curve better. WBC normal. Patient has not required any vasopressors. NG tube is in place. IVF stopped and TPN started today. Continue cefepime and Flagyl. 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 Cultures have been sent and are pending (2) Abdominal abscess: Status: Acute Assessment and Plan: As above (3) Anastomotic leak of intestine: Code(s): K91.89 - Other postprocedural complications and disorders of digestive system Status: Acute Assessment and Plan: As above (4) Eosinophilic esophagitis: Code(s): K20.0 - Eosinophilic esophagitis Status: Acute Assessment and Plan: Patient was having dysphagia and was seen for EGD on 12/06/21. EGD showing esophageal stricture that was dilated. Biopsies taken showing mild esophagitis with up to 17 eos per HPF. Last EGD listed was 03/22/22 with path showing up to 5 eosinophils per HPF. Treated with PPI. Continue the same (5) Polyp, sigmoid colon: Qualifiers: Colon polyp type: adenomatous Qualified Code(s): D12.5 - Benign neoplasm of sigmoid colon Code(s): K63.5 - Polyp of colon Status: Chronic Assessment and Plan: Colonoscopy on 08/26/23 performed for anemia and blood in stool and found to have a 5cm sigmoid polyp. A partial polypectomy was performed and path showing tubulovillous adenoma. he was referred to surgery for partial colon resection. Patient underwent a hand access laparoscopic left colectomy with hand-sewn anastomosis, takedown splenic flexure on 10/08/23. Patient was not progressing well and w/u showed a small anastomotic leak on 10/13. He was put on TPN for bowel rest and abx. He required drains to be placed. He was able to be discharged on 10/26 with [address] after finishing abx[address] Path from 10/08 surgery showing tubulovillous adenoma, margins negative for adenoma. Eight LN were negative. Plan DVT prophylaxis -Lovenox Stress ulcer prophylaxis -PPI Nutrition -TPN Code Status - Full Code Subjective Date/time seen: 11/01/23 17:47 Interval history: Consulted on a 43yo male with eosinophilic esophagitis, HTN and GERD here for anastomotic leak. No CP or SOB. Pain controlled. Not to the chair today. Exam Narrative: Tm 103.2 98.3 111/70 105 24 100% ra Gen - NARD lying semi-recumbent in bed HEENT - NGT secured Chest - clear anteriorly but decreased BS in the flanks. CV - tachycardic, regular. Tele showing no significant dysrhythmias Abd - protuberant, midline dressing clean and dry. ostomy bag left of midline with scant fluid in bag. MARIAA drain in place with serosang fluid in bulb. Hypoactive BS. Appropriately tender - Gaines catheter secured with darkish orange/red urine in the bag Ext - No pedal edema, 2+ PT. Neuro - Alert and approrpaite Psych - Nml mood and affect Skin - Warm and dry Objective Data Vital Signs Vital Signs: Vital Signs - 24 hr 10/31/23 18:00 10/31/23 18:00 10/31/23 18:16 Temperature Pulse Rate 131 H 132 H 132 H Respiratory Rate 27 H 27 H Blood Pressure 101/64 Pulse Oximetry 96 96 Oxygen Delivery Nasal Cannula Oxygen Flow Rate 2 Fraction of Inspired Oxygen 10/31/23 18:24 10/31/23 18:39 10/31/23 19:48 Temperature 99.9 F H 99.9 F H Pulse Rate 112 H Respiratory Rate Blood Pressure Pulse Oximetry Oxygen De
[2023-11-01 18:33] LABS: Glucose Point of Care 150 mg/dl (65-105)
--- NOTE | 2023-11-01 20:58 | PC.NURSE ---
This patient, Josef Putnam, was transferred to [facility] [place] on 11/01/23 at 2045. Personal belongings sent with patient. Report given to Ulises MARTINEZ. Appropriate documentation sent with patient.
[2023-11-02] VITALS (18 sets, daily range): BP systolic 120–135; BP diastolic 67–81; PULSE 91–111; RESP 16–20; TEMP 30.9–37.2; O2SAT 93–97
[2023-11-02] MEDS: IBUPROFEN IV 800 MG/200 ML 800 MG/200 ML BAG 400 MG IVPB ×4 (00:20→18:17)
[2023-11-02] MEDS: MORPHINE SULFATE (*CRX) 2 MG/ML INJ IV PUSH ×4 (00:21→15:21)
[2023-11-02 00:30] LABS: Glucose Point of Care 161 mg/dl (65-105)
[2023-11-02] MEDS: metroNIDAZOLE 500 MG/ISO 100ML 500 MG/100 ML BAG 100 MG IVPB ×3 (04:41→18:15)
[2023-11-02 06:08] LABS: Triglycerides 130 mg/dL (<150)
[2023-11-02 06:09] LABS: Alanine Aminotransferase 17 U/L (6-50); Albumin Level 2.3 g/dL (3.5-5.1); Alkaline Phosphatase 44 U/L (38-126); Anion Gap 4 mmol/L (4-12); Aspartate Amino Transferase 23 U/L (17-59); Bilirubin,Total 0.2 mg/dL (0.2-1.3); Blood Urea Nitrogen 13 mg/dL (9-20); Calcium 7.6 mg/dL (8.4-10.2); Carbon Dioxide 27 mmol/L (22-30); Chloride 104 mmol/L (98-107); Estimated CRCL calculation 129 ml/min; Estimated Glomerular Filt Rate > 60; Glucose 127 mg/dL (65-110); Phosphorus 3.2 mg/dL (2.5-4.5); Potassium 3.5 mmol/L (3.4-5.0); Sodium 135 mmol/L (137-145)
[2023-11-02] MEDS: CENTRAL LINE FLUSH 10 ML IV PUSH ×3 (06:16→22:30)
[2023-11-02 06:32] LABS: Hematocrit 21.6 % (42.0-52.0); Mean Corpuscular HGB Conc 31.5 g/dl (32-36); Mean Corpuscular Hemoglobin 26.3 pg (26-34); Mean Corpuscular Volume 83.4 fl (80-100); Mean Platelet Volume 9.8 fl (7.4-10.4); Platelet Count Result 190 k/mm3 (150-375); Red Blood Count 2.59 M/mm3 (4.6-6.20); Red Cell Distribution Width 17.1 % (11.5-14.5); White Blood Count 7.9 K/mm3 (4.5-10.0)
[2023-11-02 06:38] LABS: Hemoglobin 6.8 g/dL (14.0-18.0)
--- NOTE | 2023-11-02 06:48 | PC.NURSE ---
Dr. Calvin called with results of critical hemoglobin but did not receive an answer. Called extension [phone] and extension [phone] and was unable to reach a doctor. Will attempt to notify again at [phone].
[2023-11-02] MEDS: LINEZOLID 600 MG/300 ML 600 MG/300 ML SOLN 300 MG IVPB ×2 (08:23→20:16)
[2023-11-02] MEDS: ENOXAPARIN 40 MG/0.4 ML SYRINGE SUB-Q (08:23)
[2023-11-02] MEDS: PANTOPRAZOLE SODIUM IV 40 MG VIAL IV PUSH (08:23)
[2023-11-02] MEDS: CEFEPIME 1 GM/NS 50 ML 1 GM/50 ML BAG IVPB ×2 (08:24→20:19)
[2023-11-02] MEDS: FAT EMULSIONS IV 20% 250 ML 20.83 ML IVPB (10:22)
[2023-11-02] MEDS: AMINO ACIDS 5%/D15W/E-LYTES/CA 2,000 ML with MULTIVITAMINS-12 INJ VIAL 1 2.5 ML, MULTIV... 50 ML IV CONT (10:22)
[2023-11-02 12:01] LABS: Hematocrit 21.5 % (42.0-52.0)
[2023-11-02 12:02] LABS: Hemoglobin 6.9 g/dL (14.0-18.0)
--- NOTE | 2023-11-02 12:08 | PM.IMPN ---
Progress Note: A&P Assessment and Plan (1) Sepsis: Qualifiers: Sepsis acute organ dysfunction status: unspecified Sepsis type: sepsis due to unspecified organism Qualified Code(s): A41.9 - Sepsis, unspecified organism Code(s): A41.9 - Sepsis, unspecified organism Status: Acute Assessment and Plan: Sepsis from abdominal abscess which he developed secondary to anastomotic leak from past surgery. Now status post extensive adhesiolysis, left colectomy with transverse colostomy and Joanne procedure performed 10/30. Hx of prior cultures growing VRE. Vital signs improved. Fever curve better. WBC normal. Patient has not required any vasopressors. NG tube is in place. IVF stopped and TPN started 10/31 BCx 10/30 NGTD. Continue cefepime and Flagyl. 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 (2) Abdominal abscess: Status: Acute Assessment and Plan: As above (3) Anastomotic leak of intestine: Code(s): K91.89 - Other postprocedural complications and disorders of digestive system Status: Acute Assessment and Plan: As above (4) Anemia: Qualifiers: Anemia type: iron deficiency Iron deficiency anemia type: chronic blood loss Qualified Code(s): D50.0 - Iron deficiency anemia secondary to blood loss (chronic) Code(s): D64.9 - Anemia, unspecified Status: Chronic Assessment and Plan: Patient has a chronic anemia that prompted the previous endoscopic evaluations. Hgb dropped to 8 range but was mostly 9-10 range last admission. Hgb was 11.2 on admission. EBL was 500cc and he did receive 1U PRBC intraoperatively. Hgb dropped to 6.8 this morning. [facility] notified and they are monitoring. (5) Hypertension: Qualifiers: Hypertension type: primary hypertension Qualified Code(s): I10 - Essential (primary) hypertension Code(s): I10 - Essential (primary) hypertension Status: Chronic Assessment and Plan: Patient's blood pressure was reviewed on 11/01 Blood pressure remains well controlled. Will continue to monitor (6) Polyp, sigmoid colon: Qualifiers: Colon polyp type: adenomatous Qualified Code(s): D12.5 - Benign neoplasm of sigmoid colon Code(s): K63.5 - Polyp of colon Status: Chronic Assessment and Plan: Colonoscopy on 08/26/23 performed for anemia and blood in stool and found to have a 5cm sigmoid polyp. A partial polypectomy was performed and path showing tubulovillous adenoma. he was referred to surgery for partial colon resection. Patient underwent a hand access laparoscopic left colectomy with hand-sewn anastomosis, takedown splenic flexure on 10/08/23. Patient was not progressing well and w/u showed a small anastomotic leak on 10/13. He was put on TPN for bowel rest and abx. He required drains to be placed. He was able to be discharged on 10/26 with [address] after finishing abx. Path from 10/08 surgery showing tubulovillous adenoma, margins negative for adenoma. Eight LN were negative. (7) Eosinophilic esophagitis: Code(s): K20.0 - Eosinophilic esophagitis Status: Acute Assessment and Plan: Patient was having dysphagia and was seen for EGD on 12/06/21. EGD showing esophageal stricture that was dilated. Biopsies taken showing mild esophagitis with up to 17 eos per HPF. Last EGD listed was 03/22/22 with path showing up to 5 eosinophils per HPF. Treated with PPI. Continue the same Plan DVT prophylaxis -Lovenox Stress ulcer prophylaxis -PPI Nutrition -TPN Code Status - Full Code Subjective Date/time seen: 11/02/23 12:08 Interval history: Consulted on a 43yo male with eosinophilic esophagitis, HTN and GERD here for anastomotic leak. Slept off and on. Up to the chair today. No CP or SOB. No n/v. pain 4-5/10 Exam Narrative: AF 98.1 124/67 107 18 97% ra Gen - NARD HEENT - NGT secured Neck - left IJ TLC in place Chest - CTA bila
[2023-11-02 12:18] LABS: Glucose Point of Care 113 mg/dl (65-105)
--- NOTE | 2023-11-02 14:12 | PM.PNGS ---
Progress Note: A&P Assessment and Plan (1) Anastomotic leak of intestine: Code(s): K91.89 - Other postprocedural complications and disorders of digestive system Status: Acute Assessment and Plan: Doing well on POD#2. Remove NG and Gaines today. Start sips of clears. Continue IV antibiotics. Slowly increase activity. (2) Protein-calorie malnutrition, moderate: Code(s): E44.0 - Moderate protein-calorie malnutrition Status: Acute Assessment and Plan: TPN renewed. Will discontinue once diet is able to be advanced. Continue monitoring electrolytes. (3) Abdominal abscess: Status: Acute (4) Acute blood loss anemia: Code(s): D62 - Acute posthemorrhagic anemia Status: Acute Assessment and Plan: H/H stable from this AM to this afternoon. Probably some dilutional component. No signs of ongoing active bleeding. Continue to monitor. Subjective Subjective Date/Time Seen: 11/02/23 14:12 Interval history: Patient doing well. Pain controlled. Up to chair this afternoon. Tolerating ice chips and mostly clear bile tinged output from NG. Just a little occasional gas in ostomy but no real stool yet. Exam GI: Inspection: non-distended, incision (dressing dry) and other (Ostomy pink and viable, serous fluid in bag) GI Palp: Yes Soft to palpation and Yes Tenderness to palpation present (GI) (incisional) Auscultation: normal bowel sounds Other: MARIAA serosanguinous Objective Data Vital Signs Vital Signs: Vital Signs - 24 hr 11/01/23 15:07 11/01/23 16:00 11/01/23 16:07 Temperature 99.7 F H 98.3 F 98.3 F Pulse Rate 105 H Respiratory Rate 24 H Blood Pressure 111/70 Pulse Oximetry 100 Oxygen Delivery Fraction of Inspired Oxygen 11/01/23 16:00 11/01/23 18:00 11/01/23 16:00 Temperature Pulse Rate 99 100 Respiratory Rate Blood Pressure Pulse Oximetry Oxygen Delivery Room Air Fraction of Inspired Oxygen 11/01/23 20:00 11/01/23 20:53 11/01/23 20:00 Temperature 98.4 F Pulse Rate 105 H 105 H 105 H Respiratory Rate 26 H 26 H Blood Pressure 125/70 Pulse Oximetry 94 94 Oxygen Delivery Room Air Fraction of Inspired Oxygen 21 11/01/23 22:00 11/02/23 00:00 11/02/23 00:30 Temperature 98.3 F Pulse Rate 104 H 106 H 106 H Respiratory Rate 16 16 Blood Pressure 120/71 Pulse Oximetry 93 93 Oxygen Delivery Room Air Fraction of Inspired Oxygen 11/02/23 00:00 11/02/23 02:00 11/02/23 04:00 Temperature 97.6 F Pulse Rate 108 H 101 H 106 H Respiratory Rate 20 Blood Pressure 120/73 Pulse Oximetry 95 Oxygen Delivery Fraction of Inspired Oxygen 11/02/23 04:30 11/02/23 04:00 11/02/23 06:00 Temperature Pulse Rate 106 H 100 98 Respiratory Rate 20 Blood Pressure Pulse Oximetry 95 Oxygen Delivery Room Air Fraction of Inspired Oxygen 11/02/23 07:36 11/02/23 08:00 11/02/23 08:00 Temperature 87.6 F L Pulse Rate 110 H 111 H Respiratory Rate 18 Blood Pressure 121/78 Pulse Oximetry 95 95 Oxygen Delivery Room Air Fraction of Inspired Oxygen 11/02/23 09:55 11/02/23 11:49 11/02/23 12:00 Temperature 98.1 F Pulse Rate 108 H 107 H 104 H Respiratory Rate 18 Blood Pressure 124/67 Pulse Oximetry 97 Oxygen Delivery Fraction of Inspired Oxygen 11/02/23 12:00 11/02/23 13:51 Temperature Pulse Rate 104 H Respiratory Rate Blood Pressure Pulse Oximetry 97 Oxygen Delivery Room Air Fraction of Inspired Oxygen Intake/Output Intake/Output: Intake & Output 10/30/23 10/31/23 11/01/23 11/02/23 23:59 23:59 23:59 23:59 Intake Total 2200 3390 1846.7 Output Total 210 1365 1030 Balance 1989 2024 816.7 Meds/Results Medications: Active Medications Generic Name Dose Route Start Last Admin Trade Name Freq PRN Reason Stop Dose Admin Acetaminophen 650 mg 10/31/23 17:24 11/01/23 15:07 Acetaminophen 650 Mg Suppo
--- NOTE | 2023-11-02 17:15 | PC.NURSE ---
Pts reports He is feeling off . Pt lying at 45 degrees in recliner. HR 112, RR 18, O2 97% room air, BP 123/81. Pale and clammy. Reports feeling palpitations in chest but no pain. Denies nausea, SOB, or dizziness. States It's hard to describe . Reports sitting up to eat dinner for first time since surgery. Will reassess in 10 minutes. Pt lying in recliner at this time.
--- NOTE | 2023-11-02 17:30 | PC.NURSE ---
Continues to have palpitations with no improvement or worsening of symptoms. Dr. Castillo made aware.
[2023-11-02 17:34] LABS: Glucose Point of Care 131 mg/dl (65-105)
--- NOTE | 2023-11-02 17:42 | ECG_ITS ---
Test Date: 2023-11-02 17:50:14 Measurements Intervals [place] Rate: 112 P: 52 NH: 184 QRS: 12 QRSD: 105 T: 34 QT: 385 QTc: 527 Interpretive Statements SINUS TACHYCARDIA INCOMPLETE RIGHT BUNDLE BRANCH BLOCK BORDERLINE T WAVE ABNORMALITY- DIFFUSE LEADS BASELINE ARTIFACT- I, II, III, AVR, AVL, AVF, V1-V2, V3-V6 ABNORMAL ECG Compared to ECG 10/10/2023 21:16:22 HEART RATE HAS INCREASED Electronically Signed On 11-02-2023 20:02:30 CDT by Niko Talbert D.O.
[2023-11-02 17:56] LABS: Hemoglobin 7.1 g/dL (14.0-18.0)
[2023-11-03] VITALS (21 sets, daily range): BP systolic 115–132; BP diastolic 73–88; PULSE 79–108; RESP 15–20; TEMP 36.5–36.9; O2SAT 93–98; BMI 31.1
[2023-11-03] MEDS: MORPHINE SULFATE (*CRX) 2 MG/ML INJ IV PUSH ×6 (00:04→23:20)
[2023-11-03] MEDS: IBUPROFEN IV 800 MG/200 ML 800 MG/200 ML BAG 200 MG IVPB (00:05)
[2023-11-03 00:06] LABS: Glucose Point of Care 125 mg/dl (65-105)
[2023-11-03] MEDS: metroNIDAZOLE 500 MG/ISO 100ML 500 MG/100 ML BAG 100 MG IVPB ×3 (01:08→17:05)
[2023-11-03 04:32] LABS: Basophils Percent Auto 0.5 % (0.2-1.2); Eosinophils Absolute Auto 0.2 K/mm3 (0-0.3); Eosinophils Percent Auto 2.9 % (0-4.4); Immature Granulocyte Absolute 0.32 K/mm3 (0.00-0.031); Immature Granulocyte Percent A 4.8 % (0-0.5); Lymphocytes Absolute Auto 1.14 K/mm3 (0.9-3.2); Lymphocytes Percent Auto 17.2 % (18.3-44.2); Mean Corpuscular HGB Conc 31.5 g/dl (32-36); Mean Corpuscular Hemoglobin 26.1 pg (26-34); Mean Corpuscular Volume 82.9 fl (80-100); Mean Platelet Volume 10.1 fl (7.4-10.4); Monocytes Absolute Auto 0.7 K/mm3 (0.1-0.6); Monocytes Percent Auto 10.1 % (2.6-8.5); Neutrophils Absolute Auto 4.3 K/mm3 (1.3-6.7); Neutrophils Percent Auto 64.5 % (45.5-73.1); Platelet Count Result 204 k/mm3 (150-375); Red Blood Count 2.45 M/mm3 (4.6-6.20); Red Cell Distribution Width 17.1 % (11.5-14.5); White Blood Count 6.6 K/mm3 (4.5-10.0)
[2023-11-03 04:42] LABS: Alanine Aminotransferase 17 U/L (6-50); Albumin Level 2.3 g/dL (3.5-5.1); Alkaline Phosphatase 51 U/L (38-126); Anion Gap 5 mmol/L (4-12); Aspartate Amino Transferase 25 U/L (17-59); Bilirubin,Total < 0.1 mg/dL (0.2-1.3); Blood Urea Nitrogen 9 mg/dL (9-20); Calcium 7.6 mg/dL (8.4-10.2); Carbon Dioxide 28 mmol/L (22-30); Chloride 104 mmol/L (98-107); Estimated CRCL calculation 128 ml/min; Estimated Glomerular Filt Rate > 60; Glucose 113 mg/dL (65-110); Phosphorus 4.1 mg/dL (2.5-4.5); Potassium 3.2 mmol/L (3.4-5.0); Sodium 137 mmol/L (137-145)
[2023-11-03 04:47] LABS: INR 1.2; Prothrombin Time 15.9 Seconds (11.1-14.7)
[2023-11-03 04:49] LABS: Transferrin 87 mg/dL (206-381)
[2023-11-03 04:51] LABS: Hemoglobin 6.4 g/dL (14.0-18.0)
[2023-11-03 04:52] LABS: Hematocrit 20.3 % (42.0-52.0)
[2023-11-03] MEDS: IBUPROFEN IV 800 MG/200 ML 800 MG/200 ML BAG 400 MG IVPB ×4 (05:15→23:21)
[2023-11-03] MEDS: SODIUM CHLORIDE 0.9% IV 250 ML 30 ML IV CONT (05:48)
[2023-11-03] MEDS: CENTRAL LINE FLUSH 10 ML IV PUSH ×3 (06:15→21:00)
[2023-11-03] MEDS: TUBING, BLOOD PLUM PUMP TUBING 1 EACH XX (06:15)
[2023-11-03 06:59] LABS: Glucose Point of Care 120 mg/dl (65-105)
[2023-11-03 06:59] LABS: Glucose Point of Care 123 mg/dl (65-105)
[2023-11-03] MEDS: CEFEPIME 1 GM/NS 50 ML 1 GM/50 ML BAG IVPB ×2 (08:58→20:47)
[2023-11-03] MEDS: BUMETANIDE INJ 1 MG/4 ML VIAL 2 MG IV PUSH (08:59)
[2023-11-03] MEDS: ENOXAPARIN 40 MG/0.4 ML SYRINGE SUB-Q (08:59)
[2023-11-03] MEDS: LINEZOLID 600 MG/300 ML 600 MG/300 ML SOLN 300 MG IVPB ×2 (08:59→20:49)
[2023-11-03] MEDS: PANTOPRAZOLE 40 MG TABLET PO (09:00)
[2023-11-03] MEDS: AMINO ACIDS 5%/D15W/E-LYTES/CA 2,000 ML with MULTIVITAMINS-12 INJ VIAL 1 2.5 ML, MULTIV... 50 ML IV CONT (09:32)
[2023-11-03] MEDS: POTASSIUM CHLORIDE 20 MEQ ER TABLET 40 MEQ PO ×2 (09:32→17:06)
[2023-11-03] MEDS: FAT EMULSIONS IV 20% 250 ML 20.83 ML IVPB (09:33)
[2023-11-03 11:19] LABS: Glucose Point of Care 153 mg/dl (65-105)
[2023-11-03 12:22] LABS: Hematocrit 27.8 % (42.0-52.0); Mean Corpuscular HGB Conc 32.4 g/dl (32-36); Mean Corpuscular Hemoglobin 26.8 pg (26-34); Mean Corpuscular Volume 82.7 fl (80-100); Mean Platelet Volume 10.1 fl (7.4-10.4); Platelet Count Result 242 k/mm3 (150-375); Red Blood Count 3.36 M/mm3 (4.6-6.20); Red Cell Distribution Width 16.7 % (11.5-14.5); White Blood Count 8.4 K/mm3 (4.5-10.0)
--- NOTE | 2023-11-03 12:40 | PM.PNGS ---
Progress Note: A&P Assessment and Plan (1) Anastomotic leak of intestine: Code(s): K91.89 - Other postprocedural complications and disorders of digestive system Status: Acute Assessment and Plan: Postop day 3. Status post left colectomy with Joanne procedure. Patient had at least 3 intra-abdominal abscesses at surgery. He continues on multiple and broad-spectrum antibiotics. Tolerating small amounts of clear liquids but no colostomy output as yet. Will ask wound nurses to see. Start dressing changes for abdominal wound today. Up in room t.i.d.. Doing well. (2) Abdominal abscess: Status: Acute Assessment and Plan: Abscesses drained and removed during surgery. Still has left colic gutter drain as largest abscess was here. (3) Acute blood loss anemia: Code(s): D62 - Acute posthemorrhagic anemia Status: Acute Assessment and Plan: No evidence of bleeding. I think he is anemic but he is starting to mobilize 3rd space fluids which has dropped his H&H even lower than it actually is due to dilutional factors. Responded well to IV Bumex and H&H much better after another unit of blood with the diuretic. Continue to monitor. (4) Protein-calorie malnutrition, moderate: Code(s): E44.0 - Moderate protein-calorie malnutrition Status: Acute Assessment and Plan: Needs to continue on TPN. Hold with small amounts of clear liquids. Subjective Subjective Date/Time Seen: 11/03/23 12:40 Post Op day: 3 Patient reports: no new complaints, still having pain, tolerating liquids well, voiding w/o difficulty, no bowel movement (No stoma output as yet) and afebrile Interval history: No nausea or emesis. Taking clear liquids slowly. Review of Systems Review of Systems: All systems reviewed & are unremarkable except as noted in HPI and below (HPI) Exam Const: General: cooperative, comfortable, no acute distress, alert and awake Orientation/consciousness: patient oriented x3 and No confusion GI: Inspection: incision (Some serous drainage but overall looks good.) and other (Stoma pink and healthy but no output as yet) GI Palp: Yes Soft to palpation, Yes Tenderness to palpation present (GI) (As expected), No Guarding due to palpation present (GI) and No Rebound tenderness present Auscultation: Hypoactive bowel sounds present Skin: Lesions: no lesions Rashes: no rashes Neuro: General: patient oriented x3 and no focal motor deficits Extrem: General: no calf tenderness and edema Psych: Affect: normal affect Insight: Good insight present (Psych) Judgement: Good judgement present (Psych) Objective Data Vital Signs Vital Signs: Vital Signs - 24 hr 11/02/23 13:51 11/02/23 16:00 11/02/23 16:00 Temperature Pulse Rate 104 H 91 Respiratory Rate Blood Pressure Pulse Oximetry 97 Oxygen Delivery Room Air 11/02/23 16:00 11/02/23 17:34 11/02/23 18:00 Temperature 36.8 C 36.9 C Pulse Rate 100 109 H 109 H Respiratory Rate 18 20 Blood Pressure 123/81 135/68 Pulse Oximetry 97 97 Oxygen Delivery 11/02/23 20:47 11/03/23 00:17 11/02/23 20:00 Temperature 37.2 C 36.8 C Pulse Rate 103 H 108 H 99 Respiratory Rate 20 20 Blood Pressure 115/75 Pulse Oximetry 95 95 Oxygen Delivery 11/02/23 22:00 11/03/23 00:00 11/03/23 02:00 Temperature Pulse Rate 106 H 100 105 H Respiratory Rate Blood Pressure Pulse Oximetry Oxygen Delivery 11/03/23 04:14 11/03/23 05:35 11/03/23 04:00 Temperature 36.7 C 36.5 C Pulse Rate 93 104 H 93 Respiratory Rate 20 16 Blood Pressure 120/73 132/77 Pulse Oximetry 96 95 Oxygen Delivery 11/03/23 06:03 11/03/23 06:00 11/03/23 06:03 Temperature 36.8 C 36.9 C Pulse Rate 94 87 94 Respiratory Rate 18 18 Blood Pressure 125/82 125/82 Pulse Oximetry 93 93 Oxygen Delivery 11/03/23 07:06 11/03/23 07:03 11/03/23 07:40 Temperature 36.8 C 36.8 C 36.8 C Pulse Rate 99 99 97 Re
[2023-11-03 16:19] LABS: Glucose Point of Care 111 mg/dl (65-105)
--- NOTE | 2023-11-03 17:48 | PM.IMPN ---
Progress Note: A&P Assessment and Plan (1) Sepsis: Qualifiers: Sepsis type: sepsis due to unspecified organism Sepsis acute organ dysfunction status: unspecified Qualified Code(s): A41.9 - Sepsis, unspecified organism Code(s): A41.9 - Sepsis, unspecified organism Status: Acute Assessment and Plan: Sepsis from abdominal abscess which he developed secondary to anastomotic leak from past surgery. Now status post extensive adhesiolysis, left colectomy with transverse colostomy and Joanne procedure performed 10/30. Hx of prior cultures growing VRE. Vital signs improved. Fever curve better. WBC normal. Patient has not required any vasopressors. TPN started 10/31 BCx 10/30 NGTD. UCx negative. Continue cefepime and Flagyl. 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 (2) Abdominal abscess: Status: Acute Assessment and Plan: As above (3) Anastomotic leak of intestine: Code(s): K91.89 - Other postprocedural complications and disorders of digestive system Status: Acute Assessment and Plan: As above (4) Anemia: Qualifiers: Anemia type: iron deficiency Iron deficiency anemia type: chronic blood loss Qualified Code(s): D50.0 - Iron deficiency anemia secondary to blood loss (chronic) Code(s): D64.9 - Anemia, unspecified Status: Chronic Assessment and Plan: Patient has a chronic anemia that prompted the previous endoscopic evaluations. Hgb dropped to 8 range but was mostly 9-10 range last admission. Hgb was 11.2 on admission. EBL was 500cc and he did receive 1U PRBC intraoperatively. Hgb dropped to 6.4 this morning and he received 1U PRBC. Repeat Hgb better. No evidence of acute blood loss. Follow (5) Hypertension: Qualifiers: Hypertension type: primary hypertension Qualified Code(s): I10 - Essential (primary) hypertension Code(s): I10 - Essential (primary) hypertension Status: Chronic Assessment and Plan: Patient's blood pressure was reviewed on 11/02 Blood pressure remains well controlled. Will continue to monitor (6) Polyp, sigmoid colon: Qualifiers: Colon polyp type: adenomatous Qualified Code(s): D12.5 - Benign neoplasm of sigmoid colon Code(s): K63.5 - Polyp of colon Status: Chronic Assessment and Plan: Colonoscopy on 08/26/23 performed for anemia and blood in stool and found to have a 5cm sigmoid polyp. A partial polypectomy was performed and path showing tubulovillous adenoma. he was referred to surgery for partial colon resection. Patient underwent a hand access laparoscopic left colectomy with hand-sewn anastomosis, takedown splenic flexure on 10/08/23. Patient was not progressing well and w/u showed a small anastomotic leak on 10/13. He was put on TPN for bowel rest and abx. He required drains to be placed. He was able to be discharged on 10/26 with [address] after finishing abx. Path from 10/08 surgery showing tubulovillous adenoma, margins negative for adenoma. Eight LN were negative. (7) Eosinophilic esophagitis: Code(s): K20.0 - Eosinophilic esophagitis Status: Acute Assessment and Plan: Patient was having dysphagia and was seen for EGD on 12/06/21. EGD showing esophageal stricture that was dilated. Biopsies taken showing mild esophagitis with up to 17 eos per HPF. Last EGD listed was 03/22/22 with path showing up to 5 eosinophils per HPF. Treated with PPI. Continue the same Plan DVT prophylaxis -Lovenox Code Status - Full Code Subjective Date/time seen: 11/03/23 17:48 Interval history: Consulted on a 43yo male with eosinophilic esophagitis, HTN and GERD here for anastomotic leak. Palpitations are better and resolved last night well before the transfusion. no CP. No SOB. Up tot he chair. Abd pain tolerable. Walked to the chair. NGT out and no n/v. Gaines out and voiding normally. Exam Narrative: AF 98.1
[2023-11-03 20:38] LABS: Glucose Point of Care 122 mg/dl (65-105)
[2023-11-03 23:50] LABS: Glucose Point of Care 115 mg/dl (65-105)
[2023-11-04] VITALS (8 sets, daily range): BP systolic 129–132; BP diastolic 83–87; PULSE 75–93; RESP 16–20; TEMP 36.3–36.6; O2SAT 95–100
[2023-11-04] MEDS: metroNIDAZOLE 500 MG/ISO 100ML 500 MG/100 ML BAG 100 MG IVPB (02:37)
[2023-11-04] MEDS: MORPHINE SULFATE (*CRX) 2 MG/ML INJ IV PUSH ×2 (04:04→10:46)
[2023-11-04 05:14] LABS: Hematocrit 25.3 % (42.0-52.0); Mean Corpuscular HGB Conc 31.6 g/dl (32-36); Mean Corpuscular Hemoglobin 26.2 pg (26-34); Mean Platelet Volume 9.6 fl (7.4-10.4); Platelet Count Result 213 k/mm3 (150-375); Red Blood Count 3.05 M/mm3 (4.6-6.20); Red Cell Distribution Width 16.6 % (11.5-14.5); White Blood Count 7.9 K/mm3 (4.5-10.0)
[2023-11-04 05:27] LABS: Alanine Aminotransferase 28 U/L (6-50); Albumin Level 2.6 g/dL (3.5-5.1); Alkaline Phosphatase 63 U/L (38-126); Anion Gap 6 mmol/L (4-12); Aspartate Amino Transferase 38 U/L (17-59); Bilirubin,Total 0.2 mg/dL (0.2-1.3); Blood Urea Nitrogen 9 mg/dL (9-20); Calcium 8.2 mg/dL (8.4-10.2); Carbon Dioxide 27 mmol/L (22-30); Chloride 103 mmol/L (98-107); Estimated CRCL calculation 128 ml/min; Estimated Glomerular Filt Rate > 60; Glucose 120 mg/dL (65-110); Potassium 3.7 mmol/L (3.4-5.0); Sodium 136 mmol/L (137-145); Triglycerides 137 mg/dL (<150)
[2023-11-04] MEDS: IBUPROFEN IV 800 MG/200 ML 800 MG/200 ML BAG 400 MG IVPB ×4 (05:53→23:41)
[2023-11-04] MEDS: CENTRAL LINE FLUSH 10 ML IV PUSH ×3 (05:54→21:05)
--- NOTE | 2023-11-04 06:45 | PM.PNGS ---
Progress Note: A&P Assessment and Plan (1) Anastomotic leak of intestine: Code(s): K91.89 - Other postprocedural complications and disorders of digestive system Status: Acute Assessment and Plan: Continues to improve. Has good bowel sounds but no stoma output as yet. Stoma appliance to be changed today and some teaching given. Will advance to full liquids but only moderate amounts. Diuresed well yesterday with Bumex. Will give another dose today. Transfer to [facility] floor. Coming along well. (2) Protein-calorie malnutrition, moderate: Code(s): E44.0 - Moderate protein-calorie malnutrition Status: Acute Assessment and Plan: Continue TPN for now (3) Acute blood loss anemia: Code(s): D62 - Acute posthemorrhagic anemia Status: Acute Assessment and Plan: Has received 2 units, 1 in surgery and 1 yesterday. H&H satisfactory again this morning. To receive more diuretic today. (4) Abdominal abscess: Status: Acute Assessment and Plan: Drained at surgery. MARIAA drain having less output and serous with blood tinge output. Leave drain for now. Subjective Subjective Date/Time Seen: 11/04/23 06:45 Patient reports: no new complaints, pain is less, voiding w/o difficulty, no bowel movement (Nothing per colostomy) and afebrile Review of Systems Review of Systems: All systems reviewed & are unremarkable except as noted in HPI and below (HPI) Exam Const: General: comfortable and no acute distress Orientation/consciousness: patient oriented x3 GI: Inspection: incision (Serous drainage as expected, healing) and other (Colostomy pink and healthy, no output yet) GI Palp: Yes Soft to palpation, Yes Tenderness to palpation present (GI), No Guarding due to palpation present (GI) and No Rebound tenderness present Auscultation: normal bowel sounds and normoactive bowel sounds Neuro: General: patient oriented x3 and no focal motor deficits Extrem: General: no calf tenderness and no edema Psych: Affect: normal affect Insight: Good insight present (Psych) Judgement: Good judgement present (Psych) Objective Data Vital Signs Vital Signs: Vital Signs - 24 hr 11/03/23 07:06 11/03/23 07:03 11/03/23 07:40 Temperature 36.8 C 36.8 C 36.8 C Pulse Rate 99 99 97 Respiratory Rate 15 15 16 Blood Pressure 129/88 129/88 131/87 Pulse Oximetry 95 95 98 Oxygen Delivery 11/03/23 08:00 11/03/23 10:00 11/03/23 08:00 Temperature Pulse Rate 81 93 Respiratory Rate Blood Pressure Pulse Oximetry 98 Oxygen Delivery Room Air 11/03/23 12:00 11/03/23 12:00 11/03/23 12:00 Temperature 36.7 C Pulse Rate 92 106 H Respiratory Rate 20 Blood Pressure 131/80 Pulse Oximetry 97 97 Oxygen Delivery Room Air 11/03/23 16:27 11/03/23 14:00 11/03/23 16:00 Temperature Pulse Rate 87 85 84 Respiratory Rate 20 Blood Pressure 129/81 Pulse Oximetry 97 Oxygen Delivery 11/03/23 16:00 11/03/23 18:00 11/03/23 20:20 Temperature 36.9 C Pulse Rate 90 86 Respiratory Rate 20 Blood Pressure 119/73 Pulse Oximetry 97 96 Oxygen Delivery Room Air 11/04/23 00:01 11/04/23 03:20 11/03/23 20:00 Temperature 36.5 C 36.3 C L Pulse Rate 86 86 79 Respiratory Rate 20 20 Blood Pressure 131/86 129/87 Pulse Oximetry 95 97 Oxygen Delivery 11/03/23 22:00 11/04/23 00:00 11/04/23 02:00 Temperature Pulse Rate 82 75 75 Respiratory Rate Blood Pressure Pulse Oximetry Oxygen Delivery 11/04/23 04:00 11/04/23 06:00 Temperature Pulse Rate 93 93 Respiratory Rate Blood Pressure Pulse Oximetry Oxygen Delivery Intake/Output Intake/Output: Intake & Output 11/01/23 11/02/23 11/03/23 11/04/23 23:59 23:59 23:59 23:59 Intake Total 3390 3596.7 4178.3 100 Output Total 1365 2240 2655 660 Balance 2025 1356.7 1523.3 -560 Meds/Results Medications: Active Medications Generic Name Dose Route Start La
[2023-11-04] MEDS: BUMETANIDE INJ 1 MG/4 ML VIAL 2 MG IV PUSH (06:54)
[2023-11-04] MEDS: ENOXAPARIN 40 MG/0.4 ML SYRINGE SUB-Q (08:59)
[2023-11-04] MEDS: CEFEPIME 1 GM/NS 50 ML 1 GM/50 ML BAG IVPB (08:59)
[2023-11-04] MEDS: POTASSIUM CHLORIDE 20 MEQ ER TABLET 40 MEQ PO ×2 (08:59→17:32)
[2023-11-04] MEDS: PANTOPRAZOLE 40 MG TABLET PO (09:00)
[2023-11-04] MEDS: LINEZOLID 600 MG/300 ML 600 MG/300 ML SOLN 300 MG IVPB (09:02)
--- NOTE | 2023-11-04 09:57 | PC.NURSE ---
This patient, Josef Putnam, was transferred to [facility] on 11/04/23 at 0919. Personal belongings sent with patient. Report given to MICHELLE Cloud. Appropriate documentation sent with patient.
[2023-11-04] MEDS: AMINO ACIDS 5%/D15W/E-LYTES/CA 2,000 ML with MULTIVITAMINS-12 INJ VIAL 1 2.5 ML, MULTIV... 50 ML IV CONT (10:47)
[2023-11-04] MEDS: FAT EMULSIONS IV 20% 250 ML 20.8 ML IVPB (10:48)
[2023-11-04] MEDS: metroNIDAZOLE 500 MG TABLET PO ×2 (12:18→21:04)
[2023-11-04 12:19] LABS: Glucose Point of Care 143 mg/dl (65-105)
--- NOTE | 2023-11-04 12:45 | PCNFU ---
Nutrition Follow-Up Complete: Need for alternative nutrition support related to altered GI function as evidenced by need for TPN and bowel rest. Goal:Diet advanced, TPN decreased Pt progressing towards goal. continue with same goal Pt current nutrition is full liquids, TPN 07/01 @ 70ml/hr = 1693kcals, 84g protein. Nutrition recommendation: continue with current plan of care. Last recorded weight is 92.5 kg. Bowel Motility: +BM 11/02 Labs Reviewed: Hgb:8.0, HCt:25.3, Alb:2.6, NA:136, Glu:120 Meds Noted: lovenox, novolog, protonix, KCL Skin: WNL Additional Notes: Pt diet upgraded to full liquids, 50% intake, TPN continues now at 70ml/hr. TPN meeting 85% of estimated needs. Agree with orders. Monitor TPN orders, diet orders, intake, tolerance, wts, labs. Follow up every Friday and Friday
--- NOTE | 2023-11-04 13:40 | PM.IMPN ---
Progress Note: A&P Assessment and Plan (1) Sepsis: Qualifiers: Sepsis acute organ dysfunction status: unspecified Sepsis type: sepsis due to unspecified organism Qualified Code(s): A41.9 - Sepsis, unspecified organism Code(s): A41.9 - Sepsis, unspecified organism Status: Acute Assessment and Plan: Sepsis from abdominal abscess which he developed secondary to anastomotic leak from past surgery. Now status post extensive adhesiolysis, left colectomy with transverse colostomy and Joanne procedure performed 10/30. Hx of prior cultures growing VRE. Vital signs improved. Fever resolved. WBC normal. Patient did not required any vasopressors. TPN started 10/31 BCx 10/30 NGTD. UCx negative. Continue cefepime and Flagyl. 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 (2) Abdominal abscess: Status: Acute Assessment and Plan: As above (3) Anastomotic leak of intestine: Code(s): K91.89 - Other postprocedural complications and disorders of digestive system Status: Acute Assessment and Plan: As above (4) Anemia: Qualifiers: Anemia type: iron deficiency Iron deficiency anemia type: chronic blood loss Qualified Code(s): D50.0 - Iron deficiency anemia secondary to blood loss (chronic) Code(s): D64.9 - Anemia, unspecified Status: Chronic Assessment and Plan: Patient has a chronic anemia that prompted the previous endoscopic evaluations. Hgb dropped to 8 range but was mostly 9-10 range last admission. Hgb was 11.2 on admission. EBL was 500cc and he did receive 1U PRBC intraoperatively. Hgb dropped to 6.4 yesterday morning and he received 1U PRBC. Repeat Hgb better today. No evidence of acute blood loss. Follow and transfuse as needed (5) Hypertension: Qualifiers: Hypertension type: primary hypertension Qualified Code(s): I10 - Essential (primary) hypertension Code(s): I10 - Essential (primary) hypertension Status: Chronic Assessment and Plan: Patient's blood pressure was reviewed on 11/03 Blood pressure remains well controlled. Will continue to monitor (6) Polyp, sigmoid colon: Qualifiers: Colon polyp type: adenomatous Qualified Code(s): D12.5 - Benign neoplasm of sigmoid colon Code(s): K63.5 - Polyp of colon Status: Chronic Assessment and Plan: Colonoscopy on 08/26/23 performed for anemia and blood in stool and found to have a 5cm sigmoid polyp. A partial polypectomy was performed and path showing tubulovillous adenoma. he was referred to surgery for partial colon resection. Patient underwent a hand access laparoscopic left colectomy with hand-sewn anastomosis, takedown splenic flexure on 10/08/23. Patient was not progressing well and w/u showed a small anastomotic leak on 10/13. He was put on TPN for bowel rest and abx. He required drains to be placed. He was able to be discharged on 10/26 with [address] after finishing abx. Path from 10/08 surgery showing tubulovillous adenoma, margins negative for adenoma. Eight LN were negative. (7) Eosinophilic esophagitis: Code(s): K20.0 - Eosinophilic esophagitis Status: Acute Assessment and Plan: Patient was having dysphagia and was seen for EGD on 12/06/21. EGD showing esophageal stricture that was dilated. Biopsies taken showing mild esophagitis with up to 17 eos per HPF. Last EGD listed was 03/22/22 with path showing up to 5 eosinophils per HPF. Treated with PPI. Continue the same Plan DVT prophylaxis -Lovenox Code Status - Full Code Subjective Date/time seen: 11/04/23 13:40 Interval history: Consulted on a 43yo male with eosinophilic esophagitis, HTN and GERD here for anastomotic leak. Pain is about the same. Pain is tolerable with current regimen. No chest pain or shortness of breath. He is walking in the room. Exam Narrative: AF 97.6 132/83 93 16 98% ra Gen - NARD Neck
[2023-11-04 18:21] LABS: Glucose Point of Care 156 mg/dl (65-105)
[2023-11-04] MEDS: CEFEPIME 2 GM/NS 50 ML 2 GM/50 ML BAG IVPB (21:04)
[2023-11-04] MEDS: LINEZOLID 600 MG TABLET PO (21:04)
[2023-11-04 23:46] LABS: Glucose Point of Care 149 mg/dl (65-105)
[2023-11-05 05:26] VITALS: BP 136/91; PULSE 91; RESP 16; TEMP 36.1; O2SAT 97
[2023-11-05 05:45] LABS: Glucose Point of Care 121 mg/dl (65-105)
[2023-11-05] MEDS: metroNIDAZOLE 500 MG TABLET PO ×3 (06:25→20:25)
[2023-11-05] MEDS: CENTRAL LINE FLUSH 10 ML IV PUSH (06:25)
[2023-11-05] MEDS: IBUPROFEN IV 800 MG/200 ML 800 MG/200 ML BAG 400 MG IVPB (06:25)
[2023-11-05 08:41] LABS: Alanine Aminotransferase 28 U/L (6-50); Albumin Level 2.9 g/dL (3.5-5.1); Alkaline Phosphatase 79 U/L (38-126); Anion Gap 5 mmol/L (4-12); Aspartate Amino Transferase 32 U/L (17-59); Bilirubin,Total 0.3 mg/dL (0.2-1.3); Blood Urea Nitrogen 13 mg/dL (9-20); Calcium 8.5 mg/dL (8.4-10.2); Carbon Dioxide 29 mmol/L (22-30); Chloride 102 mmol/L (98-107); Estimated CRCL calculation 113 ml/min; Estimated Glomerular Filt Rate > 60; Glucose 111 mg/dL (65-110); Magnesium 2.1 mg/dL (1.6-2.3); Phosphorus 4.1 mg/dL (2.5-4.5); Potassium 4.5 mmol/L (3.4-5.0); Sodium 136 mmol/L (137-145)
[2023-11-05 08:45] LABS: Hematocrit 30.9 % (42.0-52.0); Hemoglobin 9.5 g/dL (14.0-18.0); Mean Corpuscular HGB Conc 30.7 g/dl (32-36); Mean Corpuscular Volume 84.7 fl (80-100); Mean Platelet Volume 10.2 fl (7.4-10.4); Platelet Count Result 266 k/mm3 (150-375); Red Blood Count 3.65 M/mm3 (4.6-6.20); Red Cell Distribution Width 16.7 % (11.5-14.5); White Blood Count 9.5 K/mm3 (4.5-10.0)
[2023-11-05] MEDS: ENOXAPARIN 40 MG/0.4 ML SYRINGE SUB-Q (09:03)
[2023-11-05] MEDS: PANTOPRAZOLE 40 MG TABLET PO (09:03)
[2023-11-05] MEDS: LINEZOLID 600 MG TABLET PO ×2 (09:03→20:25)
[2023-11-05] MEDS: CEFEPIME 2 GM/NS 50 ML 2 GM/50 ML BAG IVPB ×2 (09:30→20:25)
--- NOTE | 2023-11-05 09:54 | PM.PNGS ---
Progress Note: A&P Assessment and Plan (1) Anastomotic leak of intestine: Code(s): K91.89 - Other postprocedural complications and disorders of digestive system Status: Acute Assessment and Plan: Recovering appropriately. Wound healing well and starting to see good colostomy function with flatus and liquid stool in colostomy this morning. Took in large amount of full liquids without difficulty. Will advance to low-fiber diet. Discontinue TPN and central line. Up walking more today. Continue wound care and checking labs daily. Discontinued scheduled dose of IV ibuprofen and changed to p.r.n. with oral p.r.n. medications for analgesia as well. Continue IV antibiotics and oral antibiotics. (2) Abdominal abscess: Status: Acute Assessment and Plan: MARIAA drain with serous fluid draining. Possibly discontinue tomorrow. (3) Protein-calorie malnutrition, moderate: Code(s): E44.0 - Moderate protein-calorie malnutrition Status: Acute Assessment and Plan: Improving. He has advanced now to solid food and will discontinue TPN. Decrease potassium supplement to 20 mEq q.day. (4) Acute blood loss anemia: Code(s): D62 - Acute posthemorrhagic anemia Status: Acute Assessment and Plan: Still low but much better after 2nd unit of blood and 2 days of Bumex. Still very positive intake and output so likely to continue to diurese. Subjective Subjective Date/Time Seen: 11/05/23 09:54 Post Op day: #6 Patient reports: no new complaints, feels better, tolerating liquids well, voiding w/o difficulty, flatus (Air and liquid stool in stoma bag) and afebrile Review of Systems Review of Systems: All systems reviewed & are unremarkable except as noted in HPI and below (HPI) Exam Const: General: cooperative, comfortable, no acute distress, alert and awake Orientation/consciousness: patient oriented x3 and No confusion GI: Inspection: non-distended, incision (Getting bilingual speech therapist, well-approximated, stoma looks good), no visible herniation and other (Serous fluid in MARIAA, amounts decreasing) GI Palp: Yes Soft to palpation, Yes Tenderness to palpation present (GI) (Expected amount of postoperative tenderness), No Guarding due to palpation present (GI), No Hernia present, No Palpable mass present and No Rebound tenderness present Auscultation: normoactive bowel sounds Other: Flatus and stool in colostomy bag this morning, 1st time I have seen this. Neuro: General: patient oriented x3 and no focal motor deficits Extrem: General: no calf tenderness and no edema Psych: Affect: normal affect Insight: Good insight present (Psych) Judgement: Good judgement present (Psych) Objective Data Vital Signs Vital Signs: Vital Signs - 24 hr 11/04/23 13:39 11/04/23 20:00 11/04/23 20:00 Temperature 36.6 C Pulse Rate 81 Respiratory Rate 16 Blood Pressure 129/84 Pulse Oximetry 100 Oxygen Delivery Room Air Room Air 11/05/23 05:26 Temperature 36.1 C L Pulse Rate 91 Respiratory Rate 16 Blood Pressure 136/91 H Pulse Oximetry 97 Oxygen Delivery Intake/Output Intake/Output: Intake & Output 11/02/23 11/03/23 11/04/23 11/05/23 23:59 23:59 23:59 23:59 Intake Total 3596.7 4178.3 5722.5 760 Output Total 2240 2655 2980 610 Balance 1356.7 1523.3 2742.5 150 Large urine output again yesterday. Meds/Results Medications: Active Medications Generic Name Dose Route Start Last Admin Trade Name Freq PRN Reason Stop Dose Admin Acetaminophen 500 mg 11/05/23 09:50 Acetaminophen 500 Mg Tablet PO Q6H PRN Pain Rated 1-3 Hydrocodone Bitart/Acetaminophen 1 tab 11/05/23 09:50 Hydrocodone/Acetaminophen (*Crx) 10-325 Mg Tablet PO Q4H PRN Pain Rated 7-10 Dextrose 12.5 gm 10/31/23 16:37 Dextrose 50% 25 Gm/50 Ml Syringe IV PUSH PRN PRN Hypoglycemia Protocol Enoxaparin Sodium 40 mg 11/01/23 09:00 11/05/23 09:03 Enoxaparin 40 M
[2023-11-05 12:00] LABS: Glucose Point of Care 93 mg/dl (65-105)
[2023-11-05] MEDS: NEOMYCIN/POLYMYXIN/BACITRACIN OINTMENT PACKET 1 PACKET (12:35)
[2023-11-05] MEDS: oxyCODONE/ACETAMINOPHEN (*CRX) 5-325 MG TABLET 1 TABLET PO (13:59)
[2023-11-05 14:00] VITALS: BP 129/79; PULSE 90; RESP 20; TEMP 35.9; O2SAT 98
--- NOTE | 2023-11-05 15:38 | PM.IMPN ---
Progress Note: A&P Assessment and Plan (1) Sepsis: Qualifiers: Sepsis type: sepsis due to unspecified organism Sepsis acute organ dysfunction status: unspecified Qualified Code(s): A41.9 - Sepsis, unspecified organism Code(s): A41.9 - Sepsis, unspecified organism Status: Acute Assessment and Plan: Sepsis from abdominal abscess which he developed secondary to anastomotic leak from past surgery. Now status post extensive adhesiolysis, left colectomy with transverse colostomy and Joanne procedure performed 10/30. Hx of prior cultures growing VRE. Vital signs improved. Fever resolved. WBC normal. Patient did not required any vasopressors. TPN started 10/31 BCx 10/30 NGTD. UCx negative. Continue cefepime and Flagyl. 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 (2) Abdominal abscess: Status: Acute Assessment and Plan: As above (3) Anastomotic leak of intestine: Code(s): K91.89 - Other postprocedural complications and disorders of digestive system Status: Acute Assessment and Plan: As above (4) Anemia: Qualifiers: Anemia type: iron deficiency Iron deficiency anemia type: chronic blood loss Qualified Code(s): D50.0 - Iron deficiency anemia secondary to blood loss (chronic) Code(s): D64.9 - Anemia, unspecified Status: Chronic Assessment and Plan: Patient has a chronic anemia that prompted the previous endoscopic evaluations. Hgb dropped to 8 range but was mostly 9-10 range last admission. Hgb was 11.2 on admission. EBL was 500cc and he did receive 1U PRBC intraoperatively. Hgb dropped to 6.4 on 11/03/2023nd he received 1U PRBC Repeat Hgb 9.5 today. No evidence of acute blood loss. Follow and transfuse as needed (5) Hypertension: Qualifiers: Hypertension type: primary hypertension Qualified Code(s): I10 - Essential (primary) hypertension Code(s): I10 - Essential (primary) hypertension Status: Chronic Assessment and Plan: Patient's blood pressure was reviewed on 11/03 Blood pressure remains well controlled. Will continue to monitor (6) Polyp, sigmoid colon: Qualifiers: Colon polyp type: adenomatous Qualified Code(s): D12.5 - Benign neoplasm of sigmoid colon Code(s): K63.5 - Polyp of colon Status: Chronic Assessment and Plan: Colonoscopy on 08/26/23 performed for anemia and blood in stool and found to have a 5cm sigmoid polyp. A partial polypectomy was performed and path showing tubulovillous adenoma. he was referred to surgery for partial colon resection. Patient underwent a hand access laparoscopic left colectomy with hand-sewn anastomosis, takedown splenic flexure on 10/08/23. Patient was not progressing well and w/u showed a small anastomotic leak on 10/13. He was put on TPN for bowel rest and abx. He required drains to be placed. He was able to be discharged on 10/26 with [address] after finishing abx. Path from 10/08 surgery showing tubulovillous adenoma, margins negative for adenoma. Eight LN were negative. (7) Eosinophilic esophagitis: Code(s): K20.0 - Eosinophilic esophagitis Status: Acute Assessment and Plan: Patient was having dysphagia and was seen for EGD on 12/06/21. EGD showing esophageal stricture that was dilated. Biopsies taken showing mild esophagitis with up to 17 eos per HPF. Last EGD listed was 03/22/22 with path showing up to 5 eosinophils per HPF. Treated with PPI. Continue the same Plan DVT prophylaxis -Lovenox Code Status - Full Code DC planning as per General surgery ? Patient seen and examined at bedside during my morning rounds ? Collaborated with patient's nurse at the bedside in detail and addressed all concerns ? Labs, electrolytes, radiology, investigations and test results reviewed ? Consult/Nursing/Ancilliary notes on the chart reviewed and appreciated ? Spoke with patient/family at the bedside and
[2023-11-05 17:39] LABS: Glucose Point of Care 81 mg/dl (65-105)
[2023-11-05 20:00] VITALS: BP 127/82; PULSE 102; RESP 20; TEMP 36.5; O2SAT 99
[2023-11-05] MEDS: ACETAMINOPHEN 500 MG TABLET PO (21:37)
[2023-11-06 00:30] VITALS: BP 129/87; PULSE 103; RESP 18; TEMP 36.9; O2SAT 97
[2023-11-06 03:26] LABS: Glucose Point of Care 103 mg/dl (65-105)
[2023-11-06 06:00] VITALS: BP 136/84; PULSE 99; RESP 18; TEMP 36.4; O2SAT 96
[2023-11-06] MEDS: metroNIDAZOLE 500 MG TABLET PO ×3 (06:21→20:28)
[2023-11-06 07:44] LABS: Alanine Aminotransferase 34 U/L (6-50); Albumin Level 3.3 g/dL (3.5-5.1); Alkaline Phosphatase 79 U/L (38-126); Anion Gap 5 mmol/L (4-12); Aspartate Amino Transferase 42 U/L (17-59); Bilirubin,Total 0.5 mg/dL (0.2-1.3); Blood Urea Nitrogen 13 mg/dL (9-20); Carbon Dioxide 29 mmol/L (22-30); Chloride 97 mmol/L (98-107); Estimated CRCL calculation 89 ml/min; Estimated Glomerular Filt Rate > 60; Glucose 98 mg/dL (65-110); Potassium 5.4 mmol/L (3.4-5.0); Sodium 131 mmol/L (137-145)
[2023-11-06 08:23] LABS: Hematocrit 32.5 % (42.0-52.0); Mean Corpuscular HGB Conc 30.8 g/dl (32-36); Mean Corpuscular Hemoglobin 26.1 pg (26-34); Mean Corpuscular Volume 84.9 fl (80-100); Mean Platelet Volume 10.4 fl (7.4-10.4); Platelet Count Result 327 k/mm3 (150-375); Red Blood Count 3.83 M/mm3 (4.6-6.20); Red Cell Distribution Width 17.1 % (11.5-14.5); White Blood Count 13.7 K/mm3 (4.5-10.0)
[2023-11-06] MEDS: PANTOPRAZOLE 40 MG TABLET PO (09:15)
[2023-11-06] MEDS: CEFEPIME 2 GM/NS 50 ML 2 GM/50 ML BAG IVPB ×2 (09:15→20:28)
[2023-11-06] MEDS: LINEZOLID 600 MG TABLET PO ×2 (09:15→20:28)
[2023-11-06] MEDS: oxyCODONE/ACETAMINOPHEN (*CRX) 5-325 MG TABLET 1 TABLET PO ×2 (09:22→17:06)
--- NOTE | 2023-11-06 10:55 | PM.PNGS ---
Progress Note: A&P Assessment and Plan (1) Anastomotic leak of intestine: Code(s): K91.89 - Other postprocedural complications and disorders of digestive system Status: Acute Assessment and Plan: Continues to heal well. WBC count did come up to 13,700 today. Clinically he is improving and he is afebrile. Incision is draining, but drainage has been decreasing and there is no erythema. Continue IV antibiotics again today and repeat labs tomorrow. If WBC count continues to climb, then may need to consider a repeat CT scan of the abdomen and pelvis. Wound care has educated him on ostomy care. Continue to increase activity. Remove MARIAA drain today. (2) Abdominal abscess: Status: Acute Assessment and Plan: MARIAA drain with minimal output and still serous. Will remove MARIAA today. (3) Protein-calorie malnutrition, moderate: Code(s): E44.0 - Moderate protein-calorie malnutrition Status: Acute Assessment and Plan: Will advance to a regular diet today. Albumin improving. Potassium 5.4 today, discontinue scheduled KCL. (4) Acute blood loss anemia: Code(s): D62 - Acute posthemorrhagic anemia Status: Acute Assessment and Plan: Hgb trending up, repeat labs tomorrow. Plan I have discussed the patient's case and plan of care with Dr. Campbell. Subjective Subjective Date/Time Seen: 11/06/23 10:55 Post Op day: 6 (Extensive adhesiolysis, left colectomy with transverse colostomy and Joanne procedure) Patient reports: no new complaints and tolerating a regular diet Interval history: Patient feeling well. He is sitting in the chair this morning and denies any acute changes overnight. He denies any abdominal pain other than some soreness when he gets up and moves around. No fevers. WBC did come up to 13,000 today. No other complaints at this time. MARIAA drain with only 22 cc out in the past 24 hours. Exam Const: General: comfortable, no acute distress and awake GI: Inspection: non-distended GI Palp: Yes Soft to palpation, Yes Tenderness to palpation present (GI) (tenderness near the midline incision) and No Guarding due to palpation present (GI) Auscultation: normal bowel sounds Other: Midline incision with neo intact and moderate amount of yellowish-pink drainage on his dressing, no areas of erythema or induration at the incision All bandages removed from the smaller port site incisions to evaluate, which all appear to be healing well with no erythema or purulent drainage LLQ MARIAA drain with serous output, skin around the drain is without erythema or drainage Colostomy functioning well with stool in bag and stoma pink and viable. Objective Data Vital Signs Vital Signs: Vital Signs - 24 hr 11/05/23 14:00 11/05/23 20:00 11/05/23 20:00 Temperature 96.7 F L 97.7 F Pulse Rate 90 102 H Respiratory Rate 20 20 Blood Pressure 129/79 127/82 Pulse Oximetry 98 99 Oxygen Delivery Room Air 11/06/23 00:30 11/06/23 06:00 Temperature 98.4 F 97.5 F L Pulse Rate 103 H 99 Respiratory Rate 18 18 Blood Pressure 129/87 136/84 Pulse Oximetry 97 96 Oxygen Delivery Intake/Output Intake/Output: Intake & Output 11/03/23 11/04/23 11/05/23 11/06/23 23:59 23:59 23:59 23:59 Intake Total 4178.3 5722.5 2080 640 Output Total 2655 2980 2572 1500 Balance 1523.3 2742.5 -492 -860 Meds/Results Medications: Active Medications Generic Name Dose Route Start Last Admin Trade Name Freq PRN Reason Stop Dose Admin Acetaminophen 500 mg 11/05/23 09:50 11/05/23 21:37 Acetaminophen 500 Mg Tablet PO 500 mg Q6H PRN Administration Pain Rated 1-3 Hydrocodone Bitart/Acetaminophen 1 tab 11/05/23 09:50 Hydrocodone/Acetaminophen (*Crx) 10-325 Mg Tablet PO Q4H PRN Pain Rated 7-10 Dextrose 12.5 gm 10/31/23 16:37 Dextrose 50% 25 Gm/50 Ml Syringe IV PUSH PRN PRN Hypoglycemia Protocol Enoxaparin Sodium 40 mg 11/01/23 09:00 11/05/23 09:03
[2023-11-06 12:00] VITALS: BP 124/78; PULSE 91; RESP 16; TEMP 36.3; O2SAT 99
[2023-11-06 12:43] LABS: Phosphorus 5.2 mg/dL (2.5-4.5)
[2023-11-06] MEDS: ENOXAPARIN 40 MG/0.4 ML SYRINGE SUB-Q (12:46)
[2023-11-06 16:00] VITALS: BP 114/77; PULSE 82; RESP 16; TEMP 36.3; O2SAT 96
--- NOTE | 2023-11-06 16:05 | PM.IMPN ---
Progress Note: A&P Assessment and Plan (1) Sepsis: Qualifiers: Sepsis type: sepsis due to unspecified organism Sepsis acute organ dysfunction status: unspecified Qualified Code(s): A41.9 - Sepsis, unspecified organism Code(s): A41.9 - Sepsis, unspecified organism Status: Acute Assessment and Plan: Sepsis from abdominal abscess which he developed secondary to anastomotic leak from past surgery. Now status post extensive adhesiolysis, left colectomy with transverse colostomy and Joanne procedure performed 10/30. Hx of prior cultures growing VRE. Vital signs improved. Fever resolved. WBC normal. Patient did not required any vasopressors. TPN started 10/31 BCx 10/30 NGTD. UCx negative. Continue cefepime and Flagyl. 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 (2) Abdominal abscess: Status: Acute Assessment and Plan: As above (3) Anastomotic leak of intestine: Code(s): K91.89 - Other postprocedural complications and disorders of digestive system Status: Acute Assessment and Plan: As above (4) Anemia: Qualifiers: Anemia type: iron deficiency Iron deficiency anemia type: chronic blood loss Qualified Code(s): D50.0 - Iron deficiency anemia secondary to blood loss (chronic) Code(s): D64.9 - Anemia, unspecified Status: Chronic Assessment and Plan: Patient has a chronic anemia that prompted the previous endoscopic evaluations. Hgb dropped to 8 range but was mostly 9-10 range last admission. Hgb was 11.2 on admission. EBL was 500cc and he did receive 1U PRBC intraoperatively. Hgb dropped to 6.4 on 11/03/2023nd he received 1U PRBC Repeat Hgb 10 today. No evidence of acute blood loss. Follow and transfuse as needed (5) Hypertension: Qualifiers: Hypertension type: primary hypertension Qualified Code(s): I10 - Essential (primary) hypertension Code(s): I10 - Essential (primary) hypertension Status: Chronic Assessment and Plan: Patient's blood pressure was reviewed on 11/03 Blood pressure remains well controlled. Will continue to monitor (6) Polyp, sigmoid colon: Qualifiers: Colon polyp type: adenomatous Qualified Code(s): D12.5 - Benign neoplasm of sigmoid colon Code(s): K63.5 - Polyp of colon Status: Chronic Assessment and Plan: Colonoscopy on 08/26/23 performed for anemia and blood in stool and found to have a 5cm sigmoid polyp. A partial polypectomy was performed and path showing tubulovillous adenoma. he was referred to surgery for partial colon resection. Patient underwent a hand access laparoscopic left colectomy with hand-sewn anastomosis, takedown splenic flexure on 10/08/23. Patient was not progressing well and w/u showed a small anastomotic leak on 10/13. He was put on TPN for bowel rest and abx. He required drains to be placed. He was able to be discharged on 10/26 with [address] after finishing abx. Path from 10/08 surgery showing tubulovillous adenoma, margins negative for adenoma. Eight LN were negative. (7) Eosinophilic esophagitis: Code(s): K20.0 - Eosinophilic esophagitis Status: Acute Assessment and Plan: Patient was having dysphagia and was seen for EGD on 12/06/21. EGD showing esophageal stricture that was dilated. Biopsies taken showing mild esophagitis with up to 17 eos per HPF. Last EGD listed was 03/22/22 with path showing up to 5 eosinophils per HPF. Treated with PPI. Continue the same Plan DVT prophylaxis -Lovenox Code Status - Full Code DC planning home with home healthcare for wound care in a.m. by general surgery if he remains stable ? Patient seen and examined at bedside during my morning rounds ? Collaborated with patient's nurse at the bedside in detail and addressed all concerns ? Labs, electrolytes, radiology, investigations and test results reviewed ? Consult/Nursing/Ancilliary notes on the chart revie
[2023-11-06 20:45] VITALS: BP 125/88; PULSE 84; RESP 18; TEMP 37; O2SAT 97
[2023-11-07 05:30] VITALS: BP 128/87; PULSE 101; RESP 18; TEMP 36; O2SAT 98
[2023-11-07 06:39] LABS: Hemoglobin 10.1 g/dL (14.0-18.0); Mean Corpuscular HGB Conc 31.6 g/dl (32-36); Mean Corpuscular Hemoglobin 26.3 pg (26-34); Mean Corpuscular Volume 83.3 fl (80-100); Mean Platelet Volume 10.2 fl (7.4-10.4); Platelet Count Result 332 k/mm3 (150-375); Red Blood Count 3.84 M/mm3 (4.6-6.20); Red Cell Distribution Width 17.2 % (11.5-14.5); White Blood Count 14.1 K/mm3 (4.5-10.0)
[2023-11-07] MEDS: metroNIDAZOLE 500 MG TABLET PO (06:48)
[2023-11-07 06:49] LABS: Anion Gap 7 mmol/L (4-12); Blood Urea Nitrogen 13 mg/dL (9-20); Calcium 8.7 mg/dL (8.4-10.2); Carbon Dioxide 28 mmol/L (22-30); Chloride 92 mmol/L (98-107); Estimated CRCL calculation 89 ml/min; Estimated Glomerular Filt Rate > 60; Glucose 102 mg/dL (65-110); Potassium 4.2 mmol/L (3.4-5.0); Sodium 127 mmol/L (137-145)
[2023-11-07] MEDS: CEFEPIME 2 GM/NS 50 ML 2 GM/50 ML BAG IVPB (09:47)
[2023-11-07] MEDS: ENOXAPARIN 40 MG/0.4 ML SYRINGE SUB-Q (09:48)
[2023-11-07] MEDS: LINEZOLID 600 MG TABLET PO (09:48)
[2023-11-07] MEDS: PANTOPRAZOLE 40 MG TABLET PO (09:48)
--- NOTE | 2023-11-07 11:05 | PM.DS ---
DS: Admitting Diagnosis Discharge Date 11/07/2023 Admitting Diagnosis Anastomotic leak Peritonitis and sepsis DS: Discharge Diagnosis Discharge Diagnosis (1) Anastomotic leak of intestine: Code(s): K91.89 - Other postprocedural complications and disorders of digestive system Status: Acute Assessment and Plan: Patient admitted after surgery performed on 10/31/2023. Previous anastomosis and left colon were resected. Distal transverse end colostomy and Joanne procedure were performed as well as drainage of multiple abscesses. (2) Sepsis: Qualifiers: Sepsis type: sepsis due to unspecified organism Sepsis acute organ dysfunction status: unspecified Qualified Code(s): A41.9 - Sepsis, unspecified organism Code(s): A41.9 - Sepsis, unspecified organism Status: Acute Assessment and Plan: Resolved following surgery (3) Abdominal abscess: Status: Acute Assessment and Plan: See above (4) Acute blood loss anemia: Code(s): D62 - Acute posthemorrhagic anemia Status: Acute Assessment and Plan: Patient required 1 unit packed cells during surgery and another unit about 2 days postop. (5) Leukocytosis, unspecified: Qualifiers: Leukocytosis type: bandemia Qualified Code(s): D72.825 - Bandemia Code(s): D72.829 - Elevated white blood cell count, unspecified Status: Acute Assessment and Plan: Patient completed a full 7 day course of cefepime, linezolid, metronidazole. His white blood cell count was noting to be trending up the last 3 days of his hospital stay. He had some velasquez appearing wound drainage in the upper 3rd of the wound. Three neo were removed and the underlying tissues were healthy and pink. Not sure what the elevated white blood cell count is due to but could be the antibiotics or a low-grade wound infection. (6) Hyponatremia: Code(s): E87.1 - Hypo-osmolality and hyponatremia Status: Acute Assessment and Plan: Patient received couple of doses of Bumex to mobilize extra fluid associated with the surgery and sepsis. On discharge his sodium was 127 but he was asymptomatic. DS: Summary Hospital Course Hospital Course: Patient's original surgery was performed on 10/08/2023. This was a hand access laparoscopic left colectomy for a benign polyp. Pathology on the polyp did convert her minute was benign. Following surgery it was found that he had what appeared to be a small anastomotic leak. We tried prolonged antibiotics and bowel rest with TPN. He had a couple of intra-abdominal abscess is drained percutaneously. He improved significantly and eventually was discharged on 10/27/2023. He came back to the office for a scheduled appointment on 10/30/2023. He had been having fevers at home and feeling worse. He had been taking oral antibiotics. In the office, he appeared to be ill with persistent anastomotic leakage. We decided to go ahead with surgery the following day 10/31/2023. At this laparotomy, we had Dr. Pineda place ureteral stents prior to surgery. The surgery was difficult and prolonged. The operation lasted nearly 6 hours. His left colon including the failed anastomosis were resected. The distal transverse colon was used to create a left upper quadrant end colostomy. Rectal stump or Joanne procedure was left in the abdomen. A large left colic gutter abscess was drained and 2 other smaller abscesses were found during surgery. A Tino-Almodovar drain was placed to drain the left colic gutter abscess postoperatively. Patient received 1 unit of packed cells during the surgery. He was extubated but still placed in the intensive care unit following surgery. He was started on broad-spectrum antibiotics including the linezolid, metronidazole, and cefepime. He did well in the intensive care unit having no hemodynamic instability. He was transferred to the intermediate care unit the day after dario
--- NOTE | 2023-11-07 11:11 | PCNFU ---
Nutrition Follow-Up Complete: Need for alternative nutrition support related to altered GI function as evidenced by need for TPN and bowel rest. Diet advanced, TPN decreased Goal: Pt current nutrition is regular diet. Just advanced. Nutrition recommendation: No new nutrition recommendations. Diet as tolerated. Last recorded weight is 87 kg. Bowel Motility: +1 BM 11/07/23. Colostomy Labs Reviewed: Hgb 10.1, Hct 32, Na 127 Meds Noted: Lovenox, novolog, protonix Skin: Surgical to abdomen Additional Notes: Tolerated low fiber diet intakes 40-100, just advanced to regular diet. Home health at discharge. Monitor TPN orders, diet orders, intake, tolerance, wts, labs. Follow up every Friday and Friday
[2023-11-07] MEDS: oxyCODONE/ACETAMINOPHEN (*CRX) 5-325 MG TABLET 1 TABLET PO (13:37)
--- NOTE | 2023-11-07 15:08 | PM.IMPN ---
Progress Note: A&P Assessment and Plan (1) Sepsis: Qualifiers: Sepsis type: sepsis due to unspecified organism Sepsis acute organ dysfunction status: unspecified Qualified Code(s): A41.9 - Sepsis, unspecified organism Code(s): A41.9 - Sepsis, unspecified organism Status: Acute Assessment and Plan: Sepsis from abdominal abscess which he developed secondary to anastomotic leak from past surgery. Now status post extensive adhesiolysis, left colectomy with transverse colostomy and Joanne procedure performed 10/30. Hx of prior cultures growing VRE. Vital signs improved. Fever resolved. WBC normal. Patient did not required any vasopressors. TPN started 10/31 Now tolerating oral diet BCx 10/30 NGTD. UCx negative. Continue cefepime and Flagyl. 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 finished antibiotic course during hospital stay Repeat CT abdomen pelvis 11/07/2023 with decreased collection in pelvic area (2) Abdominal abscess: Status: Acute Assessment and Plan: As above (3) Anastomotic leak of intestine: Code(s): K91.89 - Other postprocedural complications and disorders of digestive system Status: Acute Assessment and Plan: As above (4) Anemia: Qualifiers: Anemia type: iron deficiency Iron deficiency anemia type: chronic blood loss Qualified Code(s): D50.0 - Iron deficiency anemia secondary to blood loss (chronic) Code(s): D64.9 - Anemia, unspecified Status: Chronic Assessment and Plan: Patient has a chronic anemia that prompted the previous endoscopic evaluations. Hgb dropped to 8 range but was mostly 9-10 range last admission. Hgb was 11.2 on admission. EBL was 500cc and he did receive 1U PRBC intraoperatively. Hgb dropped to 6.4 on 11/03/2023nd he received 1U PRBC Repeat remains stable No evidence of acute blood loss. Follow and transfuse as needed (5) Hypertension: Qualifiers: Hypertension type: primary hypertension Qualified Code(s): I10 - Essential (primary) hypertension Code(s): I10 - Essential (primary) hypertension Status: Chronic Assessment and Plan: Patient's blood pressure was reviewed on 11/03 Blood pressure remains well controlled. Will continue to monitor (6) Polyp, sigmoid colon: Qualifiers: Colon polyp type: adenomatous Qualified Code(s): D12.5 - Benign neoplasm of sigmoid colon Code(s): K63.5 - Polyp of colon Status: Chronic Assessment and Plan: Colonoscopy on 08/26/23 performed for anemia and blood in stool and found to have a 5cm sigmoid polyp. A partial polypectomy was performed and path showing tubulovillous adenoma. he was referred to surgery for partial colon resection. Patient underwent a hand access laparoscopic left colectomy with hand-sewn anastomosis, takedown splenic flexure on 10/08/23. Patient was not progressing well and w/u showed a small anastomotic leak on 10/13. He was put on TPN for bowel rest and abx. He required drains to be placed. He was able to be discharged on 10/26 with [address] after finishing abx[address] Path from 10/08 surgery showing tubulovillous adenoma, margins negative for adenoma. Eight LN were negative. (7) Eosinophilic esophagitis: Code(s): K20.0 - Eosinophilic esophagitis Status: Acute Assessment and Plan: Patient was having dysphagia and was seen for EGD on 12/06/21. EGD showing esophageal stricture that was dilated. Biopsies taken showing mild esophagitis with up to 17 eos per HPF. Last EGD listed was 03/22/22 with path showing up to 5 eosinophils per HPF. Treated with PPI. Continue the same Plan DVT prophylaxis -Lovenox Code Status - Full Code DC planning home with home healthcare for wound care per general surgery Subjective Date/time seen: 11/07/23 15:08 Interval history: no overnight events. Patient feeling better. Getting discharged today. Discussed
--- NOTE | 2023-12-03 12:58 | WPDURCON ---
Assessment and Plan Assessment and plan (1) Abdominal abscess: Status: Acute Assessment and Plan: plan for bilateral ureteral stent placement with cystoscopy Urology Consult Note HPI Date Seen: 10/31/23 Requesting Physician: Mir Truong MD Primary Care Provider: Josef López MD Consult Narrative Reason for consult: Bilateral preoperative ureteral stent placement Narrative: Josef Putnam is a 43 year old male who was undergoing a procedure by Dr. Harman. Were asked to place bilateral ureteral stents preoperative PMFSH Past Medical History Medical History Eosinophilic esophagitis GERD (gastroesophageal reflux disease) Hypertension Polyp, sigmoid colon Surgical History Surgical History History of colectomy 10/31/23 Extensive adhesiolysis, left colectomy with transverse colostomy and Joanne procedure. Dr. Truong History of partial colectomy 10/08/2023 - hand access laparoscopic left colectomy with hand-sewn anastomosis, takedown splenic flexure Hx of colonoscopy 08/26/23 Family History Family History Grandparent Cancer Social History Social History Social History: Smoking status: Never smoker Second hand tobacco smoke exposure: No Alcohol intake: current Drinks per week: 14 Substance use: never Substance use type: does not use Do You Feel Safe in your Home?: Yes Lack of Transportation: No Lack of Food: Never True Current Housing: I Have Housing Concerned About Future Housing: No Difficulty Paying Gas/Electric Bills: No Difficulty Paying for Meds: No Currently Unemployed: No Education: High School Diploma/GED Difficulty w/ Childcare or Family Care: No Living arrangements: with family Additional living arrangements comments: Occupation/Education: occupation Gender identity (if verbalized by the patient): Male Sexual Orientation (if Verbalized by the Patient): Straight or Heterosexual Spiritual care concerns: No Meds Home Medications and Allergies Home Medications Medication Instructions Recorded Confirmed Type omeprazole 40 mg capsule,delayed 40 mg PO DAILY #30 caps 09/03/23 11/27/23 Rx release amlodipine 5 mg tablet 5 mg PO DAILY #30 tabs 10/14/23 11/27/23 Rx Allergies Allergy/AdvReac Type Severity Reaction Status Date / Time losartan Allergy Mild Rash Verified 11/27/23 10:38 Penicillins Allergy Unknown Rash Verified 11/27/23 10:38 Exam Const: General: cooperative and comfortable Results Labs 11/07/23 06:00 11/07/23 06:00
== END 2023-11-07 13:50 | disposition home health service (06) | DRG 856 ==
LOC: ANHICU 16:26 → ANHIMU 11-01 21:16 → ANH3MEDSUR 11-04 09:20
PROVIDERS: Family Medicine; Internal Medicine; Surgery; Urology; Admitting Provider Surgery; PCP Family Medicine; Visit Provider Surgery
PROC: 0DTM0ZZ Resection of Descending Colon, Open Approach (ICD-10-PCS; CPT 49000; principal; 2023-10-31 07:30)
DX: T81.43XA Infection following a procedure, organ and space surgical site, initial encounter (principal); K65.1 Peritoneal abscess; D62 Acute posthemorrhagic anemia; E87.1 Hypo-osmolality and hyponatremia; K91.89 Other postprocedural complications and disorders of digestive system; E44.0 Moderate protein-calorie malnutrition; K66.0 Peritoneal adhesions (postprocedural) (postinfection); T81.44XA Sepsis following a procedure, initial encounter; K20.0 Eosinophilic esophagitis; E87.5 Hyperkalemia; K21.9 Gastro-esophageal reflux disease without esophagitis; I10 Essential (primary) hypertension; Z68.29 Body mass index [BMI] 29.0-29.9, adult
CPT/HCPCS: 36415; 36430; 74177; 74420; 80048; 80053; 81001; 82607; 82746; 82948; 83605; 83735; 84100; 84466; 84478; 85014; 85018; 85025; 85027; 85610; 85730; 86850; 86900; 86901; 86923; 87040; 87086; 87641; 88304; 88307; 93005; A9270; C1751; C1758; C1769; J0690; J0692; J1170; J1200; J1650; J1741; J1836; J1885; J1939; J1956; J2020; J2175; J2250; J2270; J2470; J2704; J3010; J7030; J7050; J7120; P9016; P9045; Q9967

== ENCOUNTER 2023-11-10 10:16 | Outpatient (CLI) | payer OTHER, SELFPAY ==
[2023-11-10 10:48] LABS: Basophils Absolute Auto 0.1 K/mm3 (0.0-0.1); Basophils Percent Auto 0.7 % (0.2-1.2); Eosinophils Absolute Auto 0.2 K/mm3 (0-0.3); Eosinophils Percent Auto 1.6 % (0-4.4); Hematocrit 33.4 % (42.0-52.0); Hemoglobin 10.5 g/dL (14.0-18.0); Immature Granulocyte Absolute 0.49 K/mm3 (0.00-0.031); Immature Granulocyte Percent A 4.6 % (0-0.5); Lymphocytes Absolute Auto 1.51 K/mm3 (0.9-3.2); Lymphocytes Percent Auto 14.1 % (18.3-44.2); Mean Corpuscular HGB Conc 31.4 g/dl (32-36); Mean Corpuscular Hemoglobin 27.1 pg (26-34); Mean Corpuscular Volume 86.1 fl (80-100); Mean Platelet Volume 9.7 fl (7.4-10.4); Monocytes Absolute Auto 0.8 K/mm3 (0.1-0.6); Neutrophils Absolute Auto 7.7 K/mm3 (1.3-6.7); Platelet Count Result 542 k/mm3 (150-375); Red Blood Count 3.88 M/mm3 (4.6-6.20); Red Cell Distribution Width 17.7 % (11.5-14.5); White Blood Count 10.7 K/mm3 (4.5-10.0)
[2023-11-10 11:02] LABS: Anion Gap 5 mmol/L (4-12); Blood Urea Nitrogen 15 mg/dL (9-20); Calcium 9.1 mg/dL (8.4-10.2); Carbon Dioxide 28 mmol/L (22-30); Chloride 99 mmol/L (98-107); Estimated Glomerular Filt Rate > 60; Glucose 108 mg/dL (65-110); Potassium 4.4 mmol/L (3.4-5.0); Sodium 132 mmol/L (137-145)
== END 2023-11-10 10:17 | disposition home or self-care (01) ==
LOC: ANHLAB 10:17
PROVIDERS: PCP Family Medicine; Visit Provider Surgery
DX: E87.1 Hypo-osmolality and hyponatremia (principal); D72.829 Elevated white blood cell count, unspecified
CPT/HCPCS: 36415; 80048; 85025

== ENCOUNTER 2023-11-17 09:51 | Outpatient (CLI) | payer OTHER, SELFPAY ==
[2023-11-17 10:28] LABS: Basophils Absolute Auto 0.1 K/mm3 (0.0-0.1); Basophils Percent Auto 1.4 % (0.2-1.2); Eosinophils Absolute Auto 0.2 K/mm3 (0-0.3); Eosinophils Percent Auto 2.7 % (0-4.4); Hematocrit 35.5 % (42.0-52.0); Hemoglobin 10.7 g/dL (14.0-18.0); Immature Granulocyte Absolute 0.03 K/mm3 (0.00-0.031); Immature Granulocyte Percent A 0.5 % (0-0.5); Lymphocytes Absolute Auto 1.32 K/mm3 (0.9-3.2); Lymphocytes Percent Auto 20.9 % (18.3-44.2); Mean Corpuscular HGB Conc 30.1 g/dl (32-36); Mean Corpuscular Hemoglobin 25.8 pg (26-34); Mean Corpuscular Volume 85.7 fl (80-100); Mean Platelet Volume 9.6 fl (7.4-10.4); Monocytes Absolute Auto 0.6 K/mm3 (0.1-0.6); Monocytes Percent Auto 9.7 % (2.6-8.5); Neutrophils Absolute Auto 4.1 K/mm3 (1.3-6.7); Neutrophils Percent Auto 64.8 % (45.5-73.1); Platelet Count Result 573 k/mm3 (150-375); Red Blood Count 4.14 M/mm3 (4.6-6.20); Red Cell Distribution Width 16.8 % (11.5-14.5); White Blood Count 6.3 K/mm3 (4.5-10.0)
[2023-11-17 10:38] LABS: Anion Gap 9 mmol/L (4-12); Blood Urea Nitrogen 15 mg/dL (9-20); Calcium 9.4 mg/dL (8.4-10.2); Carbon Dioxide 27 mmol/L (22-30); Chloride 103 mmol/L (98-107); Estimated Glomerular Filt Rate > 60; Glucose 95 mg/dL (65-110); Potassium 4.6 mmol/L (3.4-5.0); Sodium 139 mmol/L (137-145)
== END 2023-11-17 09:52 | disposition home or self-care (01) ==
LOC: ANHLAB 09:53
PROVIDERS: PCP Family Medicine; Visit Provider Surgery
DX: E87.1 Hypo-osmolality and hyponatremia (principal); D62 Acute posthemorrhagic anemia
CPT/HCPCS: 36415; 80048; 85025